=== PATIENT | male | born 1945 | race Caucasian/White ===

== ENCOUNTER 2020-10-29 22:09 | Observation (INO) | payer MEDICARE, SELFPAY ==
[2020-10-29] VITALS (10 sets, daily range): BP systolic 157–176; BP diastolic 71–91; PULSE 84; RESP 18; TEMP 36.6; O2SAT 92–97
--- NOTE | ~2020-10-29 | XR_ITS ---
EXAMINATION: XR lumbar spine 2-3V DATE: 10/29/2020 23:10 INDICATION: Low back pain TECHNIQUE: Anteroposterior and lateral views of the lumbar spine, and cone-down lateral view of the l umbosacral junction were obtained. COMPARISON: None. FINDINGS: There is mild levocurvature of the lumbar spine. No fracture is identified. There is modera te loss of intervertebral disc space height from L2-3 through L4-5. The vertebral body heights and al ignment are maintained. Degenerative osteophytes project from the anterior endplates of multiple vert ebral bodies. There is moderate facet osteoarthritis of the lower lumbar spine. Phleboliths are noted in the pelvis. IMPRESSION: 1. Moderate lumbar spondylosis without acute findings. Reviewed, dictated and finalized at location A.
--- NOTE | ~2020-10-29 | XR_ITS ---
EXAMINATION: XR hip RT 2V w AP pelvis INDICATION: Right hip pain TECHNIQUE: AP view of the pelvis and two views of the right hip are obtained. COMPARISON: None available FINDINGS: Bone alignment is normal. There is no fracture. Phleboliths are noted in the pelvis. There is mild osteoarthritis of the hips. IMPRESSION: 1. Osteoarthritis. Reviewed, dictated and finalized at location A. IMPRESSION: 1. Osteoarthritis.
--- NOTE | 2020-10-29 23:21 | PC.NURSE ---
Report to IZABELLA Hanley, to continue care.
--- NOTE | 2020-10-29 23:32 | ED.BACK ---
HPI - Back Pain/Injury General Chief Complaint: Back Pain/Injury Stated Complaint: BACK PAIN Time Seen by Provider: 10/29/20 22:19 Source: patient Mode of arrival: ambulatory Limitations: no limitations History of Present Illness HPI Narrative: Patient is a 75-year-old male who presents complaining of lower back pain that radiates into the right buttocks and hip. He reports pain x2 months, increasing over the past week. Patient is mostly nonambulatory and in wheelchair. Patient does walk a few steps and transfer from wheelchair to bed. He denies known injury. He denies numbness and tingling in extremity or other complaints. Patient lives in half-way/rehab currently. MD elicited complaint: back pain Related Data Allergies Allergy/AdvReac Type Severity Reaction Status Date / Time No Known Allergies Allergy Verified 10/30/20 00:22 Review of Systems Review of Systems: Narrative: CONSTITUTIONAL: Denies fever, chills, or sweats. EYES: Denies visual changes, redness, or discharge. ENT: Denies rhinorrhea, congestion, sore throat, or otalgia. CARDIOVASCULAR: Denies chest pain, palpitations, or edema. RESPIRATORY: Denies cough or dyspnea. GASTROINTESTINAL: Denies abdominal pain, nausea, vomiting, or diarrhea. GENITOURINARY: Denies dysuria or hematuria. SKIN: Denies rash or itching. MUSCULOSKELETAL: Reports lower back pain that radiates to buttocks and right hip NEUROLOGIC: Denies headache, numbness, dizziness, or weakness. PSYCHIATRIC: Denies anxiety or depression. [facility] Past Medical History Medical History Cellulitis of lower extremity Chronic ulcer of right foot CKD (chronic kidney disease) Constipation COVID-19 Diabetes Generalized anxiety disorder HTN (hypertension) Idiopathic peripheral autonomic neuropathy assisted (current) use of anticoagulants Lymphedema Morbid obesity Osteomyelitis Paroxysmal A-fib Peripheral vascular disease Rhabdomyolysis UTI (urinary tract infection) Surgical History Surgical History Surgical history unknown Family History Family History (Updated 10/30/20 @ 00:06 by GRECIA Courtney) Other Heart disease Social History Social History Smoking status: Never smoker Alcohol intake: never Substance use: never Living arrangements: half-way Gender identity (if verbalized by the patient): Male Comments At the time of signature, I have reviewed and agree with nursing past medical, surgical, social, and family history unless otherwise noted. Please see nursing chart for further information. There is no relevant family history pertinent to the presenting complaint. Exam Narrative: Exam Narrative: GENERAL: Well-appearing, well-nourished, and in no acute distress. HEAD: Normocephalic, atraumatic. EYES: EOMI. No redness or drainage. Conjunctiva are normal. ENT: Mucous membranes pink and moist. CHEST: No respiratory distress. Clear to auscultation. HEART: Regular rate and rhythm. No murmur appreciated. GI: Soft, nontender without rebound, or guarding. No distention. Bowel sounds normal in all quadrants. MUSCULOSKELETAL: Tenderness with patient to the lumbar spine EXTREMITIES: Limited range of motion, moderate edema. SKIN: Dressed wounds to bilateral lower extremities (wound care involved at [facility]) NEURO: No focal deficits. Alert and oriented x3. PSYCH: Normal affect. No signs of depression or anxiety. Course Vital Signs Vital signs: Vital Signs Temperature 36.6 C 10/29/20 22:11 Pulse Rate 84 10/29/20 22:11 Respiratory Rate 18 10/29/20 22:11 Blood Pressure 176/91 H 10/29/20 22:11 Pulse Oximetry 97 10/29/20 22:11 Temperature 36.6 C 10/29/20 22:11 Pulse Rate 84 10/29/20 22:11 Respiratory Rate 18 10/29/20 22:11 Blood Pressure 176/91 H 10/29/20 22:11 Pulse Oxime
[2020-10-30] VITALS (20 sets, daily range): BP systolic 136–158; BP diastolic 65–92; PULSE 66–100; RESP 16–22; TEMP 36.2–37; O2SAT 88–100; BMI 49.3
--- NOTE | 2020-10-30 00:01 | PC.NURSE ---
assumed care for pt. report from Nigel PAREKH
--- NOTE | 2020-10-30 00:28 | PC.NURSE ---
Provided pt. with urinal.
[2020-10-30 03:00] LABS: Basophils Percent Auto 0.5 % (0.2-1.2); Eosinophils Absolute Auto 0.4 K/mm3 (0-0.3); Eosinophils Percent Auto 4.3 % (0-4.4); Hematocrit 34.7 % (42.0-52.0); Hemoglobin 10.6 g/dL (14.0-18.0); Immature Granulocyte Absolute 0.04 K/mm3 (0.00-0.031); Immature Granulocyte Percent A 0.5 % (0-0.5); Lymphocytes Absolute Auto 1.48 K/mm3 (0.9-3.2); Lymphocytes Percent Auto 17.8 % (18.3-44.2); Mean Corpuscular HGB Conc 30.5 g/dl (32-36); Mean Corpuscular Volume 94.8 fl (80-100); Mean Platelet Volume 10.7 fl (7.4-10.4); Monocytes Percent Auto 11.4 % (2.6-8.5); Neutrophils Absolute Auto 5.4 K/mm3 (1.3-6.7); Neutrophils Percent Auto 65.5 % (45.5-73.1); Platelet Count Result 197 k/mm3 (150-375); Red Blood Count 3.66 M/mm3 (4.6-6.20); Red Cell Distribution Width 14.6 % (11.5-14.5); White Blood Count 8.3 K/mm3 (4.5-10.0)
[2020-10-30 03:20] LABS: Alanine Aminotransferase 8 U/L (4-50); Albumin Level 3.3 g/dL (3.5-5.1); Alkaline Phosphatase 70 U/L (38-126); Anion Gap 5 mmol/L (8-16); Aspartate Amino Transferase 17 U/L (17-59); Bilirubin,Total 0.6 mg/dL (0.2-1.3); Blood Urea Nitrogen 30 mg/dL (9-20); Calcium 8.3 mg/dL (8.4-10.2); Carbon Dioxide 25 mmol/L (22-30); Chloride 113 mmol/L (98-107); Estimated Glomerular Filt Rate 33; Glucose 158 mg/dL (75-110); Potassium 4.3 mmol/L (3.4-5.0); Sodium 143 mmol/L (137-145)
--- NOTE | 2020-10-30 03:32 | ADMGEN ---
This patient, Carlos Mustafa, was admitted to Medical Room 252-01. Patient/family oriented to hospital policies and general routines including ID bracelet, bed and alarms, visiting hours, pain management, procedures, bathroom and other care routines, personal items, smoking policy, room service/diet, and visiting hours. Information on how to activate the Rapid Response Team has been discussed. Patient/Family are encouraged to report perceived risks to care and to ask questions if they do not understand what they are told or what they should do.
[2020-10-30 09:55] LABS: Glucose Point of Care 97 (65-105)
[2020-10-30] MEDS: HYDROcodone/acetaminophen (*CRX) 5-325 MG TABLET 1 TAB PO ×2 (10:15→17:41)
[2020-10-30] MEDS: BETAMETHASONE/CLOTRIMAZOLE CR 15 GM TUBE 1 APPLIC TOPICAL (10:19)
[2020-10-30] MEDS: LACTIC ACID 12% LOTION 225 BTL 1 APPLIC TOPICAL (10:19)
[2020-10-30] MEDS: SILVERGEL (ELTA) 45 ML 1 APPLIC TOPICAL (10:19)
[2020-10-30 12:59] LABS: Glucose Point of Care 140 (65-105)
--- NOTE | 2020-10-30 14:50 | PM.IMHP ---
H&P: HPI History of Present Illness Date/Time: 10/30/20 14:50 Patient is a 75-year-old male who presents complaining of lower back pain that radiates into the right buttocks and hip. He reports pain x2 months, increasing over the past week. Patient is mostly nonambulatory and in wheelchair. Patient does walk a few steps and transfer from wheelchair to bed. He denies known injury. He denies numbness and tingling in extremity or other complaints. Patient lives in assisted/rehab currently. Chief Complaint: back pain Review of Systems Constitutional: Constitutional: Denies fatigue and Denies weakness Eyes: Eyes: Denies blurry vision and Denies photophobia ENT: Denies nasal congestion and Denies nasal discharge Cardiovascular: Cardiovascular: Denies diaphoresis and Denies lightheadedness Respiratory: Respiratory: Denies cough, Denies hemoptysis, Denies dyspnea and Denies dyspnea on exertion Gastrointestinal: Gastrointestinal: Denies abdominal pain, Denies constipation, Denies nausea and Denies vomiting Genitourinary: Genitourinary: Denies hematuria, Denies dysuria, Denies flank pain and Denies urinary frequency Musculoskeletal: Musculoskeletal: Reports back pain, Denies myalgias, Denies joint swelling and Denies neck pain Integumentary/Breasts: Skin/Breast: Denies pruritus and Denies rash Neurologic: Denies Abnormal speech present and Denies confusion Psychiatric: Psychiatric: Denies anxiety and Denies confusion [facility] Past Medical History Medical History (Updated 10/30/20 @ 15:01 by Oziel Levine MD) Cellulitis of lower extremity Chronic ulcer of right foot CKD (chronic kidney disease) Constipation COVID-19 Diabetes Generalized anxiety disorder HTN (hypertension) 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 Lymphedema Morbid obesity Osteomyelitis Paroxysmal A-fib Peripheral vascular disease Rhabdomyolysis UTI (urinary tract infection) Surgical History Surgical History Surgical history unknown Family History Family History Other Heart disease Social History Social History Smoking status: Never smoker Alcohol intake: never Substance use: never Living arrangements: assisted Gender identity (if verbalized by the patient): Male Spiritual care concerns: No Meds Home Medications and Allergies Home Medications Medication Instructions Recorded Confirmed Type Adult Aspirin EC Low Strength 81 mg PO DAILY 10/30/20 10/30/20 History alprazolam 0.25 mg PO TID 10/30/20 10/30/20 History diltiazem HCl 90 mg PO TID 10/30/20 10/30/20 History docusate sodium [Colace] 100 mg PO DAILY 10/30/20 10/30/20 History gabapentin 300 mg PO TID 10/30/20 10/30/20 History guaifenesin 600 mg PO BID 10/30/20 10/30/20 History hydrocodone-acetaminophen 1 tablet PO BID 10/30/20 10/30/20 History hydrocodone-acetaminophen [[place]] 1 tablet PO Q6H PRN 10/30/20 10/30/20 History insulin glargine U-300 conc 43 unit SUBCUT HS 10/30/20 10/30/20 History [Toujessicao SoloStar U-300 Insulin] insulin lispro [Humalog KwikPen See Protocol SUBCUT TID 10/30/20 10/30/20 History Insulin] metoprolol succinate 50 mg PO HS 10/30/20 10/30/20 History polyethylene glycol 3350 [Miralax] 17 g PO DAILY PRN 10/30/20 10/30/20 History torsemide 10 mg PO DAILY 10/30/20 10/30/20 History warfarin 6 mg PO DAILY 10/30/20 10/30/20 History Allergies Allergy/AdvReac Type Severity Reaction Status Date / Time No Known Allergies Allergy Verified 10/30/20 00:22 Vital Signs Vital Signs - 24 hr 10/29/20 22:11 10/29/20 22:13 10/29/20 22:15 Temperature 97.9 F Pulse Rate 84 Respiratory Rate 18 Blood Pressure 176/91 H Pulse Oximetry 97 96 97 10/29/20 22:17 10/29/20 22:30 10/29/20 22:32 Temperature Pulse Rate
--- NOTE | 2020-10-30 15:40 | PC.NURSE ---
[employer] called Dr. Nash regarding pt report does not take novolog 13units TID, he only takes toujeo 43 units at bedtime. N.O received start low dose SSI protocol, D/C Novolog, toujeo and start 30units lantus subq every HS. Pt was made aware and agrees with regimen.
[2020-10-30] MEDS: GABAPENTIN 300 MG CAPSULE PO (17:41)
[2020-10-30 17:49] LABS: INR 1.7; Prothrombin Time 20.1 Seconds (11.1-14.7)
--- NOTE | 2020-10-30 18:15 | PC.NURSE ---
[employer] called Dr. Levine pt states only takes 60mg of diltazem TID MD reyes to decrease to 60mg po TID.
[2020-10-30] MEDS: ALPRAZolam (*CRX) 0.25 MG TABLET PO (18:30)
[2020-10-30] MEDS: WARFARIN (*PBKC) 3 MG TABLET 6 MG PO (18:57)
[2020-10-30 19:05] LABS: Glucose Point of Care 147 (65-105)
[2020-10-30] MEDS: guaiFENesin 12 HR 600 MG TABCR PO (21:08)
[2020-10-30] MEDS: METOPROLOL SUCCINATE EXT REL 50 MG TABCR PO (21:08)
[2020-10-30] MEDS: INSULIN GLARGINE (*BKC) 100 UNITS/ML 30 UNITS SUB-Q (21:13)
[2020-10-30] MEDS: CYCLOBENZAPRINE HCL 10 MG TABLET PO (21:30)
[2020-10-30 22:15] LABS: Glucose Point of Care 153 (65-105)
[2020-10-31 04:54] VITALS: BP 146/85; PULSE 81; RESP 18; TEMP 37.1; O2SAT 93
[2020-10-31 06:00] LABS: INR 1.9
[2020-10-31 06:03] LABS: Basophils Percent Auto 0.5 % (0.2-1.2); Eosinophils Absolute Auto 0.3 K/mm3 (0-0.3); Eosinophils Percent Auto 5.2 % (0-4.4); Hematocrit 35.4 % (42.0-52.0); Hemoglobin 10.9 g/dL (14.0-18.0); Immature Granulocyte Absolute 0.02 K/mm3 (0.00-0.031); Immature Granulocyte Percent A 0.3 % (0-0.5); Lymphocytes Percent Auto 18.3 % (18.3-44.2); Mean Corpuscular HGB Conc 30.8 g/dl (32-36); Mean Corpuscular Hemoglobin 29.4 pg (26-34); Mean Corpuscular Volume 95.4 fl (80-100); Mean Platelet Volume 10.9 fl (7.4-10.4); Monocytes Absolute Auto 0.7 K/mm3 (0.1-0.6); Monocytes Percent Auto 11.1 % (2.6-8.5); Neutrophils Absolute Auto 4.2 K/mm3 (1.3-6.7); Neutrophils Percent Auto 64.6 % (45.5-73.1); Platelet Count Result 192 k/mm3 (150-375); Red Blood Count 3.71 M/mm3 (4.6-6.20); Red Cell Distribution Width 14.5 % (11.5-14.5); White Blood Count 6.6 K/mm3 (4.5-10.0)
[2020-10-31] MEDS: dilTIAZem HCL 60 MG TABLET PO ×2 (06:03→14:18)
[2020-10-31 06:11] LABS: Anion Gap 2 mmol/L (8-16); Blood Urea Nitrogen 25 mg/dL (9-20); Calcium 8.3 mg/dL (8.4-10.2); Carbon Dioxide 30 mmol/L (22-30); Chloride 112 mmol/L (98-107); Estimated CRCL calculation 59 ml/min; Estimated Glomerular Filt Rate 46; Glucose 79 mg/dL (75-110); Potassium 4.3 mmol/L (3.4-5.0); Sodium 144 mmol/L (137-145)
[2020-10-31 08:17] LABS: Glucose Point of Care 73 (65-105)
[2020-10-31] MEDS: LIDOCAINE 5% PATCH 1 PATCH TRANSDERM (08:22)
[2020-10-31] MEDS: ASPIRIN 81 MG ENTERIC TABLET PO (08:22)
[2020-10-31] MEDS: guaiFENesin 12 HR 600 MG TABCR PO (08:22)
[2020-10-31] MEDS: ALPRAZolam (*CRX) 0.25 MG TABLET PO ×3 (08:22→16:25)
[2020-10-31] MEDS: DOCUSATE SODIUM 100 MG CAPSULE PO (08:22)
[2020-10-31] MEDS: CYCLOBENZAPRINE HCL 10 MG TABLET PO (08:22)
[2020-10-31] MEDS: TORSEMIDE 10 MG TABLET PO (08:22)
[2020-10-31] MEDS: GABAPENTIN 300 MG CAPSULE PO ×3 (08:22→16:25)
[2020-10-31] MEDS: SILVERGEL (ELTA) 45 ML 1 APPLIC TOPICAL (08:25)
[2020-10-31] MEDS: LACTIC ACID 12% LOTION 225 BTL 1 APPLIC TOPICAL (08:25)
[2020-10-31] MEDS: BETAMETHASONE/CLOTRIMAZOLE CR 15 GM TUBE 1 APPLIC TOPICAL (09:58)
[2020-10-31 12:07] LABS: Glucose Point of Care 110 (65-105)
--- NOTE | 2020-10-31 13:57 | PM.IMPN ---
Progress Note: A&P Assessment and Plan (1) Sciatica: Qualifiers: Laterality: right Qualified Code(s): M54.31 - Sciatica, right side Code(s): M54.30 - Sciatica, unspecified side Status: Acute (2) Lumbar radiculopathy: Code(s): M54.16 - Radiculopathy, lumbar region Status: Acute (3) Chronic ulcer of right foot: Code(s): L97.519 - Non-pressure chronic ulcer of other part of right foot with unspecified severity Status: Inactive (4) CKD (chronic kidney disease): Code(s): N18.9 - Chronic kidney disease, unspecified Status: Inactive (5) Diabetes: Code(s): E11.9 - Type 2 diabetes mellitus without complications Status: Inactive (6) Idiopathic peripheral autonomic neuropathy: Code(s): G90.09 - Other idiopathic peripheral autonomic neuropathy Status: Inactive (7) Generalized anxiety disorder: Code(s): F41.1 - Generalized anxiety disorder Status: Inactive (8) [facility]CI (current) use of anticoagulants: Code(s): Z79.01 - 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 xray negative. will get mri lumbosacral spine to further evaluate. not able to ambulate due to increased pain. add flexeril and lidocaine patch. on chronic norco at home will continue. MRI coulld not be done beacuse of his weight. # Chronic ulcer left foot: wound care # bialteral lower extremtiy stasis dermatitis: wound care. # CKD (chronic kidney disease): unknown baseline cr. currently 2. continue to monitor. # Diabetes type 2: home medications. continue # Generalized anxiety disorder # HTN (hypertension): stable home medications. # Idiopathic peripheral autonomic neuropathy # [facility]CI (current) use of anticoagulants # Lymphedema # Morbid obesity # Paroxysmal A-fib # Peripheral vascular disease # DVT proph: on warfarin. INR 1.9. contnue home warfarin. # Disposition: pain control. PT/OT, likely need placement Subjective Date/time seen: 10/31/20 13:57 no overnight events, he worked with the therapy yeserday. pain is better with flexeril. no nausea, vomiting. Review of Systems Constitutional: Constitutional: Denies fatigue and Denies weakness Eyes: Eyes: Denies blurry vision and Denies photophobia ENT: Denies nasal congestion, Denies nasal discharge and Denies neck pain Cardiovascular: Cardiovascular: Denies diaphoresis, Denies lightheadedness, Denies dyspnea and Denies dyspnea on exertion Respiratory: Respiratory: Denies cough, Denies hemoptysis, Denies dyspnea and Denies dyspnea on exertion Gastrointestinal: Gastrointestinal: Denies abdominal pain, Denies constipation, Denies nausea and Denies vomiting Genitourinary: Genitourinary: Denies hematuria, Denies dysuria, Denies flank pain and Denies urinary frequency Musculoskeletal: Musculoskeletal: Reports back pain, Denies myalgias, Denies joint swelling and Denies neck pain Integumentary/Breasts: Skin/Breast: Denies pruritus and Denies rash Neurologic: Denies Abnormal speech present, Denies confusion and Denies weakness Psychiatric: Psychiatric: Denies anxiety and Denies confusion Endocrine: Endocrine: Denies fatigue Exam Narrative: Exam Narrative: GENERAL: Well-appearing, well-nourished, and in no acute distress. laying in bed HEAD: Normocephalic
[2020-10-31 14:00] VITALS: BP 163/72; PULSE 84; RESP 16; TEMP 36.7; O2SAT 97
[2020-10-31] MEDS: TOLNAFTATE 1% POWDER 45 GM BTL 1 APPLIC TOPICAL (14:34)
--- NOTE | 2020-10-31 14:35 | PM.DS ---
DS: Admitting Diagnosis Admitting Diagnosis Admitting Diagnosis: back pain DS: Discharge Diagnosis Discharge Diagnosis (1) Sciatica: Qualifiers: Laterality: right Qualified Code(s): M54.31 - Sciatica, right side Code(s): M54.30 - Sciatica, unspecified side Status: Acute (2) Lumbar radiculopathy: Code(s): M54.16 - Radiculopathy, lumbar region Status: Acute DS: Summary Hospital Course Hospital Course: # acute on chronic back pain: likely related to lumbar radiculopathy, sciatica. xray negative. will get mri lumbosacral spine to further evaluate. not able to ambulate due to increased pain. add flexeril and lidocaine patch. on chronic norco at home will continue. MRI coulld not be done beacuse of his weight. he imrpoved with conservative treatment. pt/ot evaluated and suggested outpatient therapy. discussed option of home health with him but he refused, also dsicussed snf placement and he refuses. he wants to do outpatient therapy. I have suggested he see his pcp and work on mri if further needed. he might also benefit from pain medicine referral for epidural injectioin like one he had in the past. he is agreeable. # Chronic ulcer left foot: wound care # bialteral lower extremtiy stasis dermatitis: wound care. # CKD (chronic kidney disease): unknown baseline cr. currently 2. continue to monitor. imrpoved down to 1.5 at discahge. # Diabetes type 2: home medications. continue # Generalized anxiety disorder # HTN (hypertension): stable home medications. 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 INR 1.9. contnue home warfarin. # Disposition: pain control. PT/OT, likely need placement Time Spent with Patient Time attestation: Total time spent providing and/or coordinating discharge services:40 mins Exam Narrative: Exam Narrative: GENERAL: Well-appearing, well-nourished, and in no acute distress. laying in bed HEAD: Normocephalic, atraumatic. EYES: EOMI. No redness or drainage. Conjunctiva are normal. ENT: Mucous membranes pink and moist. CHEST: No respiratory distress. Clear to auscultation. HEART: Regular rate and rhythm. No murmur appreciated. GI: Soft, nontender without rebound, or guarding. No distention. Bowel sounds normal in all quadrants. MUSCULOSKELETAL: Tenderness at right lumbar area, striaght leg raise limited with pain EXTREMITIES: Limited range of motion, moderate edema. SKIN: bialtearl lower exterimity with scaling and chronic stasis dermatitis, small ulcer on left lateral heel area without any purulent drainage NEURO: No focal deficits. Alert and oriented x3. PSYCH: Normal affect. No signs of depression or anxiety. DS: Data Data Completed and Pending Labs on day of discharge: Labs from last 24 hours 10/31/20 10/31/20 10/31/20 11:58 08:14 05:14 WBC RBC Hgb Hct MCV MCH MCHC RDW Plt Count MPV Immature Gran % (Auto) Neut % (Auto) Lymph % (Auto) [place] % (Auto) Eos % (Auto) Baso % (Auto) Lymph # (Auto) [place] # (Auto) Eos # (Auto) Baso # (Auto) Abs Immat Gran (auto) Absolute Neuts (auto) Absolute Nucleated RBC Nucleated RBC % PT INR Sodium 144 Potassium 4.3 Chloride 112 H Carbon Dioxide 30 Anion Gap 2 L BUN 25 H Creatinine 1.50 H Estim Creat Clear Calc 59 Estimated GFR 46 L Glucose 79 POC Capillary Glucose 110 73 Calcium 8.3 L 10/31/20 10/31/20 10/30/20 05:14 05:14 21:03 WBC 6.6 RBC 3.71 L Hgb 10.9 L Hct 35.4 L MCV 95.4 MCH 29.4 MCHC 30.8 L RDW 14.5 Plt Count 192 MPV 10.9 H Immature Gran % (Auto) 0.3 Neut % (Auto) 64.6 Lymph % (Auto) 18.3 [place] % (Auto) 11.1 H Eos % (Auto) 5.2 H Baso % (Auto) 0.5 Lymph # (Auto) 1.20 [place] # (Auto)
[2020-10-31] MEDS: WARFARIN (*PBKC) 3 MG TABLET 6 MG PO (16:25)
[2020-10-31] MEDS: HYDROcodone/acetaminophen (*CRX) 5-325 MG TABLET 1 TAB PO (16:25)
[2020-10-31 17:07] LABS: SARS-CoV-2 RNA PCR Negative
[2020-10-31 17:38] LABS: Glucose Point of Care 125 (65-105)
== END 2020-10-31 18:52 ==
LOC: ANHED 10-30 00:54 → ANH2MED 10-30 01:35
PROVIDERS: Admitting Provider Family Medicine; Emergency Provider Nurse Practitioner; PCP Internal Medicine; Visit Provider Internal Medicine
DX: M54.30 Sciatica, unspecified side (principal); M54.16 Radiculopathy, lumbar region; I12.9 Hypertensive chronic kidney disease with stage 1 through stage 4 chronic kidney disease, or unspecified chronic kidney disease; E11.22 Type 2 diabetes mellitus with diabetic chronic kidney disease; N18.9 Chronic kidney disease, unspecified; F41.1 Generalized anxiety disorder; E11.42 Type 2 diabetes mellitus with diabetic polyneuropathy; I48.0 Paroxysmal atrial fibrillation; E11.51 Type 2 diabetes mellitus with diabetic peripheral angiopathy without gangrene; E11.621 Type 2 diabetes mellitus with foot ulcer; L97.519 Non-pressure chronic ulcer of other part of right foot with unspecified severity; I87.2 Venous insufficiency (chronic) (peripheral); I89.0 Lymphedema, not elsewhere classified; E66.01 Morbid (severe) obesity due to excess calories; Z68.42 Body mass index [BMI] 45.0-49.9, adult; Z86.16 Personal history of COVID-19; Z99.3 Dependence on wheelchair; Z79.82 Long term (current) use of aspirin; Z79.891 Long term (current) use of opiate analgesic; Z79.01 Long term (current) use of anticoagulants; Z79.4 Long term (current) use of insulin; Z20.822 Contact with and (suspected) exposure to COVID-19
CPT/HCPCS: 36415; 72100; 73502; 80048; 80053; 85025; 85610; 97110; 97116; 97161; 97165; 97530; 99285; A9270; C9803; G0378; J1815; U0003; U0005

== ENCOUNTER 2021-12-19 13:00 | Outpatient (CLI) | payer MEDICARE, SELFPAY ==
--- NOTE | ~2021-12-19 | XR_ITS ---
XR lumbar spine 2-3V DATE: 12/19/2021 13:32 INDICATION: Low back pain TECHNIQUE: AP, lateral, coned lateral lumbosacral views COMPARISON: lumbar spine FINDINGS: There is osteopenia. There is rotatory moderately levoscoliosis. There is severe degenerative disc disease at L3-4 and moderate degenerative disc disease and prominen t spurring at the remaining interspaces. No fracture or bone destruction or spondylolisthesis is evident. The lumbar pedicles appear intact. The sacroiliac joints appear intact. IMPRESSION: Moderate rotatory levoscoliosis Prominent multilevel degenerative disc disease, most severe at L3-4 Reviewed, dictated and finalized at location A.
== END 2021-12-19 13:01 | disposition home or self-care (01) ==
PROVIDERS: PCP Internal Medicine; Visit Provider Internal Medicine
DX: M53.3 Sacrococcygeal disorders, not elsewhere classified (principal); M41.9 Scoliosis, unspecified; M47.816 Spondylosis without myelopathy or radiculopathy, lumbar region
CPT/HCPCS: 72100

== ENCOUNTER 2021-12-24 11:22 | Outpatient (CLI) | payer MEDICARE, SELFPAY ==
--- NOTE | ~2021-12-24 | XR_ITS ---
EXAMINATION: XR sacrum coccyx min 2V DATE: 12/24/2021 12:18 INDICATION: Coccygeal pain. TECHNIQUE: 3 views of the sacrum and coccyx were obtained. COMPARISON: Lumbar spine radiographs 10/29/2020, 11/19/2021 FINDINGS: There is lumbar levocurvature and severe spondylosis. No fracture. There is mild osteoarthr itis of the sacroiliac joints. IMPRESSION: 1. No fracture. Reviewed, dictated and finalized at location A. IMPRESSION: 1. No fracture.
== END 2021-12-24 11:23 | disposition home or self-care (01) ==
PROVIDERS: PCP Internal Medicine; Visit Provider Internal Medicine
DX: M53.3 Sacrococcygeal disorders, not elsewhere classified (principal)
CPT/HCPCS: 72220

== ENCOUNTER 2022-01-31 13:11 | Emergency (ER) | payer MEDICARE, SELFPAY ==
--- NOTE | ~2022-01-31 | XR_ITS ---
XR foot LT min 3V DATE: 01/31/2022 13:59 INDICATION: Heel wound TECHNIQUE: 3 portable views COMPARISON: None FINDINGS: There is prominent soft tissue swelling, particularly at the dorsum of the foot. Osteopenia. Prominent plantar and posterior calcaneal enthesopathy. Hammertoe deformities of the second through fifth digits. Osteoarthritis at the first metatarsophalangeal joint. IMPRESSION: Soft tissue swelling Osteopenia Plantar and posterior calcaneal enthesopathy Reviewed, dictated and finalized at location A.
--- NOTE | ~2022-01-31 | XR_ITS ---
XR sacrum coccyx min 2V DATE: 01/31/2022 17:53 INDICATION: Sacral pain TECHNIQUE: AP, angled AP and lateral views COMPARISON: 12/24/2021 sacral and coccyx FINDINGS: Osteopenia. Mild osteophytic changes of the sacroiliac joints. No erosive change or ankylosis. No sacral or coccy geal fracture or bone destruction is evident. Degenerative spurring at L4-5 and L5-S1. IMPRESSION: Osteopenia Degenerative change at the lower lumbar spine and sacroiliac joints Reviewed, dictated and finalized at location A.
[2022-01-31 13:16] VITALS: BP 181/94; PULSE 98; RESP 16; TEMP 36.8; O2SAT 97; O2SAT 98
--- NOTE | 2022-01-31 13:50 | ED.WOUNDLAC ---
HPI - Wound/Laceration General Chief Complaint: Wound/Laceration Stated Complaint: open wound, ?infection Time Seen by Provider: 01/31/22 13:19 Source: patient Mode of arrival: EMS Limitations: no limitations History of Present Illness HPI narrative: This is a 76 year old male that presents to the ER for lower extremity wounds. Ongoing for some time now due to chronic venous stasis changes. Reports worsening of a wound on the left heel. He is currently following with wound care at [facility]. He was evaluated by them two days ago. Denies fevers. Related Data Home Medications Medication Instructions Recorded Confirmed Adult Aspirin EC Low Strength 81 mg PO DAILY 10/30/20 06/14/21 alprazolam 0.25 mg tablet 0.25 mg PO TID PRN Anxiety 10/30/20 06/15/21 docusate sodium 100 mg capsule 100 mg PO DAILY 10/30/20 06/15/21 (Colace) gabapentin 300 mg capsule 300 mg PO TID 10/30/20 06/15/21 guaifenesin 600 mg tablet, 600 mg PO BID PRN Cough 10/30/20 06/14/21 extended release 12 hr insulin glargine U-300 conc 300 43 unit subcut HS 10/30/20 06/14/21 unit/mL (1.5 mL) subcutaneous pen (Toujeo SoloStar U-300 Insulin) insulin lispro 100 unit/mL See Protocol subcut TID 10/30/20 06/14/21 subcutaneous pen (Humalog KwikPen (U-100) Insulin) torsemide 10 mg tablet 10 mg PO DAILY 10/30/20 06/14/21 lidocaine 5 % topical patch 1 patch transdermal DAILY PRN Pain 06/14/21 06/14/21 (Lidoderm) metoprolol succinate 25 mg PO DAILY 06/14/21 06/14/21 Allergies Allergy/AdvReac Type Severity Reaction Status Date / Time No Known Allergies Allergy Verified 01/31/22 13:25 Review of Systems Review of Systems: CONSTITUTIONAL: Denies fever SKIN: Reports chronic wounds All systems reviewed & are unremarkable except as noted in HPI and below PMFSH Past Medical History Medical History (Updated 01/31/22 @ 18:59 by Michelle Baltazar PA-C) Cellulitis of lower extremity Chronic ulcer of right foot CKD (chronic kidney disease) Constipation COVID-19 Diabetes Diabetic neuropathy Generalized anxiety disorder HTN (hypertension) Hypertension Idiopathic peripheral autonomic neuropathy 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 HEAD: Normocephalic, atraumatic. EYES: EOMI. CHEST: Clear to auscultation. No respiratory distress. No wheezes rales or rhonchi HEART: Irregularly irregular. No murmur heard. Normal peripheral pulses. EXTREMITIES: Normal range of motion. 1+ pitting edema to the bilateral lower extremities with chronic venous stasis changes. Normal DP pulses. Normal sensation. Superficial ulcerating wound noted to the left heel. There is some surrounding erythema. No abnormal drainage noted SKIN: Warm, dry, no rash. NEURO: No focal deficits. Alert and oriented x3. PSYCH: Normal mood and affect Course Consultations Consultation #1: Spoke with Dr. Cuevas about patient and workup who agrees with continued oral antibiotics and follow up outpatient. Will change to Doxycycline to cover for MRSA. Date: 01/31/22 Vital Signs Vital signs: Vital Signs Temperature 98.3 F 01/31/22 13:16 Pulse Rate 98 01/31/22 13:16 Respiratory Rate 16 01/31/22 13:16 Blood Press
[2022-01-31 13:55] LABS: Basophils Absolute Auto 0.1 K/mm3 (0.0-0.1); Basophils Percent Auto 0.5 % (0.2-1.2); Eosinophils Absolute Auto 0.4 K/mm3 (0-0.3); Eosinophils Percent Auto 3.3 % (0-4.4); Hematocrit 38.8 % (42.0-52.0); Hemoglobin 12.3 g/dL (14.0-18.0); Immature Granulocyte Absolute 0.09 K/mm3 (0.00-0.031); Immature Granulocyte Percent A 0.8 % (0-0.5); Lymphocytes Absolute Auto 1.12 K/mm3 (0.9-3.2); Lymphocytes Percent Auto 10.1 % (18.3-44.2); Mean Corpuscular HGB Conc 31.7 g/dl (32-36); Mean Corpuscular Hemoglobin 28.5 pg (26-34); Mean Platelet Volume 10.3 fl (7.4-10.4); Monocytes Percent Auto 8.9 % (2.6-8.5); Neutrophils Absolute Auto 8.5 K/mm3 (1.3-6.7); Neutrophils Percent Auto 76.4 % (45.5-73.1); Platelet Count Result 274 k/mm3 (150-375); Red Blood Count 4.31 M/mm3 (4.6-6.20); Red Cell Distribution Width 14.6 % (11.5-14.5); White Blood Count 11.1 K/mm3 (4.5-10.0)
[2022-01-31 14:06] LABS: Alanine Aminotransferase 12 U/L (6-50); Albumin Level 3.5 g/dL (3.5-5.1); Alkaline Phosphatase 91 U/L (38-126); Anion Gap 8 mmol/L (8-16); Aspartate Amino Transferase 17 U/L (17-59); Bilirubin,Total 0.6 mg/dL (0.2-1.3); Blood Urea Nitrogen 49 mg/dL (9-20); Calcium 8.4 mg/dL (8.4-10.2); Carbon Dioxide 24 mmol/L (22-30); Chloride 107 mmol/L (98-107); Estimated CRCL calculation 41 ml/min; Estimated Glomerular Filt Rate 29; Glucose 236 mg/dL (65-110); Potassium 4.3 mmol/L (3.4-5.0); Sodium 139 mmol/L (137-145)
[2022-01-31 14:16] VITALS: PULSE 93; RESP 14; O2SAT 99
[2022-01-31 14:30] VITALS: PULSE 93; RESP 17; O2SAT 97
[2022-01-31 14:45] VITALS: O2SAT 93
[2022-01-31 15:06] VITALS: RESP 15; O2SAT 98
[2022-01-31 16:37] LABS: CRP 7.8 mg/dL (<1.0)
[2022-01-31 17:08] VITALS: BP 146/74; PULSE 75; RESP 14; O2SAT 99
[2022-01-31 17:22] LABS: Lactic Acid Reflex 1.9 mmol/L (0.7-2.0)
[2022-01-31 17:25] LABS: Hemoglobin A1C 8.6 % (<5.7)
[2022-01-31 17:50] LABS: Erythrocyte Sedimentation Rate 1 mm/hr (0-20)
[2022-01-31] MEDS: HYDROcodone/acetaminophen (*CRX) 5-325 MG TABLET 1 TAB PO (19:59)
[2022-01-31] MEDS: GABAPENTIN 300 MG CAPSULE PO (19:59)
== END 2022-01-31 19:58 ==
PROVIDERS: Physician Assistant; Emergency Provider Emergency Medicine; PCP Internal Medicine
DX: L97.421 Non-pressure chronic ulcer of left heel and midfoot limited to breakdown of skin (principal); E11.22 Type 2 diabetes mellitus with diabetic chronic kidney disease; I12.9 Hypertensive chronic kidney disease with stage 1 through stage 4 chronic kidney disease, or unspecified chronic kidney disease; N18.9 Chronic kidney disease, unspecified; E11.43 Type 2 diabetes mellitus with diabetic autonomic (poly)neuropathy; E11.51 Type 2 diabetes mellitus with diabetic peripheral angiopathy without gangrene; I73.9 Peripheral vascular disease, unspecified; M86.9 Osteomyelitis, unspecified; I48.0 Paroxysmal atrial fibrillation; I89.0 Lymphedema, not elsewhere classified; E66.01 Morbid (severe) obesity due to excess calories; Z68.43 Body mass index [BMI] 50.0-59.9, adult; Z87.440 Personal history of urinary (tract) infections; Z79.82 Long term (current) use of aspirin; Z79.4 Long term (current) use of insulin; Z87.891 Personal history of nicotine dependence; M85.872 Other specified disorders of bone density and structure, left ankle and foot; M85.88 Other specified disorders of bone density and structure, other site; M77.8 Other enthesopathies, not elsewhere classified
CPT/HCPCS: 36415; 72220; 73630; 80053; 83036; 83605; 85025; 85652; 86140; 87040; 99284; A9270

== ENCOUNTER 2022-03-08 12:07 | Inpatient (IN) | payer MEDICARE, SELFPAY ==
[2022-03-08] VITALS (8 sets, daily range): BP systolic 129–176; BP diastolic 73–90; PULSE 87–130; RESP 18–20; TEMP 36.1–36.8; O2SAT 95–98; BMI 54.1; BMI 50.5
--- NOTE | ~2022-03-08 | BM_ITS ---
EXAMINATION: CCL bone marrow asp w bx diag ORDER COMPLETED DATE: 03/14/2022 10:53 INDICATION: Bone marrow biopsy TECHNIQUE: A time-out was performed to verify the patient's name, date of , and procedure to b e performed. The procedure including the risks and benefits was discussed with the patient. Risks dis cussed included bleeding, infection, nerve injury and allergic reaction. The patient understood the r isks and agreed to proceed. The skin overlying the left posterior iliac spine was prepped and draped in usual sterile fashion. Anesthetic was administered with 1% lidocaine subcutaneously. Moderate con scious sedation was achieved with 100 mcg fentanyl IV. An 11 gauge needle was inserted into the ilium with fluoroscopic guidance. Bone marrow was aspirated. An 8 gauge needle was then inserted into the ilium with fluoroscopic guidance. A core bone marrow biopsy was obtained. The needle was removed and the entry site was cleaned and dressed. There were no immediate complications. A total of 80 fluoros copic images were recorded. Fluoroscopy exposure time was 0.1 minutes. FINDINGS: Real-time fluoroscopy demonstrates the biopsy needle tip overlying the left posterior iliac spine. IMPRESSION: 1. Successful fluoroscopic guided bone marrow aspiration. 2. Successful fluoroscopic guided bone marrow biopsy. Reviewed, dictated and finalized at location A.
--- NOTE | ~2022-03-08 | US_ITS ---
EXAMINATION: US arterial ankle brachial ind DATE: 03/10/2022 12:52 INDICATION: Bilateral lower limb swelling and claudication. TECHNIQUE: Segmental pressures and plethysmographic and Doppler waveforms of the brachial and lower e xtremity arteries were obtained. COMPARISON: None. FINDINGS: Right and left brachial artery pressures of 153 mm Hg and 155 mm Hg, respectively, are concordant (no rmal difference <= 30 mmHg). The right ankle-brachial index (FERNANDO) is 1.10 (normal >= 0.9-1.0). Arterial Doppler waveforms are biph asic with brisk systolic upstrokes at both right posterior tibial and dorsalis pedis arteries. The left FERNANDO is 1.27. Arterial Doppler waveforms are biphasic with brisk systolic upstrokes at the le ft dorsalis pedis arteries. There is insufficient amplitude of the provided waveform at the left post erior tibial artery for assessment. IMPRESSION: 1. No significant arterial occlusive disease with normal bilateral ABIs. Reviewed, dictated and finalized at location A.
--- NOTE | ~2022-03-08 | CT_ITS ---
EXAMINATION: CT foot LT wo con DATE: 03/12/2022 13:15 INDICATION: Left heel pressure ulcer. Assess for osteomyelitis. TECHNIQUE: High resolution computed tomography (CT) of the left ankle was performed without intraveno us contrast. Additional sagittal and coronal reconstructions were performed. Automated exposure contr ol and iterative reconstruction technique were employed. The dose-length product was 637.72 mGy-cm. COMPARISON: Radiographs dated 01/31/22 FINDINGS: Bone alignment is normal. No fracture. Prominent diffuse spotty osteopenia throughout the left foot, ankle and visualized lower leg. No fracture. Polyarticular osteoarthritis, moderate severity at the f irst metacarpophalangeal, mild to moderate at the first-third tarsal metatarsal joints and mild at th e left ankle and remaining joints in the left foot. No ankle joint effusion. Prominent skin thickenin g and subcutaneous edema centered about the left ankle both medially and laterally and extending dist ally along dorsum of the foot. No soft tissue gas, discrete abscess or cortical erosions suspicious f or osteomyelitis. Severe fatty atrophy of the musculature in the left foot. Large Achilles calcaneal and plantar calcaneal spurs. There is partial thickness tear of the distal Achilles tendon with heter otopic ossification at the proximal tear margin is located approximately 7 cm proximal to the calcane al insertion which likely represents the distal margin of the tear. IMPRESSION: 1. No cortical erosions to suggest osteomyelitis. 2. Prominent diffuse spotty osteopenia, likely osteoporosis. 3. Mild to moderate polyarticular osteoarthritis throughout the left foot and ankle. 4. Chronic partial tear of the distal Achilles tendon. Reviewed, dictated and finalized at location A. IMPRESSION: 1. No cortical erosions to suggest osteomyelitis. 2. Prominent diffuse spotty osteopenia, likely osteoporosis. 3. Mild to moderate polyarticular osteoarthritis throughout the left foot and a nkle. 4. Chronic partial tear of the distal Achilles tendon.
--- NOTE | ~2022-03-08 | XR_ITS ---
EXAMINATION: XR femur RT min 2V DATE: 03/13/2022 15:04 INDICATION: Lytic lesions of the femur. TECHNIQUE: 2 views of right femur on 4 radiographs were obtained. COMPARISON: None. FINDINGS: Bone alignment is normal. No fracture. There is mild osteoarthritis of right hip and right knee. There is a small knee joint effusion. Masses overlying the soft tissues in the posterior knee m ay be on the skin or dystrophic soft tissue calcifications. IMPRESSION: 1. Polyarticular osteoarthritis. 2. Small right knee joint effusion. Reviewed, dictated and finalized at location A.
--- NOTE | ~2022-03-08 | XR_ITS ---
EXAMINATION: XR femur LT min 2V DATE: 03/13/2022 15:04 INDICATION: Lytic lesions of femur. TECHNIQUE: 2 views of left femur on 4 radiographs were obtained. COMPARISON: CT abdomen and pelvis 03/08/2022 FINDINGS: Bone alignment is normal. No fracture. There is diffuse osteopenia. There is mild left hip osteoarthritis and severe left knee osteoarthritis. IMPRESSION: 1. Osteopenia. 2. Particular osteoarthritis. Reviewed, dictated and finalized at location A.
--- NOTE | ~2022-03-08 | XR_ITS ---
EXAMINATION: XR chest 1V portable DATE: 03/10/2022 17:24 INDICATION: Congestive heart failure. TECHNIQUE: A single frontal view of the chest was obtained. COMPARISON: Chest single view 03/08/2022, CT abdomen and pelvis 01/06/2022 FINDINGS: The chest demonstrates clear lungs without pneumonia, pleural effusion, or pneumothorax. Th e heart size is normal. IMPRESSION: 1. No acute cardiopulmonary disease. Reviewed, dictated and finalized at location A.
--- NOTE | ~2022-03-08 | CT_ITS ---
EXAMINATION: CT abdomen pelvis wo con DATE: 03/08/2022 15:49 INDICATION: Burning with urination. TECHNIQUE: Computed tomography (CT) of the abdomen and pelvis was performed without intravenous contr ast. The dose-length product was 1682.17 mGy-cm. Automated exposure control and iterative reconstruct ion technique were employed. COMPARISON: No prior studies for comparison. FINDINGS: There is dependent atelectasis. Cardiomegaly. There is atherosclerosis of the aorta and cor onary arteries. No evidence for aneurysm. There are gallstones. The liver, spleen, pancreas, adrenal glands and right kidney are unremarkable. There is a punctate nonobstructing left renal stone. Bladder is unremarkable. No abnormal pelvic mass es or fluid collections. No evidence for ureteral stone or hydronephrosis. Severe lumbar spondylosis. There are lytic defects in the femurs proximally bilaterally with cortical destruction along the pos terior aspect of the femoral heads and femoral necks. Findings suspicious for metastatic disease or m yeloma. IMPRESSION: 1. Punctate nonobstructing left nephrolithiasis. 2: Lytic defects in the femurs proximally bilaterally with cortical destruction along the posterior a spect of the femoral heads and femoral necks. Findings suspicious for metastatic disease or myeloma. Correlate for history of malignancy. Reviewed, dictated and finalized at location A. IMPRESSION: 1. Punctate nonobstructing left nephrolithiasis. 2: Lytic defects in the femurs proximally bilaterally with cortical destruction along the posterior aspect of the femoral heads and femoral necks. Findings cortes spicious for metastatic disease or myeloma. Correlate for history of malignancy .
--- NOTE | ~2022-03-08 | XR_ITS ---
EXAMINATION: XR chest 1V portable INDICATION: Congestive heart failure TECHNIQUE: Portable AP chest at 1303 hours COMPARISON: None available FINDINGS: Cardiomegaly is noted. There is a mild diffuse interstitial pattern. Bilateral perihilar op acities are noted. A small left pleural effusion is suggested. There is no pneumothorax. IMPRESSION: 1. Cardiomegaly with mild pulmonary edema. 2. Possible small left pleural effusion. Reviewed, dictated and finalized at location A.
--- NOTE | ~2022-03-08 | NM_ITS ---
EXAMINATION: NM bone scan whole body DATE: 03/10/2022 15:11 INDICATION: Lytic lesions of bone involving the proximal femora. TECHNIQUE: 21.8 mCi Tc-99m HDP was administered intravenously. Delayed whole-body scintigrams were o btained. COMPARISON: CT abdomen and pelvis 03/08/2022 FINDINGS: There is joint-centered increased activity in the sternoclavicular joints, acromioclavicula r joints, knees, and feet without radiographic comparison, likely osteoarthritis. There is increased activity at the sacroiliac joints correlating with osteoarthritis by CT. IMPRESSION: 1. No specific evidence of malignancy. Note that bone scan has poor sensitivity for osseous malignanc y presenting as lytic lesions. Reviewed, dictated and finalized at location A. IMPRESSION: 1. No specific evidence of malignancy. Note that bone scan has poor sensitivity for osseous malignancy presenting as lytic lesions.
--- NOTE | ~2022-03-08 | XR_ITS ---
EXAMINATION: XR pelvis 1-2V DATE: 03/13/2022 15:04 INDICATION: Low back pain. Lytic lesions in the femur. TECHNIQUE: An anteroposterior view of the pelvis was obtained. COMPARISON: CT abdomen and pelvis 03/08/2022 FINDINGS: Sensitivity is decreased by obesity. There is lumbar levocurvature and moderate spondylosis . No fracture. There is moderate right hip osteoarthritis and mild left hip osteoarthritis. IMPRESSION: 1. Polyarticular osteoarthritis. Reviewed, dictated and finalized at location A.
--- NOTE | ~2022-03-08 | US_ITS ---
EXAMINATION:US venous doppler LE BI INDICATION:Leg edema TECHNIQUE: Multiple grayscale, color flow and Doppler images of the right and left lower extremity de ep venous systems were obtained and reviewed. COMPARISON:No prior studies for comparison. FINDINGS: The common femoral, superficial femoral and popliteal veins demonstrate normal respiratory variation, augmentation and compressibility. Color flow is also seen within the posterior tibial, pe roneal, greater saphenous and profunda veins. IMPRESSION: 1: No lower extremity deep venous thrombosis. Reviewed, dictated and finalized at location B.
--- NOTE | 2022-03-08 12:21 | ED.MALEGU ---
HPI - Male Genitourinary General Chief complaint: Urogenital-Male Stated complaint: genital pain and scrotal swelling Time Seen by Provider: 03/08/22 12:18 Source: patient, EMS and RN notes reviewed Mode of arrival: EMS History of Present Illness HPI Narrative: 76 years old white female came from assisted living by ambulance complaining of burning urination and the swollen testicles and lower extremities. This started few days ago. Patient denies any fever, chills, nausea, vomiting, abdominal pain, chest pain or shortness of breath. History of chronic venous insufficiency with lower extremity edema, lymphedema, coronary artery disease, atrial fibrillation, CKD, insulin-dependent diabetes and diabetic neuropathy. Currently patient on torsemide 20 mg once a day. Patient less showing 10 mg once daily. But patient is telling me that his dose increased 2 months ago to 20 mg once a day Related Data Home Medications Medication Instructions Recorded Confirmed Adult Aspirin EC Low Strength 81 mg PO DAILY 10/30/20 06/14/21 alprazolam 0.25 mg tablet 0.25 mg PO TID PRN Anxiety 10/30/20 06/15/21 docusate sodium 100 mg capsule 100 mg PO DAILY 10/30/20 06/15/21 (Colace) gabapentin 300 mg capsule 300 mg PO TID 10/30/20 06/15/21 guaifenesin 600 mg tablet, 600 mg PO BID PRN Cough 10/30/20 06/14/21 extended release 12 hr insulin glargine U-300 conc 300 43 unit subcut HS 10/30/20 06/14/21 unit/mL (1.5 mL) subcutaneous pen (Toujeo SoloStar U-300 Insulin) insulin lispro 100 unit/mL See Protocol subcut TID 10/30/20 06/14/21 subcutaneous pen (Humalog KwikPen (U-100) Insulin) torsemide 10 mg tablet 10 mg PO DAILY 10/30/20 06/14/21 lidocaine 5 % topical patch 1 patch transdermal DAILY PRN Pain 06/14/21 06/14/21 (Lidoderm) metoprolol succinate 25 mg PO DAILY 06/14/21 06/14/21 Allergies Allergy/AdvReac Type Severity Reaction Status Date / Time No Known Allergies Allergy Verified 03/08/22 13:09 Review of Systems Review of Systems: All systems reviewed & are unremarkable except as noted in HPI and below PMFSH Past Medical History Medical History Cellulitis of lower extremity Chronic ulcer of right foot CKD (chronic kidney disease) Constipation COVID-19 Diabetes Diabetic neuropathy Generalized anxiety disorder HTN (hypertension) Hypertension Idiopathic peripheral autonomic neuropathy 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 dependent 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 Patient have chronic lower extremity edema, wrapped with Alejandro wrap bilaterally. Head: Normocephalic, nontraumatic Eyes: Clear conjunctiva ENT: Oropharynx normal, ears normal, nose normal Neck: Supple, nontender Chest and respiratory: Airway patent, no respiratory distress, no accessory muscle use Heart: Irregular irregularity Abdomen: Soft, nontender, no organomegaly, quiet bowel sounds Vascular: Normal peripheral pulses, normal capillary refill. Musculoskeletal: Normal range of motion, nontender back Neurologic: Alert and oriented ?3, SOCIAL MEDIA EXECUTIVE is normal as tested, no gross motor deficit
--- NOTE | 2022-03-08 12:32 | ECG_ITS ---
Measurements Intervals [place] Rate: 78 P: CO: 0 QRS: -3 QRSD: 104 T: 5 QT: 364 QTc: 416 Interpretive Statements ATRIAL FIBRILLATION LOW QRS VOLTAGE IN PRECORDIAL LEADS ANTEROSEPTAL MYOCARDIAL INFARCTION, PROBABLY OLD ABNORMAL ECG NO PREVIOUS ECG AVAILABLE FOR COMPARISON Electronically Signed On 03-08-2022 13:34:47 CDT by Ronal Stephenson M.D.
[2022-03-08 12:46] LABS: Basophils Percent Auto 0.3 % (0.2-1.2); Eosinophils Absolute Auto 0.3 K/mm3 (0-0.3); Eosinophils Percent Auto 3.3 % (0-4.4); Hematocrit 39.7 % (42.0-52.0); Hemoglobin 11.9 g/dL (14.0-18.0); Immature Granulocyte Absolute 0.06 K/mm3 (0.00-0.031); Immature Granulocyte Percent A 0.6 % (0-0.5); Lymphocytes Absolute Auto 0.96 K/mm3 (0.9-3.2); Lymphocytes Percent Auto 9.3 % (18.3-44.2); Mean Corpuscular Hemoglobin 28.2 pg (26-34); Mean Corpuscular Volume 94.1 fl (80-100); Mean Platelet Volume 10.4 fl (7.4-10.4); Monocytes Absolute Auto 0.9 K/mm3 (0.1-0.6); Monocytes Percent Auto 9.1 % (2.6-8.5); Neutrophils Percent Auto 77.4 % (45.5-73.1); Platelet Count Result 212 k/mm3 (150-375); Red Blood Count 4.22 M/mm3 (4.6-6.20); Red Cell Distribution Width 15.8 % (11.5-14.5); White Blood Count 10.3 K/mm3 (4.5-10.0)
[2022-03-08 12:57] LABS: INR 1.6; Prothrombin Time 18.9 Seconds (11.1-14.7)
[2022-03-08 12:58] LABS: Alanine Aminotransferase 13 U/L (6-50); Albumin Level 3.3 g/dL (3.5-5.1); Alkaline Phosphatase 101 U/L (38-126); Anion Gap 8 mmol/L (8-16); Aspartate Amino Transferase 20 U/L (17-59); Bilirubin,Total 0.6 mg/dL (0.2-1.3); Blood Urea Nitrogen 31 mg/dL (9-20); Calcium 8.3 mg/dL (8.4-10.2); Carbon Dioxide 28 mmol/L (22-30); Chloride 105 mmol/L (98-107); Estimated CRCL calculation 52 ml/min; Estimated Glomerular Filt Rate 37; Glucose 217 mg/dL (65-110); Potassium 3.9 mmol/L (3.4-5.0); Sodium 141 mmol/L (137-145)
[2022-03-08 13:06] LABS: NT Pro B Type Natriuretic Pept 2880 pg/mL (5-100)
[2022-03-08 13:26] LABS: Appearance Urine Clear (Clear); Bilirubin Urine Negative (Negative); Color Urine Yellow (Yellow); Glucose Urine UA Negative (Negative); Ketones Urine Negative (Negative); Leukocyte Esterase Ur Trace LEU/UL (Negative); Nitrate Urine Negative (Negative); Protein Urine 2+ mg/dL (Negative); Urobilinogen Urine 0.2 mg/dL (<2.0); pH Urine 5.5 (5.0-9.0)
[2022-03-08 13:38] LABS: Add Urine Microscopic? YES; Blood Urine Trace-Intact (Negative)
[2022-03-08] MEDS: FUROSEMIDE INJ 100 MG/10 ML VIAL 60 MG IV PUSH (14:37)
--- NOTE | 2022-03-08 17:25 | PM.IMHP ---
H&P: HPI History of Present Illness Date/Time: 03/08/22 17:25 Chief Complaint: Increasing edema. Narrative: This is a pleasant 76-year-old male with insulin-dependent diabetes, chronic kidney disease, hypertension, lymphedema, paroxysmal atrial fibrillation on long-term anticoagulation, and other comorbidities who presented to the emergency department via EMS from [facility] for evaluation of increasing edema. He has lymphedema and is followed by a special is affiliated with [facility]. Over the last several days he has noticed that the swelling has gotten worse and is now into his scrotum and causes him quite a bit of discomfort. His urine output has been normal but he does have some mild burning with urination. He is on torsemide and had his dose increased within the last month or so however it has not been helpful. He also complains of ongoing lower back pain that has been present for several months. It seems to be worse when in a seated position and he reports occasional sharp shooting pain into the hips, mainly on the right side. He has had radiographs showing degenerative changes of the lower lumbar spine and sacroiliac joints. He is now to the point where he is not really able to even get up out of bed due to pain and swelling. A CT of the abdomen and pelvis today showed lytic defects in the femurs proximally bilaterally with cortical destruction along the posterior aspect of the femoral heads and femoral necks suspicious for metastatic disease or myeloma. He has no known history of malignancy and states that he has never had an abnormal PSA. His brother at age 70 with colon cancer though the patient has refused colonoscopies in the past. At this time he has no complaints aside from those listed above. He denies headache, confusion, weight loss, abdominal pain, nausea, vomiting, constipation, chest pain, pleuritic pain, palpitations, and hematuria. Review of Systems Review of Systems: Twelve systems were reviewed. No sinus congestion or sore throat. No sick contacts. No fever, chills, or sweats. He follows at the wound clinic affiliated with [facility] for lymphedema and chronic left heel wound. Except as documented, all other systems were reviewed and are negative. 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 Code status: Full code. Smoking status: Former smoker Tobacco type: cigarettes Alcohol intake: never Substance use: never Substance use type: does not use Additional living arrangements comments: Assisted living at [facility]. 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 Spiritual care concerns: No Meds Home Medications and Allergies Home Medications Medication Instructions Recorded Confirmed Type alprazolam 0.25 mg tablet 0.25 mg PO TID PRN Anxiety 10/30/20 03/08/22 History docusate sodium 100 mg capsule 100 mg PO DAILY 10/30/20 03/08/22 History (Colace) gabapentin 300 mg capsule 300 mg PO TID 10/30/20 03/08/22 History guaifenesin 600 mg tablet, 600 mg PO BID PRN Cough 10/30/20 03/08/22 History extended release 12 hr insulin glargine U-30
--- NOTE | 2022-03-08 18:05 | PC.NURSE ---
This patient, Carlos Mustafa, was admitted to Medical Room 348-01. Patient/family oriented to hospital policies and general routines including ID bracelet, bed and alarms, visiting hours, pain management, procedures, bathroom and other care routines, personal items, smoking policy, room service/diet, and visiting hours. Information on how to activate the Rapid Response Team has been discussed. Patient/Family are encouraged to report perceived risks to care and to ask questions if they do not understand what they are told or what they should do.
--- NOTE | 2022-03-08 18:44 | PC.NURSE ---
Patient states home health changes bilateral leg dressings Thursday, Thursday, and Thursday. Patient states his dressings were just changed on Thursday so they are good until Thursday. Patient does not want expert medical writer to remove the dressings at this time. Images will be taken on Thursday when wound care can see him and put in orders for dressings changes.
--- NOTE | 2022-03-08 19:34 | PC.NURSE ---
Upon assessment bleeding noted and open area to L posterior upper calf. Pressure and ABD pad applied. Bleeding controlled.
[2022-03-08] MEDS: FAMOTIDINE 20 MG/2 ML VIAL IV PUSH (20:15)
[2022-03-08] MEDS: MORPHINE SULFATE (*CRX) 2 MG/ML INJ IV PUSH (20:59)
[2022-03-08 23:28] LABS: Glucose Point of Care 217 mg/dl (65-105)
[2022-03-08] MEDS: HYDROcodone/acetaminophen (*CRX) 5-325 MG TABLET 1 TAB PO (23:32)
[2022-03-08] MEDS: dilTIAZem HCL 60 MG TABLET PO (23:33)
[2022-03-08] MEDS: GABAPENTIN 300 MG CAPSULE PO (23:33)
[2022-03-08] MEDS: FUROSEMIDE INJ 40 MG/4 ML VIAL IV PUSH (23:34)
[2022-03-08] MEDS: WARFARIN (*PBKC) 5 MG TABLET PO (23:34)
[2022-03-08] MEDS: INSULIN GLARGINE (*BKC) 100 UNITS/ML 43 UNITS SUB-Q (23:34)
[2022-03-09] VITALS (11 sets, daily range): BP systolic 129–139; BP diastolic 53–63; PULSE 84–118; RESP 18; TEMP 36.1–36.9; O2SAT 90–95
[2022-03-09 06:30] LABS: Basophils Percent Auto 0.3 % (0.2-1.2); Eosinophils Absolute Auto 0.1 K/mm3 (0-0.3); Eosinophils Percent Auto 0.4 % (0-4.4); Hematocrit 34.8 % (42.0-52.0); Hemoglobin 10.4 g/dL (14.0-18.0); Immature Granulocyte Absolute 0.07 K/mm3 (0.00-0.031); Immature Granulocyte Percent A 0.6 % (0-0.5); Lymphocytes Absolute Auto 1.17 K/mm3 (0.9-3.2); Lymphocytes Percent Auto 10.5 % (18.3-44.2); Mean Corpuscular HGB Conc 29.9 g/dl (32-36); Mean Corpuscular Hemoglobin 28.3 pg (26-34); Mean Corpuscular Volume 94.6 fl (80-100); Mean Platelet Volume 10.8 fl (7.4-10.4); Monocytes Percent Auto 9.1 % (2.6-8.5); Neutrophils Absolute Auto 8.8 K/mm3 (1.3-6.7); Neutrophils Percent Auto 79.1 % (45.5-73.1); Platelet Count Result 214 k/mm3 (150-375); Red Blood Count 3.68 M/mm3 (4.6-6.20); Red Cell Distribution Width 15.6 % (11.5-14.5); White Blood Count 11.2 K/mm3 (4.5-10.0)
[2022-03-09 06:31] LABS: Anion Gap 5 mmol/L (8-16); Blood Urea Nitrogen 27 mg/dL (9-20); Calcium 7.8 mg/dL (8.4-10.2); Carbon Dioxide 30 mmol/L (22-30); Chloride 107 mmol/L (98-107); Estimated CRCL calculation 50 ml/min; Estimated Glomerular Filt Rate 37; Glucose 148 mg/dL (65-110); Potassium 3.8 mmol/L (3.4-5.0); Sodium 142 mmol/L (137-145)
[2022-03-09 06:36] LABS: Hemoglobin A1C 8.8 % (<5.7); INR 1.7
[2022-03-09] MEDS: dilTIAZem HCL 60 MG TABLET PO ×3 (06:39→21:06)
[2022-03-09 06:40] LABS: Magnesium 1.9 mg/dL (1.6-2.3)
[2022-03-09 07:03] LABS: Prostate Specific Antigen 0.3 ng/mL (< OR = 4.0)
[2022-03-09 07:40] LABS: Glucose Point of Care 113 mg/dl (65-105)
--- NOTE | 2022-03-09 08:25 | PM.IMPN ---
Progress Note: A&P Assessment and Plan (1) Lymphedema: Code(s): I89.0 - Lymphedema, not elsewhere classified Status: Acute Assessment and Plan: continue compression wraps and stockings Obtain venous Doppler and FERNANDO - patient has a chronic wound to lower extremity (2) Scrotal edema: Code(s): N50.89 - Other specified disorders of the male genital organs Status: Acute Assessment and Plan: obtain a scrotal ultrasound (3) Back pain: Code(s): M54.9 - Dorsalgia, unspecified Status: Acute Assessment and Plan: chronic back pain, patient was referred to a apprentice painter hand although he never went to the appointment. Patient mentions he likes coming to the hospital for morphine injections as he gets this here and not at the assisted living facility. Will decrease dosage and wean patient from morphine injections. He does not appear to be in acute pain (4) Paroxysmal atrial fibrillation: Code(s): I48.0 - Paroxysmal atrial fibrillation Status: Acute Assessment and Plan: continue home medications, rate controlled Asymptomatic (5) Insulin dependent type 2 diabetes mellitus: Code(s): E11.9 - Type 2 diabetes mellitus without complications; Z79.4 - senior living (current) use of insulin Status: Acute Assessment and Plan: Insulin Lispro sliding scale, Accu-checks qAc and HS and Hold oral hypoglycemics HgbA1c 8.8 % (6) Hypertension: Code(s): I10 - Essential (primary) hypertension Status: Acute Assessment and Plan: resume home medications (7) Chronic kidney disease: Code(s): N18.9 - Chronic kidney disease, unspecified Status: Acute Assessment and Plan: stable (8) Chronic anemia: Code(s): D64.9 - Anemia, unspecified Status: Acute Assessment and Plan: stable (9) Generalized weakness: Code(s): R53.1 - Weakness Status: Acute Assessment and Plan: PT/OT eval and treat patient would benefit for rehab placement before for returning to assisted living facility. However, patient is unable to perform simple tasks and ADLs independently at this point. Patient was unwilling to use the bedside urinal or attempt to get up to the bedside commode to have a bowel movement. Patient refused to nursing staff to use a bedpan and would rather have a bowel movement in the bed and wait to be cleaned up. Subjective Date/time seen: 03/09/22 08:25 patient is alert and oriented x4. He lacks motivation for his care. Patient reportedly was able to walk 200 ft [facility] approximately 1 year ago and when he returned to the assisted living facility he reports sitting in the chair and not ambulating most days and only able to ambulate 30 ft at that time. Patient is significantly enlarged scrotum, will obtain a scrotal ultrasound. Patient was unable to have a venous Doppler and FERNANDO I performed due to lower extremity wounds. Wound care will be by on 03/10/2022 and at that time a venous Doppler and arterial will be performed. Patient has a new med bone scan to be performed on 03/10/2022 due to lytic lesions found on the CT. no previous history of cancer. Patient has not had a colonoscopy, PSA WNL. He does have a family history of colon cancer. Pending results patient may need further specialty services. Patient remains on furosemide 40 mg b.i.d. with fair output. Review of Systems Review of Systems: All systems reviewed & are unremarkable except as noted in HPI and below Exam Narrative: General: Chronically ill-appearing gentleman sitting up in bed. Morbidly obese Weight: 159.9 kg. BMI: 50.6. HEENT: Wearing glasses. PERRL, EOMI. Conjunctivae anicteric. Tacky mucous membranes. Oropharynx is crowded. Neck: Exam is limited due to neck circumference. Respiratory: Respirations are nonlabored. Lung sounds are diminished, likely due to body habitus. Cardiovascular: Irregularly irr
[2022-03-09] MEDS: ASPIRIN 81 MG ENTERIC TABLET PO (08:52)
[2022-03-09] MEDS: DOCUSATE SODIUM 100 MG CAPSULE PO (08:53)
[2022-03-09] MEDS: FUROSEMIDE INJ 40 MG/4 ML VIAL IV PUSH ×2 (08:53→16:45)
[2022-03-09] MEDS: FAMOTIDINE 20 MG/2 ML VIAL IV PUSH ×2 (08:53→21:07)
[2022-03-09] MEDS: METOPROLOL SUCCINATE EXT REL 25 MG TABCR PO (08:53)
[2022-03-09] MEDS: GABAPENTIN 300 MG CAPSULE PO ×3 (08:54→16:45)
[2022-03-09] MEDS: HYDROcodone/acetaminophen (*CRX) 5-325 MG TABLET 1 TAB PO ×3 (09:05→23:55)
[2022-03-09 13:10] LABS: Glucose Point of Care 104 mg/dl (65-105)
--- NOTE | 2022-03-09 14:25 | PC.NURSE ---
Supply Chain Tech and patient pulmonary care nurse helped physical therapist and occupational therapist get patient onto munir steady plus. Patient not compliant. Patient unmotivated. Patient refusing to get up. Patient refused bed macario. Patient then corrected himself and said he would attempt to use a bed macario. Patient did not want to roll onto bed macario. Patient then states I will roll on my side and go and then you guys can clean me up and change my sheets.
[2022-03-09 16:44] LABS: Glucose Point of Care 137 mg/dl (65-105)
[2022-03-09 20:38] LABS: Glucose Point of Care 160 mg/dl (65-105)
[2022-03-09] MEDS: MORPHINE SULFATE (*CRX) 2 MG/ML INJ IV PUSH (21:07)
[2022-03-09] MEDS: INSULIN GLARGINE (*BKC) 100 UNITS/ML 43 UNITS SUB-Q (21:07)
[2022-03-10] VITALS (10 sets, daily range): BP systolic 135–158; BP diastolic 60–89; PULSE 90–102; RESP 16–20; TEMP 36.7–36.9; O2SAT 92–97
[2022-03-10] MEDS: dilTIAZem HCL 60 MG TABLET PO ×3 (05:08→21:29)
[2022-03-10 05:18] LABS: Glucose Point of Care 75 mg/dl (65-105)
[2022-03-10 05:49] LABS: INR 1.6; Prothrombin Time 18.2 Seconds (11.1-14.7)
[2022-03-10] MEDS: HYDROcodone/acetaminophen (*CRX) 5-325 MG TABLET 1 TAB PO ×3 (05:55→22:28)
[2022-03-10 07:52] LABS: Glucose Point of Care 88 mg/dl (65-105)
[2022-03-10] MEDS: FAMOTIDINE 20 MG/2 ML VIAL IV PUSH ×2 (09:24→21:29)
[2022-03-10] MEDS: ASPIRIN 81 MG ENTERIC TABLET PO (09:24)
[2022-03-10] MEDS: DOCUSATE SODIUM 100 MG CAPSULE PO (09:24)
[2022-03-10] MEDS: METOPROLOL SUCCINATE EXT REL 25 MG TABCR PO (09:25)
[2022-03-10] MEDS: FUROSEMIDE INJ 40 MG/4 ML VIAL IV PUSH ×2 (09:25→16:37)
[2022-03-10] MEDS: GABAPENTIN 300 MG CAPSULE PO ×3 (09:25→16:37)
[2022-03-10] MEDS: PERFLUTREN LIPID MICROSPHERES 1.5 ML VIAL DILUTED TO 10 ML TOTAL VOLUME IV PUSH (10:39)
--- NOTE | 2022-03-10 10:39 | IVDEFINITY ---
Prior to administration of IV Definity the patient was educated on the risks and benefits of the imaging enhancing agent including potential adverse side effects. The patient verbalized understanding. Allergies were verified. No exclusion criteria were identified and at least one of the following inclusion criteria were met: 1) physician request, 2) patient technically difficult to image (per the [place] [employer] guidelines of two or more segments not discernable within the apical view), or 3) questionable left ventricular function. ?
--- NOTE | 2022-03-10 12:22 | P.PNIM_ITS ---
Progress Note: A&P Assessment and Plan (1) Lymphedema: Code(s): I89.0 - Lymphedema, not elsewhere classified Status: Acute Assessment and Plan: * Continue compression wraps and stockings * Elevate BLE and scrotum * Continue diuretics IV BID * venous Doppler and FERNANDO - negative * Consult Wound Care. (2) Scrotal edema: Code(s): N50.89 - Other specified disorders of the male genital organs Status: Acute Assessment and Plan: Presumed secondary to worsening LE edema. * Continue diuretics. (3) Back pain: Code(s): M54.9 - Dorsalgia, unspecified Status: Acute Assessment and Plan: H/O chronic back pain, patient was referred to a paint mixer machine but never went to the appointment. Patient reportedly mentions he likes coming to the hospital for morphine injections, as he gets this here and not at the assisted living facility. * Decrease dosage and wean patient from morphine injections. * Continue gabapending 300 mg TID * PRN [place] Q6 hours. * CT abd/pelvis - concerning lytic lesions b/l femurs. Bone scan inconclusive. Check MRI pelvis and b/l hips. (4) Paroxysmal atrial fibrillation: Code(s): I48.0 - Paroxysmal atrial fibrillation Status: Acute Assessment and Plan: Continue diltiazem 60 mg Q8 hours and metoprolol XL 25 mg PO daily, rate controlled Subtherapeutic INR 1.6. Increase warfarin 3 mg daily and monitor PT/INR. (5) Insulin dependent type 2 diabetes mellitus: Code(s): E11.9 - Type 2 diabetes mellitus without complications; Z79.4 - [facility] (current) use of insulin Status: Acute Assessment and Plan: H/O insulin dependent diabetes. HgbA1c 8.8 % * Continue glargine 43 units at HS, Insulin Lispro sliding scale moderate dose, Accu-checks qAc and HS * Hold oral hypoglycemics (6) Hypertension: Code(s): I10 - Essential (primary) hypertension Status: Acute Assessment and Plan: Stable. Continue home medications (7) Chronic kidney disease: Code(s): N18.9 - Chronic kidney disease, unspecified Status: Acute Assessment and Plan: stable. Monitor renal function on diuresis. (8) Chronic anemia: Code(s): D64.9 - Anemia, unspecified Status: Acute Assessment and Plan: Stable. Baseline Hgb 10.5-12 mg/dL. * Monitor for bleeding. * CBC in am. (9) Generalized weakness: Code(s): R53.1 - Weakness Status: Acute Assessment and Plan: * PT/OT eval and treat. * Patient would benefit for rehab placement before for returning to assisted living facility. However, patient is unable to perform simple tasks and ADLs independently at this point. Patient was unwilling to use the bedside urinal or attempt to get up to the bedside commode to have a bowel movement. Patient refused to nursing staff to use a bedpan and would rather have a bowel movement in the bed and wait to be cleaned up. * Care coordination following and appreciate assistance. (10) Leg wound, right: Code(s): S81.801A - Unspecified open wound, right lower leg, initial encounter Status: Acute Assessment and Plan: right heel skin tear. * Wound Care consulted. * Off loading b/l heels. (11) Leg wound, left: Code(s): S81.802A - Unspecified open wound, left lower leg, initial encounter Status: Acute Assessment and Plan: Chronic left heel ulcer, noted to have necr
--- NOTE | 2022-03-10 12:22 | PM.IMPN ---
Progress Note: A&P Assessment and Plan (1) Lymphedema: Code(s): I89.0 - Lymphedema, not elsewhere classified Status: Acute Assessment and Plan: Continue compression wraps and stockings Elevate BLE and scrotum Continue diuretics IV BID venous Doppler and FERNANDO - negative Consult Wound Care. (2) Scrotal edema: Code(s): N50.89 - Other specified disorders of the male genital organs Status: Acute Assessment and Plan: Presumed secondary to worsening LE edema. Continue diuretics. 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 Patient reportedly mentions he likes coming to the hospital for morphine injections, as he gets this here and not at the assisted living facility. Decrease dosage and wean patient from morphine injections. Continue gabapending 300 mg TID PRN [place] Q6 hours. CT abd/pelvis - concerning lytic lesions b/l femurs. Bone scan inconclusive. Check MRI pelvis and b/l hips. (4) Paroxysmal atrial fibrillation: Code(s): I48.0 - Paroxysmal atrial fibrillation Status: Acute Assessment and Plan: Continue diltiazem 60 mg Q8 hours and metoprolol XL 25 mg PO daily, rate controlled Subtherapeutic INR 1.6. Increase warfarin 3 mg daily and monitor PT/INR. 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 HgbA1c 8.8 % Continue glargine 43 units at HS, Insulin Lispro sliding scale moderate dose, Accu-checks qAc and HS Hold oral hypoglycemics (6) Hypertension: Code(s): I10 - Essential (primary) hypertension Status: Acute Assessment and Plan: Stable. Continue home medications (7) Chronic kidney disease: Code(s): N18.9 - Chronic kidney disease, unspecified Status: Acute Assessment and Plan: stable. Monitor renal function on diuresis. (8) Chronic anemia: Code(s): D64.9 - Anemia, unspecified Status: Acute Assessment and Plan: Stable. Baseline Hgb 10.5-12 mg/dL. Monitor for bleeding. CBC in am. (9) Generalized weakness: Code(s): R53.1 - Weakness Status: Acute Assessment and Plan: PT/OT eval and treat. Patient would benefit for rehab placement before for returning to assisted living facility. However, patient is unable to perform simple tasks and ADLs independently at this point. Patient was unwilling to use the bedside urinal or attempt to get up to the bedside commode to have a bowel movement. Patient refused to nursing staff to use a bedpan and would rather have a bowel movement in the bed and wait to be cleaned up. Care coordination following and appreciate assistance. (10) Leg wound, right: Code(s): S81.801A - Unspecified open wound, right lower leg, initial encounter Status: Acute Assessment and Plan: right heel skin tear. Wound Care consulted. Off loading b/l heels. (11) Leg wound, left: Code(s): S81.802A - Unspecified open wound, left lower leg, initial encounter Status: Acute Assessment and Plan: Chronic left heel ulcer, noted to have necrotic/black eschar and odor. Wound care consulted (see documentation). Check MRI heel r/o osteomyelitis. Plan CODE STATUS: Disposition: possible SNF Time Spent With Patient Time with patient: 25 - 35 minutes Subjective Date/time seen: 03/10/22 12:22 Interval history: Patient is a 76 yo male with medical history of insulin dependent diabetes, CKD, hypertension, lymphedema, and paroxysmal atrial fibrillation on warfarin therapy. The patient prestented to the
[2022-03-10] MEDS: COLLAGENASE OINT 30 GM TUBE 1 APPLIC TOPICAL (13:14)
[2022-03-10] MEDS: EUCERIN CREAM 120 GM JAR 1 APPLIC TOPICAL (13:14)
[2022-03-10 15:36] LABS: Glucose Point of Care 130 mg/dl (65-105)
[2022-03-10] MEDS: CELLULOSE OXIDIZED 4 x 8 INCH 1 PKT XX (16:38)
[2022-03-10 17:01] LABS: Glucose Point of Care 152 mg/dl (65-105)
[2022-03-10 20:21] LABS: Glucose Point of Care 204 mg/dl (65-105)
[2022-03-10] MEDS: INSULIN GLARGINE (*BKC) 100 UNITS/ML 43 UNITS SUB-Q (21:29)
--- NOTE | 2022-03-10 22:56 | ECHO_ITS ---
Patient Info Name: Carlos Mustafa Age: 76 years : 1945 Gender: Male Ht: 70 in Wt: 352 lbs BSA: 2.90 m2 HR: 102 bpm BP: 158 / 74 mmHg Heart Rhythm: Atrial Fibrillation Technical Quality: Fair Exam Date: 03/10/2022 10:11 AM Exam Location: [facility] Patient Status: Inpatient Admit Date: 03/08/2022 Staff Ordering Physician: Daniela Denise PA-C Business Development Recruiter: Abby Sinclair RDCS Attending Provider: Stephane Montesinos MD Referring Physician: Howie ALVAREZ; Exam Type: CA echo dop color flow w con Study Info Indications - edema, afib, htn Complete two-dimensional, color flow and Doppler transthoracic echocardiogram is performed with contrast to opacify the left ventricle and to improve the deliniation of the left ventricle endocardial borders. Contrast/Agitated Saline Contrast/Ag. Saline: Definity Amount: 3.00 ml Administered By: Abby Sinclair RDCS Existing IV Access: Yes IV Access Condition: patent with no signs of infiltration Summary 1. Technically difficult exam because of obesity. 2. Definity contrast injected to improve visualization. 3. Left ventricular hypertrophy with hyperdynamic appearing systolic function noted following contrast injection. 4. Left atrial enlargement. 5. Aortic valve sclerosis with no stenosis. Left Ventricle Left ventricular chamber dimension is normal. Left ventricular systolic function is hyperdynamic, estimated at Empty. There is moderate concentric increased left ventricular wall thickness. The left ventricular diastolic function is indeterminate. Right Ventricle Right ventricular chamber dimension is normal. Left Atria Left atrial chamber dimension is moderately enlarged. Right Atria Right atrial chamber dimension is normal. Aortic Valve The aortic valve is trileaflet. There is mild aortic valve sclerosis. There is no aortic valve stenosis. Pulmonic Valve The pulmonic valve is not well visualized. Mitral Valve The mitral valve has normal leaflets. The mitral valve annulus is mildly calcified. Tricuspid Valve The tricuspid valve leaflets are not well visualized. Pericardium/Pleural The pericardium appears normal. Aorta The aortic root size at the sinus of Valsalva is normal. Left Ventricular Outflow Tract Name Value Normal LVOT 2D LVOT Diameter 2.00 cm LVOT Doppler LVOT Peak Gradient 4 mmHg LVOT Mean Gradient 2 mmHg LVOT VTI 19.08 cm LVOT VTI/AV VTI Ratio 0.78 LVOT Stroke Volume 59.64 ml LVOT CO 4.78 l/min LVOT CI 1.65 L/min/m2 Pulmonic Valve Name Value Normal RVOT Doppler RVOT Peak Gradient
[2022-03-11] VITALS (9 sets, daily range): BP systolic 119–150; BP diastolic 62–83; PULSE 81–96; RESP 16–20; TEMP 36.6–37.1; O2SAT 96–98; BMI 50.5
[2022-03-11] MEDS: dilTIAZem HCL 60 MG TABLET PO ×3 (05:09→21:57)
[2022-03-11 05:54] LABS: Hematocrit 35.6 % (42.0-52.0); Hemoglobin 10.5 g/dL (14.0-18.0); Mean Corpuscular HGB Conc 29.5 g/dl (32-36); Mean Corpuscular Hemoglobin 27.9 pg (26-34); Mean Corpuscular Volume 94.4 fl (80-100); Mean Platelet Volume 9.9 fl (7.4-10.4); Platelet Count Result 229 k/mm3 (150-375); Red Blood Count 3.77 M/mm3 (4.6-6.20); Red Cell Distribution Width 15.6 % (11.5-14.5); White Blood Count 11.5 K/mm3 (4.5-10.0)
[2022-03-11 06:08] LABS: Anion Gap 4 mmol/L (8-16); Blood Urea Nitrogen 26 mg/dL (9-20); Calcium 7.9 mg/dL (8.4-10.2); Carbon Dioxide 34 mmol/L (22-30); Chloride 101 mmol/L (98-107); Estimated CRCL calculation 53 ml/min; Estimated Glomerular Filt Rate 40; Glucose 89 mg/dL (65-110); Magnesium 1.8 mg/dL (1.6-2.3); Potassium 3.2 mmol/L (3.4-5.0); Sodium 139 mmol/L (137-145)
[2022-03-11 06:14] LABS: INR 1.5; Prothrombin Time 17.2 Seconds (11.1-14.7)
[2022-03-11] MEDS: ASPIRIN 81 MG ENTERIC TABLET PO (09:49)
[2022-03-11] MEDS: METOPROLOL SUCCINATE EXT REL 25 MG TABCR PO (09:49)
[2022-03-11] MEDS: DOCUSATE SODIUM 100 MG CAPSULE PO (09:49)
[2022-03-11] MEDS: GABAPENTIN 300 MG CAPSULE PO ×3 (09:49→17:39)
[2022-03-11] MEDS: COLLAGENASE OINT 30 GM TUBE 1 APPLIC TOPICAL (09:50)
[2022-03-11] MEDS: polyethylene glycoL 3350 17 GM POWD.PACK PO (09:50)
[2022-03-11] MEDS: FAMOTIDINE 20 MG/2 ML VIAL IV PUSH ×2 (09:50→20:11)
[2022-03-11] MEDS: EUCERIN CREAM 120 GM JAR 1 APPLIC TOPICAL (09:51)
[2022-03-11 10:46] LABS: Glucose Point of Care 86 mg/dl (65-105)
[2022-03-11] MEDS: HYDROcodone/acetaminophen (*CRX) 5-325 MG TABLET 1 TAB PO (11:44)
--- NOTE | 2022-03-11 11:55 | PC.NURSE ---
To Radiology per stretcher for MRI
[2022-03-11 12:20] LABS: Vitamin D 25 Hydroxy < 12.8 ng/mL
[2022-03-11 12:32] LABS: Glucose Point of Care 131 mg/dl (65-105)
--- NOTE | 2022-03-11 12:48 | P.PNIM_ITS ---
Progress Note: A&P Assessment and Plan (1) Lymphedema: Code(s): I89.0 - Lymphedema, not elsewhere classified Status: Acute Assessment and Plan: * Continue kelley wraps for edema control. * Elevate BLE and scrotum * -2.9 liters since admission. TCO2 increased today. Stop furosemide. Resume PO tomorrow. * venous Doppler and FERNANDO - negative * Consult Wound Care. (2) Scrotal edema: Code(s): N50.89 - Other specified disorders of the male genital organs Status: Acute Assessment and Plan: Presumed secondary to worsening LE edema. * Stable. Diuretics as above. (3) Lytic bone lesion of femur: Code(s): M89.9 - Disorder of bone, unspecified Status: Acute Assessment and Plan: CT abd/pelvis on admission concerning for lytic defects in the femurs proximally bilaterally with cortical destruction along the posterior aspect of the femoral heads and femoral necks. Findings suspicious for metastatic disease or myeloma. Correlate for history of malignancy. * Attempted to obtain MRI but patient is too wide. * Consult Ortho for recommendations. * Multiple melanoma work up started - UPEP and SPEP sent. Calcium and total protein not elevated. Patient does have renal impairment, anemia and concerning bone lytic lesions. Consult Oncology pending results. Discussed case with Orthopedic provider on-call. CT scan results reviewed. It is recommended patient transfer to tertiary center for Orthopedic Oncology evaluation and malignancy evaluation. [facility] transfer center called and patient was placed on wait list for available bed. (4) Back pain: Code(s): M54.9 - Dorsalgia, unspecified Status: Acute Assessment and Plan: H/O chronic back pain, patient was referred to a supervisor paint but never went to the appointment. Patient reportedly mentions he likes coming to the hospital for morphine injections, as he gets this here and not at the assisted living facility. * Wean patient from morphine injections. * Continue gabapending 300 mg TID * PRN [place] Q6 hours. * CT abd/pelvis - concerning lytic lesions b/l femurs. Bone scan inconclusive. * Patient unable to fit in MRI machine due to abdominal/pelvic girth. * Lidoderm 5% patch daily added. (5) Paroxysmal atrial fibrillation: Code(s): I48.0 - Paroxysmal atrial fibrillation Status: Acute Assessment and Plan: Continue diltiazem 60 mg Q8 hours and metoprolol XL 25 mg PO daily, rate controlled Subtherapeutic INR 1.5. Increased to warfarin 3 mg daily and monitor PT/INR daily. (6) Leg wound, left: Code(s): S81.802A - Unspecified open wound, left lower leg, initial encounter Status: Acute Assessment and Plan: Chronic left heel ulcer, noted to have necrotic/black eschar and odor. * Wound care consulted (see documentation). * Patient unable to tolerate lying flat for MRI heel to r/o osteomyelitis. Repeat MRI with IV morphine and IV valium prior to procedure. * Wound culture sent * Check CRP and ESR. * mild leukocytosis 11.5 (7) Leg wound, right: Code(s): S81.801A - Unspecified open wound, right lower leg, initial encounter Status: Acute Assessment and Plan: right heel skin tear. * Wound Care consulted. * Off loading b/l heels. (8) Generalized weakness: Code(s): R53.1 - Weakness Status: Acute Assessment and Plan: * PT/OT eval and treat. * Patient would benefit for rehab placement before for returning to [facility]
--- NOTE | 2022-03-11 12:48 | PM.IMPN ---
Progress Note: A&P Assessment and Plan (1) Lymphedema: Code(s): I89.0 - Lymphedema, not elsewhere classified Status: Acute Assessment and Plan: Continue kelley wraps for edema control. Elevate BLE and scrotum -2.9 liters since admission. TCO2 increased today. Stop furosemide. Resume PO tomorrow. venous Doppler and FERNANDO - negative Consult Wound Care. (2) Scrotal edema: Code(s): N50.89 - Other specified disorders of the male genital organs Status: Acute Assessment and Plan: Presumed secondary to worsening LE edema. Stable. Diuretics as above. (3) Lytic bone lesion of femur: Code(s): M89.9 - Disorder of bone, unspecified Status: Acute Assessment and Plan: CT abd/pelvis on admission concerning for lytic defects in the femurs proximally bilaterally with cortical destruction along the posterior aspect of the femoral heads and femoral necks. Findings suspicious for metastatic disease or myeloma. Correlate for history of malignancy. Attempted to obtain MRI but patient is too wide. Consult Ortho for recommendations. Multiple melanoma work up started - UPEP and SPEP sent. Calcium and total protein not elevated. Patient does have renal impairment, anemia and concerning bone lytic lesions. Consult Oncology pending results. Discussed case with Orthopedic provider on-call. CT scan results reviewed. It is recommended patient transfer to tertiary center for Orthopedic Oncology evaluation and malignancy evaluation. [facility] transfer center called and patient was placed on wait list for available bed. (4) Back pain: Code(s): M54.9 - Dorsalgia, unspecified Status: Acute Assessment and Plan: H/O chronic back pain, patient was referred to a paint formulator but never went to the appointment. Patient reportedly mentions he likes coming to the hospital for morphine injections, as he gets this here and not at the assisted living facility. Wean patient from morphine injections. Continue gabapending 300 mg TID PRN [place] Q6 hours. CT abd/pelvis - concerning lytic lesions b/l femurs. Bone scan inconclusive. Patient unable to fit in MRI machine due to abdominal/pelvic girth. Lidoderm 5% patch daily added. (5) Paroxysmal atrial fibrillation: Code(s): I48.0 - Paroxysmal atrial fibrillation Status: Acute Assessment and Plan: Continue diltiazem 60 mg Q8 hours and metoprolol XL 25 mg PO daily, rate controlled Subtherapeutic INR 1.5. Increased to warfarin 3 mg daily and monitor PT/INR daily. (6) Leg wound, left: Code(s): S81.802A - Unspecified open wound, left lower leg, initial encounter Status: Acute Assessment and Plan: Chronic left heel ulcer, noted to have necrotic/black eschar and odor. Wound care consulted (see documentation). Patient unable to tolerate lying flat for MRI heel to r/o osteomyelitis. Repeat MRI with IV morphine and IV valium prior to procedure. Wound culture sent Check CRP and ESR. mild leukocytosis 11.5 (7) Leg wound, right: Code(s): S81.801A - Unspecified open wound, right lower leg, initial encounter Status: Acute Assessment and Plan: right heel skin tear. Wound Care consulted. Off loading b/l heels. (8) Generalized weakness: Code(s): R53.1 - Weakness Status: Acute Assessment and Plan: PT/OT eval and treat. Patient would benefit for rehab placement before for returning to assisted living facility. However, patient is unable to perform simple tasks and ADLs independently at this point. Patient was unwilling to use the bedside urinal or attempt to get up to the bedside commode to have a bowel movement. Patient refused to nursing staff to use a bedpan and would rather have a bowel movement in the bed and wait to be cleaned up. Care coordination following and appreciate assistance. (9) Insulin dependent type
--- NOTE | 2022-03-11 13:01 | PC.NURSE ---
Return from Radiology per stretcher
[2022-03-11] MEDS: LIDOCAINE 5% PATCH 1 PATCH TRANSDERM (17:37)
[2022-03-11 17:46] LABS: Glucose Point of Care 147 mg/dl (65-105)
[2022-03-11] MEDS: WARFARIN (*PBKC) 3 MG TABLET PO (18:15)
[2022-03-11] MEDS: INSULIN GLARGINE (*BKC) 100 UNITS/ML 43 UNITS SUB-Q (20:11)
[2022-03-11 20:15] LABS: Glucose Point of Care 196 mg/dl (65-105)
[2022-03-12] VITALS (10 sets, daily range): BP systolic 140–155; BP diastolic 67–81; PULSE 75–102; RESP 20; TEMP 36.6–37.1; O2SAT 96–97
[2022-03-12] MEDS: HYDROcodone/acetaminophen (*CRX) 5-325 MG TABLET 1 TAB PO ×3 (01:08→15:33)
[2022-03-12] MEDS: dilTIAZem HCL 60 MG TABLET PO ×3 (05:23→20:27)
[2022-03-12 06:52] LABS: Basophils Absolute Auto 0.1 K/mm3 (0.0-0.1); Basophils Percent Auto 0.4 % (0.2-1.2); Eosinophils Absolute Auto 0.4 K/mm3 (0-0.3); Eosinophils Percent Auto 3.8 % (0-4.4); Hematocrit 35.2 % (42.0-52.0); Hemoglobin 10.5 g/dL (14.0-18.0); Immature Granulocyte Absolute 0.15 K/mm3 (0.00-0.031); Immature Granulocyte Percent A 1.3 % (0-0.5); Lymphocytes Absolute Auto 1.25 K/mm3 (0.9-3.2); Lymphocytes Percent Auto 10.8 % (18.3-44.2); Mean Corpuscular HGB Conc 29.8 g/dl (32-36); Mean Corpuscular Hemoglobin 28.5 pg (26-34); Mean Corpuscular Volume 95.4 fl (80-100); Mean Platelet Volume 10.4 fl (7.4-10.4); Monocytes Absolute Auto 1.5 K/mm3 (0.1-0.6); Neutrophils Absolute Auto 8.2 K/mm3 (1.3-6.7); Neutrophils Percent Auto 70.7 % (45.5-73.1); Nucleated Red Blood Cells Perc 0.3 % (0.0-0.2); Platelet Count Result 244 k/mm3 (150-375); Red Blood Count 3.69 M/mm3 (4.6-6.20); Red Cell Distribution Width 15.5 % (11.5-14.5); White Blood Count 11.6 K/mm3 (4.5-10.0)
[2022-03-12 07:04] LABS: INR 1.4; Prothrombin Time 16.3 Seconds (11.1-14.7)
[2022-03-12 07:10] LABS: Alanine Aminotransferase 12 U/L (6-50); Albumin Level 2.7 g/dL (3.5-5.1); Alkaline Phosphatase 77 U/L (38-126); Anion Gap 6 mmol/L (8-16); Aspartate Amino Transferase 24 U/L (17-59); Bilirubin,Total 0.6 mg/dL (0.2-1.3); Blood Urea Nitrogen 30 mg/dL (9-20); Calcium 7.9 mg/dL (8.4-10.2); Carbon Dioxide 34 mmol/L (22-30); Chloride 98 mmol/L (98-107); Estimated CRCL calculation 56 ml/min; Estimated Glomerular Filt Rate 42; Glucose 149 mg/dL (65-110); Magnesium 1.8 mg/dL (1.6-2.3); Potassium 3.6 mmol/L (3.4-5.0); Sodium 138 mmol/L (137-145)
--- NOTE | 2022-03-12 08:09 | P.PNIM_ITS ---
Progress Note: A&P Assessment and Plan (1) Lymphedema: Code(s): I89.0 - Lymphedema, not elsewhere classified Status: Acute Assessment and Plan: * Continue kelley wraps for edema control. * Elevate BLE and scrotum * -6 liters since admission. TCO2 34 and unchanged from 03/11/22. Stopped furosemide 03/11 and will continue to hold for now. Scrotal edema and lymphedema improving. * venous Doppler and FERNANDO - negative * Wound Care.following (2) Scrotal edema: Code(s): N50.89 - Other specified disorders of the male genital organs Status: Acute Assessment and Plan: Presumed secondary to worsening LE edema. * Stable.as above. (3) Lytic bone lesion of femur: Code(s): M89.9 - Disorder of bone, unspecified Status: Acute Assessment and Plan: CT abd/pelvis on admission concerning for lytic defects in the femurs proximally bilaterally with cortical destruction along the posterior aspect of the femoral heads and femoral necks. Findings suspicious for metastatic disease or myeloma. Correlate for history of malignancy. * Attempted to obtain MRI but patient is too wide. * Consult Ortho for recommendations, who recommend transfer to tertiary center for ORthopedic Oncology evaluation. No beds available at [facility] at this time. Patient is on the wait list. * Multiple melanoma work up started - UPEP and SPEP sent. Calcium and total protein not elevated. Patient does have renal impairment, anemia and concerning bone lytic lesions. * Oncology consulted. * Plan for bone marrow biopsy. NPO after midnight. additional labs ordered per Oncology. 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 Patient reportedly mentions he likes coming to the hospital for morphine injections, as he gets this here and not at the assisted living facility. * Wean patient from morphine injections. * Continue gabapending 300 mg TID * PRN [place] Q6 hours. * CT abd/pelvis - concerning lytic lesions b/l femurs. Bone scan inconclusive. * Patient unable to fit in MRI machine due to abdominal/pelvic girth. * Lidoderm 5% patch daily added. (5) Paroxysmal atrial fibrillation: Code(s): I48.0 - Paroxysmal atrial fibrillation Status: Acute Assessment and Plan: Continue diltiazem 60 mg Q8 hours and metoprolol XL 25 mg PO daily, rate controlled Subtherapeutic INR 1.4. Hold warfarin for bone marrow biopsy. (6) Leg wound, left: Code(s): S81.802A - Unspecified open wound, left lower leg, initial encounter Status: Acute Assessment and Plan: Chronic left heel ulcer, noted to have necrotic/black eschar and odor. * Wound care consulted (see documentation). * Patient unable to tolerate lying flat for MRI heel to r/o osteomyelitis. Repeat MRI with IV morphine and IV valium prior to procedure. * Wound culture gram negative bacilli. sensitivity pending. * CRP 8.9 * mild leukocytosis 11.5 * CT foot no osteomyelitis. Patient could not tolerate MRI. (7) Leg wound, right: Code(s): S81.801A - Unspecified open wound, right lower leg, initial encounter Status: Acute Assessment and Plan: right heel skin tear. * Wound Care consulted. * Off loading b/l heels. (8) Generalized weakness: Code(s): R53.1 - Weakness Status: Acute Assessment and Plan: * PT/OT eval and t
--- NOTE | 2022-03-12 08:09 | PM.IMPN ---
Progress Note: A&P Assessment and Plan (1) Lymphedema: Code(s): I89.0 - Lymphedema, not elsewhere classified Status: Acute Assessment and Plan: Continue kelley wraps for edema control. Elevate BLE and scrotum -6 liters since admission. TCO2 34 and unchanged from 03/11/22. Stopped furosemide 03/11 and will continue to hold for now. Scrotal edema and lymphedema improving. venous Doppler and FERNANDO - negative Wound Care.following (2) Scrotal edema: Code(s): N50.89 - Other specified disorders of the male genital organs Status: Acute Assessment and Plan: Presumed secondary to worsening LE edema. Stable.as above. (3) Lytic bone lesion of femur: Code(s): M89.9 - Disorder of bone, unspecified Status: Acute Assessment and Plan: CT abd/pelvis on admission concerning for lytic defects in the femurs proximally bilaterally with cortical destruction along the posterior aspect of the femoral heads and femoral necks. Findings suspicious for metastatic disease or myeloma. Correlate for history of malignancy. Attempted to obtain MRI but patient is too wide. Consult Ortho for recommendations, who recommend transfer to tertiary center for ORthopedic Oncology evaluation. No beds available at [facility] at this time. Patient is on the wait list. Multiple melanoma work up started - UPEP and SPEP sent. Calcium and total protein not elevated. Patient does have renal impairment, anemia and concerning bone lytic lesions. Oncology consulted. Plan for bone marrow biopsy. NPO after midnight. additional labs ordered per Oncology. (4) Back pain: Code(s): M54.9 - Dorsalgia, unspecified Status: Acute Assessment and Plan: H/O chronic back pain, patient was referred to a friction paint machine tender but never went to the appointment. Patient reportedly mentions he likes coming to the hospital for morphine injections, as he gets this here and not at the assisted living facility. Wean patient from morphine injections. Continue gabapending 300 mg TID PRN [place] Q6 hours. CT abd/pelvis - concerning lytic lesions b/l femurs. Bone scan inconclusive. Patient unable to fit in MRI machine due to abdominal/pelvic girth. Lidoderm 5% patch daily added. (5) Paroxysmal atrial fibrillation: Code(s): I48.0 - Paroxysmal atrial fibrillation Status: Acute Assessment and Plan: Continue diltiazem 60 mg Q8 hours and metoprolol XL 25 mg PO daily, rate controlled Subtherapeutic INR 1.4. Hold warfarin for bone marrow biopsy. (6) Leg wound, left: Code(s): S81.802A - Unspecified open wound, left lower leg, initial encounter Status: Acute Assessment and Plan: Chronic left heel ulcer, noted to have necrotic/black eschar and odor. Wound care consulted (see documentation). Patient unable to tolerate lying flat for MRI heel to r/o osteomyelitis. Repeat MRI with IV morphine and IV valium prior to procedure. Wound culture gram negative bacilli. sensitivity pending. CRP 8.[address] foot no osteomyelitis. Patient could not tolerate MRI. (7) Leg wound, right: Code(s): S81.801A - Unspecified open wound, right lower leg, initial encounter Status: Acute Assessment and Plan: right heel skin tear. Wound Care consulted. Off loading b/l heels. (8) Generalized weakness: Code(s): R53.1 - Weakness Status: Acute Assessment and Plan: PT/OT eval and treat. Patient would benefit for rehab placement before for returning to assisted living facility. However, patient is unable to perform simple tasks and ADLs independently at this point. Patient was unwilling to use the bedside urinal or attempt to get up to the bedside commode to have a bowel movement. Patient refused to nursing staff to use a bedpan and would rather have a bowel movement in the bed and wait to be cleaned up. Care co
[2022-03-12 08:13] LABS: Glucose Point of Care 146 mg/dl (65-105)
[2022-03-12] MEDS: ASPIRIN 81 MG ENTERIC TABLET PO (08:31)
[2022-03-12] MEDS: FAMOTIDINE 20 MG/2 ML VIAL IV PUSH ×2 (08:31→20:28)
[2022-03-12] MEDS: METOPROLOL SUCCINATE EXT REL 25 MG TABCR PO (08:32)
[2022-03-12] MEDS: GABAPENTIN 300 MG CAPSULE PO ×3 (08:32→17:22)
[2022-03-12] MEDS: COLLAGENASE OINT 30 GM TUBE 1 APPLIC TOPICAL (08:33)
[2022-03-12] MEDS: EUCERIN CREAM 120 GM JAR 1 APPLIC TOPICAL (08:33)
[2022-03-12 11:25] LABS: Appearance Urine Clear (Clear); Bilirubin Urine 1+ (Negative); Blood Urine 2+ (Negative); Color Urine Yellow (Yellow); Glucose Urine UA Negative (Negative); Ketones Urine Trace mg/dL (Negative); Leukocyte Esterase Ur Trace LEU/UL (Negative); Nitrate Urine Negative (Negative); Protein Urine 3+ mg/dL (Negative); Specific Grav Ur 1.025 (1.001-1.035)
[2022-03-12 11:29] LABS: CRP 8.2 mg/dL (<1.0)
[2022-03-12 11:39] LABS: Bacteria Urine Trace /hpf; Squamous Epithelial Cell Urine Rare /hpf (Few)
[2022-03-12 11:41] LABS: Add Urine Microscopic? YES
[2022-03-12 12:39] LABS: Glucose Point of Care 227 mg/dl (65-105)
[2022-03-12] MEDS: INSULIN ASPART (*BKC) 100 UNITS/ML SUB-Q (13:34)
--- NOTE | 2022-03-12 16:42 | PDONCCONNOTE ---
Impression newly diagnosis lytic lesion femoral bone on the CT scan suspicious for plasma cell neoplasam. patient is found to have anemic and renal insufficiency. he is also found to have reversed ratio of albumin and globulin. he has end organ damage with renal failure. recommend to have bone marrow biopsy . pls send the FISH study on the bone marrow biopsy for plasma cell neoplasm. SPEP UPEP immunofixation serum light chain and light chain ratio. beta 2 microglobulin uric acid LDH for his back pain : reccommend for the MRI of the Spine screening . however patient is obese and can't fit to the MRI and severe back pain and can't lie for half an hour for the procedure. once diagnosis is achieved, can consider the CT skeletal survey or PET scan as outpatient. will follow with patient at outpatient with the above work up and bone marrow biopsy result is out [facility] - Date/Time Seen 03/12/22 16:42 - History of Present Illness This is a pleasant 76-year-old male presented to the emergency department via EMS from [facility] for evaluation of increasing edema.He also complains of ongoing lower back pain that has been present for several months. A CT of the abdomen and pelvis today showed lytic defects in the femurs proximally bilaterally with cortical destruction along the posterior aspect of the femoral heads and femoral necks suspicious for metastatic disease or myeloma. oncology consult is for the work up for myeloma vs metastatic disease. PMH : with insulin-dependent diabetes, chronic kidney disease, hypertension, lymphedema, paroxysmal atrial fibrillation on long-term anticoagulation. family history : His brother at age 70 with colon cancer though the patient has refused colonoscopies in the past. - Medical History Medical History (Last Updated 03/11/22 @ 14:04 by Chantal Sinclair APRN) Chronic kidney disease COVID-19 Diabetic neuropathy Femoral artery pseudo-aneurysm, left Generalized anxiety disorder Hypertension Insulin dependent type 2 diabetes mellitus alf (current) use of anticoagulants Lymphedema Morbid obesity Osteomyelitis Paroxysmal atrial fibrillation Peripheral vascular disease - Surgical History Surgical History (Last Reviewed 03/08/22 @ 22:42 by Daniela Denise PA-C) Surgical history unknown - Family History Family History (Last Updated 03/08/22 @ 22:42 by Daniela Denise PA-C) Mother Diabetes mellitus Mother Kidney failure Sibling Carcinoma of colon - Social History Social History (Last Updated 03/08/22 @ 22:43 by Daniela Denise PA-C) Alcohol Use: Alcohol intake: never Substance Use: Substance use: never Substance use type: does not use Others: Spiritual care concerns: No Smoking Status: Smoking status: Former smoker Tobacco type: cigarettes - Medications Active Medications Generic Name Dose Route Start Last Admin Trade Name Freq PRN Reason Stop Dose Admin Acetaminophen 650 mg 03/08/22 22:55 Acetaminophen 325 Mg Tablet PO Q6H PRN Mild Pain (1-3) or Fever Hydrocodone Bitart/Acetaminophen 1 tab 03/08/22 22:55 03/12/22 15:33 Hydrocodone/Acetaminophen (*Crx) 5-325 Mg Tablet PO 1 tab Q6H PRN Administration Pain Rated 4-6 Alprazolam 0.25 mg 03/08/22 22:59 Alprazolam (*Crx) 0.25 Mg Tablet PO TID PRN Anxiety Aspirin 81 mg 03/09/22 09:00 03/12/22 08:31 Aspirin 81 Mg Enteric Tablet PO 81 mg DAILY OTTO Administration Bisacodyl 5 mg 03/10/22 16:18 Bisacodyl 5 Mg Tablet Ec PO QAM PRN Constipation Bisacodyl 10 mg 03/10/22 16:18 Bisacodyl 10 Mg Suppository RECTAL QAM PRN Constipation Collagenase 1 applic 03/10/22 09:00 03/12/22 08:33 Collagenase Oint 30 Gm Tube TOPICAL 1 applic QAM OTTO Administration Cyclobenzaprine HCl 10 mg 03/08/22 22:59 Cyclobenzapr
[2022-03-12 17:10] LABS: Glucose Point of Care 176 mg/dl (65-105)
[2022-03-12 19:14] LABS: Lactate Dehydrogenase 233 U/L (120-246); Uric Acid 12.3 mg/dL (3.5-8.5)
[2022-03-12 20:27] LABS: Glucose Point of Care 200 mg/dl (65-105)
[2022-03-12] MEDS: INSULIN GLARGINE (*BKC) 100 UNITS/ML 43 UNITS SUB-Q (20:30)
[2022-03-13] VITALS (10 sets, daily range): BP systolic 133–165; BP diastolic 64–84; PULSE 78–102; RESP 18–20; TEMP 36.9–37; O2SAT 95–98
[2022-03-13] MEDS: dilTIAZem HCL 60 MG TABLET PO ×3 (05:40→21:39)
[2022-03-13 06:01] LABS: Hematocrit 31.9 % (42.0-52.0); Hemoglobin 9.8 g/dL (14.0-18.0); Mean Corpuscular HGB Conc 30.7 g/dl (32-36); Mean Corpuscular Volume 94.4 fl (80-100); Mean Platelet Volume 10.3 fl (7.4-10.4); Platelet Count Result 264 k/mm3 (150-375); Red Blood Count 3.38 M/mm3 (4.6-6.20); White Blood Count 11.3 K/mm3 (4.5-10.0)
[2022-03-13 06:13] LABS: INR 1.3; Prothrombin Time 15.6 Seconds (11.1-14.7)
[2022-03-13 06:21] LABS: Alanine Aminotransferase 11 U/L (6-50); Albumin Level 2.7 g/dL (3.5-5.1); Alkaline Phosphatase 57 U/L (38-126); Anion Gap 6 mmol/L (8-16); Aspartate Amino Transferase 28 U/L (17-59); Bilirubin,Total 0.8 mg/dL (0.2-1.3); Blood Urea Nitrogen 28 mg/dL (9-20); Calcium 7.6 mg/dL (8.4-10.2); Carbon Dioxide 33 mmol/L (22-30); Chloride 99 mmol/L (98-107); Estimated CRCL calculation 56 ml/min; Estimated Glomerular Filt Rate 42; Glucose 108 mg/dL (65-110); Potassium 3.7 mmol/L (3.4-5.0); Sodium 138 mmol/L (137-145)
[2022-03-13 08:06] LABS: Glucose Point of Care 114 mg/dl (65-105)
[2022-03-13] MEDS: METOPROLOL SUCCINATE EXT REL 25 MG TABCR PO (09:10)
[2022-03-13] MEDS: FAMOTIDINE 20 MG/2 ML VIAL IV PUSH (09:10)
[2022-03-13] MEDS: GABAPENTIN 300 MG CAPSULE PO ×3 (09:10→16:13)
[2022-03-13] MEDS: COLLAGENASE OINT 30 GM TUBE 1 APPLIC TOPICAL (09:11)
[2022-03-13] MEDS: EUCERIN CREAM 120 GM JAR 1 APPLIC TOPICAL (09:11)
[2022-03-13] MEDS: DOCUSATE SODIUM 100 MG CAPSULE PO (09:13)
--- NOTE | 2022-03-13 11:41 | PCPTNOTE ---
Attempted PT evaluation, patient refusing at this time due to not eating anything due to having testing done. Therapist spent 30+mins speaking/encouraging patient to participate, but continue to decline therapy services. Therapist answered patient's questions to best of ability then referred to patient to speaking to his doctor/RN on topics therapist could not answer to. RN aware. Will follow.
[2022-03-13 12:45] LABS: Glucose Point of Care 107 mg/dl (65-105)
--- NOTE | 2022-03-13 14:46 | P.PNIM_ITS ---
Progress Note: A&P Assessment and Plan (1) Lymphedema: Code(s): I89.0 - Lymphedema, not elsewhere classified Status: Acute Assessment and Plan: * Continue kelley wraps for edema control. * Elevate BLE and scrotum * -5.5 liters since admission. TCO2 34 and unchanged from 03/11/22. Stopped furosemide 03/11. Resume torsemide at lower dose 03/14/22. Scrotal edema and lymphedema improved. * venous Doppler and FERNANDO - negative * Wound Care following (2) Scrotal edema: Code(s): N50.89 - Other specified disorders of the male genital organs Status: Acute Assessment and Plan: Presumed secondary to worsening LE edema. * Stable. (3) Lytic bone lesion of femur: Code(s): M89.9 - Disorder of bone, unspecified Status: Acute Assessment and Plan: CT abd/pelvis on admission concerning for lytic defects in the femurs proximally bilaterally with cortical destruction along the posterior aspect of the femoral heads and femoral necks. Findings suspicious for metastatic disease or myeloma. Correlate for history of malignancy. * Attempted to obtain MRI but patient is too wide. * Consult Ortho for recommendations, who recommend transfer to tertiary center for Orthopedic Oncology evaluation. No beds available at [facility] at this time. Patient is on the wait list. * Dr. Tremaine Penaloza, [facility] Orthopedic Oncology, office ([phone]) was consulted regarding evaluation and recommendations. Office requesting plain x- rays and other imaging reports to be faxed to the office for further evaluation. . He could be seen in the office next Thursday. Further recommendations regarding need for femur stabilization will be given after image reports evaluated. * Multiple melanoma work up started - UPEP and SPEP sent. Calcium and total protein not elevated. Patient does have renal impairment, anemia and concerning bone lytic lesions. * Oncology consulted. additional labs ordered per Oncology: serum free light chains, serum/urine immunofixation, LDH, uric acid and beta-2 microglobulin. * 03/13/22 Bone marrow biopsy was deferred today until patient could be off warfarin x2 days and arrangements can be made for pain management. Patient to undergo bone marrow biopsy tomorrow 03/14. NPO after midnight. additional labs ordered per Oncology. Hold warfarin and aspirin. (4) Back pain: Code(s): M54.9 - Dorsalgia, unspecified Status: Acute Assessment and Plan: H/O chronic back pain, patient was referred to a paperhanger and painter but never went to the appointment. Patient reportedly mentions he likes coming to the hospital for morphine injections, as he gets this here and not at the assisted living facility. * Wean patient from morphine injections. * Continue gabapending 300 mg TID * PRN [place] Q6 hours. * CT abd/pelvis - concerning lytic lesions b/l femurs. Bone scan inconclusive. * Patient unable to fit in MRI machine due to abdominal/pelvic girth. * Lidoderm 5% patch daily added. (5) Paroxysmal atrial fibrillation: Code(s): I48.0 - Paroxysmal atrial fibrillation Status: Acute Assessment and Plan: * Continue diltiazem 60 mg Q8 hours and metoprolol XL 25 mg PO daily, rate controlled * Subtherapeutic INR 1.4. Holding warfarin for bone marrow biopsy 04/14/22. * Daily PT/INR (6) Leg wound, left: Code(s): S81.802A - Unspecified open wound, left lower leg, initial encounter Status: Acute Assessment and Plan: Chronic left heel ulcer, noted to have necrotic/black eschar and odor. * W
--- NOTE | 2022-03-13 14:46 | PM.IMPN ---
Progress Note: A&P Assessment and Plan (1) Lymphedema: Code(s): I89.0 - Lymphedema, not elsewhere classified Status: Acute Assessment and Plan: Continue kelley wraps for edema control. Elevate BLE and scrotum -5.5 liters since admission. TCO2 34 and unchanged from 03/11/22. Stopped furosemide 03/11. Resume torsemide at lower dose 03/14/22. Scrotal edema and lymphedema improved. venous Doppler and FERNANDO - negative Wound Care following (2) Scrotal edema: Code(s): N50.89 - Other specified disorders of the male genital organs Status: Acute Assessment and Plan: Presumed secondary to worsening LE edema. Stable. (3) Lytic bone lesion of femur: Code(s): M89.9 - Disorder of bone, unspecified Status: Acute Assessment and Plan: CT abd/pelvis on admission concerning for lytic defects in the femurs proximally bilaterally with cortical destruction along the posterior aspect of the femoral heads and femoral necks. Findings suspicious for metastatic disease or myeloma. Correlate for history of malignancy. Attempted to obtain MRI but patient is too wide. Consult Ortho for recommendations, who recommend transfer to tertiary center for Orthopedic Oncology evaluation. No beds available at [facility] at this time. Patient is on the wait list. Dr. Tremaine Penaloza, [facility] Orthopedic Oncology, office ([phone]) was consulted regarding evaluation and recommendations. Office requesting plain x-rays and other imaging reports to be faxed to the office for further evaluation. . He could be seen in the office next Thursday. Further recommendations regarding need for femur stabilization will be given after image reports evaluated. Multiple melanoma work up started - UPEP and SPEP sent. Calcium and total protein not elevated. Patient does have renal impairment, anemia and concerning bone lytic lesions. Oncology consulted. additional labs ordered per Oncology: serum free light chains, serum/urine immunofixation, LDH, uric acid and beta-2 microglobulin. 03/13/22 Bone marrow biopsy was deferred today until patient could be off warfarin x2 days and arrangements can be made for pain management. Patient to undergo bone marrow biopsy tomorrow 03/14. NPO after midnight. additional labs ordered per Oncology. Hold warfarin and aspirin. (4) Back pain: Code(s): M54.9 - Dorsalgia, unspecified Status: Acute Assessment and Plan: H/O chronic back pain, patient was referred to a apprentice painter brush but never went to the appointment. Patient reportedly mentions he likes coming to the hospital for morphine injections, as he gets this here and not at the assisted living facility. Wean patient from morphine injections. Continue gabapending 300 mg TID PRN [place] Q6 hours. CT abd/pelvis - concerning lytic lesions b/l femurs. Bone scan inconclusive. Patient unable to fit in MRI machine due to abdominal/pelvic girth. Lidoderm 5% patch daily added. (5) Paroxysmal atrial fibrillation: Code(s): I48.0 - Paroxysmal atrial fibrillation Status: Acute Assessment and Plan: Continue diltiazem 60 mg Q8 hours and metoprolol XL 25 mg PO daily, rate controlled Subtherapeutic INR 1.4. Holding warfarin for bone marrow biopsy 04/14/22. Daily PT/INR (6) Leg wound, left: Code(s): S81.802A - Unspecified open wound, left lower leg, initial encounter Status: Acute Assessment and Plan: Chronic left heel ulcer, noted to have necrotic/black eschar and odor. Wound care consulted (see documentation). Patient unable to tolerate lying flat for MRI heel to r/o osteomyelitis. Repeat MRI with IV morphine and IV valium prior to procedure. Wound culture gram negative bacilli. sensitivity pending. Will add empiric Levaquin 750 mg PO Q24 hours x7-10 days. CRP 8.[address] foot no osteomyelitis. Patient could not tolerate MRI.
[2022-03-13] MEDS: HYDROcodone/acetaminophen (*CRX) 5-325 MG TABLET 1 TAB PO (16:12)
[2022-03-13 16:51] LABS: Glucose Point of Care 175 mg/dl (65-105)
[2022-03-13] MEDS: INSULIN GLARGINE (*BKC) 100 UNITS/ML 43 UNITS SUB-Q (21:11)
[2022-03-13] MEDS: FAMOTIDINE 10 MG TABLET PO (21:12)
[2022-03-13 21:15] LABS: Glucose Point of Care 192 mg/dl (65-105)
[2022-03-14] VITALS (9 sets, daily range): BP systolic 126–156; BP diastolic 61–72; PULSE 81–132; RESP 18–20; TEMP 36.1–37.1; O2SAT 93–97; BMI 10.0
[2022-03-14] MEDS: HYDROcodone/acetaminophen (*CRX) 5-325 MG TABLET 1 TAB PO ×2 (00:13→17:33)
[2022-03-14 06:10] LABS: Basophils Absolute Auto 0.1 K/mm3 (0.0-0.1); Basophils Percent Auto 0.6 % (0.2-1.2); Eosinophils Absolute Auto 0.6 K/mm3 (0-0.3); Eosinophils Percent Auto 5.3 % (0-4.4); Hematocrit 34.9 % (42.0-52.0); Hemoglobin 10.3 g/dL (14.0-18.0); Immature Granulocyte Absolute 0.15 K/mm3 (0.00-0.031); Immature Granulocyte Percent A 1.4 % (0-0.5); Lymphocytes Absolute Auto 1.38 K/mm3 (0.9-3.2); Lymphocytes Percent Auto 12.4 % (18.3-44.2); Mean Corpuscular HGB Conc 29.5 g/dl (32-36); Mean Corpuscular Hemoglobin 28.5 pg (26-34); Mean Corpuscular Volume 96.4 fl (80-100); Monocytes Absolute Auto 1.3 K/mm3 (0.1-0.6); Monocytes Percent Auto 11.3 % (2.6-8.5); Neutrophils Absolute Auto 7.7 K/mm3 (1.3-6.7); Platelet Count Result 287 k/mm3 (150-375); Red Blood Count 3.62 M/mm3 (4.6-6.20); Red Cell Distribution Width 15.7 % (11.5-14.5); White Blood Count 11.1 K/mm3 (4.5-10.0)
[2022-03-14 06:25] LABS: Alanine Aminotransferase 12 U/L (6-50); Albumin Level 2.7 g/dL (3.5-5.1); Alkaline Phosphatase 78 U/L (38-126); Anion Gap 4 mmol/L (8-16); Aspartate Amino Transferase 21 U/L (17-59); Bilirubin,Total 0.5 mg/dL (0.2-1.3); Blood Urea Nitrogen 23 mg/dL (9-20); Calcium 7.9 mg/dL (8.4-10.2); Carbon Dioxide 34 mmol/L (22-30); Chloride 103 mmol/L (98-107); Estimated CRCL calculation 53 ml/min; Estimated Glomerular Filt Rate 40; Glucose 100 mg/dL (65-110); Magnesium 2.1 mg/dL (1.6-2.3); Potassium 3.5 mmol/L (3.4-5.0); Sodium 141 mmol/L (137-145)
[2022-03-14 06:44] LABS: INR 1.3; Prothrombin Time 15.8 Seconds (11.1-14.7)
--- NOTE | 2022-03-14 08:00 | WPDMODSED ---
Moderate Sedation Note-Pt Data Patient Data Diagnosis: lytic lesions at the bilateral femurs Present Complaint: edema and sacrococcygeal pain Procedure to be performed/Plan: bone marrow biopsy Allergies Allergy/AdvReac Type Severity Reaction Status Date / Time No Known Allergies Allergy Verified 03/08/22 13:09 Home Medications Medication Instructions Recorded Confirmed Type alprazolam 0.25 mg tablet 0.25 mg PO TID PRN Anxiety 10/30/20 03/08/22 History docusate sodium 100 mg capsule 100 mg PO DAILY 10/30/20 03/08/22 History (Colace) gabapentin 300 mg capsule 300 mg PO TID 10/30/20 03/08/22 History guaifenesin 600 mg tablet, 600 mg PO BID PRN Cough 10/30/20 03/08/22 History extended release 12 hr insulin glargine U-300 conc 300 43 unit subcut HS 10/30/20 03/08/22 History unit/mL (1.5 mL) subcutaneous pen (Toujeo SoloStar U-300 Insulin) insulin lispro 100 unit/mL See Protocol subcut TID 10/30/20 03/08/22 History subcutaneous pen (Humalog KwikPen (U-100) Insulin) torsemide 10 mg tablet 40 mg PO DAILY 10/30/20 03/08/22 History cyclobenzaprine 10 mg tablet 10 mg PO Q8H PRN Muscle Spasm #60 10/31/20 03/08/22 Rx tabs lidocaine 5 % topical patch 1 patch transdermal PRN PRN Pain 06/14/21 03/08/22 History (Lidoderm) metoprolol succinate 25 mg 25 mg PO DAILY #30 tabs 06/25/21 03/08/22 Rx tablet,extended release 24 hr (Toprol XL) aspirin 81 mg tablet,delayed 81 mg PO DAILY 03/08/22 03/08/22 History release diltiazem HCl 60 mg tablet 60 mg PO Q8-10H 03/08/22 03/08/22 History warfarin 2 mg tablet 2 mg PO DAILY 03/08/22 03/08/22 History Current Medications: Active Medications Acetaminophen (Acetaminophen 325 Mg Tablet) 650 mg PO Q6H PRN PRN Reason: Mild Pain (1-3) or Fever Hydrocodone Bitart/Acetaminophen (Hydrocodone/Acetaminophen (*Crx) 5-325 Mg Tablet) 1 tab PO Q6H PRN PRN Reason: Pain Rated 4-6 Last Admin: 03/14/22 00:13 Dose: 1 tab Alprazolam (Alprazolam (*Crx) 0.25 Mg Tablet) 0.25 mg PO TID PRN PRN Reason: Anxiety Aspirin (Aspirin 81 Mg Enteric Tablet) 81 mg PO DAILY [facility] Last Admin: 03/13/22 09:02 Dose: Not Given Bisacodyl (Bisacodyl 5 Mg Tablet Ec) 5 mg PO QAM PRN PRN Reason: Constipation Bisacodyl (Bisacodyl 10 Mg Suppository) 10 mg RECTAL QAM PRN PRN Reason: Constipation Collagenase (Collagenase Oint 30 Gm Tube) 1 applic TOPICAL QAM [facility] Last Admin: 03/13/22 09:11 Dose: 1 applic Cyclobenzaprine HCl (Cyclobenzaprine Hcl 10 Mg Tablet) 10 mg PO Q8H PRN PRN Reason: Muscle Spasm Dextrose (Dextrose 50% 25 Gm/50 Ml Syringe) 12.5 gm IV PUSH PRN PRN; Protocol PRN Reason: Hypoglycemia Diltiazem HCl (Diltiazem Hcl 60 Mg Tablet) 60 mg PO Q8HR [facility] Last Admin: 03/14/22 07:01 Dose: Not Given Docusate Sodium (Docusate Sodium 100 Mg Capsule) 100 mg PO DAILY [facility] Last Admin: 03/13/22 09:13 Dose: 100 mg Famotidine (Famotidine 10 Mg Tablet) 10 mg PO Q12HR [facility] Last Admin: 03/13/22 21:12 Dose: 10 mg Gabapentin (Gabapentin 300 Mg Capsule) 300 mg PO TID [facility] Last Admin: 03/13/22 16:13 Dose: 300 mg Glucagon (Glucagon For Inj 1 Mg Vial) 1 mg IM PRN PRN; Protocol PRN Reason: Hypoglycemia Glucose (Glucose Oral Gel 15 Gm Of Glucse In 37.5 Gm Tube) 15 gm PO PRN PRN; Protocol PRN Reason: Hypoglycemia Dextrose (Dextrose 5% 1,000 Ml) 1,000 mls @ 100 mls/hr IVPB PRN PRN; Protocol PRN Reason: Hypoglycemia Insulin Aspart (Insulin Aspart (*Bkc) 100 Units/Ml) 3 - 6 units SUB-Q TIDWM [facility]; Protocol Last Admin: 03/14/22 07:57 Dose: Not Given Insulin Glargine (Insulin Glargine (*Bkc) 100 Units/Ml) 43 units SUB-Q HS [facility] Last Admin: 03/13/22 21:11 Dose: 43 units Levofloxacin (Levofloxacin 750 Mg Tablet) 750 mg PO Q24H OTTO Last Admin: 03/13/22 17:18 Dose: Not Given Lidocaine (Lidocaine 5% Patch) 1 patch TRANSDERM DAILY [facility] Last Admin: 03/13/22 09:11 Dose: Not Given Metoprolol Succinate (Metoprolol Succinate Ext Rel 25 Mg Tabcr) 25 mg PO DAILY OTTO
--- NOTE | 2022-03-14 09:54 | PC.NURSE ---
Called Hospitalist Sharon regarding NPO diet. No answer. Will call again.
[2022-03-14] MEDS: COLLAGENASE OINT 30 GM TUBE 1 APPLIC TOPICAL (10:50)
[2022-03-14] MEDS: DOCUSATE SODIUM 100 MG CAPSULE PO (10:51)
[2022-03-14] MEDS: FAMOTIDINE 10 MG TABLET PO ×2 (10:51→21:04)
[2022-03-14] MEDS: GABAPENTIN 300 MG CAPSULE PO ×3 (10:51→17:30)
[2022-03-14] MEDS: METOPROLOL SUCCINATE EXT REL 25 MG TABCR PO (10:52)
[2022-03-14] MEDS: EUCERIN CREAM 120 GM JAR 1 APPLIC TOPICAL (10:53)
[2022-03-14] MEDS: TORSEMIDE 20 MG TABLET PO (10:53)
[2022-03-14 12:29] LABS: Glucose Point of Care 154 mg/dl (65-105)
--- NOTE | 2022-03-14 13:39 | P.PNIM_ITS ---
Progress Note: A&P Assessment and Plan (1) Lymphedema: Code(s): I89.0 - Lymphedema, not elsewhere classified Status: Acute Assessment and Plan: * Continue kelley wraps for edema control. * Elevate BLE and scrotum * -6.2 liters since admission. Resume torsemide at lower dose 03/14/22. * Scrotal edema and lymphedema improved. * venous Doppler and FERNANDO - negative * Wound Care following (2) Scrotal edema: Code(s): N50.89 - Other specified disorders of the male genital organs Status: Acute Assessment and Plan: Resolved. (3) Lytic bone lesion of femur: Code(s): M89.9 - Disorder of bone, unspecified Status: Acute Assessment and Plan: CT abd/pelvis on admission concerning for lytic defects in the femurs proximally bilaterally with cortical destruction along the posterior aspect of the femoral heads and femoral necks. Findings suspicious for metastatic disease or myeloma. Correlate for history of malignancy. * Attempted to obtain MRI but patient is too wide to fit in the machine. * Consulted Ortho for recommendations, who recommend transfer to tertiary center for Orthopedic Oncology evaluation. No beds available at [facility] at this time. * Dr. Tremaine Penaloza, [facility] Orthopedic Oncology, office ([phone]) was consulted regarding evaluation and recommendations. Office requesting plain x- rays and other imaging reports to be faxed which was done 03/13/22. Awaiting recommendations. No pathologic fractures noted. He could be seen in the office next Thursday outpatient. Further recommendations regarding need for femur stabilization will be given after image reports evaluated. Will hold transfer for now. * Multiple melanoma work up started and Oncology consulted. additional labs ordered per Oncology: serum free light chains, serum/urine immunofixation, LDH, uric acid and beta-2 microglobulin. * 03/13/22 Bone marrow biopsy was deferred today until patient could be off warfarin x2 days and arrangements can be made for pain management. Patient to undergo bone marrow biopsy tomorrow 03/14. NPO after midnight. additional labs ordered per Oncology. Hold warfarin and aspirin. * 03/14/22 Bone marrow biopsy done today and results pending. (4) Back pain: Qualifiers: Back pain laterality: midline Back pain location: low back pain Chronicity: chronic Sciatica presence: without sciatica Qualified Code(s): M54.50 - Low back pain, unspecified; G89.29 - Other chronic pain Code(s): M54.9 - Dorsalgia, unspecified Status: Chronic Assessment and Plan: H/O chronic back pain, patient was referred to a bait painter but never went to the appointment. Patient reportedly mentions he likes coming to the hospital for morphine injections, as he gets this here and not at the assisted living facility. * Continue gabapentin 300 mg TID * PRN [place] Q6 hours. * Lidoderm 5% patch daily added. * CT abd/pelvis - concerning lytic lesions b/l femurs. * Bone scan inconclusive. * Patient unable to fit in MRI machine due to abdominal/pelvic girth. * Patient refusing PT/OT. Transfers to chair only. (5) Paroxysmal atrial fibrillation: Code(s): I48.0 - Paroxysmal atrial fibrillation Status: Acute Assessment and Plan: * Continue diltiazem 60 mg Q8 hours and metoprolol XL 25 mg PO daily, rate controlled * Subtherapeutic INR 1.4. Holding warfarin for bone marrow biopsy 04/14/22. Resume warfarin in 2-3 days. * Daily PT/INR (6) Leg wound, left: Code(s): S81.802A - Unspecified open wound, left l
--- NOTE | 2022-03-14 13:39 | PM.IMPN ---
Progress Note: A&P Assessment and Plan (1) Lymphedema: Code(s): I89.0 - Lymphedema, not elsewhere classified Status: Acute Assessment and Plan: Continue kelley wraps for edema control. Elevate BLE and scrotum -6.2 liters since admission. Resume torsemide at lower dose 03/14/22. Scrotal edema and lymphedema improved. venous Doppler and FERNANDO - negative Wound Care following (2) Scrotal edema: Code(s): N50.89 - Other specified disorders of the male genital organs Status: Acute Assessment and Plan: Resolved. (3) Lytic bone lesion of femur: Code(s): M89.9 - Disorder of bone, unspecified Status: Acute Assessment and Plan: CT abd/pelvis on admission concerning for lytic defects in the femurs proximally bilaterally with cortical destruction along the posterior aspect of the femoral heads and femoral necks. Findings suspicious for metastatic disease or myeloma. Correlate for history of malignancy. Attempted to obtain MRI but patient is too wide to fit in the machine. Consulted Ortho for recommendations, who recommend transfer to tertiary center for Orthopedic Oncology evaluation. No beds available at [facility] at this time. Dr. Tremaine Penaloza, [facility] Orthopedic Oncology, office ([phone]) was consulted regarding evaluation and recommendations. Office requesting plain x-rays and other imaging reports to be faxed which was done 03/13/22. Awaiting recommendations. No pathologic fractures noted. He could be seen in the office next Thursday outpatient. Further recommendations regarding need for femur stabilization will be given after image reports evaluated. Will hold transfer for now. Multiple melanoma work up started and Oncology consulted. additional labs ordered per Oncology: serum free light chains, serum/urine immunofixation, LDH, uric acid and beta-2 microglobulin. 03/13/22 Bone marrow biopsy was deferred today until patient could be off warfarin x2 days and arrangements can be made for pain management. Patient to undergo bone marrow biopsy tomorrow 03/14. NPO after midnight. additional labs ordered per Oncology. Hold warfarin and aspirin. 03/14/22 Bone marrow biopsy done today and results pending. (4) Back pain: Qualifiers: Back pain laterality: midline Back pain location: low back pain Chronicity: chronic Sciatica presence: without sciatica Qualified Code(s): M54.50 - Low back pain, unspecified; G89.29 - Other chronic pain Code(s): M54.9 - Dorsalgia, unspecified Status: Chronic Assessment and Plan: H/O chronic back pain, patient was referred to a paint laboratory technician but never went to the appointment. Patient reportedly mentions he likes coming to the hospital for morphine injections, as he gets this here and not at the assisted living facility. Continue gabapentin 300 mg TID PRN [place] Q6 hours. Lidoderm 5% patch daily added. CT abd/pelvis - concerning lytic lesions b/l femurs. Bone scan inconclusive. Patient unable to fit in MRI machine due to abdominal/pelvic girth. Patient refusing PT/OT. Transfers to chair only. (5) Paroxysmal atrial fibrillation: Code(s): I48.0 - Paroxysmal atrial fibrillation Status: Acute Assessment and Plan: Continue diltiazem 60 mg Q8 hours and metoprolol XL 25 mg PO daily, rate controlled Subtherapeutic INR 1.4. Holding warfarin for bone marrow biopsy 04/14/22. Resume warfarin in 2-3 days. Daily PT/INR (6) Leg wound, left: Code(s): S81.802A - Unspecified open wound, left lower leg, initial encounter Status: Acute Assessment and Plan: Chronic left heel ulcer, noted to have necrotic/black eschar and odor. Wound care consulted (see documentation). Patient unable to tolerate lying flat for MRI heel to r/o osteomyelitis. Repeat MRI with IV morphine and IV valium prior to procedure. Wound culture gram negative bacilli with various organisms.
[2022-03-14] MEDS: dilTIAZem HCL 60 MG TABLET PO ×2 (14:49→21:44)
[2022-03-14 17:25] LABS: Glucose Point of Care 171 mg/dl (65-105)
[2022-03-14] MEDS: levoFLOXacin 750 MG TABLET PO (17:30)
[2022-03-14 20:00] LABS: Albumin 2.1 g/dL (3.8-4.8); Alpha 1 Globulin 0.4 g/dL (0.2-0.3); Alpha 2 Globulin 0.9 g/dL (0.5-0.9); Beta 1 Globulin 0.5 g/dL (0.4-0.6); Gamma Globulin 1.4 g/dL (0.8-1.7); Protein, Total 5.9 g/dL (6.1-8.1)
[2022-03-14] MEDS: allopurinoL 100 MG TABLET PO (21:04)
[2022-03-14] MEDS: INSULIN GLARGINE (*BKC) 100 UNITS/ML 43 UNITS SUB-Q (21:05)
[2022-03-14 21:29] LABS: Glucose Point of Care 183 mg/dl (65-105)
[2022-03-15] VITALS (10 sets, daily range): BP systolic 149–153; BP diastolic 59–76; PULSE 70–111; RESP 16–18; TEMP 36.1–36.3; O2SAT 95–98
[2022-03-15 06:04] LABS: Basophils Absolute Auto 0.1 K/mm3 (0.0-0.1); Basophils Percent Auto 0.5 % (0.2-1.2); Eosinophils Absolute Auto 0.3 K/mm3 (0-0.3); Eosinophils Percent Auto 2.3 % (0-4.4); Hematocrit 32.3 % (42.0-52.0); Hemoglobin 9.6 g/dL (14.0-18.0); Immature Granulocyte Absolute 0.15 K/mm3 (0.00-0.031); Immature Granulocyte Percent A 1.3 % (0-0.5); Lymphocytes Absolute Auto 1.47 K/mm3 (0.9-3.2); Lymphocytes Percent Auto 12.7 % (18.3-44.2); Mean Corpuscular HGB Conc 29.7 g/dl (32-36); Mean Corpuscular Hemoglobin 28.7 pg (26-34); Mean Corpuscular Volume 96.4 fl (80-100); Mean Platelet Volume 9.8 fl (7.4-10.4); Monocytes Absolute Auto 1.3 K/mm3 (0.1-0.6); Monocytes Percent Auto 11.3 % (2.6-8.5); Neutrophils Absolute Auto 8.3 K/mm3 (1.3-6.7); Neutrophils Percent Auto 71.9 % (45.5-73.1); Nucleated Red Blood Cells Perc 0.2 % (0.0-0.2); Platelet Count Result 275 k/mm3 (150-375); Red Blood Count 3.35 M/mm3 (4.6-6.20); Red Cell Distribution Width 15.9 % (11.5-14.5); White Blood Count 11.6 K/mm3 (4.5-10.0)
[2022-03-15 06:11] LABS: INR 1.4; Prothrombin Time 16.5 Seconds (11.1-14.7)
[2022-03-15 06:15] LABS: Alanine Aminotransferase 13 U/L (6-50); Albumin Level 2.6 g/dL (3.5-5.1); Alkaline Phosphatase 75 U/L (38-126); Anion Gap 4 mmol/L (8-16); Aspartate Amino Transferase 22 U/L (17-59); Bilirubin,Total 0.5 mg/dL (0.2-1.3); Blood Urea Nitrogen 25 mg/dL (9-20); Calcium 7.7 mg/dL (8.4-10.2); Carbon Dioxide 35 mmol/L (22-30); Chloride 103 mmol/L (98-107); Estimated CRCL calculation 50 ml/min; Estimated Glomerular Filt Rate 37; Glucose 96 mg/dL (65-110); Magnesium 2.1 mg/dL (1.6-2.3); Potassium 3.5 mmol/L (3.4-5.0); Sodium 142 mmol/L (137-145)
[2022-03-15] MEDS: dilTIAZem HCL 60 MG TABLET PO ×3 (06:37→21:25)
[2022-03-15 08:14] LABS: Glucose Point of Care 92 mg/dl (65-105)
[2022-03-15] MEDS: allopurinoL 100 MG TABLET PO ×2 (08:16→20:25)
[2022-03-15] MEDS: DOCUSATE SODIUM 100 MG CAPSULE PO (08:17)
[2022-03-15] MEDS: FAMOTIDINE 10 MG TABLET PO ×2 (08:17→20:25)
[2022-03-15] MEDS: GABAPENTIN 300 MG CAPSULE PO ×3 (08:17→17:24)
[2022-03-15] MEDS: METOPROLOL SUCCINATE EXT REL 25 MG TABCR PO (08:18)
[2022-03-15] MEDS: COLLAGENASE OINT 30 GM TUBE 1 APPLIC TOPICAL (08:26)
[2022-03-15] MEDS: EUCERIN CREAM 120 GM JAR 1 APPLIC TOPICAL (08:26)
--- NOTE | 2022-03-15 11:45 | PM.IMPN ---
Progress Note: A&P Assessment and Plan (1) Lymphedema: Code(s): I89.0 - Lymphedema, not elsewhere classified Status: Acute Assessment and Plan: Continue kelley wraps for edema control. Elevate BLE and scrotum -6.2 liters since admission. Resume torsemide at lower dose 03/14/22. Scrotal edema and lymphedema improved. venous Doppler and FERNANDO - negative Wound Care following (2) Scrotal edema: Code(s): N50.89 - Other specified disorders of the male genital organs Status: Acute Assessment and Plan: Resolved. (3) Lytic bone lesion of femur: Code(s): M89.9 - Disorder of bone, unspecified Status: Acute Assessment and Plan: CT abd/pelvis on admission concerning for lytic defects in the femurs proximally bilaterally with cortical destruction along the posterior aspect of the femoral heads and femoral necks. Findings suspicious for metastatic disease or myeloma. Correlate for history of malignancy. Attempted to obtain MRI but patient is too wide to fit in the machine. Consulted Ortho for recommendations, who recommend transfer to tertiary center for Orthopedic Oncology evaluation. No beds available at [facility] at this time. Dr. Tremaine Penaloza, [facility] Orthopedic Oncology, office ([phone]) was consulted regarding evaluation and recommendations. Office requesting plain x-rays and other imaging reports to be faxed which was done 03/13/22. Awaiting recommendations. No pathologic fractures noted. He could be seen in the office next Thursday outpatient. Further recommendations regarding need for femur stabilization will be given after image reports evaluated. Will hold transfer for now. Multiple melanoma work up started and Oncology consulted. additional labs ordered per Oncology: serum free light chains, serum/urine immunofixation, LDH, uric acid and beta-2 microglobulin. 03/13/22 Bone marrow biopsy was deferred today until patient could be off warfarin x2 days and arrangements can be made for pain management. Patient to undergo bone marrow biopsy tomorrow 03/14. NPO after midnight. additional labs ordered per Oncology. Hold warfarin and aspirin. 03/14/22 Bone marrow biopsy done today and results pending. 03/15/22 no significant change today. He appears stable (4) Back pain: Qualifiers: Back pain location: low back pain Chronicity: chronic Back pain laterality: midline Sciatica presence: without sciatica Qualified Code(s): M54.50 - Low back pain, unspecified; G89.29 - Other chronic pain Code(s): M54.9 - Dorsalgia, unspecified Status: Chronic Assessment and Plan: H/O chronic back pain, patient was referred to a bridge painter helper but never went to the appointment. Patient reportedly mentions he likes coming to the hospital for morphine injections, as he gets this here and not at the assisted living facility. Continue gabapentin 300 mg TID PRN [place] Q6 hours. Lidoderm 5% patch daily added. CT abd/pelvis - concerning lytic lesions b/l femurs. Bone scan inconclusive. Patient unable to fit in MRI machine due to abdominal/pelvic girth. PT/OT was performed yesterday patient would like to go to rehab for a bit (5) Paroxysmal atrial fibrillation: Code(s): I48.0 - Paroxysmal atrial fibrillation Status: Acute Assessment and Plan: Continue diltiazem 60 mg Q8 hours and metoprolol XL 25 mg PO daily, rate controlled Subtherapeutic INR 1.4. Holding warfarin for bone marrow biopsy 04/14/22. Daily PT/INR Restart warfarin at 5mg recheck coags in the am (6) Leg wound, left: Code(s): S81.802A - Unspecified open wound, left lower leg, initial encounter Status: Acute Assessment and Plan: Chronic left heel ulcer, noted to have necrotic/black eschar and odor. Wound care consulted (see documentation). Patient unable to tolerate lying flat for MRI heel to r/o osteomyelitis. Repeat MRI with I
--- NOTE | 2022-03-15 11:45 | P.PNIM_ITS ---
Progress Note: A&P Assessment and Plan (1) Lymphedema: Code(s): I89.0 - Lymphedema, not elsewhere classified Status: Acute Assessment and Plan: * Continue kelley wraps for edema control. * Elevate BLE and scrotum * -6.2 liters since admission. Resume torsemide at lower dose 03/14/22. * Scrotal edema and lymphedema improved. * venous Doppler and FERNANDO - negative * Wound Care following (2) Scrotal edema: Code(s): N50.89 - Other specified disorders of the male genital organs Status: Acute Assessment and Plan: Resolved. (3) Lytic bone lesion of femur: Code(s): M89.9 - Disorder of bone, unspecified Status: Acute Assessment and Plan: CT abd/pelvis on admission concerning for lytic defects in the femurs proximally bilaterally with cortical destruction along the posterior aspect of the femoral heads and femoral necks. Findings suspicious for metastatic disease or myeloma. Correlate for history of malignancy. * Attempted to obtain MRI but patient is too wide to fit in the machine. * Consulted Ortho for recommendations, who recommend transfer to tertiary center for Orthopedic Oncology evaluation. No beds available at [facility] at this time. * Dr. Tremaine Penaloza, [facility] Orthopedic Oncology, office ([phone]) was consulted regarding evaluation and recommendations. Office requesting plain x- rays and other imaging reports to be faxed which was done 03/13/22. Awaiting recommendations. No pathologic fractures noted. He could be seen in the office next Thursday outpatient. Further recommendations regarding need for femur stabilization will be given after image reports evaluated. Will hold transfer for now. * Multiple melanoma work up started and Oncology consulted. additional labs ordered per Oncology: serum free light chains, serum/urine immunofixation, LDH, uric acid and beta-2 microglobulin. * 03/13/22 Bone marrow biopsy was deferred today until patient could be off warfarin x2 days and arrangements can be made for pain management. Patient to undergo bone marrow biopsy tomorrow 03/14. NPO after midnight. additional labs ordered per Oncology. Hold warfarin and aspirin. * 03/14/22 Bone marrow biopsy done today and results pending. * 03/15/22 no significant change today. He appears stable (4) Back pain: Qualifiers: Back pain location: low back pain Chronicity: chronic Back pain laterality: midline Sciatica presence: without sciatica Qualified Code(s): M54.50 - Low back pain, unspecified; G89.29 - Other chronic pain Code(s): M54.9 - Dorsalgia, unspecified Status: Chronic Assessment and Plan: H/O chronic back pain, patient was referred to a paint and table edger but never went to the appointment. Patient reportedly mentions he likes coming to the hospital for morphine injections, as he gets this here and not at the assisted living facility. * Continue gabapentin 300 mg TID * PRN [place] Q6 hours. * Lidoderm 5% patch daily added. * CT abd/pelvis - concerning lytic lesions b/l femurs. * Bone scan inconclusive. * Patient unable to fit in MRI machine due to abdominal/pelvic girth. * PT/OT was performed yesterday * patient would like to go to rehab for a bit (5) Paroxysmal atrial fibrillation: Code(s): I48.0 - Paroxysmal atrial fibrillation Status: Acute Assessment and Plan: * Continue diltiazem 60 mg Q8 hours and metoprolol XL 25 mg PO daily, rate controlled * Subtherapeutic INR 1.4. Holding warfarin for bone marrow biopsy 04/14/22. * Daily PT/INR * Restart warfarin at 5mg recheck coag
[2022-03-15 12:00] LABS: Glucose Point of Care 133 mg/dl (65-105)
[2022-03-15] MEDS: HYDROcodone/acetaminophen (*CRX) 5-325 MG TABLET 1 TAB PO (13:50)
[2022-03-15 17:08] LABS: Glucose Point of Care 114 mg/dl (65-105)
[2022-03-15] MEDS: predniSONE 20 MG TABLET PO (17:24)
[2022-03-15] MEDS: WARFARIN (*PBKC) 5 MG TABLET PO (17:25)
[2022-03-15] MEDS: levoFLOXacin 750 MG TABLET PO (17:25)
[2022-03-15] MEDS: INSULIN GLARGINE (*BKC) 100 UNITS/ML 43 UNITS SUB-Q (20:25)
[2022-03-15 20:31] LABS: Glucose Point of Care 164 mg/dl (65-105)
[2022-03-16] VITALS (10 sets, daily range): BP systolic 141–148; BP diastolic 59–77; PULSE 80–93; RESP 16–18; TEMP 35.8–36.6; O2SAT 96–98
[2022-03-16] MEDS: dilTIAZem HCL 60 MG TABLET PO ×3 (05:35→21:00)
[2022-03-16 06:24] LABS: Basophils Percent Auto 0.3 % (0.2-1.2); Hematocrit 34.9 % (42.0-52.0); Hemoglobin 10.5 g/dL (14.0-18.0); Immature Granulocyte Percent A 0.9 % (0-0.5); Lymphocytes Absolute Auto 0.72 K/mm3 (0.9-3.2); Lymphocytes Percent Auto 6.4 % (18.3-44.2); Mean Corpuscular HGB Conc 30.1 g/dl (32-36); Mean Corpuscular Hemoglobin 28.5 pg (26-34); Mean Corpuscular Volume 94.8 fl (80-100); Mean Platelet Volume 9.9 fl (7.4-10.4); Monocytes Absolute Auto 0.6 K/mm3 (0.1-0.6); Neutrophils Absolute Auto 9.9 K/mm3 (1.3-6.7); Neutrophils Percent Auto 87.4 % (45.5-73.1); Platelet Count Result 289 k/mm3 (150-375); Red Blood Count 3.68 M/mm3 (4.6-6.20); Red Cell Distribution Width 15.6 % (11.5-14.5); White Blood Count 11.3 K/mm3 (4.5-10.0)
[2022-03-16 06:37] LABS: INR 1.3; Partial Thromboplastin Time 28.7 SECONDS (22.3-36.8); Prothrombin Time 15.9 Seconds (11.1-14.7)
[2022-03-16 06:38] LABS: Alanine Aminotransferase 15 U/L (6-50); Albumin Level 2.8 g/dL (3.5-5.1); Alkaline Phosphatase 80 U/L (38-126); Anion Gap 7 mmol/L (8-16); Aspartate Amino Transferase 24 U/L (17-59); Bilirubin,Total 0.5 mg/dL (0.2-1.3); Blood Urea Nitrogen 23 mg/dL (9-20); Calcium 8.1 mg/dL (8.4-10.2); Carbon Dioxide 32 mmol/L (22-30); Chloride 100 mmol/L (98-107); Estimated CRCL calculation 53 ml/min; Estimated Glomerular Filt Rate 40; Glucose 171 mg/dL (65-110); Potassium 3.9 mmol/L (3.4-5.0); Sodium 139 mmol/L (137-145)
[2022-03-16] MEDS: allopurinoL 100 MG TABLET PO ×2 (10:00→21:00)
[2022-03-16] MEDS: predniSONE 20 MG TABLET PO (10:00)
[2022-03-16] MEDS: FAMOTIDINE 10 MG TABLET PO ×2 (10:00→21:00)
[2022-03-16] MEDS: DOCUSATE SODIUM 100 MG CAPSULE PO (10:00)
[2022-03-16] MEDS: LIDOCAINE 5% PATCH 1 PATCH TRANSDERM (10:00)
[2022-03-16] MEDS: EUCERIN CREAM 120 GM JAR 1 APPLIC TOPICAL (10:00)
[2022-03-16] MEDS: GABAPENTIN 300 MG CAPSULE PO ×3 (10:00→17:47)
[2022-03-16] MEDS: COLLAGENASE OINT 30 GM TUBE 1 APPLIC TOPICAL (10:00)
[2022-03-16] MEDS: METOPROLOL SUCCINATE EXT REL 25 MG TABCR PO (10:00)
[2022-03-16 11:41] LABS: Glucose Point of Care 206 mg/dl (65-105)
--- NOTE | 2022-03-16 11:51 | PC.NURSE ---
RN scanned all morning medication, but [facility] did not save. RN then manually entered medications when they were given at 1000.
[2022-03-16] MEDS: INSULIN ASPART (*BKC) 100 UNITS/ML SUB-Q ×2 (13:42→17:46)
--- NOTE | 2022-03-16 16:42 | P.PNIM_ITS ---
Progress Note: A&P Assessment and Plan (1) Lymphedema: Code(s): I89.0 - Lymphedema, not elsewhere classified Status: Acute Assessment and Plan: Improving. * Continue kelley wraps for edema control. * Elevate BLE and scrotum * -6 liters since admission. Hold torsemide for now. Repeat renal function tomorrow. * Scrotal edema and lymphedema improved. * venous Doppler and FERNANDO - negative * Wound Care following (2) Scrotal edema: Code(s): N50.89 - Other specified disorders of the male genital organs Status: Acute Assessment and Plan: Resolved. (3) Lytic bone lesion of femur: Code(s): M89.9 - Disorder of bone, unspecified Status: Acute Assessment and Plan: CT abd/pelvis on admission concerning for lytic defects in the femurs proximally bilaterally with cortical destruction along the posterior aspect of the femoral heads and femoral necks. Findings suspicious for metastatic disease or myeloma. Correlate for history of malignancy. * Attempted to obtain MRI but patient is too wide to fit in the machine. * Consulted Ortho for recommendations, who recommend transfer to tertiary center for Orthopedic Oncology evaluation. No beds available at [facility] at this time. * Dr. Tremaine Penaloza, [facility] Orthopedic Oncology, office ([phone]) was consulted regarding evaluation and recommendations. Office requesting plain x- rays and other imaging reports to be faxed which was done 03/13/22. Awaiting recommendations. No pathologic fractures noted. He could be seen in the office next Thursday outpatient. Discussed with Dr. Kessler's office and review of imaging reports, does not think femur stabilization warranted. Cancel transfer. * Multiple melanoma work up started and Oncology consulted. additional labs ordered per Oncology: serum free light chains, serum/urine immunofixation, LDH, uric acid and beta-2 microglobulin. * 03/13/22 Bone marrow biopsy was deferred today until patient could be off warfarin x2 days and arrangements can be made for pain management. Patient to undergo bone marrow biopsy tomorrow 03/14. NPO after midnight. additional labs ordered per Oncology. Hold warfarin and aspirin. * 03/14/22 Bone marrow biopsy done today and results pending. * 03/15/22 no significant change today. He appears stable * 03/16/22 Bone marrow biopsy results pending. Uric acid 12 and started on allopurinol 8/19. Spep, Upep, free light chains, immunofixation and beta-2 microglobulin pending. LDH within normal limits. Patient to follow Oncology outpatient. If work up is positive for multiple myeloma- he will need outpatient PET scan. (4) Back pain: Qualifiers: Back pain location: low back pain Chronicity: chronic Back pain laterality: midline Sciatica presence: without sciatica Qualified Code(s): M54.50 - Low back pain, unspecified; G89.29 - Other chronic pain Code(s): M54.9 - Dorsalgia, unspecified Status: Chronic Assessment and Plan: H/O chronic back pain, patient was referred to a paint factory worker but never went to the appointment. Patient reportedly mentions he likes coming to the hospital for morphine injections, as he gets this here and not at the assisted living facility. * Continue gabapentin 300 mg TID * PRN [place] Q6 hours. * Lidoderm 5% patch daily added. * CT abd/pelvis - concerning lytic lesions b/l femurs. * Bone scan inconclusive. * Patient unable to fit in MRI machine due to abdominal/pelvic girth. * PT/OT was performed yesterday * patient would like to go to rehab. Care coordination assisting. * Improving
--- NOTE | 2022-03-16 16:42 | PM.IMPN ---
Progress Note: A&P Assessment and Plan (1) Lymphedema: Code(s): I89.0 - Lymphedema, not elsewhere classified Status: Acute Assessment and Plan: Improving. Continue kelley wraps for edema control. Elevate BLE and scrotum -6 liters since admission. Hold torsemide for now. Repeat renal function tomorrow. Scrotal edema and lymphedema improved. venous Doppler and FERNANDO - negative Wound Care following (2) Scrotal edema: Code(s): N50.89 - Other specified disorders of the male genital organs Status: Acute Assessment and Plan: Resolved. (3) Lytic bone lesion of femur: Code(s): M89.9 - Disorder of bone, unspecified Status: Acute Assessment and Plan: CT abd/pelvis on admission concerning for lytic defects in the femurs proximally bilaterally with cortical destruction along the posterior aspect of the femoral heads and femoral necks. Findings suspicious for metastatic disease or myeloma. Correlate for history of malignancy. Attempted to obtain MRI but patient is too wide to fit in the machine. Consulted Ortho for recommendations, who recommend transfer to tertiary center for Orthopedic Oncology evaluation. No beds available at [facility] at this time. Dr. Tremaine Penaloza, [facility] Orthopedic Oncology, office ([phone]) was consulted regarding evaluation and recommendations. Office requesting plain x-rays and other imaging reports to be faxed which was done 03/13/22. Awaiting recommendations. No pathologic fractures noted. He could be seen in the office next Thursday outpatient. Discussed with Dr. Kessler's office and review of imaging reports, does not think femur stabilization warranted. Cancel transfer. Multiple melanoma work up started and Oncology consulted. additional labs ordered per Oncology: serum free light chains, serum/urine immunofixation, LDH, uric acid and beta-2 microglobulin. 03/13/22 Bone marrow biopsy was deferred today until patient could be off warfarin x2 days and arrangements can be made for pain management. Patient to undergo bone marrow biopsy tomorrow 03/14. NPO after midnight. additional labs ordered per Oncology. Hold warfarin and aspirin. 03/14/22 Bone marrow biopsy done today and results pending. 03/15/22 no significant change today. He appears stable 03/16/22 Bone marrow biopsy results pending. Uric acid 12 and started on allopurinol 03/14. Spep, Upep, free light chains, immunofixation and beta-2 microglobulin pending. LDH within normal limits. Patient to follow Oncology outpatient. If work up is positive for multiple myeloma- he will need outpatient PET scan. (4) Back pain: Qualifiers: Back pain location: low back pain Chronicity: chronic Back pain laterality: midline Sciatica presence: without sciatica Qualified Code(s): M54.50 - Low back pain, unspecified; G89.29 - Other chronic pain Code(s): M54.9 - Dorsalgia, unspecified Status: Chronic Assessment and Plan: H/O chronic back pain, patient was referred to a size painter but never went to the appointment. Patient reportedly mentions he likes coming to the hospital for morphine injections, as he gets this here and not at the assisted living facility. Continue gabapentin 300 mg TID PRN [place] Q6 hours. Lidoderm 5% patch daily added. CT abd/pelvis - concerning lytic lesions b/l femurs. Bone scan inconclusive. Patient unable to fit in MRI machine due to abdominal/pelvic girth. PT/OT was performed yesterday patient would like to go to rehab. Care coordination assisting. Improving (5) Paroxysmal atrial fibrillation: Code(s): I48.0 - Paroxysmal atrial fibrillation Status: Acute Assessment and Plan: Continue diltiazem 60 mg Q8 hours and metoprolol XL 25 mg PO daily, rate controlled Subtherapeutic INR 1.4. Holding warfarin for bone marrow biopsy 04/14/22. Daily PT/INR Restarted warfarin at 5mg on 03/15. INR 1.3.
[2022-03-16 16:49] LABS: Glucose Point of Care 222 mg/dl (65-105)
[2022-03-16 17:14] LABS: Kappa\\Lambda Light Chains 1.14 (0.26-1.65); Lambda Light Chain 86.3 mg/L (5.7-26.3)
[2022-03-16] MEDS: HYDROcodone/acetaminophen (*CRX) 5-325 MG TABLET 1 TAB PO (17:46)
[2022-03-16] MEDS: levoFLOXacin 750 MG TABLET PO (17:47)
[2022-03-16] MEDS: WARFARIN (*PBKC) 5 MG TABLET PO (17:47)
[2022-03-16] MEDS: INSULIN GLARGINE (*BKC) 100 UNITS/ML 43 UNITS SUB-Q (21:00)
[2022-03-16 21:08] LABS: Glucose Point of Care 254 mg/dl (65-105)
[2022-03-17] VITALS (9 sets, daily range): BP systolic 136–162; BP diastolic 67–76; PULSE 70–85; RESP 16–18; TEMP 35.6–37.2; O2SAT 97–98
[2022-03-17] MEDS: dilTIAZem HCL 60 MG TABLET PO ×3 (05:22→21:01)
[2022-03-17 06:02] LABS: Beta-2-Microglobulin 5.72 mg/L (<=2.51)
[2022-03-17 07:19] LABS: INR 1.4; Prothrombin Time 16.5 Seconds (11.1-14.7)
[2022-03-17 07:29] LABS: Anion Gap 6 mmol/L (8-16); Blood Urea Nitrogen 28 mg/dL (9-20); Calcium 7.9 mg/dL (8.4-10.2); Carbon Dioxide 32 mmol/L (22-30); Chloride 102 mmol/L (98-107); Estimated CRCL calculation 50 ml/min; Estimated Glomerular Filt Rate 37; Glucose 122 mg/dL (65-110); Magnesium 2.3 mg/dL (1.6-2.3); Potassium 3.7 mmol/L (3.4-5.0); Sodium 140 mmol/L (137-145)
[2022-03-17] MEDS: METOPROLOL SUCCINATE EXT REL 25 MG TABCR PO (08:21)
[2022-03-17] MEDS: predniSONE 20 MG TABLET PO (08:21)
[2022-03-17] MEDS: GABAPENTIN 300 MG CAPSULE PO ×3 (08:21→17:39)
[2022-03-17] MEDS: FAMOTIDINE 10 MG TABLET PO ×2 (08:21→20:27)
[2022-03-17] MEDS: allopurinoL 100 MG TABLET PO ×2 (08:22→20:27)
[2022-03-17] MEDS: TORSEMIDE 20 MG TABLET PO (08:22)
[2022-03-17] MEDS: DOCUSATE SODIUM 100 MG CAPSULE PO (08:22)
[2022-03-17] MEDS: COLLAGENASE OINT 30 GM TUBE 1 APPLIC TOPICAL (08:23)
[2022-03-17] MEDS: EUCERIN CREAM 120 GM JAR 1 APPLIC TOPICAL (08:23)
[2022-03-17 08:50] LABS: Glucose Point of Care 102 mg/dl (65-105)
[2022-03-17 11:22] LABS: Total Protein/Creatinine Ratio 1508 mg/g creat (22-128)
[2022-03-17 12:14] LABS: Glucose Point of Care 221 mg/dl (65-105)
[2022-03-17] MEDS: INSULIN ASPART (*BKC) 100 UNITS/ML SUB-Q ×2 (12:16→17:40)
--- NOTE | 2022-03-17 14:03 | PCPTNOTE ---
The patient treatment was not able to be completed due to nursing with patient and performing LE dressing change. Will plan to continue treatment per plan of care.
--- NOTE | 2022-03-17 15:01 | PM.IMPN ---
Progress Note: A&P Assessment and Plan (1) Lymphedema: Code(s): I89.0 - Lymphedema, not elsewhere classified Status: Acute Assessment and Plan: Improving. Continue kelley wraps for edema control. Elevate BLE. Torsemide stopped. Consider resuming PRN for worsening edema. venous Doppler and FERNANDO - negative Wound Care consulted. (2) Scrotal edema: Code(s): N50.89 - Other specified disorders of the male genital organs Status: Acute Assessment and Plan: Resolved. (3) Lytic bone lesion of femur: Code(s): M89.9 - Disorder of bone, unspecified Status: Acute Assessment and Plan: CT abd/pelvis on admission concerning for lytic defects in the femurs proximally bilaterally with cortical destruction along the posterior aspect of the femoral heads and femoral necks. Findings suspicious for metastatic disease or myeloma. Correlate for history of malignancy. Attempted to obtain MRI but patient is too wide to fit in the machine. Consulted Ortho for recommendations, who recommend transfer to tertiary center for Orthopedic Oncology evaluation. No beds available at [facility] at this time. Dr. Tremaine Penaloza, [facility] Orthopedic Oncology, office ([phone]) was consulted regarding evaluation and recommendations. Office requesting plain x-rays and other imaging reports to be faxed, which was done 03/13/22. No pathologic fractures noted on imaging. Discussed with Dr. Kessler's office after review of imaging reports, does not think femur stabilization needed. Cancel transfer. Continue Med Onc workup with outpatient referral as needed. Outpatient CT skeletal survey versus PET scan likely, but pending Oncology. Multiple melanoma work up started and Oncology consulted. additional labs ordered per Oncology: serum free light chains, serum/urine immunofixation, LDH, uric acid and beta-2 microglobulin. 03/13/22 Bone marrow biopsy was deferred today until patient could be off warfarin x2 days and arrangements can be made for pain management. Patient to undergo bone marrow biopsy tomorrow 03/14. NPO after midnight. additional labs ordered per Oncology. Hold warfarin and aspirin. 03/14/22 Bone marrow biopsy done today and results pending. 03/15/22 no significant change today. He appears stable 03/16/22 Bone marrow biopsy results pending. Uric acid 12 and started on allopurinol 03/14. Spep, Upep, free light chains, immunofixation and beta-2 microglobulin pending. LDH within normal limits. Patient to follow Oncology outpatient. 03/17/22 Unchanged. Working with PT (4) Back pain: Qualifiers: Back pain location: low back pain Chronicity: chronic Back pain laterality: midline Sciatica presence: without sciatica Qualified Code(s): M54.50 - Low back pain, unspecified; G89.29 - Other chronic pain Code(s): M54.9 - Dorsalgia, unspecified Status: Chronic Assessment and Plan: H/O chronic back pain, patient was referred to a car painter but never went to the appointment. Patient reportedly mentions he likes coming to the hospital for morphine injections, as he gets this here and not at the assisted living facility. Continue gabapentin 300 mg TID and PRN [place] Q6 hours. Lidoderm 5% patch daily. CT abd/pelvis - concerning lytic lesions b/l femurs. Bone scan inconclusive. Patient unable to fit in MRI machine due to abdominal/pelvic girth. Continue PT/OT. Low dose prednisone 20 mg daily started 03/15 that may be helping with arthritis pain (patient has had several sacral x-rays suggesting OA). patient would like to go to rehab. Care coordination assisting. Stable (5) Paroxysmal atrial fibrillation: Code(s): I48.0 - Paroxysmal atrial fibrillation Status: Acute Assessment and Plan: Continue diltiazem 60 mg Q8 hours and metoprolol XL 25 mg PO daily, rate controlled Daily PT/INR Restarted warfarin at 5mg on 03/15. INR 1.3. 03/16 Con
[2022-03-17] MEDS: WARFARIN (*PBKC) 5 MG TABLET PO (17:39)
[2022-03-17] MEDS: levoFLOXacin 750 MG TABLET PO (17:39)
[2022-03-17 17:44] LABS: Glucose Point of Care 213 mg/dl (65-105)
[2022-03-17] MEDS: INSULIN GLARGINE (*BKC) 100 UNITS/ML 46 UNITS SUB-Q (20:23)
[2022-03-17 20:32] LABS: Glucose Point of Care 240 mg/dl (65-105)
[2022-03-18] VITALS (10 sets, daily range): BP systolic 135–144; BP diastolic 64–72; PULSE 68–101; RESP 12–20; TEMP 37–37.1; O2SAT 96–99
[2022-03-18] MEDS: dilTIAZem HCL 60 MG TABLET PO ×3 (05:05→21:26)
[2022-03-18 06:04] LABS: Uric Acid 10.7 mg/dL (3.5-8.5)
[2022-03-18 06:11] LABS: INR 1.4; Prothrombin Time 16.2 Seconds (11.1-14.7)
[2022-03-18 08:19] LABS: Glucose Point of Care 117 mg/dl (65-105)
[2022-03-18] MEDS: GABAPENTIN 300 MG CAPSULE PO ×3 (08:55→16:02)
[2022-03-18] MEDS: DOCUSATE SODIUM 100 MG CAPSULE PO (08:55)
[2022-03-18] MEDS: ASPIRIN 81 MG ENTERIC TABLET PO (08:55)
[2022-03-18] MEDS: predniSONE 20 MG TABLET PO (08:55)
[2022-03-18] MEDS: allopurinoL 100 MG TABLET PO ×3 (08:55→16:02)
[2022-03-18] MEDS: METOPROLOL SUCCINATE EXT REL 25 MG TABCR PO (08:56)
[2022-03-18] MEDS: FAMOTIDINE 10 MG TABLET PO ×2 (08:56→20:44)
[2022-03-18] MEDS: polyethylene glycoL 3350 17 GM POWD.PACK PO (09:00)
[2022-03-18] MEDS: EUCERIN CREAM 120 GM JAR 1 APPLIC TOPICAL (09:02)
[2022-03-18] MEDS: COLLAGENASE OINT 30 GM TUBE 1 APPLIC TOPICAL (09:02)
--- NOTE | 2022-03-18 10:16 | PC.NURSE ---
Per hospitalist request, dopplers done to bilateral feet. Positive pulses found. Hospitalist made aware.
[2022-03-18 12:21] LABS: Glucose Point of Care 173 mg/dl (65-105)
[2022-03-18] MEDS: ALPRAZolam (*CRX) 0.25 MG TABLET PO ×2 (12:40→16:04)
--- NOTE | 2022-03-18 12:43 | PCNFU ---
Nutrition Follow-Up Complete: Increased nutrient needs related to wound healing as evidenced by a deep tissue pressure injury to heel. Goal: Wound healing PO intake 75% of meals. Pt is progressing towards goals. Continue with same goals. Pt current nutrition is heart healthy. Nutrition recommendation: Continue with current plan of care. Last recorded weight is 159.9 kg - stable Bowel Motility: +BM 03/16 Labs Reviewed: hgb:10.5, HCT:34.9, glu:117 Meds Noted: lantus, coumadin, colace Skin: Venous stasis ulcers, DM ulcer to heel, DTPI to heel Additional Notes: Pt continues on a heart healthy diet, intake charted at 50-100% most meals. [place] BID was ordered, has been d/c'd due to pt refusal. Pt does not wish to have any further supplementation. Explained the benefits for wound healing but pt continues to decline all supplements. Monitor intake, wt, skin, labs. Follow up in 7 days.
--- NOTE | 2022-03-18 13:27 | PM.IMPN ---
Progress Note: A&P Assessment and Plan (1) Lymphedema: Code(s): I89.0 - Lymphedema, not elsewhere classified Status: Acute Assessment and Plan: Improving. Continue kelley wraps for edema control. Elevate BLE. Torsemide on hold for now given improved edema. Consider resuming PRN for worsening edema. venous Doppler and FERNANDO - negative Wound Care consulted. (2) Scrotal edema: Code(s): N50.89 - Other specified disorders of the male genital organs Status: Acute Assessment and Plan: Resolved. (3) Lytic bone lesion of femur: Code(s): M89.9 - Disorder of bone, unspecified Status: Acute Assessment and Plan: CT abd/pelvis on admission concerning for lytic defects in the femurs proximally bilaterally with cortical destruction along the posterior aspect of the femoral heads and femoral necks. Findings suspicious for metastatic disease or myeloma. Correlate for history of malignancy. Attempted to obtain MRI but patient is too wide to fit in the machine. Consulted Ortho for recommendations, who recommend transfer to tertiary center for Orthopedic Oncology evaluation. No beds available at [facility] at this time. Dr. Tremaine Penaloza, [facility] Orthopedic Oncology, office ([phone]) was consulted regarding evaluation and recommendations. Office requesting plain x-rays and other imaging reports to be faxed, which was done 03/13/22. No pathologic fractures noted on imaging. Discussed with Dr. Kessler's office after review of imaging reports, does not think femur stabilization needed. Cancel transfer. Continue Med Onc workup with outpatient referral as needed. Outpatient CT skeletal survey versus PET scan likely, but pending Oncology. Multiple melanoma work up started and Oncology consulted. additional labs ordered per Oncology: serum free light chains, serum/urine immunofixation, LDH, uric acid and beta-2 microglobulin. 03/13/22 Bone marrow biopsy was deferred today until patient could be off warfarin x2 days and arrangements can be made for pain management. Patient to undergo bone marrow biopsy tomorrow 03/14. NPO after midnight. additional labs ordered per Oncology. Hold warfarin and aspirin. 03/14/22 Bone marrow biopsy done today and results pending. 03/15/22 no significant change today. He appears stable 03/16/22 Bone marrow biopsy results pending. Uric acid 12 and started on allopurinol 03/14. Spep, Upep, free light chains, immunofixation and beta-2 microglobulin pending. LDH within normal limits. Patient to follow Oncology outpatient. 03/17/22 Unchanged. Working with PT 03/18/22 unchanged. (4) Back pain: Qualifiers: Back pain laterality: midline Back pain location: low back pain Chronicity: chronic Sciatica presence: without sciatica Qualified Code(s): M54.50 - Low back pain, unspecified; G89.29 - Other chronic pain Code(s): M54.9 - Dorsalgia, unspecified Status: Chronic Assessment and Plan: H/O chronic back pain, patient was referred to a banner painter but never went to the appointment. Patient reportedly mentions he likes coming to the hospital for morphine injections, as he gets this here and not at the assisted living facility. Continue gabapentin 300 mg TID and PRN [place] Q6 hours. Lidoderm 5% patch daily. CT abd/pelvis - concerning lytic lesions b/l femurs. Bone scan inconclusive. Patient unable to fit in MRI machine due to abdominal/pelvic girth. Continue PT/OT. Low dose prednisone 20 mg daily started 03/15 that may be helping with arthritis pain (patient has had several sacral x-rays suggesting OA). patient would like to go to rehab. Care coordination assisting. 03/18/22 improved with prednisone. Continue short-course; day 3 (5) Paroxysmal atrial fibrillation: Code(s): I48.0 - Paroxysmal atrial fibrillation Status: Acute Assessment and Plan: Continue diltiazem 60 mg Q8 hours and metoprolol X
[2022-03-18] MEDS: WARFARIN (*PBKC) 3 MG TABLET 6 MG PO (16:02)
[2022-03-18] MEDS: levoFLOXacin 750 MG TABLET PO (16:31)
[2022-03-18 16:42] LABS: Glucose Point of Care 260 mg/dl (65-105)
[2022-03-18] MEDS: INSULIN ASPART (*BKC) 100 UNITS/ML SUB-Q (16:58)
[2022-03-18] MEDS: HYDROcodone/acetaminophen (*CRX) 5-325 MG TABLET 1 TAB PO (20:42)
[2022-03-18] MEDS: INSULIN GLARGINE (*BKC) 100 UNITS/ML 46 UNITS SUB-Q (20:44)
[2022-03-18 20:45] LABS: Glucose Point of Care 240 mg/dl (65-105)
[2022-03-19] VITALS (7 sets, daily range): BP systolic 137–140; BP diastolic 76–83; PULSE 67–87; RESP 16–20; TEMP 37–37.1; O2SAT 96–99
[2022-03-19] MEDS: dilTIAZem HCL 60 MG TABLET PO ×2 (05:17→13:08)
[2022-03-19 05:51] LABS: Hematocrit 36.3 % (42.0-52.0); Hemoglobin 10.8 g/dL (14.0-18.0); Mean Corpuscular HGB Conc 29.8 g/dl (32-36); Mean Corpuscular Hemoglobin 28.3 pg (26-34); Mean Corpuscular Volume 95.3 fl (80-100); Platelet Count Result 321 k/mm3 (150-375); Red Blood Count 3.81 M/mm3 (4.6-6.20); Red Cell Distribution Width 15.5 % (11.5-14.5)
[2022-03-19 06:03] LABS: Alanine Aminotransferase 20 U/L (6-50); Albumin Level 2.7 g/dL (3.5-5.1); Alkaline Phosphatase 68 U/L (38-126); Anion Gap 8 mmol/L (8-16); Aspartate Amino Transferase 32 U/L (17-59); Bilirubin,Total 0.4 mg/dL (0.2-1.3); Blood Urea Nitrogen 35 mg/dL (9-20); Calcium 8.1 mg/dL (8.4-10.2); Carbon Dioxide 30 mmol/L (22-30); Chloride 100 mmol/L (98-107); Estimated CRCL calculation 50 ml/min; Estimated Glomerular Filt Rate 37; Glucose 123 mg/dL (65-110); Potassium 3.8 mmol/L (3.4-5.0); Sodium 138 mmol/L (137-145)
[2022-03-19 06:06] LABS: INR 1.4; Prothrombin Time 16.6 Seconds (11.1-14.7)
[2022-03-19 07:58] LABS: Glucose Point of Care 106 mg/dl (65-105)
[2022-03-19] MEDS: predniSONE 20 MG TABLET PO (08:57)
[2022-03-19] MEDS: ALPRAZolam (*CRX) 0.25 MG TABLET PO (08:57)
[2022-03-19] MEDS: allopurinoL 100 MG TABLET PO ×2 (08:57→13:07)
[2022-03-19] MEDS: ASPIRIN 81 MG ENTERIC TABLET PO (08:57)
[2022-03-19] MEDS: METOPROLOL SUCCINATE EXT REL 25 MG TABCR PO (08:58)
[2022-03-19] MEDS: FAMOTIDINE 10 MG TABLET PO (08:58)
[2022-03-19] MEDS: DOCUSATE SODIUM 100 MG CAPSULE PO (08:58)
[2022-03-19] MEDS: GABAPENTIN 300 MG CAPSULE PO ×2 (08:58→13:07)
[2022-03-19] MEDS: COLLAGENASE OINT 30 GM TUBE 1 APPLIC TOPICAL (09:01)
[2022-03-19] MEDS: EUCERIN CREAM 120 GM JAR 1 APPLIC TOPICAL (09:01)
--- NOTE | 2022-03-19 11:28 | PM.IMPN ---
Progress Note: A&P Assessment and Plan (1) Lymphedema: Code(s): I89.0 - Lymphedema, not elsewhere classified Status: Acute Assessment and Plan: Improving. Continue kelley wraps for edema control. Elevate BLE. Torsemide on hold for now given improved edema. Consider resuming PRN for worsening edema. venous Doppler and FERNANDO - negative Wound Care consulted. (2) Scrotal edema: Code(s): N50.89 - Other specified disorders of the male genital organs Status: Acute Assessment and Plan: Resolved. (3) Lytic bone lesion of femur: Code(s): M89.9 - Disorder of bone, unspecified Status: Acute Assessment and Plan: CT abd/pelvis on admission concerning for lytic defects in the femurs proximally bilaterally with cortical destruction along the posterior aspect of the femoral heads and femoral necks. Findings suspicious for metastatic disease or myeloma. Correlate for history of malignancy. Attempted to obtain MRI but patient is too wide to fit in the machine. Consulted Ortho for recommendations, who recommend transfer to tertiary center for Orthopedic Oncology evaluation. No beds available at [facility] at this time. Dr. Tremaine Penaloza, [facility] Orthopedic Oncology, office ([phone]) was consulted regarding evaluation and recommendations. Office requesting plain x-rays and other imaging reports to be faxed, which was done 03/13/22. No pathologic fractures noted on imaging. Discussed with Dr. Kessler's office after review of imaging reports, does not think femur stabilization needed. Cancel transfer. Continue Med Onc workup with outpatient referral as needed. Outpatient CT skeletal survey versus PET scan likely, but pending Oncology. Multiple melanoma work up started and Oncology consulted. additional labs ordered per Oncology: serum free light chains, serum/urine immunofixation, LDH, uric acid and beta-2 microglobulin. 03/13/22 Bone marrow biopsy was deferred today until patient could be off warfarin x2 days and arrangements can be made for pain management. Patient to undergo bone marrow biopsy tomorrow 03/14. NPO after midnight. additional labs ordered per Oncology. Hold warfarin and aspirin. 03/14/22 Bone marrow biopsy done today and results pending. 03/15/22 no significant change today. He appears stable 03/16/22 Bone marrow biopsy results pending. Uric acid 12 and started on allopurinol 03/14. Spep, Upep, free light chains, immunofixation and beta-2 microglobulin pending. LDH within normal limits. Patient to follow Oncology outpatient. 03/17/22 Unchanged. Working with PT 03/18/22 unchanged. unchanged, working on placement (4) Back pain: Qualifiers: Back pain location: low back pain Chronicity: chronic Back pain laterality: midline Sciatica presence: without sciatica Qualified Code(s): M54.50 - Low back pain, unspecified; G89.29 - Other chronic pain Code(s): M54.9 - Dorsalgia, unspecified Status: Chronic Assessment and Plan: H/O chronic back pain, patient was referred to a car painter but never went to the appointment. Patient reportedly mentions he likes coming to the hospital for morphine injections, as he gets this here and not at the assisted living facility. Continue gabapentin 300 mg TID and PRN [place] Q6 hours. Lidoderm 5% patch daily. CT abd/pelvis - concerning lytic lesions b/l femurs. Bone scan inconclusive. Patient unable to fit in MRI machine due to abdominal/pelvic girth. Continue PT/OT. Low dose prednisone 20 mg daily started 03/15 that may be helping with arthritis pain (patient has had several sacral x-rays suggesting OA). patient would like to go to rehab. Care coordination assisting. 03/18/22 improved with prednisone. Continue short-course; day 3 (5) Paroxysmal atrial fibrillation: Code(s): I48.0 - Paroxysmal atrial fibrillation Status: Acute Assessment and Plan: Continue diltia
[2022-03-19 11:57] LABS: Glucose Point of Care 189 mg/dl (65-105)
[2022-03-19] MEDS: HYDROcodone/acetaminophen (*CRX) 5-325 MG TABLET 1 TAB PO (12:35)
--- NOTE | 2022-03-19 13:50 | PM.DS ---
DS: Admitting Diagnosis Discharge Date 03/19/2022 Admitting Diagnosis physical debility Lymphedema scrotal edema Lytic bone lesion DS: Discharge Diagnosis Discharge Diagnosis (1) Lymphedema: Code(s): I89.0 - Lymphedema, not elsewhere classified Status: Acute Assessment and Plan: Improving. Continue kelley wraps for edema control. Elevate BLE. Torsemide on hold for now given improved edema. Consider resuming PRN for worsening edema. venous Doppler and FERNANDO - negative Wound Care consulted. (2) Scrotal edema: Code(s): N50.89 - Other specified disorders of the male genital organs Status: Acute Assessment and Plan: Resolved. (3) Lytic bone lesion of femur: Code(s): M89.9 - Disorder of bone, unspecified Status: Acute Assessment and Plan: CT abd/pelvis on admission concerning for lytic defects in the femurs proximally bilaterally with cortical destruction along the posterior aspect of the femoral heads and femoral necks. Findings suspicious for metastatic disease or myeloma. Correlate for history of malignancy. Attempted to obtain MRI but patient is too wide to fit in the machine. Consulted Ortho for recommendations, who recommend transfer to tertiary center for Orthopedic Oncology evaluation. No beds available at [facility] at this time. Dr. Tremaine Penaloza, [facility] Orthopedic Oncology, office ([phone]) was consulted regarding evaluation and recommendations. Office requesting plain x-rays and other imaging reports to be faxed, which was done 03/13/22. No pathologic fractures noted on imaging. Discussed with Dr. Kessler's office after review of imaging reports, does not think femur stabilization needed. Cancel transfer. Continue Med Onc workup with outpatient referral as needed. Outpatient CT skeletal survey versus PET scan likely, but pending Oncology. Multiple melanoma work up started and Oncology consulted. additional labs ordered per Oncology: serum free light chains, serum/urine immunofixation, LDH, uric acid and beta-2 microglobulin. 03/13/22 Bone marrow biopsy was deferred today until patient could be off warfarin x2 days and arrangements can be made for pain management. Patient to undergo bone marrow biopsy tomorrow 03/14. NPO after midnight. additional labs ordered per Oncology. Hold warfarin and aspirin. 03/14/22 Bone marrow biopsy done today and results pending. 03/15/22 no significant change today. He appears stable 03/16/22 Bone marrow biopsy results pending. Uric acid 12 and started on allopurinol 03/14. Spep, Upep, free light chains, immunofixation and beta-2 microglobulin pending. LDH within normal limits. Patient to follow Oncology outpatient. 03/17/22 Unchanged. Working with PT 03/18/22 unchanged. unchanged, working on placement (4) Back pain: Qualifiers: Back pain location: low back pain Chronicity: chronic Back pain laterality: midline Sciatica presence: without sciatica Qualified Code(s): M54.50 - Low back pain, unspecified; G89.29 - Other chronic pain Code(s): M54.9 - Dorsalgia, unspecified Status: Chronic Assessment and Plan: H/O chronic back pain, patient was referred to a commercial painter but never went to the appointment. Patient reportedly mentions he likes coming to the hospital for morphine injections, as he gets this here and not at the assisted living facility. Continue gabapentin 300 mg TID and PRN [place] Q6 hours. Lidoderm 5% patch daily. CT abd/pelvis - concerning lytic lesions b/l femurs. Bone scan inconclusive. Patient unable to fit in MRI machine due to abdominal/pelvic girth. Continue PT/OT. Low dose prednisone 20 mg daily started 03/15 that may be helping with arthritis pain (patient has had several sacral x-rays suggesting OA). patient would like to go to rehab. Care coordination assisting. 03/18/22 improved with prednisone. Continue short-course; day 3 (5) Par
[2022-03-19 14:48] LABS: EDCOVIDSCREEN Negative (Negative)
--- NOTE | 2022-03-19 15:11 | PC.NURSE ---
Report given to Philip at [facility].
--- NOTE | 2022-03-19 20:10 | PCCCNOTE ---
Blind Transfer call received from sister yunier Jin. She verbalizes extreme upset about discharge and demands to speak with someone tonight. States that patient is at [facility] and does not have a proper bed as he needs a bariatric bed. Provided her with the phone number for [facility]. Listened to concern and will forward to management and patient advocate. Sister yunier lu wants to speak with nursing nurses supervisor which is who she wanted to speak when she called. Called to Kwan Hui for [facility], he is working on a getting/ordering a bariatric bed tonight. Rn Document Improvement notified and provided phone # to call sister yunier Jin back as requested.
== END 2022-03-19 16:00 | DRG 565 ==
LOC: ANHED 16:28 → ANH3MED 19:46
PROVIDERS: Nurse Practitioner; Physician Assistant; Radiology Diagnostic Radiology; Admitting Provider Chiropractor; Emergency Provider Emergency Medicine; PCP Internal Medicine; Referring Provider Nurse Practitioner Family; Visit Provider Nurse Practitioner Family
PROC: 07DR3ZX Extraction of Iliac Bone Marrow, Percutaneous Approach, Diagnostic (ICD-10-PCS; principal; 2022-03-14 08:00)
DX: M89.9 Disorder of bone, unspecified (principal); Z68.43 Body mass index [BMI] 50.0-59.9, adult; E46 Unspecified protein-calorie malnutrition; I89.0 Lymphedema, not elsewhere classified; N50.89 Other specified disorders of the male genital organs; I12.9 Hypertensive chronic kidney disease with stage 1 through stage 4 chronic kidney disease, or unspecified chronic kidney disease; E11.22 Type 2 diabetes mellitus with diabetic chronic kidney disease; E11.43 Type 2 diabetes mellitus with diabetic autonomic (poly)neuropathy; N18.9 Chronic kidney disease, unspecified; Z20.822 Contact with and (suspected) exposure to COVID-19; M54.50 Low back pain, unspecified; G89.29 Other chronic pain; D63.1 Anemia in chronic kidney disease; I48.0 Paroxysmal atrial fibrillation; L89.616 Pressure-induced deep tissue damage of right heel; L89.629 Pressure ulcer of left heel, unspecified stage; M10.9 Gout, unspecified; I25.10 Atherosclerotic heart disease of native coronary artery without angina pectoris; D72.829 Elevated white blood cell count, unspecified; F41.1 Generalized anxiety disorder; M47.898 Other spondylosis, sacral and sacrococcygeal region; E66.01 Morbid (severe) obesity due to excess calories; I73.9 Peripheral vascular disease, unspecified; Z79.4 Long term (current) use of insulin; Z79.01 Long term (current) use of anticoagulants; Z87.891 Personal history of nicotine dependence; Z86.16 Personal history of COVID-19
CPT/HCPCS: 36415; 38222; 71045; 72170; 73552; 73700; 74176; 78306; 80048; 80053; 81001; 82232; 82306; 82570; 82948; 83036; 83615; 83735; 83880; 83883; 84153; 84155; 84156; 84165; 84166; 84443; 84550; 85025; 85027; 85610; 85730; 86140; 86334; 86335; 87040; 87070; 87086; 87205; 87426; 88184; 88185; 88305; 88311; 88313; 88360; 88364; 88365; 93005; 93922; 93970; 96374; 97110; 97161; 97165; 97166; 97530; 97535; 99285; A9270; A9561; C8929; C9803; J0131; J1642; J1815; J1940; J2270; J3010; J7512; Q9957

== ENCOUNTER 2022-10-02 11:17 | Inpatient (IN) | payer MEDICARE, SELFPAY ==
--- NOTE | ~2022-10-02 | XR_ITS ---
XR chest 1V portable DATE: 10/02/2022 12:46 INDICATION: Shortness of breath TECHNIQUE: Portable AP chest on 10/02/2022 at 1239 hours COMPARISON: 03/10/2022 portable AP chest FINDINGS: Cardiomegaly. There is pulmonary vascular redistribution suggesting pulmonary venous hypert ension. Mild prominence of the minor fissure may indicate mild subpleural edema. Slight right pleural effusion is suggested. Minimal infiltrate or atelectasis at the lung bases. Aortic arch calcification. Osteopenia. Degenerative spurring of the thoracic spine. Degenerative changes of the acromioclavicula r and glenohumeral joints. IMPRESSION: Cardiomegaly and suggestion of mild congestive heart failure, small right pleural effusio n Reviewed, dictated and finalized at location L. HT COMMUNICATIONS OPERATOR IMPRESSION: Cardiomegaly and suggestion of mild congestive heart failure, small right pleural effusion
--- NOTE | ~2022-10-02 | CT_ITS ---
EXAMINATION: CT abdomen pelvis wo con DATE: 10/04/2022 10:41 INDICATION: Diffuse edema. TECHNIQUE: Computed tomography (CT) of the abdomen and pelvis was performed without intravenous contr ast. Automated exposure control and iterative reconstruction technique were employed. The dose-length product was 1675.08 mGy-cm. COMPARISON: 03/08/2022 FINDINGS: Small bilateral pleural effusions. Mild groundglass opacities and smooth septal line thickening at th e bilateral lung bases consistent with mild pulmonary edema. Cardiomegaly. Atherosclerotic coronary a rtery calcific location. No pericardial effusion. Liver, spleen, pancreas and bilateral adrenal gland s are normal. Sludge and gallstones in the normal partially decompressed gallbladder with no perichol ecystic inflammatory stranding to suggest acute cholecystitis. 2.3 cm left renal cyst. Horizontally o riented right kidney is otherwise normal. Barajas catheter within the decompressed bladder. Bowels incl uding the appendix are normal. No free intraperitoneal gas or fluid. No pathologically enlarged abdom inal or pelvic lymphadenopathy. Mild lumbar levoscoliosis with moderate spondylosis. There is also mo derate thoracic spondylosis with bridging osteophytes at multiple levels consistent with diffuse idio pathic skeletal hyperostosis (DISH). Moderate osteoarthritis at the bilateral hip and sacroiliac join ts. IMPRESSION: 1. Likely congestive heart failure with cardiomegaly, mild bibasilar pulmonary edema and small bilate ral pleural effusions. 2. Cholelithiasis. Reviewed, dictated and finalized at location A. RANCE BILLER IMPRESSION: 1. Likely congestive heart failure with cardiomegaly, mild bibasilar pulmonary edema and small bilateral pleural effusions. 2. Cholelithiasis.
--- NOTE | ~2022-10-02 | US_ITS ---
Renal-Bladder ultrasound Clinical History: Elevated creatinine Technique: Real-time sonographic imaging of the kidneys and urinary bladder was performed. Findings: The right kidney measures 9.4 cm in length and the left kidney measures 11.0 cm. There is n o hydronephrosis. Possible 8 mm nonobstructing right renal stone. Renal cortical echogenicity is with in normal limits. No renal mass lesion is identified. The urinary bladder is collapsed around a Barajas catheter. Impression: No hydronephrosis. Possibly 8 mm nonobstructing right renal stone. Collapsed urinary bladder limits evaluation. Reviewed, dictated and finalized at location . MANAGEMENT TEACHER Impression: No hydronephrosis. Possibly 8 mm nonobstructing right renal stone. Collapsed urinary bladder limits evaluation.
[2022-10-02 11:27] VITALS: BP 161/92; PULSE 120; RESP 18; TEMP 37; O2SAT 100
--- NOTE | 2022-10-02 12:14 | ECG_ITS ---
Measurements Intervals [place] Rate: 96 P: OK: 0 QRS: 29 QRSD: 82 T: 47 QT: 342 QTc: 432 Interpretive Statements ATRIAL FIBRILLATION LOW QRS VOLTAGE IN PRECORDIAL LEADS CANNOT RULE OUT SEPTAL INFARCT, AGE INDETERMINATE BASELINE ARTIFACT- I, III, AVR, AVL, AVF ABNORMAL ECG COMPARED TO ECG 03/08/2022 12:59:11 NO SIGNIFICANT CHANGES Electronically Signed On 10-02-2022 13:00:14 SCALLOPER by Sourav Schroeder D.O.
--- NOTE | 2022-10-02 12:14 | ED.MALEGU ---
HPI - Male Genitourinary General Chief complaint: Urogenital-Male Stated complaint: swollen and painful testicles Time Seen by Provider: 10/02/22 12:02 History of Present Illness HPI Narrative: Patient is a 77-year-old male with a history of CKD, CHF, diabetes, hypertension, hyperlipidemia, A-fib on warfarin presenting with swelling. Patient states that he has been having worsening swelling of his lower extremities as well as his scrotum over the last week. He went to another hospital a couple of days ago and was given a dose of IV Lasix. He was advised to increase his daily torsemide to 20 mg daily which he has been doing. Unfortunately, the swelling has continued to worsen. He states that he has also been feeling dyspneic with exertion. Denies chest pain, lightheadedness, palpitations, abdominal pain, nausea or vomiting, diarrhea. Denies dysuria, hematuria, increased urinary frequency. Denies fevers or chills, cough. Related Data Home Medications Medication Instructions Recorded Confirmed alprazolam 0.25 mg tablet 0.25 mg PO TID PRN Anxiety 10/30/20 10/02/22 docusate sodium 100 mg capsule 100 mg PO DAILY 10/30/20 10/02/22 (Colace) gabapentin 300 mg capsule 300 mg PO TID 10/30/20 10/02/22 guaifenesin 600 mg tablet, 600 mg PO BID PRN Cough 10/30/20 10/02/22 extended release 12 hr insulin glargine U-300 conc 300 46 unit subcut HS 10/30/20 10/02/22 unit/mL (1.5 mL) subcutaneous pen (Hari SoloStar U-300 Insulin) torsemide 10 mg tablet 10 mg PO DAILY 10/30/20 10/02/22 diltiazem HCl 60 mg tablet 60 mg PO Q8-10H 03/08/22 10/02/22 Augmentin 500 mg PO BID 10/02/22 10/02/22 Bactrim DS 1 tablet PO DAILY 10/02/22 10/02/22 Hair, Skin and Nails (biotin) 5,000 units PO DAILY 10/02/22 10/02/22 hydrocodone 5 mg-acetaminophen 325 1 tablet PO Q8H PRN Pain 10/02/22 10/02/22 mg tablet tamsulosin 0.4 mg capsule (Flomax) 0.4 mg PO DAILY 10/02/22 10/02/22 warfarin 2 mg tablet 5 mg PO DAILY 10/02/22 10/02/22 Allergies Allergy/AdvReac Type Severity Reaction Status Date / Time No Known Allergies Allergy Verified 03/08/22 13:09 Review of Systems Review of Systems: All systems reviewed & are unremarkable except as noted in HPI and below PMFSH Past Medical History Medical History Chronic kidney disease COVID-19 Diabetic neuropathy Diastolic congestive heart failure Femoral artery pseudo-aneurysm, left Generalized anxiety disorder Gout Hypertension Insulin dependent type 2 diabetes 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 Code status: Full code. Smoking status: Former smoker Tobacco type: cigarettes Alcohol intake: never Substance use: current Substance use type: painkillers Lack of Transportation: No Lack of Food: Never True Current Housing: I Have Housing Concerned About Future Housing: Decline to Answer Difficulty Paying Gas/Electric Bills: Decline to Answer Difficulty Paying for Meds: Decline to Answer Currently Unemployed: Decline to Answer Education: Don't Know Difficulty w/ Childcare or Family Care: Decline to Answer Living arrangements: [facility] Additional living arrangements comments: Assisted living at [facility]. 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 Spiritual care concerns: No Exam Narrative: GENERAL: Appears chronically ill, in no acute
[2022-10-02 12:43] LABS: Basophils Percent Auto 0.2 % (0.2-1.2); Eosinophils Absolute Auto 0.1 K/mm3 (0-0.3); Eosinophils Percent Auto 1.1 % (0-4.4); Hematocrit 30.6 % (42.0-52.0); Hemoglobin 8.9 g/dL (14.0-18.0); Immature Granulocyte Absolute 0.04 K/mm3 (0.00-0.031); Immature Granulocyte Percent A 0.5 % (0-0.5); Lymphocytes Absolute Auto 0.98 K/mm3 (0.9-3.2); Lymphocytes Percent Auto 11.1 % (18.3-44.2); Mean Corpuscular HGB Conc 29.1 g/dl (32-36); Mean Corpuscular Hemoglobin 26.3 pg (26-34); Mean Corpuscular Volume 90.5 fl (80-100); Mean Platelet Volume 9.9 fl (7.4-10.4); Monocytes Absolute Auto 0.9 K/mm3 (0.1-0.6); Monocytes Percent Auto 9.8 % (2.6-8.5); Neutrophils Absolute Auto 6.8 K/mm3 (1.3-6.7); Neutrophils Percent Auto 77.3 % (45.5-73.1); Platelet Count Result 224 k/mm3 (150-375); Red Blood Count 3.38 M/mm3 (4.6-6.20); Red Cell Distribution Width 17.5 % (11.5-14.5); White Blood Count 8.8 K/mm3 (4.5-10.0)
[2022-10-02 12:45] LABS: Appearance Urine Clear (Clear); Bacteria Urine None Seen /hpf; Bilirubin Urine Negative (Negative); Blood Urine Negative (Negative); Color Urine Yellow (Yellow); Glucose Urine UA Negative (Negative); Ketones Urine Negative (Negative); Leukocyte Esterase Ur Trace LEU/UL (Negative); Nitrate Urine Negative (Negative); Non Pathogenic Casts 0-2; Protein Urine 2+ mg/dL (Negative); RBC Urine 0-2 /hpf (0-2); Specific Grav Ur 1.011 (1.001-1.035); Squamous Epithelial Cell Urine None seen /hpf (Few); Urobilinogen Urine 0.2 mg/dL (<2.0); WBC Urine 0-5 /hpf
[2022-10-02 12:53] LABS: INR 3.3; Prothrombin Time 32.5 Seconds (11.1-14.7)
[2022-10-02 12:55] LABS: Add Urine Microscopic? YES
[2022-10-02 13:03] LABS: Lactic Acid Reflex 1.4 mmol/L (0.7-2.0)
[2022-10-02 13:04] LABS: Alanine Aminotransferase 14 U/L (6-50); Albumin Level 3.7 g/dL (3.5-5.1); Alkaline Phosphatase 86 U/L (38-126); Anion Gap 6 mmol/L (8-16); Aspartate Amino Transferase 22 U/L (17-59); Bilirubin,Total 0.6 mg/dL (0.2-1.3); Blood Urea Nitrogen 50 mg/dL (9-20); Calcium 8.7 mg/dL (8.4-10.2); Carbon Dioxide 26 mmol/L (22-30); Chloride 108 mmol/L (98-107); Estimated CRCL calculation 31 ml/min; Estimated Glomerular Filt Rate 21; Glucose 227 mg/dL (65-110); Potassium 5.2 mmol/L (3.4-5.0); Sodium 140 mmol/L (137-145)
[2022-10-02 13:09] LABS: Anisocytosis 1+ (NORMAL); Hypochromasia 1+ (NORMAL); Platelet Estimate Adequate (Adequate); Schistocytes None Seen (NORMAL)
[2022-10-02 13:15] LABS: NT Pro B Type Natriuretic Pept 4230 pg/mL (19.9-100); Troponin I < 0.012 ng/mL (0.000-0.034)
[2022-10-02 13:17] LABS: Influenza A QL RT-PCR Negative (Negative); Influenza B QL RT-PCR Negative (Negative); SARS-CoV-2 RNA PCR Negative
--- NOTE | 2022-10-02 13:45 | PM.IMHP ---
H&P: HPI History of Present Illness Date/Time: 10/02/22 13:45 Chief Complaint: Increasing edema. Narrative: This is a pleasant 77-year-old male with insulin-dependent diabetes, chronic kidney disease, hypertension, lymphedema, paroxysmal atrial fibrillation on long-term anticoagulation, and other comorbidities who presented to the emergency department via EMS from [facility] for evaluation of increasing edema. He follows with the wound clinic at [facility] and was there on Thursday for a routine appointment. Wounds were attended to and he was referred to the ED thereafter given significant lower extremity edema into the scrotum. There he received a dose of IV Lasix with good urine output and he was told to double his torsemide dose for a week. Since that time he has noticed that his urine output has dropped off a bit and he has gotten increasingly short of breath and edematous to the point that he is having difficulties walking. Urology was consulted by the ED due to difficulties placing a urinary catheter and Dr. Whittaker did a flexible cystoscopy with catheter placement at bedside. 1200 mL of clear yellow urine have since drained. He denies fever, chills, sweats, chest pain, pleuritic pain, palpitations, nausea, vomiting, and diarrhea. Vital signs were stable on arrival to the ED. pertinent labs include a WBC count of 8.8, hemoglobin 8.9, INR 3.3, sodium 140, potassium 5.2, BUN 50, creatinine 3.00, normal troponin, proBNP 4230. Chest x-ray showed cardiomegaly and suggestion of mild congestive heart failure with small right pleural effusion. He is being admitted in this setting for further treatment and evaluation of increasing edema and worsening renal function. Of note, he is currently on Augmentin and Bactrim for infection in the lower legs. Review of Systems Review of Systems: Twelve systems were reviewed and are negative except for as per HPI. 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 Code status: Full code. Smoking status: Former smoker Tobacco type: cigarettes Alcohol intake: never Substance use: current Substance use type: painkillers Lack of Transportation: No Lack of Food: Never True Current Housing: I Have Housing Concerned About Future Housing: Decline to Answer Difficulty Paying Gas/Electric Bills: Decline to Answer Difficulty Paying for Meds: Decline to Answer Currently Unemployed: Decline to Answer Education: Don't Know Difficulty w/ Childcare or Family Care: Decline to Answer Living arrangements: snf Additional living arrangements comments: Assisted living at [facility]. 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 Spiritual care concerns: No Meds Home Medications and Allergies Home Medications Medication Instructions Recorded Confirmed Type alprazolam 0.25 mg tablet 0.25 mg PO TID PRN Anxiety 10/30/20 10/02/22 History docusate sodium 100 mg capsule 100 mg PO DAILY 10/30/20 10/02/22 History (Colace) gabapentin 300 mg capsule 300 mg PO TID 10/30/20 10/02/22 History
[2022-10-02 14:57] VITALS: BP 141/75; PULSE 75; RESP 18; O2SAT 95
--- NOTE | 2022-10-02 15:36 | PC.NURSE ---
urology at bedside attempting to place sanders catheter.
--- NOTE | 2022-10-02 15:41 | WPDURCON ---
Assessment and Plan Assessment and plan (1) Protein malnutrition: Code(s): E46 - Unspecified protein-calorie malnutrition Status: Acute (2) Scrotal edema: Code(s): N50.89 - Other specified disorders of the male genital organs Status: Acute (3) Lymphedema: Code(s): I89.0 - Lymphedema, not elsewhere classified Status: Acute Assessment and Plan: Flexible cystoscopy with complicated catheter placement at the bedside. 16F Barajas catheter was placed to drainage with return of clear your Urology Consult Note HPI Date Seen: 10/02/22 Primary Care Provider: Brice Reyes, Consult Narrative Narrative: Carlos Mustafa is a 77 year old male, previously unknown to our practice, who is in the ER with generalized edema, massive scrotal edema. This is felt to be due to underlying congestive heart failure. Your staff asked us to place a catheter in light of impending vigorous diuresis. Review of Systems Constitutional: Comments: Massive generalized edema including scrotal edema Cardiovascular: Cardiovascular: Denies chest pain, Denies lightheadedness, Denies palpitations and Denies dyspnea Respiratory: Respiratory: Denies dyspnea Gastrointestinal: Gastrointestinal: Denies diarrhea, Denies nausea and Denies vomiting Genitourinary: Genitourinary: Denies hematuria, Reports oliguria and Denies dysuria Endocrine: Endocrine: Denies palpitations PMFSH Past Medical History Medical History Chronic kidney disease COVID-19 Diabetic neuropathy Femoral artery pseudo-aneurysm, left Generalized anxiety disorder Hypertension 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 Code status: Full code. Smoking status: Former smoker Tobacco type: cigarettes Alcohol intake: never Substance use: never Substance use type: does not use Living arrangements: group home Additional living arrangements comments: Assisted living at [facility]. 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 Spiritual care concerns: No Meds Home Medications and Allergies Home Medications Medication Instructions Recorded Confirmed Type alprazolam 0.25 mg tablet 0.25 mg PO TID PRN Anxiety 10/30/20 03/08/22 History docusate sodium 100 mg capsule 100 mg PO DAILY 10/30/20 03/08/22 History (Colace) gabapentin 300 mg capsule 300 mg PO TID 10/30/20 03/08/22 History guaifenesin 600 mg tablet, 600 mg PO BID PRN Cough 10/30/20 03/08/22 History extended release 12 hr insulin glargine U-300 conc 300 43 unit subcut HS 10/30/20 03/08/22 History unit/mL (1.5 mL) subcutaneous pen (Toujeo SoloStar U-300 Insulin) insulin lispro 100 unit/mL See Protocol subcut TID 10/30/20 03/08/22 History subcutaneous pen (Humalog KwikPen (U-100) Insulin) torsemide 10 mg tablet 40 mg PO DAILY 10/30/20 03/08/22 History cyclobenzaprine 10 mg tablet 10 mg PO Q8H PRN Muscle Spasm #60 10/31/20 03/08/22 Rx tabs lidocaine 5 % topical patch 1 patch transdermal PRN PRN Pain 06/14/21 03/08/22 History (Lidoderm) metoprolol succinate 25 mg 25 mg PO DAILY #30 tabs 06/25/21 03/08/22 Rx tablet,extended release 24 hr (Toprol XL) aspirin 81 mg tablet,delayed 81 mg PO DAILY 03/08/22 03/08/22 History release diltiazem HCl 60 mg tablet 60 mg PO Q8-
[2022-10-02] MEDS: FUROSEMIDE INJ 40 MG/4 ML VIAL IV PUSH ×2 (15:42→21:30)
--- NOTE | 2022-10-02 15:44 | W.PM.PROC2 ---
Procedure Note - Detailed Date of Procedure 10/02/22 Pre-op Diagnosis Swollen and painful testicles Post-op Diagnosis Same Procedure Performed Flexible cystoscopy with catheter placement Surgeon Ricki Whittaker MD Anesthesia None Findings has generalized edema involving scrotum Description of Procedure Patient is seen in the emergency department. He has massive edema which precludes visualization of his penis or external urethral meatus on normal examination. I therefore did flexible cystoscopy to identify his external urethral meatus. A 0.035 in glidewire was advanced to his bladder and a 16 F [place] tip catheter was placed. Urinary return was clear.
[2022-10-02 16:20] LABS: Troponin I < 0.012 ng/mL (0.000-0.034)
[2022-10-02 17:34] LABS: Troponin I < 0.012 ng/mL (0.000-0.034)
--- NOTE | 2022-10-02 17:38 | PC.NURSE ---
low sodium heart healthy dinner tray ordered
--- NOTE | 2022-10-02 17:56 | PC.NURSE ---
1 liter or normal saline used for irrigation while inserting sanders catheter by urology, verbal order from Dr. Whittaker.
[2022-10-02 18:13] VITALS: BP 123/80; PULSE 87; RESP 18; O2SAT 98
[2022-10-02 18:45] VITALS: BMI 44.6
--- NOTE | 2022-10-02 18:47 | ADMGEN ---
This patient, Carlos Mustafa, was admitted to Medical Room 347-. Patient/family oriented to hospital policies and general routines including ID bracelet, bed and alarms, visiting hours, pain management, procedures, bathroom and other care routines, personal items, smoking policy, room service/diet, and visiting hours. Information on how to activate the Rapid Response Team has been discussed. Patient/Family are encouraged to report perceived risks to care and to ask questions if they do not understand what they are told or what they should do.
[2022-10-02 19:00] VITALS: BP 149/64; PULSE 86; RESP 18; TEMP 36.8; O2SAT 96
[2022-10-02 20:24] LABS: Glucose Point of Care 160 mg/dl (65-105)
[2022-10-02 20:28] LABS: Anion Gap 6 mmol/L (8-16); Blood Urea Nitrogen 51 mg/dL (9-20); Calcium 8.5 mg/dL (8.4-10.2); Carbon Dioxide 26 mmol/L (22-30); Chloride 108 mmol/L (98-107); Estimated CRCL calculation 33 ml/min; Estimated Glomerular Filt Rate 22; Glucose 164 mg/dL (65-110); Potassium 4.9 mmol/L (3.4-5.0); Sodium 140 mmol/L (137-145)
[2022-10-02 21:30] VITALS: PULSE 83
[2022-10-02] MEDS: HYDROcodone/acetaminophen (*CRX) 5-325 MG TABLET 1 TAB PO (21:30)
[2022-10-02] MEDS: AMOXICILLIN/CLAVULANATE K 500-125 MG TAB 1 TABLET PO (21:31)
[2022-10-02] MEDS: INSULIN GLARGINE (*BKC) 100 UNITS/ML 46 UNITS SUB-Q (21:31)
[2022-10-02] MEDS: SULFAMETHOXAZOLE/TRIMETHOPRIM 800/160 MG DS TABLET 1 TAB PO (21:31)
[2022-10-02] MEDS: dilTIAZem HCL 60 MG TABLET PO (21:31)
[2022-10-02] MEDS: GABAPENTIN 300 MG CAPSULE PO (21:31)
[2022-10-03] VITALS (10 sets, daily range): BP systolic 115–142; BP diastolic 57–65; PULSE 69–93; RESP 18–20; TEMP 35.9–36.5; O2SAT 66–94
--- NOTE | 2022-10-03 | ECHO_ITS ---
Patient Info Name: Carlos Mustafa Age: 77 years : 1945 Gender: Male Ht: 74 in Wt: 318 lbs BSA: 2.80 m2 HR: 86 bpm BP: 119 / 69 mmHg Heart Rhythm: Sinus Rhythm Exam Date: 10/03/2022 9:56 AM Exam Location: [facility] Patient Status: Inpatient Admit Date: 10/02/2022 Staff Ordering Physician: Rhona Vasquez Sat Math Tutor: Solis Aguirre RDCS, RT Attending Provider: Stephane Montesinos MD Referring Physician: Christina DE LEON; Exam Type: CA echo doppler color flow Study Info Indications I50.9 - Heart failure, unspecified Complete two-dimensional, color flow and Doppler transthoracic echocardiogram is performed. Summary 1. Complete two-dimensional, color flow and Doppler transthoracic echocardiogram is performed. 2. Left ventricular chamber dimension is mildly enlarged. 3. There is mildly increased left ventricular wall thickness. 4. Left ventricular ejection fraction appears normal, however, difficult to estimate LVEF due to very poor visualization of endocardial borders. Definity to improve visualization of LV not administered as patient refused. 5. Right ventricular chamber dimension is normal. 6. Left atrial chamber dimension is moderately enlarged. 7. Right atrial chamber dimension is moderately enlarged. Left Ventricle Left ventricular chamber dimension is mildly enlarged. There is mildly increased left ventricular wall thickness. Left ventricular ejection fraction appears normal, however, difficult to estimate LVEF due to very poor visualization of endocardial borders. Definity to improve visualization of LV not administered as patient refused. Right Ventricle Right ventricular chamber dimension is normal. Left Atria Left atrial chamber dimension is moderately enlarged. Right Atria Right atrial chamber dimension is moderately enlarged. Atrial Septum Intact interatrial septum visualized by color flow imaging. Aortic Valve The aortic valve is not well visualized. There is no aortic valve stenosis. There is no aortic valve regurgitation. There is mild aortic valve calcification. Pulmonic Valve The pulmonic valve is not well visualized. Mitral Valve There is trace mitral valve regurgitation. Tricuspid Valve There is trace tricuspid valve regurgitation. Pericardium/Pleural The pericardium appears epicardial fat pad. There is no pericardial effusion. Inferior Vena Cava Dilated inferior vena cava with >50% collapse upon inspiration consistent with elevated right atrial pressure. Aorta The aortic root size at the sinus of Valsalva is normal. Left Ventricular Outflow Tract Name Value Normal LVOT 2D LVOT Diameter 2.0 cm LVOT Doppler LVOT Peak Gradient 5 mmHg LVOT Mean Gradient 3 mmHg LVOT VTI 22 cm LVOT VTI/AV VTI Ratio 1.1 LVOT Stroke Volume 67 ml LVOT CO 5.2 l/min LVOT CI 1.9 l/min/m2 Mitral Valve
[2022-10-03 02:36] LABS: Glucose Point of Care 123 mg/dl (65-105)
[2022-10-03] MEDS: dilTIAZem HCL 60 MG TABLET PO ×3 (05:37→20:25)
[2022-10-03] MEDS: HYDROcodone/acetaminophen (*CRX) 5-325 MG TABLET 1 TAB PO ×2 (05:37→16:41)
[2022-10-03 05:56] LABS: Hematocrit 29.4 % (42.0-52.0); Hemoglobin 8.6 g/dL (14.0-18.0); Mean Corpuscular HGB Conc 29.3 g/dl (32-36); Mean Corpuscular Hemoglobin 25.6 pg (26-34); Mean Corpuscular Volume 87.5 fl (80-100); Mean Platelet Volume 9.3 fl (7.4-10.4); Platelet Count Result 226 k/mm3 (150-375); Red Blood Count 3.36 M/mm3 (4.6-6.20); Red Cell Distribution Width 17.5 % (11.5-14.5); White Blood Count 7.7 K/mm3 (4.5-10.0)
[2022-10-03 06:05] LABS: INR 3.3; Prothrombin Time 32.7 Seconds (11.1-14.7)
[2022-10-03 06:10] LABS: Anion Gap 7 mmol/L (8-16); Blood Urea Nitrogen 47 mg/dL (9-20); Calcium 8.7 mg/dL (8.4-10.2); Carbon Dioxide 26 mmol/L (22-30); Chloride 109 mmol/L (98-107); Estimated CRCL calculation 31 ml/min; Estimated Glomerular Filt Rate 21; Glucose 81 mg/dL (65-110); Magnesium 2.2 mg/dL (1.6-2.3); Potassium 4.7 mmol/L (3.4-5.0); Sodium 142 mmol/L (137-145)
--- NOTE | 2022-10-03 07:32 | WPDUROPN2 ---
Progress Note: A&P Assessment and Plan (1) Volume overload: Code(s): E87.70 - Fluid overload, unspecified Status: Acute (2) Scrotal edema: Code(s): N50.89 - Other specified disorders of the male genital organs Status: Acute Assessment and Plan: Moderate improvement with scrotal edema overnight Continue Barajas and scrotal elevation Voiding trial with [id number] better Subjective Subjective Date/Time Seen: 10/03/22 07:32 Tolerating catheter well / urine clear Review of Systems Cardiovascular: Cardiovascular: Denies chest pain, Denies lightheadedness, Denies palpitations and Denies dyspnea Respiratory: Respiratory: Denies dyspnea Gastrointestinal: Gastrointestinal: Denies diarrhea, Denies nausea and Denies vomiting Genitourinary: Genitourinary: Denies hematuria and Denies dysuria Endocrine: Endocrine: Denies palpitations Exam Const: General: no acute distress Other: Generalized edema Resp: Effort & Inspection: normal respiratory effort GI: Inspection: non-distended GI Palp: No abdominal tenderness and No Guarding due to palpation present (GI) Auscultation: normal bowel sounds : Other: Scrotal edema moderately improved overnight Urinary Catheter: Urinary Catheter: patent and draining and urine clear Objective Data Vital Signs Vital Signs: Vital Signs - 24 hr 10/02/22 11:27 10/02/22 14:57 10/02/22 18:13 Temperature 98.6 F Pulse Rate 120 H 75 87 Respiratory Rate 18 18 18 Blood Pressure 161/92 H 141/75 H 123/80 Pulse Oximetry 100 95 98 Oxygen Delivery 10/02/22 19:00 10/02/22 21:30 10/02/22 21:30 Temperature 98.3 F Pulse Rate 86 83 Respiratory Rate 18 Blood Pressure 149/64 H Pulse Oximetry 96 Oxygen Delivery Room Air 10/03/22 00:00 10/03/22 04:00 10/03/22 04:23 Temperature 97.7 F Pulse Rate 87 70 79 Respiratory Rate 18 Blood Pressure 134/57 L Pulse Oximetry 94 Oxygen Delivery Intake/Output Intake/Output: Intake & Output 09/30/22 10/01/22 10/02/22 10/03/22 23:59 23:59 23:59 23:59 Intake Total 250 Output Total 400 Balance -150 Meds/Results Medications: Active Medications Generic Name Dose Route Start Last Admin Trade Name Freq PRN Reason Stop Dose Admin Hydrocodone Bitart/Acetaminophen 1 tab 10/02/22 21:05 10/03/22 05:37 Hydrocodone/Acetaminophen (*Crx) 5-325 Mg Tablet PO 1 tab Q8H PRN Administration PAIN RATED 4-6 Alprazolam 0.25 mg 10/02/22 20:58 Alprazolam (*Crx) 0.25 Mg Tablet PO TID PRN Anxiety Amoxicillin/Clavulanate Potassium 1 tablet 10/02/22 21:10 10/02/22 21:31 Amoxicillin/Clavulanate K 500-125 Mg Tab PO 10/03/22 17:01 1 tablet BID OTTO Administration Dextrose 12.5 gm 10/02/22 21:00 Dextrose 50% 25 Gm/50 Ml Syringe IV PUSH PRN PRN Hypoglycemia Protocol Diltiazem HCl 60 mg 10/02/22 22:00 10/03/22 05:37 Diltiazem Hcl 60 Mg Tablet PO 60 mg Q8H OTTO Administration Docusate Sodium 100 mg 10/03/22 09:00 Docusate Sodium 100 Mg Capsule PO DAILY OTTO Furosemide 40 mg 10/02/22 21:05 10/02/22 21:30 Furosemide Inj 40 Mg/4 Ml Vial IV PUSH 40 mg BID OTTO Administration Gabapentin 300 mg 10/02/22 21:05 10/02/22 21:31 Gabapentin 300 Mg Capsule PO 300 mg TID OTTO Administration Glucagon 1 mg 10/02/22 21:00 Glucagon For Inj 1 Mg Vial IM PRN PRN Hypoglycemia Protocol Glucose 15 gm 10/02/22 21:00 Glucose Oral Gel 15 Gm Of Glucse In 37.5 Gm Tube PO PRN PRN Hypoglycemia Protocol Guaifenesin 600 mg 10/02/22 20:58 Guaifenesin 12 Hr 600 Mg Tabcr PO BID PRN Cough Acetaminophen 1,000 mg in 100 mls @ 400 mls/hr 10/02/22 13:26 Ofirmev 1,000 Mg Ivpb IVPB 10/03/22 13:25 Q6H PRN Mild Pain (1-3) or Fever Dextrose 1,000 mls @ 100 mls/hr 10/02/22 21:00 Dextrose 5% 1,000 Ml IVPB PRN PRN Hypoglycemia Pr
[2022-10-03 08:30] LABS: Glucose Point of Care 70 mg/dl (65-105)
--- NOTE | 2022-10-03 08:52 | PM.CNCAR ---
Assessment and Plan Assessment and plan (1) Atrial fibrillation: Code(s): I48.91 - Unspecified atrial fibrillation Status: Acute Assessment and Plan: This is not new, he was diagnosed with atrial fibrillation about 6 years ago. Rate controlled and anticoagulated with Coumadin which is on hold for the time being because of a supratherapeutic INR. Continue current medical therapy with Toprol XL. (2) Congestive heart failure: Code(s): I50.9 - Heart failure, unspecified Status: Acute Assessment and Plan: He has lymphedema and venous insufficiency, chronic lower extremity swelling. Also has some dyspnea with exertion and orthopnea. His CXR does show mild congestive heart failure. He has been given IV furosemide and has had good urine output so far. Would continue IV furosemide for now. He has normal LVSF, this is probably mild diastolic heart failure but his swelling is likely mostly secondary to lymphedema. Cardiology will sign off please do not hesitate to contact us with any further questions. History of Present Illness History of Present Illness Consult date/time: 10/03/22 08:52 Requesting physician: Geno Hernandez MD Reason For Visit: CHF Exacerbation Narrative: Mr. Mustafa is a 77-year-old male with a medical history significant for chronic kidney disease, hypertension, atrial fibrillation on Coumadin, lymphedema, and venous insufficiency. This is the patient who presented to the emergency department for evaluation because of increasing edema. Patient states that he has severe chronic bilateral lower extremity edema that right now is not significantly worse than his baseline. However, he had developed significant scrotal edema and pain. He does endorse dyspnea with exertion and some orthopnea. He did have some pulmonary vascular congestion and a small right pleural effusion on chest x-ray, proBNP 4230. We are being asked to see him for congestive heart failure. At the time of my interview he is resting comfortably in bed with the head of the bed at a 30 degree angle breathing comfortably on room air. He does not have any specific complaints at this time. Review of Systems Constitutional: Constitutional: Denies chills, Denies fever(s), Denies headache(s) and Denies malaise Eyes: Eyes: Denies change in vision ENT: Reports Normal hearing present, Denies dizziness, Denies headache(s) and Denies hearing loss Cardiovascular: Cardiovascular: Denies chest pain, Denies chest pain at rest, Denies chest pain with activity, Denies syncope, Reports pedal edema, Reports leg edema, Denies palpitations, Denies dyspnea and Reports dyspnea on exertion Respiratory: Respiratory: Denies cough, Denies dyspnea, Denies dyspnea on exertion and Denies wheezing Gastrointestinal: Gastrointestinal: Denies abdominal pain, Denies constipation and Denies diarrhea Genitourinary: Genitourinary: Denies hematuria and Denies dysuria Musculoskeletal: Musculoskeletal: Denies myalgias, Denies arthralgias and Denies muscle cramps Integumentary/Breasts: Skin/Breast: Reports wounds Neurologic: Reports Normal hearing present, Denies confusion, Denies dizziness, Denies syncope and Denies headache(s) Psychiatric: Psychiatric: Denies anxiety, Denies confusion and Denies depression Endocrine: Endocrine: Denies cold intolerance, Denies flushing, Denies heat intolerance and Denies palpitations Hematologic/Lymphatic: Hematologic/Lymphatic: Denies easy bleeding and Denies easy bruising Allergic/Immunologic: Allergic/Immunologic: Denies wheezing PMFSH Past Medical History Medical History Chronic kidney disease COVID-19 Diabetic neuropathy Diastolic congestive heart failure Femoral artery pseudo-aneurysm, left Generalized anxiety disorder Gout Hypertension Insulin dependent type 2 diabetes mellitus 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
[2022-10-03] MEDS: AMOXICILLIN/CLAVULANATE K 500-125 MG TAB 1 TABLET PO ×2 (09:42→16:41)
[2022-10-03] MEDS: METOPROLOL SUCCINATE EXT REL 25 MG TABCR PO (09:43)
[2022-10-03] MEDS: TAMSULOSIN HCL 0.4 MG CAPSULE PO (09:43)
[2022-10-03] MEDS: FUROSEMIDE INJ 40 MG/4 ML VIAL IV PUSH ×2 (09:43→16:41)
[2022-10-03] MEDS: SULFAMETHOXAZOLE/TRIMETHOPRIM 800/160 MG DS TABLET 1 TAB PO (09:43)
[2022-10-03] MEDS: DOCUSATE SODIUM 100 MG CAPSULE PO (09:43)
[2022-10-03] MEDS: GABAPENTIN 300 MG CAPSULE PO ×3 (09:43→16:41)
--- NOTE | 2022-10-03 11:37 | PM.CNNEP ---
Assessment and Plan Assessment and plan (1) Stage 3b chronic kidney disease (CKD): Code(s): N18.32 - Chronic kidney disease, stage 3b Status: Acute Assessment and Plan: the patient has chronic kidney disease stage IIIB. His GFR runs between 37 and 40. Most likely this is due to diabetes and hypertension. He follows with Dr. Valentine. his baseline creatinine is about 1.8 giving him a gfr around 40 (2) Acute kidney injury: Code(s): N17.9 - Acute kidney failure, unspecified Status: Acute Assessment and Plan: His creatinine is higher. This could be due to several things. He was on Bactrim. This inhibits tubular secretion of creatinine and so the creatinine could be higher even though the kidney function may not be worse. He has a possible infection in the legs. He has swelling. Possibly he has some sort of issue with pre renal azotemia. rhabdo is always a possibility there are other causes such as obstruction (sanders in), AIN, GN, vascular disorders but all are less likely. will check urine 'lytes, FeUrea, renal sono, ck, and repeat labs tomorrow. (3) Swelling of lower extremity: Code(s): M79.89 - Other specified soft tissue disorders Status: Acute Assessment and Plan: the patient has had a normal echocardiogram recently. Will check urine protein. (4) Atrial fibrillation: Code(s): I48.91 - Unspecified atrial fibrillation Status: Acute Assessment and Plan: Patient has paroxysmal atrial fibrillation. He is on Coumadin for this. (5) Insulin dependent diabetes mellitus: Status: Acute Assessment and Plan: on accuchecks and SSI per hospitalist. (6) Hypertension: Qualifiers: Hypertension type: primary hypertension Qualified Code(s): I10 - Essential (primary) hypertension Code(s): I10 - Essential (primary) hypertension Status: Chronic Assessment and Plan: systolic ranging from 120 to 160. mostly pretty well controlled. (7) Chronic anemia: Code(s): D64.9 - Anemia, unspecified Status: Chronic Assessment and Plan: hb in the 8s. possibly due to ckd. bleeding a possibility as well. will check stool guaiac. epo if hb drops much more. History of Present Illness Reason for Consult Consult date: 10/03/22 Chief Complaint Chief complaint: CHF Exacerbation History of Present Illness Narrative: Carlos is a very pleasant 77-year-old gentleman has multiple medical problems including hypertension, diabetes, paroxysmal atrial fibrillation on Coumadin, chronic swelling going on for at least a couple of years, chronic heel ulcers, chronic kidney disease and he sees Dr. Kenney Valentine at [facility]. The patient has been dealing with these heel ulcers for about a year or year and a half. He was seeing Podiatry. They would not heal so he was sent to a vascular surgeon. Arterial supply apparently was good and it was suspected the had venous insufficiency. In the meantime he has been getting diuretics to help his swelling. In the last week or 2 he has noted that his swelling is worse and in the last 5 or 6 days his scrotum has become very large. In the meantime he was seeing a vascular doctor who felt there might be some infection in the wound so gave him Augmentin plus Bactrim. More recently he went to the wound clinic and they noted all the swelling so he was sent to the ER. He was evaluated in the emergency room. Chest x-ray did show volume overload and a small right pleural effusion. His creatinine was higher than he usually is. in the past he has had an echocardiogram which showed good LV function. Review of Systems Constitutional: Constitutional: Reports no additional constitutional complaints Eyes: Eyes: Reports no additional eye complaints ENT: Reports system reviewed and no additional complaints, except as documented Cardiovascular: Cardiovascular: Re
--- NOTE | 2022-10-03 11:45 | PM.IMPN ---
Progress Note: A&P Assessment and Plan (1) Volume overload: Code(s): E87.70 - Fluid overload, unspecified Status: Acute (2) Diastolic congestive heart failure: Code(s): I50.30 - Unspecified diastolic (congestive) heart failure Status: Acute (3) Acute on chronic renal failure: Code(s): N17.9 - Acute kidney failure, unspecified; N18.9 - Chronic kidney disease, unspecified Status: Acute (4) Lymphedema: Code(s): I89.0 - Lymphedema, not elsewhere classified Status: Acute (5) Scrotal edema: Code(s): N50.89 - Other specified disorders of the male genital organs Status: Acute (6) Chronic anemia: Code(s): D64.9 - Anemia, unspecified Status: Chronic (7) 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: Code(s): Z79.01 - 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 Status: Acute (8) Insulin dependent type 2 diabetes mellitus: Code(s): E11.9 - Type 2 diabetes mellitus without complications; Z79.4 - equipment operator intermodal yard (current) use of insulin Status: Chronic (9) Hypertension: Qualifiers: Hypertension type: primary hypertension Qualified Code(s): I10 - Essential (primary) hypertension Code(s): I10 - Essential (primary) hypertension Status: Chronic (10) Wound of lower extremity: Code(s): S81.809A - Unspecified open wound, unspecified lower leg, initial encounter Status: Acute Plan The patient presented to the emergency department for evaluation of increasing swelling, weakness, and shortness of breath as per HPI. Labs, imaging, EKG, and all reports were personally reviewed. He is volume overloaded, likely due to a combination of acute on chronic diastolic congestive heart failure and worsening renal function. He has doubled his torsemide dose the last several days without much benefit unfortunately. He seems to have had good urine output with 40 mg furosemide IV given in the ED however I am wondering if perhaps he was also retaining some urine as he has put out 1200 mL following insertion of Barajas catheter per Urology. For now will continue with IV furosemide to encourage diuresis with close monitoring of volume status and renal function. Electrolytes have been stable and will be monitored. He has marked edema and lymphedema of the lower legs in wound nurse has been consulted for recommendations. Continue Augmentin and Bactrim for infection in the lower legs prescribed last week. Vital signs have been stable. Blood pressures are reasonable. He is in chronic AFib and is rate controlled. INR is a bit high and warfarin has been placed on hold for now. Repeat INR in a.m. Chronic anemia stable on review of previous labs. Initiate sliding scale insulin, Accu-Cheks, and hypoglycemic protocol. His home medications will be reviewed and resumed as appropriate. Subjective Date/time seen: 10/03/22 11:45 Shortness of breath has improved Exam Narrative: General:?Chronically ill-appearing gentleman in the semi-Boswell position in bed. Weight: 157.7 kg. BMI: 44.6. HEENT:?Wearing glasses.?PERRL, EOMI. Conjunctivae anicteric. Moist mucous membranes. Oropharynx is crowded. Neck:?Exam is limited due to neck circumference. Respiratory:?Respirations are nonlabored.? Lung sounds are diminished due to body habitus. Cardiovascular:?Irregularly irregular rate and rhythm. Gastrointestinal:??Abdomen is morbidly obese and nontender with positive bowel sounds. Genitourinary:?Scrotum is markedly edematous. Skin:??Warm and dry. 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 Extremities:??No cyanosis or clubbing. Bilateral lower extremity lymphedema with pitting edema to the scrotum and flanks. Radial pulses palpable. Unable to palpate pedal or dorsalis pedis pulses as his legs are wrapped and marked edema. Toes are perfused and sensation is intact. Neurological:
[2022-10-03 12:51] LABS: Glucose Point of Care 93 mg/dl (65-105)
[2022-10-03] MEDS: SALINE 0.65% NAS SOLN 44 ML BTL 1 SPRAY NASAL (13:08)
[2022-10-03 13:36] LABS: Creatine Kinase 39 U/L (55-170)
[2022-10-03 14:04] LABS: Creatinine Urine 23.1 mg/dL; Total Protein Urine Random 30 mg/dL; Urea Random Urine 184 MG/DL
[2022-10-03 14:07] LABS: Sodium Urine Random 124 meq/L
[2022-10-03 17:28] LABS: Glucose Point of Care 122 mg/dl (65-105)
[2022-10-03] MEDS: SILVERGEL (ELTA) 45 ML 1 APPLIC TOPICAL (18:14)
[2022-10-03] MEDS: TOLNAFTATE 1% POWDER 45 GM BTL 1 APPLIC TOPICAL (20:26)
[2022-10-03] MEDS: INSULIN GLARGINE (*BKC) 100 UNITS/ML 20 UNITS SUB-Q (21:02)
[2022-10-03 21:09] LABS: Glucose Point of Care 125 mg/dl (65-105)
[2022-10-04] VITALS (8 sets, daily range): BP systolic 142–153; BP diastolic 50–75; PULSE 61–94; RESP 20–22; TEMP 36.6–36.7; O2SAT 90–94
[2022-10-04 00:27] LABS: Glucose Point of Care 73 mg/dl (65-105)
[2022-10-04 01:20] LABS: Glucose Point of Care 108 mg/dl (65-105)
[2022-10-04 05:52] LABS: Albumin Level 3.3 g/dL (3.5-5.1); Anion Gap 4 mmol/L (8-16); Blood Urea Nitrogen 46 mg/dL (9-20); Calcium 8.4 mg/dL (8.4-10.2); Carbon Dioxide 27 mmol/L (22-30); Chloride 106 mmol/L (98-107); Estimated CRCL calculation 31 ml/min; Estimated Glomerular Filt Rate 22; Glucose 126 mg/dL (65-110); Phosphorus 4.9 mg/dL (2.5-4.5); Potassium 4.6 mmol/L (3.4-5.0); Sodium 137 mmol/L (137-145)
[2022-10-04] MEDS: dilTIAZem HCL 60 MG TABLET PO ×3 (05:56→21:09)
[2022-10-04] MEDS: GABAPENTIN 300 MG CAPSULE PO ×3 (08:28→16:41)
[2022-10-04] MEDS: TAMSULOSIN HCL 0.4 MG CAPSULE PO (08:28)
[2022-10-04] MEDS: DOCUSATE SODIUM 100 MG CAPSULE PO (08:28)
[2022-10-04] MEDS: METOPROLOL SUCCINATE EXT REL 25 MG TABCR PO (08:29)
[2022-10-04] MEDS: FUROSEMIDE INJ 40 MG/4 ML VIAL IV PUSH ×2 (08:29→16:41)
[2022-10-04 08:34] LABS: Glucose Point of Care 117 mg/dl (65-105)
--- NOTE | 2022-10-04 08:54 | PM.PNNEP ---
Progress Note: A&P Assessment and Plan (1) Stage 3b chronic kidney disease (CKD): Code(s): N18.32 - Chronic kidney disease, stage 3b Status: Acute Assessment and Plan: the patient has chronic kidney disease stage IIIB. His GFR runs between 37 and 40. Most likely this is due to diabetes and hypertension. He follows with Dr. Valentine. his baseline creatinine is about 1.8 giving him a gfr around 40 (2) Acute kidney injury: Code(s): N17.9 - Acute kidney failure, unspecified Status: Acute Assessment and Plan: His creatinine is higher. Renal ultrasound is unremarkable. Urine electrolytes/fractional excretion of urea show pre renal azotemia UA is bland CK is normal this could be due to several things. Bactrim can cause a higher creatinine. This effect should have worn off by now so this is less likely. Bactrim can cause allergic interstitial nephritis. He does not have peripheral eosinophilia and no rash so I doubt this. Infection can do this, he does not have a fever or a white count. Progression of kidney disease could do this as well, or possibly the fact that he is on diuretics. He does have severe edema which needs to be treated. I agree with continue diuretics for now. He is on furosemide 40 b.i.d. and he made [id number] of urine yesterday. (3) Swelling of lower extremity: Code(s): M79.89 - Other specified soft tissue disorders Status: Acute Assessment and Plan: The patient has edema. He has had swelling for a long time but suddenly got worse in the last few weeks. He is on Coumadin so I doubt if he has a DVT. the patient has had a normal echocardiogram recently. Urine protein is 1.3grams/gram of creatinine which is not high enough to cause this much swelling. Will check a CT the abdomen in case there is some process there causing venous obstruction. (4) Atrial fibrillation: Code(s): I48.91 - Unspecified atrial fibrillation Status: Acute Assessment and Plan: Patient has paroxysmal atrial fibrillation. He is on Coumadin for this. (5) Insulin dependent diabetes mellitus: Status: Acute Assessment and Plan: on accuchecks and SSI per hospitalist. (6) Hypertension: Qualifiers: Hypertension type: primary hypertension Qualified Code(s): I10 - Essential (primary) hypertension Code(s): I10 - Essential (primary) hypertension Status: Chronic Assessment and Plan: systolic ranging from 110-150. This is in the same range as it was back in February when he was here and his creatinine was stable. Ultimately he needs better control but will leave it the way it is for now because of the acute kidney injury. (7) Chronic anemia: Code(s): D64.9 - Anemia, unspecified Status: Chronic Assessment and Plan: hb in the 8s. possibly due to ckd. bleeding a possibility as well. will check stool guaiac. epo if hb drops much more. Check a CBC tomorrow Subjective Date/time seen: 10/04/22 08:54 Interval history: Carlos is feeling a little better today. He is still swollen. He has no shortness of breath. Review of Systems Cardiovascular: Cardiovascular: Reports no additional cardiovascular complaints Respiratory: Respiratory: Reports no additional respiratory complaints Gastrointestinal: Gastrointestinal: Reports no additional gastrointestinal complaints Genitourinary: Genitourinary: Reports no additional male genitourinary complaints Exam Narrative: WDWN in NAD skin no acute rash head ncat lungs clear cor reg no rub abd BS+ nontender and soft ext 2+ bilateral edema. Objective Data Vital Signs Vital Signs: Vital Signs - 24 hr 10/03/22 09:43 10/03/22 09:45 10/03/22 09:45 Temperature Pulse Rate 79 83 Respiratory Rate Blood Pressure Pulse Oximetry Oxygen Delivery Room Air 10/03/22 12:00 10/03/22 16:00 10/03/22 14:00 Temperat
--- NOTE | 2022-10-04 10:49 | PM.IMPN ---
Progress Note: A&P Assessment and Plan (1) Volume overload: Code(s): E87.70 - Fluid overload, unspecified Status: Acute Assessment and Plan: Continue diuresis. (2) Diastolic congestive heart failure: Code(s): I50.30 - Unspecified diastolic (congestive) heart failure Status: Acute Assessment and Plan: Continue cardiac regimen, continue diuresis. Appreciate Cardiology input. (3) Acute on chronic renal failure: Code(s): N17.9 - Acute kidney failure, unspecified; N18.9 - Chronic kidney disease, unspecified Status: Acute Assessment and Plan: Kidney function slightly worse than baseline. Stable and slightly improved since admission. (4) Lymphedema: Code(s): I89.0 - Lymphedema, not elsewhere classified Status: Acute (5) Scrotal edema: Code(s): N50.89 - Other specified disorders of the male genital organs Status: Acute Assessment and Plan: With urinary retention. Barajas in place. 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 Weight: 157.7 kg. BMI: 44.6. HEENT:?Wearing glasses.?PERRL, EOMI. Conjunctivae anicteric. Moist mucous membranes. Oropharynx is crowded. Neck:?Exam is limited due to neck circumference. Respiratory:?Respirations are nonlabored.? Lung sounds are diminished due to body habitus. Cardiovascular:?Irregularly irregular rate and rhythm. Gastrointestinal:??Abdomen is morbidly obese and nontender with positive bowel sounds. Genitourinary:?Scrotum is markedly edematous. Skin:??Warm and dry. 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 Extremities:??No cyanosis or clubbing. Bilateral lower extremity lymphedema with pitting edema to the scrotum and flanks. Radial pulses palpable. Unable to palpate pedal or dorsalis pedis pulses as his legs are wrapped and marked edema. Toes are perfused and sensation is intact. Neurological:??Alert.?Cranial nerves 2-12 are grossly intact. Generally weak without focal findings. Psychiatric:??Pleasant and cooperative with normal mood and affect.? Judgment and insight intact. Objective Data Vital Signs Vital Signs: Vital Signs - 24 hr 10/03/22 12:00 10/03/22 16:00 10/03/22 14:00 Temperature 96.7 F L Pulse Rate 89 93 89 Respiratory Rate 20 Blood Pressure 142/65 H Pulse Oximetry 94 Oxygen Delivery 10/03/22 20:00 10/03/22 21:30 10/03/22 20:00 Temperature 97.7 F Pulse Rate 69 73 73 Respiratory Rate 20 20 Blood Pressure 115/58 L Pulse Oximetry 66 L 66 L Oxygen Delivery Room Air 10/04/22 00:00 10/04/22 04:00 10/04/22 04:51 Temperature 97.8 F Pulse Rate 64 73 94 Respiratory Rate 22 H Blood Pressure 146/75 H Pulse Oximetry 94 Oxygen Delivery 10/04/22 08:29 Temperature Pulse Rate 67 Respiratory Rate Blood Pressure Pulse Oximetry Oxygen Delivery Intake/Output Intake/Output: Intake & Output 10/01/22 10/02/22 10/03/22 10/04/22 23:59 23:59 23:
[2022-10-04 12:39] LABS: Glucose Point of Care 182 mg/dl (65-105)
[2022-10-04] MEDS: TOLNAFTATE 1% POWDER 45 GM BTL 1 APPLIC TOPICAL ×2 (14:11→21:09)
[2022-10-04] MEDS: SILVERGEL (ELTA) 45 ML 1 APPLIC TOPICAL (14:11)
[2022-10-04] MEDS: HYDROcodone/acetaminophen (*CRX) 5-325 MG TABLET 1 TAB PO (16:37)
[2022-10-04] MEDS: SALINE 0.65% NAS SOLN 44 ML BTL 1 SPRAY NASAL (16:38)
[2022-10-04 16:48] LABS: Glucose Point of Care 177 mg/dl (65-105)
[2022-10-04 20:08] LABS: Glucose Point of Care 233 mg/dl (65-105)
[2022-10-04] MEDS: INSULIN GLARGINE (*BKC) 100 UNITS/ML 20 UNITS SUB-Q (22:03)
[2022-10-05] VITALS (11 sets, daily range): BP systolic 137–140; BP diastolic 59–76; PULSE 62–85; RESP 18–22; TEMP 36.6–36.7; O2SAT 90–99
[2022-10-05] MEDS: HYDROcodone/acetaminophen (*CRX) 5-325 MG TABLET 1 TAB PO ×2 (01:34→22:30)
[2022-10-05 05:56] LABS: Hematocrit 29.7 % (42.0-52.0); Hemoglobin 8.6 g/dL (14.0-18.0); Mean Corpuscular Hemoglobin 26.1 pg (26-34); Mean Corpuscular Volume 90.3 fl (80-100); Mean Platelet Volume 9.6 fl (7.4-10.4); Platelet Count Result 212 k/mm3 (150-375); Red Blood Count 3.29 M/mm3 (4.6-6.20); Red Cell Distribution Width 17.2 % (11.5-14.5); White Blood Count 7.3 K/mm3 (4.5-10.0)
[2022-10-05 06:04] LABS: Albumin Level 3.2 g/dL (3.5-5.1); Anion Gap 4 mmol/L (8-16); Blood Urea Nitrogen 44 mg/dL (9-20); Calcium 8.3 mg/dL (8.4-10.2); Carbon Dioxide 29 mmol/L (22-30); Chloride 103 mmol/L (98-107); Estimated CRCL calculation 31 ml/min; Estimated Glomerular Filt Rate 22; Glucose 154 mg/dL (65-110); Potassium 4.3 mmol/L (3.4-5.0); Sodium 136 mmol/L (137-145)
--- NOTE | 2022-10-05 06:24 | PC.NURSE ---
Daylight Savings Time For Daylight Savings Time Ending in the Fall - Clocks are moved back. For Daylight Savings Time Beginning in the Spring - Clocks are moved ahead. For [facility], the time of change occurs at 0200 hrs. Time is taken from the field observer. This entry on the patient's chart recognizes the change in time reflected during documentation. Example: 2 entries for vital signs may be charted for 0200 hrs.
[2022-10-05] MEDS: dilTIAZem HCL 60 MG TABLET PO ×3 (06:50→21:00)
[2022-10-05] MEDS: DOCUSATE SODIUM 100 MG CAPSULE PO (08:50)
[2022-10-05] MEDS: METOPROLOL SUCCINATE EXT REL 25 MG TABCR PO (08:50)
[2022-10-05] MEDS: GABAPENTIN 300 MG CAPSULE PO ×3 (08:50→17:06)
[2022-10-05] MEDS: FUROSEMIDE INJ 40 MG/4 ML VIAL IV PUSH ×2 (08:52→17:06)
[2022-10-05 08:56] LABS: Glucose Point of Care 137 mg/dl (65-105)
[2022-10-05] MEDS: TAMSULOSIN HCL 0.4 MG CAPSULE PO (09:04)
--- NOTE | 2022-10-05 10:38 | PM.PNNEP ---
Progress Note: A&P Assessment and Plan (1) Stage 3b chronic kidney disease (CKD): Code(s): N18.32 - Chronic kidney disease, stage 3b Status: Acute Assessment and Plan: the patient has chronic kidney disease stage IIIB. His GFR runs between 37 and 40. Most likely this is due to diabetes and hypertension. Sleep apnea could be playing a role as well. He follows with Dr. Valentine. his baseline creatinine is about 1.8 giving him a gfr around 40 (2) Acute kidney injury: Code(s): N17.9 - Acute kidney failure, unspecified Status: Acute Assessment and Plan: His creatinine is higher. Renal ultrasound is unremarkable. Urine electrolytes/fractional excretion of urea show pre renal azotemia UA is bland CK is normal He had an echo in the past but refused definity contrast and so the quality of the echo was not very good. I discussed this with the patient and he will allow the contrast so I will reorder this. This may all be due to heart failure or at least pulmonary hypertension. I suspect that his sleep apnea is worse than he thinks. He has not been able to get this evaluated to establish the diagnosis in order to get on a CPAP machine. Long discussion with the patient. Sleep apnea could be doing significant harm to him including kidney disease, heart disease, and lung disease, and leading to all the swelling. The swelling leads to the need for diuretics and that makes the pre renal azotemia even worse. Treating the underlying disorder is always the best approach. Will order an apnea link. He said this was ordered in the past but somehow was not done. Continue diuretics. Repeat echo (3) Swelling of lower extremity: Code(s): M79.89 - Other specified soft tissue disorders Status: Acute Assessment and Plan: The patient has edema. He has had swelling for a long time but suddenly got worse in the last few weeks. He is on Coumadin so I doubt if he has a DVT. the patient has had a normal echocardiogram recently. see note above. I suspect that this was a false negative. Urine protein is 1.3grams/gram of creatinine which is not high enough to cause this much swelling. CT abdomen does not show any abdominal process causing edema. It does show cardiomegaly which point back to the heart. (4) Atrial fibrillation: Code(s): I48.91 - Unspecified atrial fibrillation Status: Acute Assessment and Plan: Patient has paroxysmal atrial fibrillation. He is on Coumadin for this. (5) Insulin dependent diabetes mellitus: Status: Acute Assessment and Plan: on accuchecks and SSI per hospitalist. (6) Hypertension: Qualifiers: Hypertension type: primary hypertension Qualified Code(s): I10 - Essential (primary) hypertension Code(s): I10 - Essential (primary) hypertension Status: Chronic Assessment and Plan: systolic ranging from 110-150. This is in the same range as it was back in February when he was here and his creatinine was stable. Ultimately he needs better control but will leave it the way it is for now because of the acute kidney injury. (7) Chronic anemia: Code(s): D64.9 - Anemia, unspecified Status: Chronic Assessment and Plan: hb is stable in the 8s. possibly due to ckd. bleeding a possibility as well. pending stool guaiac. Check a CBC tomorrow Subjective Date/time seen: 10/05/22 10:38 Interval history: Carlos is feeling a little better today. sugars are better overnight. He is still swollen. 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 Exam Narrative: WDWN in NAD skin no acute rash head ncat lungs clear cor reg no rub abd BS+ nontender and soft ext 2+ bilateral edema. Objective Data Vital Signs Vital Signs: Vital Si
[2022-10-05] MEDS: TOLNAFTATE 1% POWDER 45 GM BTL 1 APPLIC TOPICAL ×2 (10:56→21:02)
[2022-10-05] MEDS: SILVERGEL (ELTA) 45 ML 1 APPLIC TOPICAL (10:56)
--- NOTE | 2022-10-05 12:02 | PM.IMPN ---
Progress Note: A&P Assessment and Plan (1) Volume overload: Code(s): E87.70 - Fluid overload, unspecified Status: Acute Assessment and Plan: Continue diuresis. (2) Diastolic congestive heart failure: Code(s): I50.30 - Unspecified diastolic (congestive) heart failure Status: Acute Assessment and Plan: Continue cardiac regimen, continue diuresis. Appreciate Cardiology input. (3) Acute on chronic renal failure: Code(s): N17.9 - Acute kidney failure, unspecified; N18.9 - Chronic kidney disease, unspecified Status: Acute Assessment and Plan: Kidney function slightly worse than baseline. Stable and slightly improved since admission. (4) Lymphedema: Code(s): I89.0 - Lymphedema, not elsewhere classified Status: Acute (5) Scrotal edema: Code(s): N50.89 - Other specified disorders of the male genital organs Status: Acute Assessment and Plan: With urinary retention. Barajas in place. 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 Weight: 157.7 kg. BMI: 44.6. HEENT:?Wearing glasses.?PERRL, EOMI. Conjunctivae anicteric. Moist mucous membranes. Oropharynx is crowded. Neck:?Exam is limited due to neck circumference. Respiratory:?Respirations are nonlabored.? Lung sounds are diminished due to body habitus. Cardiovascular:?Irregularly irregular rate and rhythm. Gastrointestinal:??Abdomen is morbidly obese and nontender with positive bowel sounds. Genitourinary:?Scrotum is markedly edematous. Skin:??Warm and dry. 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 Extremities:??No cyanosis or clubbing. Bilateral lower extremity lymphedema with pitting edema to the scrotum and flanks. Radial pulses palpable. Unable to palpate pedal or dorsalis pedis pulses as his legs are wrapped and marked edema. Toes are perfused and sensation is intact. Neurological:??Alert.?Cranial nerves 2-12 are grossly intact. Generally weak without focal findings. Psychiatric:??Pleasant and cooperative with normal mood and affect.? Judgment and insight intact. Objective Data Vital Signs Vital Signs: Vital Signs - 24 hr 10/04/22 14:00 10/04/22 16:00 10/04/22 19:51 Temperature 98.0 F 97.9 F Pulse Rate 61 77 69 Respiratory Rate 20 20 Blood Pressure 153/59 H 142/50 H Pulse Oximetry 90 91 10/04/22 20:00 10/05/22 00:00 10/05/22 04:00 Temperature Pulse Rate 77 66 70 Respiratory Rate Blood Pressure Pulse Oximetry 10/05/22 05:16 10/05/22 08:50 10/05/22 08:00 Temperature 97.9 F Pulse Rate 73 80 76 Respiratory Rate 20 Blood Pressure 137/73 Pulse Oximetry 92 Intake/Output Intake/Output: Intake & Output 10/02/22 10/03/22 10/04/22 10/06/22 23:59 23:59 23:59 00:59 Intake Total 970 940 590 Output Total 0110 2600 850 Balance -4895 -1660 -782 Meds/Results Medications: Active Medications Generic Name Dose Route Start Last Admin Trade Name
[2022-10-05 12:14] LABS: Glucose Point of Care 225 mg/dl (65-105)
[2022-10-05] MEDS: INSULIN ASPART (*BKC) 100 UNITS/ML SUB-Q (12:45)
[2022-10-05] MEDS: SALINE 0.65% NAS SOLN 44 ML BTL 1 SPRAY NASAL (17:07)
[2022-10-05 17:30] LABS: Glucose Point of Care 208 mg/dl (65-105)
[2022-10-05 20:25] LABS: Glucose Point of Care 270 mg/dl (65-105)
[2022-10-05] MEDS: INSULIN GLARGINE (*BKC) 100 UNITS/ML 20 UNITS SUB-Q (21:00)
[2022-10-06] VITALS (10 sets, daily range): BP systolic 134–140; BP diastolic 71–77; PULSE 62–86; RESP 18–20; TEMP 36.6–36.7; O2SAT 92–99
--- NOTE | 2022-10-06 | ECHO_ITS ---
Patient Info Name: Carlos Mustafa Age: 77 years : 1945 Gender: Male Ht: 74 in Wt: 305 lbs BSA: 2.74 m2 HR: 75 bpm BP: 138 / 71 mmHg Heart Rhythm: Sinus Rhythm Technical Quality: Fair Exam Date: 10/06/2022 8:54 AM Exam Location: [facility] Pulmonary Patient Status: Inpatient Admit Date: 10/02/2022 Staff Ordering Physician: Og Pugh MD Site Administrator: Abby Sinclair RDCS Attending Provider: Stephane Montesinos MD Referring Physician: Lexy LONG; Exam Type: CA echo limited w contrast Study Info Indications - The patient will allow definity this time Limited two-dimensional transthoracic echocardiogram is performed with contrast. Contrast/Agitated Saline Contrast/Ag. Saline: Definity Amount: 3.00 ml Administered By: Abby Sinclair RDCS Existing IV Access: Yes IV Access Condition: patent with no signs of infiltration Summary 1. Limited study for the evaluation of left ventricular ejection fraction. 2. Left ventricular chamber dimension is normal. 3. Left ventricular systolic function is normal, estimated at >70%. 4. There is mildly increased left ventricular wall thickness. Left Ventricle Left ventricular chamber dimension is normal. Left ventricular systolic function is normal, estimated at >70%. There is mildly increased left ventricular wall thickness. Ventricles Name Value Normal LV Fractional Shortening/Ejection Fraction 2D/MM LV Diastolic Volume (4C MOD) 44 ml LV EF (4C MOD) 64 % LV Diastolic Volume (2C MOD) 51 ml LV EF (2C MOD) 74 % LV Diastolic Volume (BP MOD) 48 ml 62-150 LV Diastolic Volume Index (BP MOD) 17 ml/m2 34-74 LV Systolic Volume (BP MOD) 14 ml 21-61 LV Systolic Volume Index (BP MOD) 5 ml/m2 11-31 LV EF (BP MOD) 70 % 52-72 LV Diastolic Length (4C) 7.6 cm LV Systolic Length (4C) 6.1 cm LV Stroke Volume (4C MOD) 28 ml Report Signatures
[2022-10-06] MEDS: dilTIAZem HCL 60 MG TABLET PO ×3 (06:00→21:19)
[2022-10-06 06:16] LABS: Hematocrit 32.2 % (42.0-52.0); Hemoglobin 9.5 g/dL (14.0-18.0); Mean Corpuscular HGB Conc 29.5 g/dl (32-36); Mean Corpuscular Hemoglobin 26.4 pg (26-34); Mean Corpuscular Volume 89.4 fl (80-100); Mean Platelet Volume 9.5 fl (7.4-10.4); Platelet Count Result 242 k/mm3 (150-375); Red Cell Distribution Width 17.2 % (11.5-14.5); White Blood Count 7.4 K/mm3 (4.5-10.0)
[2022-10-06 06:51] LABS: Albumin Level 3.2 g/dL (3.5-5.1); Anion Gap 4 mmol/L (8-16); Blood Urea Nitrogen 44 mg/dL (9-20); Calcium 8.2 mg/dL (8.4-10.2); Carbon Dioxide 31 mmol/L (22-30); Chloride 105 mmol/L (98-107); Estimated CRCL calculation 32 ml/min; Estimated Glomerular Filt Rate 23; Glucose 157 mg/dL (65-110); Phosphorus 3.8 mg/dL (2.5-4.5); Potassium 4.3 mmol/L (3.4-5.0); Sodium 140 mmol/L (137-145)
[2022-10-06 08:21] LABS: Glucose Point of Care 148 mg/dl (65-105)
[2022-10-06] MEDS: METOPROLOL SUCCINATE EXT REL 25 MG TABCR PO (08:59)
[2022-10-06] MEDS: DOCUSATE SODIUM 100 MG CAPSULE PO (09:00)
[2022-10-06] MEDS: GABAPENTIN 300 MG CAPSULE PO ×3 (09:00→16:40)
[2022-10-06] MEDS: FUROSEMIDE INJ 40 MG/4 ML VIAL IV PUSH ×2 (09:00→16:40)
[2022-10-06] MEDS: HYDROcodone/acetaminophen (*CRX) 5-325 MG TABLET 1 TAB PO (09:08)
[2022-10-06] MEDS: TAMSULOSIN HCL 0.4 MG CAPSULE PO (09:10)
[2022-10-06] MEDS: PERFLUTREN LIPID MICROSPHERES 1.5 ML VIAL DILUTED TO 10 ML TOTAL VOLUME IV PUSH (10:00)
--- NOTE | 2022-10-06 10:04 | IVDEFINITY ---
Prior to administration of IV Definity the patient was educated on the risks and benefits of the imaging enhancing agent including potential adverse side effects. The patient verbalized understanding. Allergies were verified. No exclusion criteria were identified and at least one of the following inclusion criteria were met: 1) physician request, 2) patient technically difficult to image (per the [place] [employer] guidelines of two or more segments not discernable within the apical view), or 3) questionable left ventricular function. ?
--- NOTE | 2022-10-06 12:03 | PM.IMPN ---
Progress Note: A&P Assessment and Plan (1) Volume overload: Code(s): E87.70 - Fluid overload, unspecified Status: Acute Assessment and Plan: Continue diuresis. (2) Diastolic congestive heart failure: Code(s): I50.30 - Unspecified diastolic (congestive) heart failure Status: Acute Assessment and Plan: Continue cardiac regimen, continue diuresis. Appreciate Cardiology input. (3) Acute on chronic renal failure: Code(s): N17.9 - Acute kidney failure, unspecified; N18.9 - Chronic kidney disease, unspecified Status: Acute Assessment and Plan: Kidney function slightly worse than baseline. Stable and slightly improved since admission. (4) Lymphedema: Code(s): I89.0 - Lymphedema, not elsewhere classified Status: Acute (5) Scrotal edema: Code(s): N50.89 - Other specified disorders of the male genital organs Status: Acute Assessment and Plan: With urinary retention. Barajas in place. 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 Weight: 157.7 kg. BMI: 44.6. HEENT:?Wearing glasses.?PERRL, EOMI. Conjunctivae anicteric. Moist mucous membranes. Oropharynx is crowded. Neck:?Exam is limited due to neck circumference. Respiratory:?Respirations are nonlabored.? Lung sounds are diminished due to body habitus. Cardiovascular:?Irregularly irregular rate and rhythm. Gastrointestinal:??Abdomen is morbidly obese and nontender with positive bowel sounds. Genitourinary:?Scrotum is markedly edematous. Skin:??Warm and dry. 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 Extremities:??No cyanosis or clubbing. Bilateral lower extremity lymphedema with pitting edema to the scrotum and flanks. Radial pulses palpable. Unable to palpate pedal or dorsalis pedis pulses as his legs are wrapped and marked edema. Toes are perfused and sensation is intact. Neurological:??Alert.?Cranial nerves 2-12 are grossly intact. Generally weak without focal findings. Psychiatric:??Pleasant and cooperative with normal mood and affect.? Judgment and insight intact. Objective Data Vital Signs Vital Signs: Vital Signs - 24 hr 10/05/22 14:00 10/05/22 16:00 10/05/22 20:00 Temperature 98.1 F Pulse Rate 85 72 80 Respiratory Rate 18 Blood Pressure 140/59 L Pulse Oximetry 94 Oxygen Delivery 10/05/22 22:00 10/05/22 23:02 10/06/22 00:00 Temperature 98.0 F Pulse Rate 62 77 71 Respiratory Rate 22 H Blood Pressure 140/76 Pulse Oximetry 99 90 Oxygen Delivery Room Air 10/06/22 04:00 10/06/22 06:00 10/06/22 08:59 Temperature 98.0 F Pulse Rate 86 66 75 Respiratory Rate 20 Blood Pressure 138/71 Pulse Oximetry 99 Oxygen Delivery 10/06/22 08:00 Temperature Pulse Rate 62 Respiratory Rate Blood Pressure Pulse Oximetry Oxygen Delivery Intake/Output Intake/Output: Intake & Output 10/03/22 10/04/22 10/05/22 10/06/22 22:59 22:59 23:59 23:59
[2022-10-06] MEDS: INSULIN ASPART (*BKC) 100 UNITS/ML SUB-Q (12:34)
--- NOTE | 2022-10-06 12:35 | PM.PNNEP ---
Progress Note: A&P Assessment and Plan (1) Stage 3b chronic kidney disease (CKD): Code(s): N18.32 - Chronic kidney disease, stage 3b Status: Acute Assessment and Plan: the patient has chronic kidney disease stage IIIB. His GFR runs between 37 and 40. Most likely this is due to diabetes and hypertension. Sleep apnea could be playing a role as well. He follows with Dr. Valentine. his baseline creatinine is about 1.8 giving him a gfr around 40 (2) Acute kidney injury: Code(s): N17.9 - Acute kidney failure, unspecified Status: Acute Assessment and Plan: His creatinine is higher. Renal ultrasound is unremarkable. Urine electrolytes/fractional excretion of urea show pre renal azotemia UA is bland CK is normal I ordered a repeat echo with contrast. it is yet to be done. This may all be due to heart failure or at least pulmonary hypertension. I suspect that his sleep apnea is worse than he thinks. He has not been able to get this evaluated to establish the diagnosis in order to get on a CPAP machine. Apnea link ordered and pending Continue diuretics. Repeat echo ordered (3) Swelling of lower extremity: Code(s): M79.89 - Other specified soft tissue disorders Status: Acute Assessment and Plan: The patient has edema. He has had swelling for a long time but suddenly got worse in the last few weeks. He is on Coumadin so I doubt if he has a DVT. the patient has had a normal echocardiogram recently. see note above. I suspect that this was a false negative. Urine protein is 1.3grams/gram of creatinine which is not high enough to cause this much swelling. CT abdomen does not show any abdominal process causing edema. It does show cardiomegaly which point back to the heart. Continue diuretics as tolerated by his creatinine. His creatinine is actually better with the diuresis. Perhaps renal venous hypertension may have been playing a role. (4) Atrial fibrillation: Code(s): I48.91 - Unspecified atrial fibrillation Status: Acute Assessment and Plan: Patient has paroxysmal atrial fibrillation. He is on Coumadin for this. (5) Insulin dependent diabetes mellitus: Status: Acute Assessment and Plan: on accuchecks and SSI per hospitalist. (6) Hypertension: Qualifiers: Hypertension type: primary hypertension Qualified Code(s): I10 - Essential (primary) hypertension Code(s): I10 - Essential (primary) hypertension Status: Chronic Assessment and Plan: systolic ranging in the 130s and 140s. This is in the same range as it was back in February when he was here and his creatinine was stable. Ultimately he needs better control but will leave it the way it is for now because of the acute kidney injury. (7) Chronic anemia: Code(s): D64.9 - Anemia, unspecified Status: Chronic Assessment and Plan: hb is stable in the 8s. possibly due to ckd. bleeding a possibility as well. pending stool guaiac. Check a CBC tomorrow Subjective Date/time seen: 10/06/22 12:35 Interval history: Carlos is feeling a little better today. Getting some therapy. Still making lots of urine Review of Systems Cardiovascular: Cardiovascular: Reports no additional cardiovascular complaints Respiratory: Respiratory: Reports no additional respiratory complaints Gastrointestinal: Gastrointestinal: Reports no additional gastrointestinal complaints Genitourinary: Genitourinary: Reports no additional male genitourinary complaints Exam Narrative: WDWN in NAD skin no acute rash head ncat lungs clear cor reg no rub abd BS+ nontender and soft ext 2+ bilateral edema. Chronic venous stasis changes Objective Data Vital Signs Vital Signs: Vital Signs - 24 hr 10/05/22 14:00 10/05/22 16:00 10/05/22 20:00 Temperature 98.1 F Pulse Rate 85 72 80 Respiratory Rate 18 Blood Pre
[2022-10-06 12:37] LABS: Glucose Point of Care 224 mg/dl (65-105)
[2022-10-06] MEDS: metOLazone 5 MG TABLET PO (13:29)
[2022-10-06] MEDS: TOLNAFTATE 1% POWDER 45 GM BTL 1 APPLIC TOPICAL ×2 (16:39→21:20)
[2022-10-06] MEDS: SILVERGEL (ELTA) 45 ML 1 APPLIC TOPICAL (16:40)
[2022-10-06 18:12] LABS: Glucose Point of Care 198 mg/dl (65-105)
[2022-10-06 21:05] LABS: Glucose Point of Care 227 mg/dl (65-105)
[2022-10-06] MEDS: INSULIN GLARGINE (*BKC) 100 UNITS/ML 20 UNITS SUB-Q (21:19)
[2022-10-07] VITALS (9 sets, daily range): BP systolic 125–141; BP diastolic 60–70; PULSE 65–80; RESP 18–20; TEMP 36.7–37; O2SAT 96–99
[2022-10-07] MEDS: dilTIAZem HCL 60 MG TABLET PO ×3 (05:34→20:31)
[2022-10-07 08:42] LABS: Glucose Point of Care 162 mg/dl (65-105)
[2022-10-07 08:45] LABS: Anion Gap 5 mmol/L (8-16); Blood Urea Nitrogen 43 mg/dL (9-20); Calcium 8.2 mg/dL (8.4-10.2); Carbon Dioxide 31 mmol/L (22-30); Chloride 104 mmol/L (98-107); Estimated CRCL calculation 35 ml/min; Estimated Glomerular Filt Rate 25; Glucose 169 mg/dL (65-110); Potassium 4.2 mmol/L (3.4-5.0); Sodium 140 mmol/L (137-145)
[2022-10-07 08:47] LABS: INR 1.4; Prothrombin Time 16.6 Seconds (11.1-14.7)
[2022-10-07] MEDS: DOCUSATE SODIUM 100 MG CAPSULE PO (09:09)
[2022-10-07] MEDS: METOPROLOL SUCCINATE EXT REL 25 MG TABCR PO (09:09)
[2022-10-07] MEDS: metOLazone 5 MG TABLET PO (09:09)
[2022-10-07] MEDS: GABAPENTIN 300 MG CAPSULE PO ×3 (09:09→17:44)
[2022-10-07] MEDS: TAMSULOSIN HCL 0.4 MG CAPSULE PO (09:09)
[2022-10-07] MEDS: TOLNAFTATE 1% POWDER 45 GM BTL 1 APPLIC TOPICAL ×2 (09:10→20:31)
[2022-10-07] MEDS: SILVERGEL (ELTA) 45 ML 1 APPLIC TOPICAL (09:10)
[2022-10-07] MEDS: FUROSEMIDE INJ 40 MG/4 ML VIAL IV PUSH ×2 (09:16→17:44)
--- NOTE | 2022-10-07 11:08 | PM.IMPN ---
Progress Note: A&P Assessment and Plan (1) Volume overload: Code(s): E87.70 - Fluid overload, unspecified Status: Acute Assessment and Plan: Continue diuresis. (2) Diastolic congestive heart failure: Code(s): I50.30 - Unspecified diastolic (congestive) heart failure Status: Acute Assessment and Plan: Continue cardiac regimen, continue diuresis. Appreciate Cardiology input. (3) Acute on chronic renal failure: Code(s): N17.9 - Acute kidney failure, unspecified; N18.9 - Chronic kidney disease, unspecified Status: Acute Assessment and Plan: Kidney function slightly worse than baseline. Stable and slightly improved since admission. (4) Lymphedema: Code(s): I89.0 - Lymphedema, not elsewhere classified Status: Acute (5) Scrotal edema: Code(s): N50.89 - Other specified disorders of the male genital organs Status: Acute Assessment and Plan: With urinary retention. Barajas in place. Appreciate Urology input Will likely need to be discharged with a Barajas in follow-up with Urology. (6) Chronic anemia: Code(s): D64.9 - Anemia, unspecified Status: Chronic Assessment and Plan: Monitor hemoglobin. 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 (9) Hypertension: Qualifiers: Hypertension type: primary hypertension Qualified Code(s): I10 - Essential (primary) hypertension Code(s): I10 - Essential (primary) hypertension Status: Chronic Assessment and Plan: Monitor blood pressure (10) Wound of lower extremity: Code(s): S81.809A - Unspecified open wound, unspecified lower leg, initial encounter Status: Acute Assessment and Plan: Continue wound care (11) Atrial fibrillation: Code(s): I48.91 - Unspecified atrial fibrillation Status: Acute Assessment and Plan: On anticoagulation. INR 2.1. Monitor Subjective Date/time seen: 10/07/22 11:08 Tolerating diuretic therapy. Vital signs are stable. Barajas still in place Exam Narrative: General:?Chronically ill-appearing gentleman in the semi-Boswell position in bed. Weight: 157.7 kg. BMI: 44.6. HEENT:?Wearing glasses.?PERRL, EOMI. Conjunctivae anicteric. Moist mucous membranes. Oropharynx is crowded. Neck:?Exam is limited due to neck circumference. Respiratory:?Respirations are nonlabored.? Lung sounds are diminished due to body habitus. Cardiovascular:?Irregularly irregular rate and rhythm. Gastrointestinal:??Abdomen is morbidly obese and nontender with positive bowel sounds. Genitourinary:?Scrotum is markedly edematous. Skin:??Warm and dry. 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 Extremities:??No cyanosis or clubbing. Bilateral lower extremity lymphedema with pitting edema to the scrotum and flanks. Radial pulses palpable. Unable to palpate pedal or dorsalis pedis pulses as his legs are wrapped and marked edema. Toes are perfused and sensation is intact. Neurological:??Alert.?Cranial nerves 2-12 are grossly intact. Generally weak without focal findings. Psychiatric:??Pleasant and cooperative with normal mood and affect.? Judgment and insight intact. Objective Data Vital Signs Vital Signs: Vital Signs - 24 hr 10/06/22 12:00 10/06/22 13:56 10/06/22 16:00 Temperature 97.9 F Pulse Rate 71 65 73 Respiratory Rate 18 Blood Pressure 134/71 Pulse Oximetry 92 Oxygen Delivery 10/06/22 21:58 10/06/22 20:00 10/07/22 00:00
[2022-10-07 12:15] LABS: Glucose Point of Care 310 mg/dl (65-105)
[2022-10-07] MEDS: INSULIN ASPART (*BKC) 100 UNITS/ML SUB-Q ×2 (12:40→18:05)
--- NOTE | 2022-10-07 14:49 | PM.PNNEP ---
Progress Note: A&P Assessment and Plan (1) Stage 3b chronic kidney disease (CKD): Code(s): N18.32 - Chronic kidney disease, stage 3b Status: Acute Assessment and Plan: the patient has chronic kidney disease stage IIIB. His GFR runs between 37 and 40. Most likely this is due to diabetes and hypertension. Sleep apnea could be playing a role as well. He follows with Dr. Valentine. his baseline creatinine is about 1.8 giving him a gfr around 40 (2) Acute kidney injury: Code(s): N17.9 - Acute kidney failure, unspecified Status: Acute Assessment and Plan: His creatinine is lower. Renal ultrasound is unremarkable. Urine electrolytes/fractional excretion of urea show pre renal azotemia UA is bland CK is normal I ordered a repeat echo with contrast. it is yet to be done. This may all be due to heart failure or at least pulmonary hypertension. I suspect that his sleep apnea is worse than he thinks. He has not been able to get this evaluated to establish the diagnosis in order to get on a CPAP machine. Apnea link ordered and pending Continue diuretics. Repeat echo ordered His creatinine is improving with diuresis. (3) Swelling of lower extremity: Code(s): M79.89 - Other specified soft tissue disorders Status: Acute Assessment and Plan: The patient has edema. He has had swelling for a long time but suddenly got worse in the last few weeks. He is on Coumadin so I doubt if he has a DVT. the patient has had a normal echocardiogram recently. see note above. I suspect that this was a false negative. Urine protein is 1.3grams/gram of creatinine which is not high enough to cause this much swelling. CT abdomen does not show any abdominal process causing edema. It does show cardiomegaly which point back to the heart. (4) Atrial fibrillation: Code(s): I48.91 - Unspecified atrial fibrillation Status: Acute Assessment and Plan: Patient has paroxysmal atrial fibrillation. He is on Coumadin for this. (5) Insulin dependent diabetes mellitus: Status: Acute Assessment and Plan: on accuchecks and SSI per hospitalist. (6) Hypertension: Qualifiers: Hypertension type: primary hypertension Qualified Code(s): I10 - Essential (primary) hypertension Code(s): I10 - Essential (primary) hypertension Status: Chronic Assessment and Plan: systolic ranging in the 130s and 140s. This is in the same range as it was back in February when he was here and his creatinine was stable. Ultimately he needs better control but will leave it the way it is for now because of the acute kidney injury. (7) Chronic anemia: Code(s): D64.9 - Anemia, unspecified Status: Chronic Assessment and Plan: hb is stable in the 8s. possibly due to ckd. bleeding a possibility as well. pending stool guaiac. Check a CBC tomorrow Subjective Date/time seen: 10/07/22 14:49 Interval history: Carlos is feeling a little better today. Getting some therapy. Unfortunately there out of bariatric chairs and walkers but physical and occupational therapy are working with him to get him stronger. Exam Narrative: WDWN in NAD skin no acute rash head ncat lungs clear bilaterally cor reg no rub abd BS+ nontender and soft ext 2+ bilateral edema. Chronic venous stasis changes Objective Data Vital Signs Vital Signs: Vital Signs - 24 hr 10/06/22 16:00 10/06/22 21:58 10/06/22 20:00 Temperature 98.1 F Pulse Rate 73 68 81 Respiratory Rate 18 Blood Pressure 140/77 Pulse Oximetry 98 Oxygen Delivery 10/07/22 00:00 10/07/22 04:00 10/07/22 06:00 Temperature 98.1 F Pulse Rate 72 74 69 Respiratory Rate 18 Blood Pressure 141/70 H Pulse Oximetry 98 Oxygen Delivery 10/07/22 09:15 10/07/22 09:53 10/07/22 08:00 Temperature Pulse Rate 65 Respiratory Rate Blood Pressure
[2022-10-07 16:29] LABS: Glucose Point of Care 281 mg/dl (65-105)
[2022-10-07] MEDS: WARFARIN (*PBKC) 5 MG TABLET PO (17:44)
[2022-10-07] MEDS: INSULIN GLARGINE (*BKC) 100 UNITS/ML 20 UNITS SUB-Q (20:32)
[2022-10-07 21:00] LABS: Glucose Point of Care 219 mg/dl (65-105)
[2022-10-07 22:26] LABS: Glucose Point of Care 189 mg/dl (65-105)
[2022-10-08] VITALS (10 sets, daily range): BP systolic 98–136; BP diastolic 51–70; PULSE 65–86; RESP 16–18; TEMP 36.3–37.1; O2SAT 95–99
[2022-10-08 05:50] LABS: Anion Gap 5 mmol/L (8-16); Blood Urea Nitrogen 42 mg/dL (9-20); Calcium 8.3 mg/dL (8.4-10.2); Carbon Dioxide 33 mmol/L (22-30); Chloride 102 mmol/L (98-107); Estimated CRCL calculation 36 ml/min; Estimated Glomerular Filt Rate 27; Glucose 162 mg/dL (65-110); INR 1.4; Potassium 3.7 mmol/L (3.4-5.0); Prothrombin Time 16.5 Seconds (11.1-14.7); Sodium 140 mmol/L (137-145)
[2022-10-08] MEDS: dilTIAZem HCL 60 MG TABLET PO ×3 (06:19→21:08)
[2022-10-08 08:27] LABS: Glucose Point of Care 141 mg/dl (65-105)
[2022-10-08] MEDS: GABAPENTIN 300 MG CAPSULE PO ×3 (08:29→17:51)
[2022-10-08] MEDS: DOCUSATE SODIUM 100 MG CAPSULE PO (08:29)
[2022-10-08] MEDS: TAMSULOSIN HCL 0.4 MG CAPSULE PO (08:29)
[2022-10-08] MEDS: FUROSEMIDE INJ 40 MG/4 ML VIAL IV PUSH ×2 (08:29→17:51)
[2022-10-08] MEDS: metOLazone 5 MG TABLET PO (08:29)
[2022-10-08] MEDS: METOPROLOL SUCCINATE EXT REL 25 MG TABCR PO (08:36)
[2022-10-08] MEDS: TOLNAFTATE 1% POWDER 45 GM BTL 1 APPLIC TOPICAL ×2 (08:38→21:08)
[2022-10-08 12:53] LABS: Glucose Point of Care 198 mg/dl (65-105)
[2022-10-08] MEDS: acetaZOLAMIDE TAB 250 MG TABLET 500 MG PO (13:21)
--- NOTE | 2022-10-08 14:29 | PM.IMPN ---
Progress Note: A&P Assessment and Plan (1) Volume overload: Code(s): E87.70 - Fluid overload, unspecified Status: Acute Assessment and Plan: Continue diuresis. (2) Diastolic congestive heart failure: Code(s): I50.30 - Unspecified diastolic (congestive) heart failure Status: Acute Assessment and Plan: Continue cardiac regimen, continue diuresis. Appreciate Cardiology input. (3) Acute on chronic renal failure: Code(s): N17.9 - Acute kidney failure, unspecified; N18.9 - Chronic kidney disease, unspecified Status: Acute Assessment and Plan: Kidney function slightly worse than baseline. Stable and slightly improved since admission. (4) Lymphedema: Code(s): I89.0 - Lymphedema, not elsewhere classified Status: Acute (5) Scrotal edema: Code(s): N50.89 - Other specified disorders of the male genital organs Status: Acute Assessment and Plan: With urinary retention. Barajas in place. Appreciate Urology input Will likely need to be discharged with a Barajas in follow-up with Urology. (6) Chronic anemia: Code(s): D64.9 - Anemia, unspecified Status: Chronic Assessment and Plan: Monitor hemoglobin. 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 (9) Hypertension: Qualifiers: Hypertension type: primary hypertension Qualified Code(s): I10 - Essential (primary) hypertension Code(s): I10 - Essential (primary) hypertension Status: Chronic Assessment and Plan: Monitor blood pressure (10) Wound of lower extremity: Code(s): S81.809A - Unspecified open wound, unspecified lower leg, initial encounter Status: Acute Assessment and Plan: Continue wound care (11) Atrial fibrillation: Code(s): I48.91 - Unspecified atrial fibrillation Status: Acute Assessment and Plan: On anticoagulation. INR 2.1. Monitor Plan (1) Volume overload: Continue diuresis per nephrology (2) Diastolic congestive heart failure: Continue cardiac regimen, continue diuresis. ECHO showed Ef >70% nephrology following (3) Acute on chronic renal failure: Kidney function slightly worse than baseline.? Stable and slightly improved since admission. nephrology following (4) Lymphedema: improving (5) Scrotal edema, improving With urinary retention.? Barajas in place.? Appreciate Urology input Will likely need to be discharged with a Barajas in follow-up with Urology. (6) Chronic anemia: Monitor hemoglobin. 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 (9) Hypertension: Monitor blood pressure (10) Wound of lower extremity: Continue wound care (11) Atrial fibrillation: On anticoagulation.? INR 2.1. Monitor DVT prophylaxis on Warfarin Subjective Date/time seen: 10/08/22 14:29 Interval history: Patient laying comfortably in bed and worked is now starting to move with PT yesterdat Review of Systems Review of Systems: All systems reviewed & are unremarkable except as noted in HPI and below Exam Narrative: General:?Chronically ill-appearing gentleman in the semi-Boswell position in bed. Weight: 157.7 kg. BMI: 44.6. HEENT:?Wearing glasses.?PERRL, EOMI. Conjunctivae anicteric. Moist mucous membranes. Oropharynx is crowded. Neck:?Exam is limited due to neck circumference. Respiratory:?Respirations are nonlabored.? Lung sounds are diminished due to body habitus. Cardiovascular:?Irregularly irregular rat
[2022-10-08 17:33] LABS: Glucose Point of Care 198 mg/dl (65-105)
[2022-10-08] MEDS: WARFARIN (*PBKC) 5 MG TABLET PO (17:51)
[2022-10-08] MEDS: SILVERGEL (ELTA) 45 ML 1 APPLIC TOPICAL (17:54)
--- NOTE | 2022-10-08 18:40 | PC.NURSE ---
Pt refused diamox this evening. States that he would like to talk to Dr. Pugh about it in the morning.
[2022-10-08] MEDS: INSULIN GLARGINE (*BKC) 100 UNITS/ML 20 UNITS SUB-Q (21:08)
[2022-10-08 21:24] LABS: Glucose Point of Care 218 mg/dl (65-105)
[2022-10-09] VITALS (10 sets, daily range): BP systolic 117–131; BP diastolic 56–66; PULSE 64–87; RESP 16–18; TEMP 36.4–37.1; O2SAT 95–97
[2022-10-09] MEDS: dilTIAZem HCL 60 MG TABLET PO ×3 (05:25→20:30)
[2022-10-09 06:12] LABS: Basophils Absolute Auto 0.1 K/mm3 (0.0-0.1); Basophils Percent Auto 0.6 % (0.2-1.2); Eosinophils Absolute Auto 0.5 K/mm3 (0-0.3); Eosinophils Percent Auto 5.4 % (0-4.4); Hematocrit 32.7 % (42.0-52.0); Hemoglobin 9.7 g/dL (14.0-18.0); Immature Granulocyte Absolute 0.07 K/mm3 (0.00-0.031); Immature Granulocyte Percent A 0.8 % (0-0.5); Lymphocytes Absolute Auto 1.48 K/mm3 (0.9-3.2); Lymphocytes Percent Auto 17.6 % (18.3-44.2); Mean Corpuscular HGB Conc 29.7 g/dl (32-36); Mean Corpuscular Hemoglobin 25.6 pg (26-34); Mean Corpuscular Volume 86.3 fl (80-100); Mean Platelet Volume 9.6 fl (7.4-10.4); Monocytes Absolute Auto 1.1 K/mm3 (0.1-0.6); Monocytes Percent Auto 12.6 % (2.6-8.5); Neutrophils Absolute Auto 5.3 K/mm3 (1.3-6.7); Platelet Count Result 245 k/mm3 (150-375); Red Blood Count 3.79 M/mm3 (4.6-6.20); Red Cell Distribution Width 16.8 % (11.5-14.5); White Blood Count 8.4 K/mm3 (4.5-10.0)
[2022-10-09 06:34] LABS: Alanine Aminotransferase 13 U/L (6-50); Albumin Level 3.2 g/dL (3.5-5.1); Alkaline Phosphatase 71 U/L (38-126); Anion Gap 5 mmol/L (8-16); Aspartate Amino Transferase 22 U/L (17-59); Bilirubin,Total 0.7 mg/dL (0.2-1.3); Blood Urea Nitrogen 40 mg/dL (9-20); Calcium 8.3 mg/dL (8.4-10.2); Carbon Dioxide 34 mmol/L (22-30); Chloride 99 mmol/L (98-107); Estimated CRCL calculation 31 ml/min; Estimated Glomerular Filt Rate 22; Glucose 198 mg/dL (65-110); Potassium 3.6 mmol/L (3.4-5.0); Sodium 138 mmol/L (137-145)
[2022-10-09 06:36] LABS: INR 1.3
[2022-10-09 07:14] LABS: Anisocytosis 1+ (NORMAL); Hypochromasia 1+ (NORMAL); Platelet Estimate Adequate (Adequate); Schistocytes None Seen (NORMAL)
[2022-10-09 08:50] LABS: Glucose Point of Care 175 mg/dl (65-105)
[2022-10-09] MEDS: FUROSEMIDE INJ 40 MG/4 ML VIAL IV PUSH ×2 (09:27→17:40)
[2022-10-09] MEDS: METOPROLOL SUCCINATE EXT REL 25 MG TABCR PO (09:28)
[2022-10-09] MEDS: TAMSULOSIN HCL 0.4 MG CAPSULE PO (09:28)
[2022-10-09] MEDS: GABAPENTIN 300 MG CAPSULE PO ×3 (09:28→17:40)
[2022-10-09] MEDS: metOLazone 5 MG TABLET PO (09:29)
[2022-10-09] MEDS: TOLNAFTATE 1% POWDER 45 GM BTL 1 APPLIC TOPICAL ×2 (09:30→20:29)
[2022-10-09] MEDS: SILVERGEL (ELTA) 45 ML 1 APPLIC TOPICAL (09:30)
[2022-10-09] MEDS: SALINE 0.65% NAS SOLN 44 ML BTL 1 SPRAY NASAL (09:30)
--- NOTE | 2022-10-09 09:30 | PC.NURSE ---
pt wants to wait to take the diamox until he speaks to Dr Pugh
[2022-10-09] MEDS: HYDROcodone/acetaminophen (*CRX) 5-325 MG TABLET 1 TAB PO (09:34)
--- NOTE | 2022-10-09 10:38 | PCNWS ---
Weekly nutritional screen. Patient is tolerating current diet with adequate intake. No weight loss reported. No nutritional needs at this time.
[2022-10-09 12:10] LABS: Glucose Point of Care 243 mg/dl (65-105)
[2022-10-09] MEDS: INSULIN ASPART (*BKC) 100 UNITS/ML SUB-Q ×2 (12:26→17:38)
--- NOTE | 2022-10-09 14:23 | PM.IMPN ---
Progress Note: A&P Assessment and Plan (1) Volume overload: Code(s): E87.70 - Fluid overload, unspecified Status: Acute Assessment and Plan: Continue diuresis. (2) Diastolic congestive heart failure: Code(s): I50.30 - Unspecified diastolic (congestive) heart failure Status: Acute Assessment and Plan: Continue cardiac regimen, continue diuresis. Appreciate Cardiology input. (3) Acute on chronic renal failure: Code(s): N17.9 - Acute kidney failure, unspecified; N18.9 - Chronic kidney disease, unspecified Status: Acute Assessment and Plan: Kidney function slightly worse than baseline. Stable and slightly improved since admission. (4) Lymphedema: Code(s): I89.0 - Lymphedema, not elsewhere classified Status: Acute (5) Scrotal edema: Code(s): N50.89 - Other specified disorders of the male genital organs Status: Acute Assessment and Plan: With urinary retention. Barajas in place. Appreciate Urology input Will likely need to be discharged with a Barajas in follow-up with Urology. (6) Chronic anemia: Code(s): D64.9 - Anemia, unspecified Status: Chronic Assessment and Plan: Monitor hemoglobin. 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 (9) Hypertension: Qualifiers: Hypertension type: primary hypertension Qualified Code(s): I10 - Essential (primary) hypertension Code(s): I10 - Essential (primary) hypertension Status: Chronic Assessment and Plan: Monitor blood pressure (10) Wound of lower extremity: Code(s): S81.809A - Unspecified open wound, unspecified lower leg, initial encounter Status: Acute Assessment and Plan: Continue wound care (11) Atrial fibrillation: Code(s): I48.91 - Unspecified atrial fibrillation Status: Acute Assessment and Plan: On anticoagulation. INR 2.1. Monitor Plan (1) Volume overload: Continue diuresis per nephrology (2) Diastolic congestive heart failure: Continue cardiac regimen, continue diuresis per nephrology ECHO showed Ef >70% nephrology following (3) Acute on chronic renal failure: Kidney function slightly worse than baseline.? nephrology following, care per nephrology (4) Lymphedema: improving (5) Scrotal edema, improving With urinary retention.? Barajas in place.? Appreciate Urology input Will likely need to be discharged with a Barajas in follow-up with Urology. (6) Chronic anemia: Monitor hemoglobin. (7) half-way (current) use of anticoagulants: Monitor INR daily (8) Insulin dependent type 2 diabetes mellitus: Blood sugars under control. (9) Hypertension: Monitor blood pressure (10) Wound of lower extremity: Continue wound care (11) Atrial fibrillation: On anticoagulation.? INR 2.1. Monitor DVT prophylaxis on Warfarin Disposition, still awaiting optimization of volume status prior to discharge Subjective Date/time seen: 10/09/22 14:23 Patient laying in bed, reported headache which he stated started after he started on Diamox. Now refusing diamox until he discusses with nephrology Interval history: Patient laying comfortably in bed and worked is now starting to move with PT yesterdat Review of Systems Review of Systems: All systems reviewed & are unremarkable except as noted in HPI and below Exam Narrative: General:?Chronically ill-appearing gentleman in the semi-Boswell position in bed. Weight: 157.7 kg. BMI: 44.6. HEENT:?Wearing glasses.?PERRL, EOMI. Conjunctivae anicteric. Moist mucou
--- NOTE | 2022-10-09 15:45 | PM.PNNEP ---
Progress Note: A&P Assessment and Plan (1) Stage 3b chronic kidney disease (CKD): Code(s): N18.32 - Chronic kidney disease, stage 3b Status: Acute Assessment and Plan: the patient has chronic kidney disease stage IIIB. His GFR runs between 37 and 40. Most likely this is due to diabetes and hypertension. Sleep apnea could be playing a role as well. He follows with Dr. Valentine. his baseline creatinine is about 1.8 giving him a gfr around 40 (2) Acute kidney injury: Code(s): N17.9 - Acute kidney failure, unspecified Status: Acute Assessment and Plan: His creatinine is lower. Renal ultrasound is unremarkable. Urine electrolytes/fractional excretion of urea show pre renal azotemia UA is bland CK is normal Repeat echo was a partial study. I talked with Dr. Antony and she said the looking over the 2 echo it looks like there was not significant right-sided failure; they showed minimal tricuspid regurgitation. possibly all the edema is from cardiomegaly, and probably diastolic dysfunction As well as sleep apnea.. Apnea link Done the 80 HI was 33.7, normal being less than 5. His creatinine is up. Bicarbonate level is very high. I gave him Diamox yesterday. He got a headache so he refused the 2nd dose of Diamox. I do not think this is a common side effect of Diamox. I encouraged him to continue it because his bicarbonate level is very high. High CO2 can cause pCO2 retention and cause pulmonary issues with CO2 narcosis so it would be important to treat the high CO2. Because his creatinine is up a little bit I will reduce the diuretics and this might help the CO2 as well. His edema looks improved to me. (3) Swelling of lower extremity: Code(s): M79.89 - Other specified soft tissue disorders Status: Acute Assessment and Plan: The patient has edema. Probably due to diastolic dysfunction and cardiac issues getting diuresis. It is a little bit better (4) Atrial fibrillation: Code(s): I48.91 - Unspecified atrial fibrillation Status: Acute Assessment and Plan: Patient has paroxysmal atrial fibrillation. He is on Coumadin for this. (5) Insulin dependent diabetes mellitus: Status: Acute Assessment and Plan: on accuchecks and SSI per hospitalist. (6) Hypertension: Qualifiers: Hypertension type: primary hypertension Qualified Code(s): I10 - Essential (primary) hypertension Code(s): I10 - Essential (primary) hypertension Status: Chronic Assessment and Plan: systolic ranging in the 130s and 140s. This is in the same range as it was back in February when he was here and his creatinine was stable. Ultimately he needs better control but will leave it the way it is for now because of the acute kidney injury. (7) Chronic anemia: Code(s): D64.9 - Anemia, unspecified Status: Chronic Assessment and Plan: hb is stable in the 8s. possibly due to ckd. bleeding a possibility as well. pending stool guaiac. Check a CBC tomorrow Subjective Date/time seen: 10/09/22 15:45 Interval history: Carlos is feeling a little better today. He is up in a chair today. He really likes that. Said he received sugary foods the other day but now is on a diabetic low-sodium diet. Swelling is a little bit better. There is some more swelling in the left than on the right which is chronic from his venogram Which went bad in the past. Exam Narrative: WDWN in NAD skin no acute rash head ncat lungs clear bilaterally cor reg no rub abd BS+ nontender and soft ext 2+ bilateral edema. the look fairly similar to me. May be a little worse on the left. Chronic venous stasis changes Objective Data Vital Signs Vital Signs: Vital Signs - 24 hr 10/08/22 16:00 10/08/22 20:00 10/08/22 20:00 Temperature Pulse Rate 75 82 75 Respiratory Rate 16 Blood Pressure
[2022-10-09 17:28] LABS: Glucose Point of Care 266 mg/dl (65-105)
[2022-10-09] MEDS: WARFARIN (*PBKC) 5 MG TABLET PO (17:40)
[2022-10-09] MEDS: acetaZOLAMIDE TAB 250 MG TABLET 500 MG PO (17:41)
[2022-10-09] MEDS: INSULIN GLARGINE (*BKC) 100 UNITS/ML 20 UNITS SUB-Q (20:28)
[2022-10-09 20:43] LABS: Glucose Point of Care 265 mg/dl (65-105)
[2022-10-10] VITALS (10 sets, daily range): BP systolic 121–127; BP diastolic 60–67; PULSE 69–80; RESP 18–20; TEMP 36.4–36.8; O2SAT 95–98
[2022-10-10] MEDS: dilTIAZem HCL 60 MG TABLET PO ×3 (05:25→21:16)
[2022-10-10 05:48] LABS: Basophils Percent Auto 0.4 % (0.2-1.2); Eosinophils Absolute Auto 0.4 K/mm3 (0-0.3); Eosinophils Percent Auto 4.8 % (0-4.4); Hematocrit 34.4 % (42.0-52.0); Hemoglobin 10.1 g/dL (14.0-18.0); Immature Granulocyte Absolute 0.03 K/mm3 (0.00-0.031); Immature Granulocyte Percent A 0.4 % (0-0.5); Lymphocytes Absolute Auto 1.49 K/mm3 (0.9-3.2); Mean Corpuscular HGB Conc 29.4 g/dl (32-36); Mean Corpuscular Volume 88.7 fl (80-100); Mean Platelet Volume 9.6 fl (7.4-10.4); Monocytes Absolute Auto 1.1 K/mm3 (0.1-0.6); Monocytes Percent Auto 12.8 % (2.6-8.5); Neutrophils Absolute Auto 5.3 K/mm3 (1.3-6.7); Neutrophils Percent Auto 63.6 % (45.5-73.1); Platelet Count Result 239 k/mm3 (150-375); Red Blood Count 3.88 M/mm3 (4.6-6.20); Red Cell Distribution Width 16.5 % (11.5-14.5); White Blood Count 8.3 K/mm3 (4.5-10.0)
[2022-10-10 05:59] LABS: INR 1.4; Prothrombin Time 16.3 Seconds (11.1-14.7)
[2022-10-10 06:07] LABS: Alanine Aminotransferase 13 U/L (6-50); Albumin Level 3.4 g/dL (3.5-5.1); Alkaline Phosphatase 71 U/L (38-126); Anion Gap 6 mmol/L (8-16); Aspartate Amino Transferase 22 U/L (17-59); Bilirubin,Total 0.7 mg/dL (0.2-1.3); Blood Urea Nitrogen 48 mg/dL (9-20); Calcium 8.5 mg/dL (8.4-10.2); Carbon Dioxide 32 mmol/L (22-30); Chloride 97 mmol/L (98-107); Estimated CRCL calculation 28 ml/min; Estimated Glomerular Filt Rate 21; Glucose 229 mg/dL (65-110); Potassium 3.6 mmol/L (3.4-5.0); Sodium 135 mmol/L (137-145)
[2022-10-10 08:16] LABS: Glucose Point of Care 222 mg/dl (65-105)
[2022-10-10] MEDS: INSULIN ASPART (*BKC) 100 UNITS/ML SUB-Q ×3 (08:51→17:44)
[2022-10-10] MEDS: GABAPENTIN 300 MG CAPSULE PO ×3 (08:51→17:45)
[2022-10-10] MEDS: METOPROLOL SUCCINATE EXT REL 25 MG TABCR PO (08:51)
[2022-10-10] MEDS: acetaZOLAMIDE TAB 250 MG TABLET 500 MG PO ×2 (08:51→17:45)
[2022-10-10] MEDS: DOCUSATE SODIUM 100 MG CAPSULE PO (08:51)
[2022-10-10] MEDS: TAMSULOSIN HCL 0.4 MG CAPSULE PO (08:52)
[2022-10-10] MEDS: SILVERGEL (ELTA) 45 ML 1 APPLIC TOPICAL (08:52)
[2022-10-10] MEDS: TOLNAFTATE 1% POWDER 45 GM BTL 1 APPLIC TOPICAL ×2 (08:52→21:17)
--- NOTE | 2022-10-10 08:55 | PM.PNNEP ---
Progress Note: A&P Assessment and Plan (1) Stage 3b chronic kidney disease (CKD): Code(s): N18.32 - Chronic kidney disease, stage 3b Status: Acute Assessment and Plan: the patient has chronic kidney disease stage IIIB. His GFR runs between 37 and 40. Most likely this is due to diabetes and hypertension. Sleep apnea could be playing a role as well. He follows with Dr. Valentine. his baseline creatinine is about 1.8 giving him a gfr around 40 His creatinine is up to 3.0 now. Will hold diuretics. I talked with the nurse on the floor before she gave morning meds. We have been giving him intense diuresis so it is not surprising that the creatinine went up. I told him that hisl sleep apnea is to be treated. All these other efforts are just treating the symptoms and he needs the disease treated. Will hold diuretics. Repeat creatinine tomorrow. If numbers are improving he could try be discharged. He can restart diuretics as an outpatient on Thursday and follow up with labs. He should continue to see Dr. Valentine. (2) Acute kidney injury: Code(s): N17.9 - Acute kidney failure, unspecified Status: Acute Assessment and Plan: His creatinine is lower. Renal ultrasound is unremarkable. Urine electrolytes/fractional excretion of urea show pre renal azotemia UA is bland CK is normal Most likely due to prerenal azotemia from the sleep apnea. He needs to see the sleep doctor said get a sleep test done. (3) Swelling of lower extremity: Code(s): M79.89 - Other specified soft tissue disorders Status: Acute Assessment and Plan: The patient has edema. Probably due to diastolic dysfunction and cardiac issues This is back to the baseline. Hold diuretics for couple of days and then restarted a lower dose. If he goes home, then he should stay off diuretics until Thursday and then restart his torsemide at 10 mg a day and get a BMP mid week (4) Atrial fibrillation: Code(s): I48.91 - Unspecified atrial fibrillation Status: Acute Assessment and Plan: Patient has paroxysmal atrial fibrillation. He is on Coumadin for this. (5) Insulin dependent diabetes mellitus: Status: Acute Assessment and Plan: on accuchecks and SSI per hospitalist. (6) Hypertension: Qualifiers: Hypertension type: primary hypertension Qualified Code(s): I10 - Essential (primary) hypertension Code(s): I10 - Essential (primary) hypertension Status: Chronic Assessment and Plan: systolic ranging in the 130s and 140s. This is in the same range as it was back in February when he was here and his creatinine was stable. Ultimately he needs better control but will leave it the way it is for now because of the acute kidney injury. (7) Chronic anemia: Code(s): D64.9 - Anemia, unspecified Status: Chronic Assessment and Plan: hb is stable in the 8s. possibly due to ckd. bleeding a possibility as well. pending stool guaiac. Check a CBC tomorrow Subjective Date/time seen: 10/10/22 08:55 Interval history: Carlos is feeling a little better today. Swelling is back to its baseline. ?am I going home today ?? Apparently a nurse from his facility came by asking if he wanted rehab. Exam Narrative: WDWN in NAD skin no acute rash head ncat lungs clear bilaterally cor reg no rub abd BS+ nontender and soft ext 2+ bilateral edema. It looks a little better than on admission Objective Data Vital Signs Vital Signs: Vital Signs - 24 hr 10/09/22 09:28 10/09/22 13:43 10/09/22 12:00 Temperature Pulse Rate 74 80 75 Respiratory Rate 16 Blood Pressure 117/63 Pulse Oximetry 96 Oxygen Delivery 10/09/22 16:00 10/09/22 20:00 10/09/22 22:38 Temperature 98.8 F Pulse Rate 87 87 70 Respiratory Rate 16 18 Blood Pressure 118/56 L Pulse Oximetry 96 97 Oxygen Delivery Room Air 10/09/22
--- NOTE | 2022-10-10 12:35 | PM.IMPN ---
Progress Note: A&P Assessment and Plan (1) Volume overload: Code(s): E87.70 - Fluid overload, unspecified Status: Acute Assessment and Plan: Continue diuresis. (2) Diastolic congestive heart failure: Code(s): I50.30 - Unspecified diastolic (congestive) heart failure Status: Acute Assessment and Plan: Continue cardiac regimen, continue diuresis. Appreciate Cardiology input. (3) Acute on chronic renal failure: Code(s): N17.9 - Acute kidney failure, unspecified; N18.9 - Chronic kidney disease, unspecified Status: Acute Assessment and Plan: Kidney function slightly worse than baseline. Stable and slightly improved since admission. (4) Lymphedema: Code(s): I89.0 - Lymphedema, not elsewhere classified Status: Acute (5) Scrotal edema: Code(s): N50.89 - Other specified disorders of the male genital organs Status: Acute Assessment and Plan: With urinary retention. Sanders in place. Appreciate Urology input Will likely need to be discharged with a Sanders in follow-up with Urology. (6) Chronic anemia: Code(s): D64.9 - Anemia, unspecified Status: Chronic Assessment and Plan: Monitor hemoglobin. 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 (9) Hypertension: Qualifiers: Hypertension type: primary hypertension Qualified Code(s): I10 - Essential (primary) hypertension Code(s): I10 - Essential (primary) hypertension Status: Chronic Assessment and Plan: Monitor blood pressure (10) Wound of lower extremity: Code(s): S81.809A - Unspecified open wound, unspecified lower leg, initial encounter Status: Acute Assessment and Plan: Continue wound care (11) Atrial fibrillation: Code(s): I48.91 - Unspecified atrial fibrillation Status: Acute Assessment and Plan: On anticoagulation. INR 2.1. Monitor Plan (1) Volume overload: Continue diuresis per nephrology (2) Diastolic congestive heart failure: Continue cardiac regimen, continue diuresis per nephrology ECHO showed Ef >70% nephrology following (3) Acute on chronic renal failure: Kidney function slightly worse than baseline.? Creatinine 3 today nephrology following, care per nephrology (4) Lymphedema: improving (5) Scrotal edema, improving With urinary retention.? Sanders in place.? Appreciate Urology input Will likely need to be discharged with a Sanders in follow-up with Urology. (6) Chronic anemia: Monitor hemoglobin. (7) residential (current) use of anticoagulants: Monitor INR daily (8) Insulin dependent type 2 diabetes mellitus: Blood sugars under control. (9) Hypertension: Monitor blood pressure (10) Wound of lower extremity: Continue wound care (11) Atrial fibrillation: On anticoagulation.? INR 2.1. Monitor remove sanders catheter DVT prophylaxis on Warfarin Disposition, still awaiting optimization of volume status prior to discharge Subjective Date/time seen: 10/10/22 12:35 Interval history: stated he was told he was going back to facility today, reassured patient that nephrology is still titrating his diuretics, and discharge will be after nephrology has cleared which will not be today. No symptoms, encouraged to move more, remove catheter Review of Systems Review of Systems: All systems reviewed & are unremarkable except as noted in HPI and below Exam Narrative: General:?Chronically ill-appearing gentleman in the semi-Boswell position in bed. Weight: 157.7 kg. BMI: 44.6. HEENT:
[2022-10-10 12:39] LABS: Glucose Point of Care 227 mg/dl (65-105)
[2022-10-10 17:02] LABS: Glucose Point of Care 212 mg/dl (65-105)
[2022-10-10] MEDS: WARFARIN (*PBKC) 5 MG TABLET PO (17:45)
[2022-10-10 20:53] LABS: Glucose Point of Care 265 mg/dl (65-105)
[2022-10-10] MEDS: INSULIN GLARGINE (*BKC) 100 UNITS/ML 20 UNITS SUB-Q (21:20)
[2022-10-11] VITALS (7 sets, daily range): BP systolic 123–134; BP diastolic 53–56; PULSE 65–85; RESP 20–22; TEMP 35.7–36.6; O2SAT 98–100
[2022-10-11] MEDS: dilTIAZem HCL 60 MG TABLET PO ×2 (05:41→13:34)
[2022-10-11 06:07] LABS: Basophils Percent Auto 0.5 % (0.2-1.2); Eosinophils Absolute Auto 0.4 K/mm3 (0-0.3); Eosinophils Percent Auto 5.4 % (0-4.4); Hematocrit 35.8 % (42.0-52.0); Hemoglobin 10.3 g/dL (14.0-18.0); Immature Granulocyte Absolute 0.04 K/mm3 (0.00-0.031); Immature Granulocyte Percent A 0.5 % (0-0.5); Lymphocytes Absolute Auto 1.31 K/mm3 (0.9-3.2); Lymphocytes Percent Auto 16.9 % (18.3-44.2); Mean Corpuscular HGB Conc 28.8 g/dl (32-36); Mean Corpuscular Hemoglobin 25.4 pg (26-34); Mean Corpuscular Volume 88.4 fl (80-100); Monocytes Absolute Auto 0.9 K/mm3 (0.1-0.6); Neutrophils Percent Auto 64.7 % (45.5-73.1); Platelet Count Result 256 k/mm3 (150-375); Red Blood Count 4.05 M/mm3 (4.6-6.20); Red Cell Distribution Width 16.2 % (11.5-14.5); White Blood Count 7.8 K/mm3 (4.5-10.0)
[2022-10-11 06:17] LABS: Alanine Aminotransferase 13 U/L (6-50); Albumin Level 3.5 g/dL (3.5-5.1); Alkaline Phosphatase 76 U/L (38-126); Anion Gap 8 mmol/L (8-16); Aspartate Amino Transferase 21 U/L (17-59); Bilirubin,Total 0.6 mg/dL (0.2-1.3); Blood Urea Nitrogen 51 mg/dL (9-20); Calcium 8.3 mg/dL (8.4-10.2); Carbon Dioxide 29 mmol/L (22-30); Chloride 102 mmol/L (98-107); Estimated CRCL calculation 32 ml/min; Estimated Glomerular Filt Rate 23; Glucose 283 mg/dL (65-110); INR 1.4; Potassium 3.5 mmol/L (3.4-5.0); Prothrombin Time 16.9 Seconds (11.1-14.7); Sodium 139 mmol/L (137-145)
[2022-10-11 07:47] LABS: Anisocytosis 1+ (NORMAL); Hypochromasia 1+ (NORMAL); Platelet Estimate Adequate (Adequate); Schistocytes None Seen (NORMAL)
[2022-10-11] MEDS: DOCUSATE SODIUM 100 MG CAPSULE PO (08:45)
[2022-10-11] MEDS: METOPROLOL SUCCINATE EXT REL 25 MG TABCR PO (08:45)
[2022-10-11] MEDS: GABAPENTIN 300 MG CAPSULE PO ×2 (08:45→12:30)
[2022-10-11] MEDS: SILVERGEL (ELTA) 45 ML 1 APPLIC TOPICAL (08:45)
[2022-10-11] MEDS: TAMSULOSIN HCL 0.4 MG CAPSULE PO (08:45)
[2022-10-11] MEDS: INSULIN ASPART (*BKC) 100 UNITS/ML SUB-Q ×3 (08:45→17:17)
[2022-10-11] MEDS: acetaZOLAMIDE TAB 250 MG TABLET 500 MG PO (08:45)
[2022-10-11] MEDS: TOLNAFTATE 1% POWDER 45 GM BTL 1 APPLIC TOPICAL (08:46)
[2022-10-11 08:47] LABS: Glucose Point of Care 265 mg/dl (65-105)
--- NOTE | 2022-10-11 09:33 | PM.PNNEP ---
Progress Note: A&P Assessment and Plan (1) Stage 3b chronic kidney disease (CKD): Code(s): N18.32 - Chronic kidney disease, stage 3b Status: Acute Assessment and Plan: the patient has chronic kidney disease stage IIIB. His GFR runs between 37 and 40. Most likely this is due to diabetes and hypertension. Sleep apnea could be playing a role as well. He follows with Dr. Valentine. his baseline creatinine is about 1.8 giving him a gfr around 40 His creatinine dropped to 2.7 after holding the diuretics. CO2 down to 29. At this point will hold the diuretics for the weekend and restart torsemide 10mg a day on Thursday. If he goes home before that then this should be the instruction for the assisted living. Will hold off on Diamox because we are decreasing the intensity of the diuresis his bicarbonate level should come down some. He also had a very troublesome placement of the Barajas catheter. He needs to follow up with Urology about this. (2) Acute kidney injury: Code(s): N17.9 - Acute kidney failure, unspecified Status: Acute Assessment and Plan: His creatinine is lower. Renal ultrasound is unremarkable. Urine electrolytes/fractional excretion of urea show pre renal azotemia UA is bland CK is normal Most likely due to prerenal azotemia from the sleep apnea. He needs to see the sleep doctor said get a sleep test done. (3) Swelling of lower extremity: Code(s): M79.89 - Other specified soft tissue disorders Status: Acute Assessment and Plan: The patient has edema. Probably due to diastolic dysfunction and cardiac issues This is back to the baseline. Holding diuretics for now. Restart torsemide 10mg a day on Thursday. (4) Atrial fibrillation: Code(s): I48.91 - Unspecified atrial fibrillation Status: Acute Assessment and Plan: Patient has paroxysmal atrial fibrillation. He is on Coumadin for this. (5) Insulin dependent diabetes mellitus: Status: Acute Assessment and Plan: on accuchecks and SSI per hospitalist. (6) Hypertension: Qualifiers: Hypertension type: primary hypertension Qualified Code(s): I10 - Essential (primary) hypertension Code(s): I10 - Essential (primary) hypertension Status: Chronic Assessment and Plan: systolic ranging in the 130s and 140s. This is in the same range as it was back in February when he was here and his creatinine was stable. Ultimately he needs better control but will leave it the way it is for now because of the acute kidney injury. (7) Chronic anemia: Code(s): D64.9 - Anemia, unspecified Status: Chronic Assessment and Plan: hb is stable in the 8s. possibly due to ckd. bleeding a possibility as well. pending stool guaiac. Check a CBC tomorrow Subjective Date/time seen: 10/11/22 09:33 Interval history: Carlos is feeling about the same. He is going to get up in a chair. He voices concern about uncertainties about going home. He wants to go back to assisted living and have home health nurse and therapy help him. He does not want to go to the rehab section of his [place] [facility]. I asked him to discuss these issues with the case preparer and liner because she is the 1 who helps or constraint all of this. I did see the case preparer and liner after the visit and let her know about his concerns. Exam Narrative: WDWN in NAD skin no acute rash head ncat lungs clear bilaterally cor reg no rub or gallop abd BS+ nontender ext 1-2+ bilateral edema. Chronic venous stasis changes remain as expected Objective Data Vital Signs Vital Signs: Vital Signs - 24 hr 10/10/22 14:00 10/10/22 12:00 10/10/22 16:00 Temperature 97.6 F Pulse Rate 75 78 70 Respiratory Rate 20 Blood Pressure 122/66 Pulse Oximetry 98 10/10/22 20:26 10/10/22 20:00 10/11/22 00:00 Temperature 97.6 F Pulse Rate 72 80 75 Respiratory Rate 20 Bloo
[2022-10-11 12:22] LABS: Glucose Point of Care 282 mg/dl (65-105)
--- NOTE | 2022-10-11 14:00 | PM.DS ---
DS: Admitting Diagnosis Discharge Date 10/11/22 Admitting Diagnosis renal failure with volume overload DS: Discharge Diagnosis Discharge Diagnosis Plan 1) Volume overload: hold diuretics and continue Torsemide 10mg daily on thursday (2) Diastolic congestive heart failure: Continue cardiac regimen, continue diuresis per nephrology ECHO showed Ef >70% diuretics as above F/u with cardiology as instructed (3) Acute on chronic renal failure: Kidney function slightly worse than baseline.? Creatinine 2.7, baseline 1.8 f/u with Nephrology in 2 weeks F/u CMP in 4 days (4) Lymphedema: improving (5) Scrotal edema, improving With urinary retention.? Sanders in place.? Appreciate Urology input f/u with urology, please call office for appointment (6) Chronic anemia: Monitor hemoglobin. (7) [facility] (current) use of anticoagulants: Monitor INR daily (8) Insulin dependent type 2 diabetes mellitus: Blood sugars under control. (9) Hypertension: Monitor blood pressure (10) Wound of lower extremity: Continue wound care (11) Atrial fibrillation On anticoagulation.? INR 2.1. continue metoprolol F/u withi cardiology F/u with PCP in 3-5 days DS: Summary Hospital Course Hospital Course: Patient was managed for Acute on chronic renal failure with fluid overload, nephrology was consulted and managed diuresis. Edema improved, nephorlogy adjusted diuretics as noted above, and will f/u outpatient. F/u with cardiology and PCP. Also patient had sanders's catheter placement necessitating urology consult who placed the sanders please f/u with urology for removal. see detail plan abvoe. Time Spent with Patient Time attestation: Total time spent providing and/or coordinating discharge services: DS: Data Data Completed and Pending Labs on day of discharge: Labs from last 24 hours 10/11/22 10/11/22 10/11/22 12:02 08:06 05:41 WBC RBC Hgb Hct MCV MCH MCHC RDW Plt Count MPV Immature Gran % (Auto) Neut % (Auto) Lymph % (Auto) [place] % (Auto) Eos % (Auto) Baso % (Auto) Lymph # (Auto) [place] # (Auto) Eos # (Auto) Baso # (Auto) Abs Immat Gran (auto) Absolute Neuts (auto) Absolute Nucleated RBC Nucleated RBC % Platelet Estimate Hypochromasia Anisocytosis Schistocytes PT 16.9 H INR 1.4 Sodium Potassium Chloride Carbon Dioxide Anion Gap BUN Creatinine Estim Creat Clear Calc Estimated GFR Glucose POC Capillary Glucose 282 H 265 H Calcium Total Bilirubin AST ALT Alkaline Phosphatase Total Protein Albumin 10/11/22 10/11/22 10/10/22 05:41 05:41 20:42 WBC 7.8 RBC 4.05 L Hgb 10.3 L Hct 35.8 L MCV 88.4 MCH 25.4 L MCHC 28.8 L RDW 16.2 H Plt Count 256 MPV 10.0 Immature Gran % (Auto) 0.5 Neut % (Auto) 64.7 Lymph % (Auto) 16.9 L [place] % (Auto) 12.0 H Eos % (Auto) 5.4 H Baso % (Auto) 0.5 Lymph # (Auto) 1.31 [place] # (Auto) 0.9 H Eos # (Auto) 0.4 H Baso # (Auto) 0.0 Abs Immat Gran (auto) 0.04 H Absolute Neuts (auto) 5.0 Absolute Nucleated RBC 0.0 Nucleated RBC % 0.0 Platelet Estimate Adequate Hypochromasia 1+ Anisocytosis 1+ Schistocytes None seen PT INR Sodium 139 Potassium 3.5 Chloride 102 Carbon Dioxide 29 Anion Gap 8 BUN 51 H Creatinine 2.70 H Estim Creat Clear Calc 32 Estimated GFR 23 L Glucose 283 H POC Capillary Glucose 265 H Calcium 8.3 L Total Bilirubin 0.6 AST 21 ALT 13 Alkaline Phosphatase 76 Total Protein 8.0 Albumin 3.5 10/10/22 16:55 WBC RBC Hgb Hct MCV MCH MCHC RDW Plt Count MPV Immature Gran % (Auto) Neut % (Auto) Lymph % (Auto) [place] % (Auto) Eos % (Auto) Baso % (Auto) Lymph # (Auto) [place] # (Auto) Eos # (Auto) Baso # (Auto) Abs Immat
[2022-10-11] MEDS: WARFARIN (*PBKC) 5 MG TABLET PO (16:33)
[2022-10-11 16:52] LABS: EDCOVIDSCREEN Negative (Negative)
[2022-10-11 17:09] LABS: Glucose Point of Care 286 mg/dl (65-105)
[2022-10-11] MEDS: HYDROcodone/acetaminophen (*CRX) 5-325 MG TABLET 1 TAB PO (18:10)
== END 2022-10-11 19:05 | disposition home health service (06) | DRG 291 ==
LOC: ANHED 12:45 → ANH3MED 18:16 → ANH3MEDSUR 10-03 11:32
PROVIDERS: Internal Medicine Nephrology; Physician Assistant; Admitting Provider Chiropractor; Emergency Provider Emergency Medicine; PCP Internal Medicine; Visit Provider Internal Medicine
DX: I50.33 Acute on chronic diastolic (congestive) heart failure; I13.0 Hypertensive heart and chronic kidney disease with heart failure and stage 1 through stage 4 chronic kidney disease, or unspecified chronic kidney disease; M86.9 Osteomyelitis, unspecified; Z68.41 Body mass index [BMI] 40.0-44.9, adult; N17.9 Acute kidney failure, unspecified; E46 Unspecified protein-calorie malnutrition; L97.429 Non-pressure chronic ulcer of left heel and midfoot with unspecified severity; L97.419 Non-pressure chronic ulcer of right heel and midfoot with unspecified severity; N50.89 Other specified disorders of the male genital organs; D63.1 Anemia in chronic kidney disease; E78.5 Hyperlipidemia, unspecified; E11.42 Type 2 diabetes mellitus with diabetic polyneuropathy; E11.51 Type 2 diabetes mellitus with diabetic peripheral angiopathy without gangrene; E11.22 Type 2 diabetes mellitus with diabetic chronic kidney disease; E66.01 Morbid (severe) obesity due to excess calories; F41.1 Generalized anxiety disorder; I87.8 Other specified disorders of veins; I48.0 Paroxysmal atrial fibrillation; M10.9 Gout, unspecified; M79.89 Other specified soft tissue disorders; N18.32 Chronic kidney disease, stage 3b; Z20.822 Contact with and (suspected) exposure to COVID-19; Z87.891 Personal history of nicotine dependence; Z79.01 Long term (current) use of anticoagulants; Z79.4 Long term (current) use of insulin; Z86.16 Personal history of COVID-19
CPT/HCPCS: 36415; 71045; 74176; 76775; 80048; 80053; 80069; 81001; 82550; 82570; 82948; 83605; 83735; 83880; 84100; 84156; 84300; 84484; 84540; 85025; 85027; 85610; 85730; 87426; 87636; 93005; 93306; 93308; 94762; 97161; 97165; 99285; A9270; C1769; C8924; C9803; J1815; J1940; J7030; Q9957

== ENCOUNTER 2022-10-16 13:00 | Emergency (ER) | payer MEDICARE, SELFPAY ==
[2022-10-16 13:10] VITALS: BP 160/64; PULSE 96; RESP 20; TEMP 36.6; O2SAT 100
[2022-10-16 13:15] LABS: Glucose Point of Care 443 mg/dl (65-105)
--- NOTE | 2022-10-16 13:22 | ED.RECABL ---
HPI - Recheck/Abnormal Lab/Rx General Chief Complaint: Recheck/Abnormal Lab/Rx Stated Complaint: hyperglycemia Time Seen by Provider: 10/16/22 13:21 Source: patient and EMS Mode of arrival: EMS Limitations: no limitations History of Present Illness HPI narrative: Patient is a 77-year-old male with a history of type 2 diabetes, chronic kidney disease, chronic venous stasis, diabetic ulcer heel wounds, hypertension, chronic anticoagulation, presenting to the emergency department for evaluation of elevated blood glucose readings. Patient states that he has had elevated blood sugar readings at the facility and they did not have an order for insulin thus they had the patient transported here. Patient reports decreased oral intake secondary to food at the facility is starchy and not overtly appealing to him. He states that he has not done a good job at drinking water. He denies any other acute complaints of fever, chills, headache, chest pain, abdominal pain. No nausea or vomiting. Patient reports bilateral heel wounds for which she follows with wound care. Patient denies any worsening leg pain. Patient reports a chronic indwelling Barajas catheter that is supposed to be removed tomorrow with a voiding trial at his urology appointment. Related Data Home Medications Medication Instructions Recorded Confirmed alprazolam 0.25 mg tablet 0.25 mg PO TID PRN Anxiety 10/30/20 10/02/22 docusate sodium 100 mg capsule 100 mg PO DAILY 10/30/20 10/02/22 (Colace) gabapentin 300 mg capsule 300 mg PO TID 10/30/20 10/02/22 guaifenesin 600 mg tablet, 600 mg PO BID PRN Cough 10/30/20 10/02/22 extended release 12 hr insulin glargine U-300 conc 300 46 unit subcut HS 10/30/20 10/02/22 unit/mL (1.5 mL) subcutaneous pen (Touleslye SoloStar U-300 Insulin) torsemide 10 mg tablet 10 mg PO DAILY 10/30/20 10/02/22 diltiazem HCl 60 mg tablet 60 mg PO Q8-10H 03/08/22 10/02/22 Augmentin 500 mg PO BID 10/02/22 10/02/22 Bactrim DS 1 tablet PO DAILY 10/02/22 10/02/22 Hair, Skin and Nails (biotin) 5,000 units PO DAILY 10/02/22 10/02/22 hydrocodone 5 mg-acetaminophen 325 1 tablet PO Q8H PRN Pain 10/02/22 10/02/22 mg tablet tamsulosin 0.4 mg capsule (Flomax) 0.4 mg PO DAILY 10/02/22 10/02/22 warfarin 2 mg tablet 5 mg PO DAILY 10/02/22 10/02/22 Allergies Allergy/AdvReac Type Severity Reaction Status Date / Time No Known Allergies Allergy Verified 03/08/22 13:09 Review of Systems Review of Systems: CONSTITUTIONAL: Denies fever, chills, or sweats. EYES: Denies visual changes, redness, or discharge. ENT: Denies rhinorrhea, congestion, sore throat, or otalgia. CARDIOVASCULAR: Denies chest pain, palpitations, or edema. RESPIRATORY: Denies cough or dyspnea. GASTROINTESTINAL: Denies abdominal pain, nausea, vomiting, or diarrhea. GENITOURINARY: Denies dysuria or hematuria. SKIN: Denies rash or itching. MUSCULOSKELETAL: Denies back pain, joint pain, or myalgia. NEUROLOGIC: Denies headache, numbness, or weakness. 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 Code status: Full code. Smoking status: Former smoker Tobac
[2022-10-16 13:32] VITALS: BP 143/56; PULSE 100; RESP 19; O2SAT 100
[2022-10-16] MEDS: SODIUM CHLORIDE 0.9% IV 1,000 ML 999 ML IV CONT (13:33)
[2022-10-16 13:50] LABS: Basophils Percent Auto 0.3 % (0.2-1.2); Eosinophils Absolute Auto 0.1 K/mm3 (0-0.3); Eosinophils Percent Auto 0.9 % (0-4.4); Hematocrit 34.2 % (42.0-52.0); Hemoglobin 10.3 g/dL (14.0-18.0); Immature Granulocyte Absolute 0.05 K/mm3 (0.00-0.031); Immature Granulocyte Percent A 0.4 % (0-0.5); Lymphocytes Percent Auto 5.5 % (18.3-44.2); Mean Corpuscular HGB Conc 30.1 g/dl (32-36); Mean Corpuscular Hemoglobin 25.9 pg (26-34); Mean Corpuscular Volume 85.9 fl (80-100); Mean Platelet Volume 11.2 fl (7.4-10.4); Monocytes Absolute Auto 1.1 K/mm3 (0.1-0.6); Monocytes Percent Auto 8.5 % (2.6-8.5); Neutrophils Absolute Auto 10.8 K/mm3 (1.3-6.7); Neutrophils Percent Auto 84.4 % (45.5-73.1); Platelet Count Result 266 k/mm3 (150-375); Red Blood Count 3.98 M/mm3 (4.6-6.20); White Blood Count 12.8 K/mm3 (4.5-10.0)
[2022-10-16 13:58] LABS: Alanine Aminotransferase 16 U/L (6-50); Albumin Level 3.9 g/dL (3.5-5.1); Alkaline Phosphatase 104 U/L (38-126); Anion Gap 12 mmol/L (8-16); Aspartate Amino Transferase 17 U/L (17-59); Bilirubin,Total 0.8 mg/dL (0.2-1.3); Blood Urea Nitrogen 88 mg/dL (9-20); Calcium 8.6 mg/dL (8.4-10.2); Carbon Dioxide 23 mmol/L (22-30); Chloride 99 mmol/L (98-107); Estimated CRCL calculation 30 ml/min; Estimated Glomerular Filt Rate 21; Glucose 489 mg/dL (65-110); Magnesium 2.6 mg/dL (1.6-2.3); Phosphorus 4.2 mg/dL (2.5-4.5); Potassium 3.2 mmol/L (3.4-5.0); Sodium 134 mmol/L (137-145)
[2022-10-16 14:09] LABS: Beta-Hydroxybutyrate/Acetoacetate 0.28 mmol/L (0.02-0.27)
[2022-10-16] MEDS: INSULIN HUMAN REGULAR (*BKC) 100 UNITS/ML 7 UNITS SUB-Q (14:12)
[2022-10-16 14:13] VITALS: BP 138/70; PULSE 87; RESP 14; O2SAT 97
[2022-10-16] MEDS: POTASSIUM CHLORIDE 20 MEQ PACKET (FOR LIQUID) 40 MEQ PO (14:35)
[2022-10-16 15:27] LABS: Appearance Urine Cloudy (Clear); Bacteria Urine None Seen /hpf; Bilirubin Urine Negative (Negative); Blood Urine 2+ (Negative); Budding Yeast Urine Present /hpf; Color Urine Yellow (Yellow); Glucose Urine UA 1+ mg/dL (Negative); Ketones Urine Negative (Negative); Leukocyte Esterase Ur 3+ LEU/UL (Negative); Need Manual Microscopic Reviewed; Nitrate Urine Negative (Negative); Protein Urine 2+ mg/dL (Negative); RBC Urine 51-100 /hpf (0-2); Specific Grav Ur 1.013 (1.001-1.035); Squamous Epithelial Cell Urine None seen /hpf (Few); Urobilinogen Urine 0.2 mg/dL (<2.0); WBC Urine >100 /hpf; pH Urine 5.5 (5.0-9.0)
[2022-10-16 15:36] LABS: Add Urine Microscopic? YES
[2022-10-16 16:00] LABS: Glucose Point of Care 408 mg/dl (65-105)
[2022-10-16] MEDS: INSULIN HUMAN REGULAR (*BKC) 100 UNITS/ML IV PUSH (16:18)
[2022-10-16 16:21] VITALS: BP 171/77; PULSE 91; RESP 18; O2SAT 99
[2022-10-16 17:46] LABS: Glucose Point of Care 323 mg/dl (65-105)
[2022-10-16 17:53] VITALS: BP 186/92; PULSE 95; RESP 18; O2SAT 97
--- NOTE | 2022-10-16 18:25 | PC.NURSE ---
[facility] accepted return to breaks in [place] eta 45min to 1hr
[2022-10-16 19:34] LABS: Glucose 320 mg/dL (65-110)
[2022-10-16 20:05] VITALS: BP 138/56; PULSE 85; RESP 15; O2SAT 97
== END 2022-10-16 20:21 ==
PROVIDERS: Emergency Provider Emergency Medicine; PCP Internal Medicine
DX: E11.65 Type 2 diabetes mellitus with hyperglycemia (principal); Z79.4 Long term (current) use of insulin; E86.0 Dehydration; E87.6 Hypokalemia; S80.922A Unspecified superficial injury of left lower leg, initial encounter; S80.921A Unspecified superficial injury of right lower leg, initial encounter; I13.0 Hypertensive heart and chronic kidney disease with heart failure and stage 1 through stage 4 chronic kidney disease, or unspecified chronic kidney disease; N18.9 Chronic kidney disease, unspecified; I50.30 Unspecified diastolic (congestive) heart failure; Z79.01 Long term (current) use of anticoagulants; I48.91 Unspecified atrial fibrillation; Z86.16 Personal history of COVID-19; X58.XXXA Exposure to other specified factors, initial encounter; R82.998 Other abnormal findings in urine
CPT/HCPCS: 36415; 80053; 81001; 82010; 82947; 82948; 83735; 84100; 85025; 87086; 87088; 96360; 99283; A9270; J1815; J7030

== ENCOUNTER 2022-10-18 16:29 | Inpatient (IN) | payer MEDICARE, SELFPAY ==
[2022-10-18] VITALS (8 sets, daily range): BP systolic 130–162; BP diastolic 62–98; PULSE 87–117; RESP 15–18; TEMP 36.7–36.8; O2SAT 97–100; BMI 43.6
--- NOTE | ~2022-10-18 | XR_ITS ---
EXAMINATION: XR sacrum coccyx min 2V DATE: 10/26/2022 11:17 INDICATION: Sacral pain. TECHNIQUE: 3 views of the sacrum and coccyx were obtained. COMPARISON: CT abdomen and pelvis 10/04/2022 FINDINGS: There is lumbar levoscoliosis and moderate spondylosis. No fracture. There is mild osteoart hritis of the hips. There is mild osteoarthritis of the sacroiliac joints. IMPRESSION: 1. Mild osteoarthritis of the hips. 2. Moderate lumbar spondylosis. Reviewed, dictated and finalized at location A.
--- NOTE | ~2022-10-18 | XR_ITS ---
XR chest 1V portable DATE: 10/18/2022 17:56 INDICATION: Hyperglycemia TECHNIQUE: Portable supine AP chest on 10/18/2022 at 1749 hours COMPARISON: 10/12/2022 portable AP chest at 1239 hours FINDINGS: There is cardiomegaly. There is pulmonary vascular congestion and redistribution. There are mild perihilar and lower lung zone infiltrates may be due to pulmonary edema. Pneumonia is not exclu ded. Cannot exclude minimal pleural effusions. No pneumothorax. Aortic arch calcification. IMPRESSION: Cardiomegaly, pulmonary vascular congestion, bilateral perihilar and lower lung infiltrat es, suggesting congestive heart failure, pulmonary edema Reviewed, dictated and finalized at location A. IMPRESSION: Cardiomegaly, pulmonary vascular congestion, bilateral perihilar an d lower lung infiltrates, suggesting congestive heart failure, pulmonary edema
[2022-10-18 16:36] LABS: Glucose Point of Care 451 mg/dl (65-105)
[2022-10-18 16:58] LABS: Basophils Absolute Auto 0.1 K/mm3 (0.0-0.1); Basophils Percent Auto 0.4 % (0.2-1.2); Eosinophils Absolute Auto 0.1 K/mm3 (0-0.3); Eosinophils Percent Auto 0.8 % (0-4.4); Hematocrit 35.1 % (42.0-52.0); Hemoglobin 10.5 g/dL (14.0-18.0); Immature Granulocyte Absolute 0.08 K/mm3 (0.00-0.031); Immature Granulocyte Percent A 0.6 % (0-0.5); Lymphocytes Absolute Auto 0.56 K/mm3 (0.9-3.2); Lymphocytes Percent Auto 4.1 % (18.3-44.2); Mean Corpuscular HGB Conc 29.9 g/dl (32-36); Mean Corpuscular Hemoglobin 25.4 pg (26-34); Mean Corpuscular Volume 84.8 fl (80-100); Mean Platelet Volume 10.2 fl (7.4-10.4); Monocytes Absolute Auto 1.2 K/mm3 (0.1-0.6); Monocytes Percent Auto 9.1 % (2.6-8.5); Neutrophils Absolute Auto 11.6 K/mm3 (1.3-6.7); Platelet Count Result 274 k/mm3 (150-375); Red Blood Count 4.14 M/mm3 (4.6-6.20); White Blood Count 13.7 K/mm3 (4.5-10.0)
[2022-10-18 17:14] LABS: Alanine Aminotransferase 16 U/L (6-50); Albumin Level 3.7 g/dL (3.5-5.1); Alkaline Phosphatase 113 U/L (38-126); Anion Gap 7 mmol/L (8-16); Aspartate Amino Transferase 19 U/L (17-59); Beta-Hydroxybutyrate/Acetoacetate 0.49 mmol/L (0.02-0.27); Bilirubin,Total 0.8 mg/dL (0.2-1.3); Blood Urea Nitrogen 82 mg/dL (9-20); Calcium 8.7 mg/dL (8.4-10.2); Carbon Dioxide 26 mmol/L (22-30); Chloride 103 mmol/L (98-107); Estimated CRCL calculation 35 ml/min; Estimated Glomerular Filt Rate 27; Glucose 560 mg/dL (65-110); Magnesium 2.7 mg/dL (1.6-2.3); Potassium 3.6 mmol/L (3.4-5.0); Sodium 136 mmol/L (137-145)
--- NOTE | 2022-10-18 17:19 | ED.GENADULT ---
HPI - General Adult General Chief complaint: Recheck/Abnormal Lab/Rx Stated complaint: high blood sugar Time Seen by Provider: 10/18/22 17:14 Source: patient and EMS Mode of arrival: EMS Limitations: no limitations History of Present Illness HPI narrative: Patient came to the ED from [facility] complaining of high blood glucose. Patient is telling me that his blood glucose is high most of the time, does not know his medication, does not take it on time. Patient reported having Barajas catheter over 1 week and is scheduled to see his urologist tomorrow to be removed. He denies any respiratory symptoms, abdominal pain, chest pain. Related Data Home Medications Medication Instructions Recorded Confirmed alprazolam 0.25 mg tablet 0.25 mg PO TID PRN Anxiety 10/30/20 10/02/22 docusate sodium 100 mg capsule 100 mg PO DAILY 10/30/20 10/02/22 (Colace) gabapentin 300 mg capsule 300 mg PO TID 10/30/20 10/02/22 guaifenesin 600 mg tablet, 600 mg PO BID PRN Cough 10/30/20 10/02/22 extended release 12 hr insulin glargine U-300 conc 300 46 unit subcut HS 10/30/20 10/02/22 unit/mL (1.5 mL) subcutaneous pen ([employer] SoloStar U-300 Insulin) torsemide 10 mg tablet 10 mg PO DAILY 10/30/20 10/02/22 diltiazem HCl 60 mg tablet 60 mg PO Q8-10H 03/08/22 10/02/22 Augmentin 500 mg PO BID 10/02/22 10/02/22 Bactrim DS 1 tablet PO DAILY 10/02/22 10/02/22 Hair, Skin and Nails (biotin) 5,000 units PO DAILY 10/02/22 10/02/22 hydrocodone 5 mg-acetaminophen 325 1 tablet PO Q8H PRN Pain 10/02/22 10/02/22 mg tablet tamsulosin 0.4 mg capsule (Flomax) 0.4 mg PO DAILY 10/02/22 10/02/22 warfarin 2 mg tablet 5 mg PO DAILY 10/02/22 10/02/22 Allergies Allergy/AdvReac Type Severity Reaction Status Date / Time No Known Allergies Allergy Verified 03/08/22 13:09 Review of Systems Review of Systems: All systems reviewed & are unremarkable except as noted in HPI and below PMFSH Past Medical History Medical History Chronic kidney disease COVID-19 Diabetic neuropathy Diastolic congestive heart failure Femoral artery pseudo-aneurysm, left Generalized anxiety disorder Gout Hypertension Insulin dependent type 2 diabetes mellitus [facility] (current) use of anticoagulants Lymphedema Morbid obesity Osteomyelitis Paroxysmal atrial fibrillation Peripheral vascular disease Surgical History Surgical History History of knee surgery Family History Family History Mother Diabetes mellitus Mother Kidney failure Sibling Carcinoma of colon Social History Social History 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 Code status: Full code. Smoking status: Former smoker Tobacco type: cigarettes Alcohol intake: never Substance use: current Substance use type: painkillers Lack of Transportation: No Lack of Food: Never True Current Housing: I Have Housing Concerned About Future Housing: Decline to Answer Difficulty Paying Gas/Electric Bills: Decline to Answer Difficulty Paying for Meds: Decline to Answer Currently Unemployed: Decline to Answer Education: Don't Know Difficulty w/ Childcare or Family Care: Decline to Answer Living arrangements: [facility] Additional living arrangements comments: Assisted living at [facility]. 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 Spiritual care concerns: No Exam Narrative: General appearance: Well-developed, well-nourished Skin: Normal color, poor hygiene, genital and groin candidiasis, offensive odor Head: Normocephalic, nontraumatic Eyes: Clear conjunctiva ENT: Oropharynx normal, ears normal, nose normal Neck: Supple, nontender Chest and respiratory
[2022-10-18 17:28] LABS: Appearance Urine Turbid (Clear); Bacteria Urine 4+ /hpf; Bilirubin Urine Negative (Negative); Blood Urine 3+ (Negative); Budding Yeast Urine Present /hpf; Color Urine Yellow (Yellow); Glucose Urine UA 3+ mg/dL (Negative); Ketones Urine Negative (Negative); Leukocyte Esterase Ur 3+ LEU/UL (Negative); Nitrate Urine Negative (Negative); Protein Urine 2+ mg/dL (Negative); RBC Urine >100 /hpf (0-2); Specific Grav Ur 1.018 (1.001-1.035); Squamous Epithelial Cell Urine Few /hpf (Few); Urobilinogen Urine 0.2 mg/dL (<2.0); WBC Urine >100 /hpf; pH Urine 6.5 (5.0-9.0)
[2022-10-18 17:31] LABS: Add Urine Microscopic? YES
[2022-10-18] MEDS: INSULIN HUMAN REGULAR (*BKC) 100 UNITS/ML 15 UNITS IV PUSH (17:35)
[2022-10-18] MEDS: SODIUM CHLORIDE 0.9% IV 1,000 ML 999 ML IV CONT ×2 (17:35)
[2022-10-18] MEDS: INSULIN HUMAN REGULAR (*BKC) 100 UNITS in SODIUM CHLORIDE 0.9% IV 99 ML 10 UNITS IV CONT (17:39)
[2022-10-18 18:41] LABS: PCO2 VBG 41.7 mmHg (42.0-48.0); PO2 VBG 37.6 mmHg (35.0-45.0); pH VBG 7.341 (7.300-7.400)
[2022-10-18 18:43] LABS: Glucose Point of Care 327 mg/dl (65-105)
--- NOTE | 2022-10-18 19:20 | PM.IMHP ---
H&P: HPI History of Present Illness Date/Time: 10/18/22 19:20 Chief Complaint: High blood sugar Narrative: This is a 77-year-old male patient who comes from the shelter complaining of high blood sugar. The patient explained to the emergency room that his blood sugars usually high and she does not know his medications and that he does not take it on time. The patient does have a chronic Barajas catheter and was supposed to see urology Thursday to have his Barajas catheter removed. The patient stated that he had a Barajas catheter for the last week. Patient has chronic lymphedema and has dressing changes to his lower extremity. Patient also has a severe fungal rash to his [place] area. His white count is 13.7. H&H is 10.5 and 35.1 this is his baseline. The patient is not and diabetic ketosis. His creatinine is 2.4 with a baseline of 2.4-3.0. His blood sugar was noted to be 560 today. The patient was found have a UTI. His chest x-ray was read as cardiomegaly pulmonary vascular congestion bilateral perihilar and lower lung infiltrates suggesting congestive heart failure pulmonary edema. The patient was placed on an insulin drip per ED provider and admitted to inpatient ICU on the date of service of 10/18/2022 Review of Systems Review of Systems: All systems reviewed & are unremarkable except as noted in HPI and below Constitutional: Constitutional: Reports as per HPI and Reports no additional constitutional complaints Eyes: Eyes: Reports as per HPI and Reports no additional eye complaints ENT: Reports system reviewed and no additional complaints, except as documented and Reports Normal hearing present Cardiovascular: Cardiovascular: Reports no additional cardiovascular complaints Respiratory: Respiratory: Reports no additional respiratory complaints and Reports no additional respiratory complaints Gastrointestinal: Gastrointestinal: Reports as per HPI and Reports no additional gastrointestinal complaints Musculoskeletal: Musculoskeletal: Reports no additional musculoskeletal complaints Integumentary/Breasts: Skin/Breast: Reports system reviewed and no additional complaints, except as docu and Reports as per HPI Neurologic: Reports system reviewed and no additional complaints, except as documented, Reports as per HPI and Reports Normal hearing present Psychiatric: Psychiatric: Reports no additional psychiatric complaints and Reports as per HPI Endocrine: Endocrine: Reports no additional endocrine complaints Hematologic/Lymphatic: Hematologic/Lymphatic: Reports no additional hematologic/lymphatic complaints Allergic/Immunologic: Allergic/Immunologic: Reports no additional allergic/immunologic complaints PMFSH Past Medical History Medical History Chronic kidney disease COVID-19 Diabetic neuropathy Diastolic congestive heart failure Femoral artery pseudo-aneurysm, left Generalized anxiety disorder Gout Hypertension Insulin dependent type 2 diabetes mellitus 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 He is and has no children. 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 Code status: Full code. Smoking status: Former smoker Tobacco type: cigarettes Alcohol intake: never Substance use: current Substance use type: painkillers Lack of Transportation: No Lack of Food: Reg
[2022-10-18 19:52] LABS: Glucose Point of Care 195 mg/dl (65-105)
[2022-10-18 20:38] LABS: Glucose Point of Care 163 mg/dl (65-105)
--- NOTE | 2022-10-18 21:07 | ADMGEN ---
This patient, Carlos Mustafa, was admitted to Intensive Care Unit-5. Patient/family oriented to hospital policies and general routines including ID bracelet, bed and alarms, visiting hours, pain management, procedures, bathroom and other care routines, personal items, smoking policy, room service/diet, and visiting hours. Information on how to activate the Rapid Response Team has been discussed. Patient/Family are encouraged to report perceived risks to care and to ask questions if they do not understand what they are told or what they should do.
[2022-10-18 22:00] LABS: Glucose Point of Care 133 mg/dl (65-105)
[2022-10-18] MEDS: INSULIN GLARGINE (*BKC) 100 UNITS/ML 50 UNITS SUB-Q (22:49)
[2022-10-18] MEDS: GABAPENTIN 300 MG CAPSULE PO (23:11)
[2022-10-18 23:21] LABS: INR 1.7; Prothrombin Time 19.4 Seconds (11.1-14.7)
--- NOTE | 2022-10-18 23:42 | PC.NURSE ---
This patient, Carlos Mustafa, was transferred to [room 344 ] on 10/18/22 at 2342. Personal belongings sent with patient. Report given to [IZABELLA Silva]. Appropriate documentation sent with patient.
[2022-10-19] VITALS (12 sets, daily range): BP systolic 114–145; BP diastolic 52–76; PULSE 75–109; RESP 17–18; TEMP 36.1–37.2; O2SAT 95–99
[2022-10-19] MEDS: dilTIAZem HCL 60 MG TABLET PO ×5 (00:38→23:53)
[2022-10-19] MEDS: WARFARIN (*PBKC) 5 MG TABLET PO ×2 (00:38→17:48)
--- NOTE | 2022-10-19 00:44 | PC.NURSE ---
This patient, Carlos Mustafa, was received from ICU-5on 10/19/22 at 0000. Patient/family oriented to unit policies and routines
[2022-10-19 06:10] LABS: Lactic Acid Reflex 0.9 mmol/L (0.7-2.0)
[2022-10-19 06:12] LABS: INR 1.7; Prothrombin Time 19.4 Seconds (11.1-14.7)
[2022-10-19 06:18] LABS: Anion Gap 6 mmol/L (8-16); Blood Urea Nitrogen 77 mg/dL (9-20); Calcium 8.4 mg/dL (8.4-10.2); Carbon Dioxide 24 mmol/L (22-30); Chloride 111 mmol/L (98-107); Estimated CRCL calculation 43 ml/min; Estimated Glomerular Filt Rate 35; Glucose 201 mg/dL (65-110); Magnesium 2.5 mg/dL (1.6-2.3); Potassium 3.6 mmol/L (3.4-5.0); Sodium 141 mmol/L (137-145)
[2022-10-19 07:52] LABS: Thyroid Stimulating Hormone Reflex 0.788 uIU/mL (0.465-4.68)
--- NOTE | 2022-10-19 08:34 | PC.NURSE ---
Neuro surgery unable to contact. Dr Gonzalez has no number available in hospital directory. Office number, of course, provides no means of after hours contact. Physician requested that he be contacted if patient did not leave Thursday night.
[2022-10-19 08:47] LABS: Glucose Point of Care 189 mg/dl (65-105)
[2022-10-19] MEDS: GABAPENTIN 300 MG CAPSULE PO ×3 (09:37→17:47)
[2022-10-19] MEDS: METOPROLOL SUCCINATE EXT REL 25 MG TABCR PO (09:37)
[2022-10-19] MEDS: ASPIRIN 81 MG ENTERIC TABLET PO (09:38)
[2022-10-19] MEDS: TORSEMIDE 20 MG TABLET PO (09:38)
[2022-10-19] MEDS: DOCUSATE SODIUM 100 MG CAPSULE PO (09:39)
[2022-10-19] MEDS: LIDOCAINE 5% PATCH 1 PATCH TOPICAL (09:39)
[2022-10-19] MEDS: TOLNAFTATE 1% POWDER 45 GM BTL 1 APPLIC TOPICAL ×2 (09:39→17:46)
[2022-10-19] MEDS: COLLAGENASE OINT 30 GM TUBE 1 APPLIC TOPICAL (09:40)
--- NOTE | 2022-10-19 11:34 | WPDURCON ---
Assessment and Plan Assessment and plan (1) Urinary tract infection associated with catheterization of urinary tract: Code(s): T83.511A - Infection and inflammatory reaction due to indwelling urethral catheter, initial encounter; N39.0 - Urinary tract infection, site not specified Status: Acute Assessment and Plan: Catheter placed last week with scope due to edema, obesity an inability to visualize penis Plan Leave sanders until tomorrow. Voiding trial in am. If pt unable to void or with poor voiding efficiency, the replace sanders during the day. Can start Flomax to improve voiding Cont abx Urology Consult Note HPI Date Seen: 10/19/22 Requesting Physician: Oziel Levine MD Primary Care Provider: Brice Reyes, Consult Narrative Narrative: Carlos Mustafa is a 77 year old male, previously unknown to our practice, who is in the ER with generalized edema, massive scrotal edema.? This is felt to be due to underlying congestive heart failure.? He had sanders placed with cystoscopy by Dr. Whittaker 10/02/[address] to [address] by hosp staff. Cath has been in place to date and pt was suppose to have voiding trial tomorrow in our office. 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 He is and has no children. 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 Code status: Full code. Smoking status: Former smoker Tobacco type: cigarettes Alcohol intake: never Substance use: current Substance use type: painkillers Lack of Transportation: No Lack of Food: Never True Current Housing: I Have Housing Concerned About Future Housing: No Difficulty Paying Gas/Electric Bills: No Difficulty Paying for Meds: No Currently Unemployed: No Education: Bachelor's Degree Difficulty w/ Childcare or Family Care: No Living arrangements: skilled nursing Additional living arrangements comments: Assisted living at [facility]. 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 Spiritual care concerns: Yes (yazidism) Meds Home Medications and Allergies Home Medications Medication Instructions Recorded Confirmed Type alprazolam 0.25 mg tablet 0.25 mg PO TID PRN Anxiety 10/30/20 10/18/22 History docusate sodium 100 mg capsule 100 mg PO DAILY 10/30/20 10/18/22 History (Colace) gabapentin 300 mg capsule 300 mg PO TID 10/30/20 10/18/22 History insulin glargine U-300 conc 300 50 unit subcut HS 10/30/20 10/18/22 History unit/mL (1.5 mL) subcutaneous pen ([employer] SoloStar U-300 Insulin) torsemide 10 mg tablet 20 mg PO DAILY 10/30/20 10/18/22 History metoprolol succinate 25 mg 25 mg PO DAILY #30 tabs 06/25/21 10/18/22 Rx tablet,extended release 24 hr (Toprol XL) diltiazem HCl 60 mg tablet 60 mg PO Q6H 03/08/22 10/18/22 History hydrocodone 5 mg-acetaminophen 325 1 tablet PO Q8H PRN Pain 10/02/22 10/18/22 History mg tablet warfarin 2 mg tablet 4 mg PO DAILY 10/02/22 10/18/22 History ammonium lactate 12 % topical cream 1 applic topical DAILY PRN Dry Skin
[2022-10-19 11:44] LABS: Hemoglobin A1C 11.4 % (<5.7)
[2022-10-19 12:13] LABS: Glucose Point of Care 202 mg/dl (65-105)
--- NOTE | 2022-10-19 12:24 | PM.DS ---
DS: Admitting Diagnosis Discharge Date October 19, 2022 Admitting Diagnosis Elevated blood sugar DS: Discharge Diagnosis Discharge Diagnosis (1) Diabetes mellitus with hyperglycemia: Code(s): E11.65 - Type 2 diabetes mellitus with hyperglycemia Status: Acute (2) Urinary tract infection associated with catheterization of urinary tract: Code(s): T83.511A - Infection and inflammatory reaction due to indwelling urethral catheter, initial encounter; N39.0 - Urinary tract infection, site not specified Status: Acute Assessment and Plan: The patient was started on Rocephin. Blood and urine cultures are pending Tailor antibiotics according to cultures and sensitivities (3) alf (current) use of anticoagulants: Code(s): Z79.01 - alf (current) use of anticoagulants Status: Acute Assessment and Plan: Daily PT INR The patient is on Coumadin due to his AFib. (4) Leg wound, left: Qualifiers: Encounter type: subsequent encounter Qualified Code(s): S81.802D - Unspecified open wound, left lower leg, subsequent encounter Code(s): S81.802A - Unspecified open wound, left lower leg, initial encounter Status: Acute Assessment and Plan: Wound care consult has been placed. Continue with dressing changes. Patient was started on vancomycin empirically for possible infectious process Blood cultures are pending (5) Leg wound, right: Qualifiers: Encounter type: subsequent encounter Qualified Code(s): S81.801D - Unspecified open wound, right lower leg, subsequent encounter Code(s): S81.801A - Unspecified open wound, right lower leg, initial encounter Status: Acute Assessment and Plan: Wound care consult has been placed. Continue with dressing changes. Patient was started on vancomycin empirically for possible infectious process (6) CKD (chronic kidney disease): Code(s): N18.9 - Chronic kidney disease, unspecified Status: Acute Assessment and Plan: The patient is at his baseline please continue to monitor. (7) Hypertension: Qualifiers: Hypertension type: primary hypertension Qualified Code(s): I10 - Essential (primary) hypertension Code(s): I10 - Essential (primary) hypertension Status: Chronic Assessment and Plan: The patient is on diltiazem for AFib as well as metoprolol (8) Diabetic neuropathy: Code(s): E11.40 - Type 2 diabetes mellitus with diabetic neuropathy, unspecified Status: Acute Assessment and Plan: Continue with lidocaine patches (9) Congestive heart failure: Code(s): I50.9 - Heart failure, unspecified Status: Acute Assessment and Plan: Continue with metoprolol and Demadex Patient's last echo was on 10/03/2022 1. Complete two-dimensional, color flow and Doppler transthoracic echocardiogram is performed. ? 2. Left ventricular chamber dimension is mildly enlarged. ? 3. There is mildly increased left ventricular wall thickness. ? 4. Left ventricular ejection fraction appears normal, however, difficult to estimate LVEF due to very poor visualization of endocardial borders. Definity to improve visualization of LV not administered as patient refused. ? 5. Right ventricular chamber dimension is normal. ? 6. Left atrial chamber dimension is moderately enlarged. ? 7. Right atrial chamber dimension is moderately enlarged. (10) Paroxysmal atrial fibrillation: Code(s): I48.0 - Paroxysmal atrial fibrillation Status: Acute Assessment and Plan: Rate controlled Continue amiodarone and Coreg Continue warfarin PT INR daily (11) Gout: Code(s): M10.9 - Gout, unspecified Status: Acute Assessment and Plan: Continue with Vicodin Plan Plan to downgrade the patient to med [email or web address] tele DS: Summary Hospital Course Hospital Course: Patient was admitted for elevated blood sugar, insulin has been adju
[2022-10-19] MEDS: INSULIN ASPART (*BKC) 100 UNITS/ML SUB-Q ×2 (12:35→17:43)
[2022-10-19 17:33] LABS: Glucose Point of Care 201 mg/dl (65-105)
[2022-10-19] MEDS: INSULIN GLARGINE (*BKC) 100 UNITS/ML 50 UNITS SUB-Q (20:53)
[2022-10-19] MEDS: HYDROcodone/acetaminophen (*CRX) 5-325 MG TABLET 1 TAB PO (21:09)
[2022-10-19 21:21] LABS: Glucose Point of Care 204 mg/dl (65-105)
[2022-10-20] VITALS (9 sets, daily range): BP systolic 131–154; BP diastolic 59–74; PULSE 60–98; RESP 14–18; TEMP 36.8–37; O2SAT 96–100; BMI 43.2
[2022-10-20] MEDS: HYDROcodone/acetaminophen (*CRX) 5-325 MG TABLET 1 TAB PO ×2 (05:23→20:52)
[2022-10-20] MEDS: dilTIAZem HCL 60 MG TABLET PO ×4 (05:23→23:10)
[2022-10-20 06:15] LABS: INR 1.8
[2022-10-20 06:19] LABS: Estimated CRCL calculation 42 ml/min; Estimated Glomerular Filt Rate 35
[2022-10-20 08:08] LABS: Glucose Point of Care 139 mg/dl (65-105)
[2022-10-20] MEDS: TORSEMIDE 20 MG TABLET PO (10:04)
[2022-10-20] MEDS: METOPROLOL SUCCINATE EXT REL 25 MG TABCR PO (10:05)
[2022-10-20] MEDS: GABAPENTIN 300 MG CAPSULE PO ×3 (10:05→17:54)
[2022-10-20] MEDS: DOCUSATE SODIUM 100 MG CAPSULE PO (10:05)
[2022-10-20] MEDS: ASPIRIN 81 MG ENTERIC TABLET PO (10:06)
[2022-10-20] MEDS: TOLNAFTATE 1% POWDER 45 GM BTL 1 APPLIC TOPICAL ×2 (10:07→17:55)
[2022-10-20 11:50] LABS: Glucose Point of Care 178 mg/dl (65-105)
[2022-10-20] MEDS: SILVERGEL (ELTA) 45 ML 1 APPLIC TOPICAL (13:08)
--- NOTE | 2022-10-20 15:58 | PM.IMPN ---
Progress Note: A&P Assessment and Plan (1) Diabetes mellitus with hyperglycemia: Code(s): E11.65 - Type 2 diabetes mellitus with hyperglycemia Status: Acute (2) Urinary tract infection associated with catheterization of urinary tract: Code(s): T83.511A - Infection and inflammatory reaction due to indwelling urethral catheter, initial encounter; N39.0 - Urinary tract infection, site not specified Status: Acute Assessment and Plan: The patient was started on Rocephin and vanc cx only show mrsa in urine (blood cx neg) will repeat cx stop rocephin await sensitvities (3) FPC (current) use of anticoagulants: Code(s): Z79.01 - FPC (current) use of anticoagulants Status: Acute Assessment and Plan: Daily PT INR The patient is on Coumadin due to his AFib. (4) Leg wound, left: Qualifiers: Encounter type: subsequent encounter Qualified Code(s): S81.802D - Unspecified open wound, left lower leg, subsequent encounter Code(s): S81.802A - Unspecified open wound, left lower leg, initial encounter Status: Acute Assessment and Plan: Wound care consult has been placed. Continue with dressing changes. (5) Leg wound, right: Qualifiers: Encounter type: subsequent encounter Qualified Code(s): S81.801D - Unspecified open wound, right lower leg, subsequent encounter Code(s): S81.801A - Unspecified open wound, right lower leg, initial encounter Status: Acute Assessment and Plan: Wound care consult has been placed. Continue with dressing changes. no concern for infection (6) CKD (chronic kidney disease): Code(s): N18.9 - Chronic kidney disease, unspecified Status: Acute Assessment and Plan: The patient is at his baseline please continue to monitor. (7) Hypertension: Qualifiers: Hypertension type: primary hypertension Qualified Code(s): I10 - Essential (primary) hypertension Code(s): I10 - Essential (primary) hypertension Status: Chronic Assessment and Plan: The patient is on diltiazem for AFib as well as metoprolol (8) Diabetic neuropathy: Code(s): E11.40 - Type 2 diabetes mellitus with diabetic neuropathy, unspecified Status: Acute Assessment and Plan: Continue with lidocaine patches (9) Congestive heart failure: Code(s): I50.9 - Heart failure, unspecified Status: Acute Assessment and Plan: Continue with metoprolol and Demadex Patient's last echo was on 10/03/2022 1. Complete two-dimensional, color flow and Doppler transthoracic echocardiogram is performed. ? 2. Left ventricular chamber dimension is mildly enlarged. ? 3. There is mildly increased left ventricular wall thickness. ? 4. Left ventricular ejection fraction appears normal, however, difficult to estimate LVEF due to very poor visualization of endocardial borders. Definity to improve visualization of LV not administered as patient refused. ? 5. Right ventricular chamber dimension is normal. ? 6. Left atrial chamber dimension is moderately enlarged. ? 7. Right atrial chamber dimension is moderately enlarged. (10) Paroxysmal atrial fibrillation: Code(s): I48.0 - Paroxysmal atrial fibrillation Status: Acute Assessment and Plan: Rate controlled Continue amiodarone and Coreg Continue warfarin PT INR daily (11) Gout: Code(s): M10.9 - Gout, unspecified Status: Acute Assessment and Plan: Continue with Vicodin Plan Plan to downgrade the patient to [employer] tele Subjective Date/time seen: 10/20/22 15:58 no new complaints urine cx noted Exam Const: General: cooperative, comfortable, no acute distress, well developed, alert, awake, Physically active, ill appearing, average body habitus, well nourished and overweight Nutritional Appearance: average body habitus, well nourished and overweight Orientation/consciousness: o
[2022-10-20 17:02] LABS: Glucose Point of Care 274 mg/dl (65-105)
[2022-10-20] MEDS: INSULIN ASPART (*BKC) 100 UNITS/ML SUB-Q (17:51)
[2022-10-20] MEDS: WARFARIN (*PBKC) 5 MG TABLET PO (17:54)
[2022-10-20 20:39] LABS: Glucose Point of Care 260 mg/dl (65-105)
[2022-10-20] MEDS: INSULIN GLARGINE (*BKC) 100 UNITS/ML 50 UNITS SUB-Q (20:50)
[2022-10-21 03:41] VITALS: BP 129/57; PULSE 60; RESP 18; TEMP 36.8; O2SAT 99
[2022-10-21] MEDS: dilTIAZem HCL 60 MG TABLET PO ×4 (05:30→23:31)
[2022-10-21 06:15] LABS: INR 1.8; Prothrombin Time 20.5 Seconds (11.1-14.7)
[2022-10-21 06:20] LABS: Estimated CRCL calculation 42 ml/min; Estimated Glomerular Filt Rate 35
[2022-10-21 08:07] LABS: Glucose Point of Care 135 mg/dl (65-105)
[2022-10-21 08:50] LABS: Basophils Absolute Auto 0.1 K/mm3 (0.0-0.1); Basophils Percent Auto 0.6 % (0.2-1.2); Eosinophils Absolute Auto 0.6 K/mm3 (0-0.3); Eosinophils Percent Auto 5.2 % (0-4.4); Hematocrit 35.3 % (42.0-52.0); Hemoglobin 10.4 g/dL (14.0-18.0); Immature Granulocyte Absolute 0.09 K/mm3 (0.00-0.031); Immature Granulocyte Percent A 0.8 % (0-0.5); Lymphocytes Absolute Auto 1.65 K/mm3 (0.9-3.2); Lymphocytes Percent Auto 15.4 % (18.3-44.2); Mean Corpuscular HGB Conc 29.5 g/dl (32-36); Mean Corpuscular Hemoglobin 25.4 pg (26-34); Mean Corpuscular Volume 86.3 fl (80-100); Mean Platelet Volume 10.6 fl (7.4-10.4); Monocytes Absolute Auto 1.2 K/mm3 (0.1-0.6); Monocytes Percent Auto 11.2 % (2.6-8.5); Neutrophils Absolute Auto 7.2 K/mm3 (1.3-6.7); Neutrophils Percent Auto 66.8 % (45.5-73.1); Platelet Count Result 305 k/mm3 (150-375); Red Blood Count 4.09 M/mm3 (4.6-6.20); Red Cell Distribution Width 16.5 % (11.5-14.5); White Blood Count 10.7 K/mm3 (4.5-10.0)
[2022-10-21 08:55] LABS: Anion Gap 8 mmol/L (8-16); Blood Urea Nitrogen 58 mg/dL (9-20); Calcium 8.3 mg/dL (8.4-10.2); Carbon Dioxide 29 mmol/L (22-30); Chloride 104 mmol/L (98-107); Estimated CRCL calculation 42 ml/min; Estimated Glomerular Filt Rate 35; Glucose 146 mg/dL (65-110); Potassium 3.3 mmol/L (3.4-5.0); Sodium 141 mmol/L (137-145)
[2022-10-21] MEDS: ASPIRIN 81 MG ENTERIC TABLET PO (10:06)
[2022-10-21] MEDS: GABAPENTIN 300 MG CAPSULE PO ×3 (10:06→17:20)
[2022-10-21 10:07] VITALS: PULSE 60
[2022-10-21] MEDS: TORSEMIDE 20 MG TABLET PO (10:07)
[2022-10-21] MEDS: DOCUSATE SODIUM 100 MG CAPSULE PO (10:07)
[2022-10-21] MEDS: METOPROLOL SUCCINATE EXT REL 25 MG TABCR PO (10:07)
[2022-10-21] MEDS: TOLNAFTATE 1% POWDER 45 GM BTL 1 APPLIC TOPICAL ×2 (10:08→17:20)
[2022-10-21] MEDS: SILVERGEL (ELTA) 45 ML 1 APPLIC TOPICAL (10:08)
[2022-10-21] MEDS: HYDROcodone/acetaminophen (*CRX) 5-325 MG TABLET 1 TAB PO (10:11)
[2022-10-21] MEDS: polyethylene glycoL 3350 17 GM POWD.PACK PO (10:11)
[2022-10-21 11:26] VITALS: BP 116/97
[2022-10-21 11:27] LABS: Glucose Point of Care 219 mg/dl (65-105)
[2022-10-21 11:33] VITALS: BP 100/74; PULSE 73; RESP 16; O2SAT 100
[2022-10-21 12:00] VITALS: BP 127/55; PULSE 77; RESP 20; TEMP 36.3; O2SAT 99
--- NOTE | 2022-10-21 12:40 | PM.IMPN ---
Progress Note: A&P Assessment and Plan (1) Diabetes mellitus with hyperglycemia: Code(s): E11.65 - Type 2 diabetes mellitus with hyperglycemia Status: Acute (2) Urinary tract infection associated with catheterization of urinary tract: Code(s): T83.511A - Infection and inflammatory reaction due to indwelling urethral catheter, initial encounter; N39.0 - Urinary tract infection, site not specified Status: Acute Assessment and Plan: Patient remains on IV vanc cx only show mrsa in urine (blood cx neg) will repeat cx -pending, if cultures negative can switch to oral linezolid and patient can be discharged stop rocephin await sensitvities (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 (4) Leg wound, left: Qualifiers: Encounter type: subsequent encounter Qualified Code(s): S81.802D - Unspecified open wound, left lower leg, subsequent encounter Code(s): S81.802A - Unspecified open wound, left lower leg, initial encounter Status: Acute Assessment and Plan: Wound care consult has been placed. Continue with dressing changes. (5) Leg wound, right: Qualifiers: Encounter type: subsequent encounter Qualified Code(s): S81.801D - Unspecified open wound, right lower leg, subsequent encounter Code(s): S81.801A - Unspecified open wound, right lower leg, initial encounter Status: Acute Assessment and Plan: Wound care consult has been placed. Continue with dressing changes. no concern for infection (6) CKD (chronic kidney disease): Code(s): N18.9 - Chronic kidney disease, unspecified Status: Acute Assessment and Plan: The patient is at his baseline please continue to monitor. (7) Hypertension: Qualifiers: Hypertension type: primary hypertension Qualified Code(s): I10 - Essential (primary) hypertension Code(s): I10 - Essential (primary) hypertension Status: Chronic Assessment and Plan: The patient is on diltiazem for AFib as well as metoprolol (8) Diabetic neuropathy: Code(s): E11.40 - Type 2 diabetes mellitus with diabetic neuropathy, unspecified Status: Acute Assessment and Plan: Continue with lidocaine patches (9) Congestive heart failure: Code(s): I50.9 - Heart failure, unspecified Status: Acute Assessment and Plan: Continue with metoprolol and Demadex Patient's last echo was on 10/03/2022 1. Complete two-dimensional, color flow and Doppler transthoracic echocardiogram is performed. ? 2. Left ventricular chamber dimension is mildly enlarged. ? 3. There is mildly increased left ventricular wall thickness. ? 4. Left ventricular ejection fraction appears normal, however, difficult to estimate LVEF due to very poor visualization of endocardial borders. Definity to improve visualization of LV not administered as patient refused. ? 5. Right ventricular chamber dimension is normal. ? 6. Left atrial chamber dimension is moderately enlarged. ? 7. Right atrial chamber dimension is moderately enlarged. Continue to monitor volume status (10) Paroxysmal atrial fibrillation: Code(s): I48.0 - Paroxysmal atrial fibrillation Status: Acute Assessment and Plan: Rate controlled Continue amiodarone and Coreg Continue warfarin PT INR daily (11) Gout: Code(s): M10.9 - Gout, unspecified Status: Acute Assessment and Plan: Continue with Vicodin Plan Await assisted facility placement Subjective Date/time seen: 10/21/22 12:40 No new complaints today. Denies chest pain shortness of breath. Exam Const: General: cooperative, comfortable, no acute distress, well developed, alert, awake, Physically active, ill appearing, average body habitus, well n
[2022-10-21] MEDS: INSULIN ASPART (*BKC) 100 UNITS/ML SUB-Q (13:03)
--- NOTE | 2022-10-21 13:09 | WPDUROPN2 ---
Progress Note: A&P Assessment and Plan (1) Urinary tract infection associated with catheterization of urinary tract: Code(s): T83.511A - Infection and inflammatory reaction due to indwelling urethral catheter, initial encounter; N39.0 - Urinary tract infection, site not specified Status: Acute Assessment and Plan: Culture from 10/18/22 grew MRSA, he is on culture sensitive Vancomycin. (2) Retention of urine: Code(s): R33.9 - Retention of urine, unspecified Status: Acute Assessment and Plan: Resolved, catheter removed early this am, patient is voiding independently. No further evaluation, ok to discharge at anytime per urology. Subjective Subjective Date/Time Seen: 10/21/22 13:09 Catheter removed at 0100. Nurse reports patient has urinated several times. Exam Const: General: cooperative Resp: Effort & Inspection: normal respiratory effort Cardio: Rate: regular rate Extrem: Right lower extremity: edema Left lower extremity: edema Objective Data Vital Signs Vital Signs: Vital Signs - 24 hr 10/20/22 16:00 10/20/22 20:00 10/20/22 20:00 Temperature 98.6 F Pulse Rate 94 77 81 Respiratory Rate 18 Blood Pressure 146/74 H Pulse Oximetry 100 Oxygen Delivery 10/20/22 20:00 10/20/22 23:22 10/21/22 03:41 Temperature 98.4 F 98.2 F Pulse Rate 77 79 60 Respiratory Rate 18 18 18 Blood Pressure 137/62 129/57 L Pulse Oximetry 100 99 99 Oxygen Delivery Room Air 10/21/22 10:07 10/21/22 11:33 10/21/22 09:45 Temperature Pulse Rate 60 73 Respiratory Rate 16 Blood Pressure 100/74 Pulse Oximetry 100 Oxygen Delivery Room Air Intake/Output Intake/Output: Intake & Output 10/18/22 10/19/22 10/20/22 10/21/22 23:59 23:59 23:59 23:59 Intake Total 2049 1830 1100 870 Output Total 2400 2700 600 Balance 2049 - -1600 270 Meds/Results Medications: Active Medications Generic Name Dose Route Start Last Admin Trade Name Freq PRN Reason Stop Dose Admin Hydrocodone Bitart/Acetaminophen 1 tab 10/18/22 22:17 10/21/22 10:11 Hydrocodone/Acetaminophen (*Crx) 5-325 Mg Tablet PO 1 tab Q8H PRN Administration PAIN RATED 4-6 Alprazolam 0.25 mg 10/18/22 22:17 Alprazolam (*Crx) 0.25 Mg Tablet PO TID PRN Anxiety Aspirin 81 mg 10/19/22 09:00 10/21/22 10:06 Aspirin 81 Mg Enteric Tablet PO 81 mg DAILY OTTO Administration Cyclobenzaprine HCl 10 mg 10/18/22 22:17 Cyclobenzaprine Hcl 10 Mg Tablet PO TID PRN Muscle Spasm Dextrose 12.5 gm 10/18/22 22:15 Dextrose 50% 25 Gm/50 Ml Syringe IV PUSH PRN PRN Hypoglycemia Protocol Diltiazem HCl 60 mg 10/19/22 00:00 10/21/22 13:04 Diltiazem Hcl 60 Mg Tablet PO 60 mg Q6H OTTO Administration Docusate Sodium 100 mg 10/19/22 09:00 10/21/22 10:07 Docusate Sodium 100 Mg Capsule PO 100 mg DAILY OTTO Administration Gabapentin 300 mg 10/18/22 22:20 10/21/22 13:04 Gabapentin 300 Mg Capsule PO 300 mg TID OTTO Administration Glucagon 1 mg 10/18/22 22:15 Glucagon For Inj 1 Mg Vial IM PRN PRN Hypoglycemia Protocol Glucose 15 gm 10/18/22 22:15 Glucose Oral Gel 15 Gm Of Glucse In 37.5 Gm Tube PO PRN PRN Hypoglycemia Protocol Guaifenesin 600 mg 10/18/22 22:17 Guaifenesin 12 Hr 600 Mg Tabcr PO BID PRN Congestion Dextrose 1,000 mls @ 100 mls/hr 10/18/22 22:15 Dextrose 5% 1,000 Ml IVPB PRN PRN Hypoglycemia Protocol Vancomycin HCl 1,500 mg in 500 mls @ 250 mls/hr 10/19/22 23:00 10/21/22 01:30 Vancomycin 1,500 Mg/D5w 500 Ml IVPB Infused Q24H OTTO Infusion Insulin Aspart 4 - 8 units 10/19/22 08:00 10/21/22 13:03 Insulin Aspart (*Bkc) 100 Units/Ml SUB-Q 4 units TIDWM OTTO Administration Protocol Insulin Glargine 50 units 10/18/22 22:30 10/20/22 20:50 Insulin Glargine (*Bkc) 100 Units/Ml SUB-Q 50 units [facility]
[2022-10-21] MEDS: WARFARIN (*PBKC) 5 MG TABLET PO (17:20)
[2022-10-21 17:24] LABS: Glucose Point of Care 190 mg/dl (65-105)
[2022-10-21 19:53] LABS: Glucose Point of Care 248 mg/dl (65-105)
[2022-10-21 20:00] VITALS: BP 149/87; PULSE 76; RESP 18; TEMP 36.6; O2SAT 99
[2022-10-21] MEDS: INSULIN GLARGINE (*BKC) 100 UNITS/ML 50 UNITS SUB-Q (20:04)
[2022-10-21 22:05] LABS: Vancomycin Trough 24.8 ug/mL (10.0-20.0)
[2022-10-22] VITALS: BP 122/59; PULSE 76; RESP 16; TEMP 36.4; O2SAT 99
[2022-10-22 03:30] VITALS: BP 120/57; PULSE 74; RESP 16; TEMP 36.3; O2SAT 99
[2022-10-22] MEDS: dilTIAZem HCL 60 MG TABLET PO ×3 (05:07→17:38)
[2022-10-22 05:25] LABS: INR 2.1; Prothrombin Time 22.7 Seconds (11.1-14.7)
[2022-10-22 08:40] LABS: Glucose Point of Care 102 mg/dl (65-105)
[2022-10-22] MEDS: GABAPENTIN 300 MG CAPSULE PO ×3 (09:56→17:38)
[2022-10-22] MEDS: ASPIRIN 81 MG ENTERIC TABLET PO (09:56)
[2022-10-22 09:57] VITALS: PULSE 74
[2022-10-22] MEDS: TOLNAFTATE 1% POWDER 45 GM BTL 1 APPLIC TOPICAL ×2 (09:57→17:39)
[2022-10-22] MEDS: TORSEMIDE 20 MG TABLET PO (09:57)
[2022-10-22] MEDS: DOCUSATE SODIUM 100 MG CAPSULE PO (09:57)
[2022-10-22] MEDS: METOPROLOL SUCCINATE EXT REL 25 MG TABCR PO (09:57)
[2022-10-22] MEDS: SILVERGEL (ELTA) 45 ML 1 APPLIC TOPICAL (09:57)
[2022-10-22 10:57] VITALS: BP 144/68; PULSE 75; RESP 16; TEMP 37.1; O2SAT 100
[2022-10-22 12:20] LABS: Glucose Point of Care 158 mg/dl (65-105)
[2022-10-22 15:33] VITALS: BP 127/69; PULSE 79; RESP 18; TEMP 37.2; O2SAT 99
[2022-10-22 17:27] LABS: Glucose Point of Care 247 mg/dl (65-105)
[2022-10-22] MEDS: INSULIN ASPART (*BKC) 100 UNITS/ML SUB-Q (17:38)
[2022-10-22] MEDS: WARFARIN (*PBKC) 5 MG TABLET PO (17:38)
--- NOTE | 2022-10-22 18:09 | PM.IMPN ---
Progress Note: A&P Assessment and Plan (1) Diabetes mellitus with hyperglycemia: Code(s): E11.65 - Type 2 diabetes mellitus with hyperglycemia Status: Acute (2) Urinary tract infection associated with catheterization of urinary tract: Code(s): T83.511A - Infection and inflammatory reaction due to indwelling urethral catheter, initial encounter; N39.0 - Urinary tract infection, site not specified Status: Acute Assessment and Plan: Patient remains on IV vanc cx only show mrsa in urine (blood cx neg) will repeat cx -pending, if cultures negative can switch to oral linezolid and patient can be discharged stop rocephin await sensitvities 10/22/2022 inteval history: Patient presented with urinary retention is found to have UTI with MRSA being treated with vancomycin, seen by urologist today patient had a voiding trial and able to urinate independently, patient will require 7 dose of vancomycin which he will complete on October 25 and will discharge. 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 (4) Leg wound, left: Qualifiers: Encounter type: subsequent encounter Qualified Code(s): S81.802D - Unspecified open wound, left lower leg, subsequent encounter Code(s): S81.802A - Unspecified open wound, left lower leg, initial encounter Status: Acute Assessment and Plan: Wound care consult has been placed. Continue with dressing changes. (5) Leg wound, right: Qualifiers: Encounter type: subsequent encounter Qualified Code(s): S81.801D - Unspecified open wound, right lower leg, subsequent encounter Code(s): S81.801A - Unspecified open wound, right lower leg, initial encounter Status: Acute Assessment and Plan: Wound care consult has been placed. Continue with dressing changes. no concern for infection (6) CKD (chronic kidney disease): Code(s): N18.9 - Chronic kidney disease, unspecified Status: Acute Assessment and Plan: The patient is at his baseline please continue to monitor. (7) Hypertension: Qualifiers: Hypertension type: primary hypertension Qualified Code(s): I10 - Essential (primary) hypertension Code(s): I10 - Essential (primary) hypertension Status: Chronic Assessment and Plan: The patient is on diltiazem for AFib as well as metoprolol (8) Diabetic neuropathy: Code(s): E11.40 - Type 2 diabetes mellitus with diabetic neuropathy, unspecified Status: Acute Assessment and Plan: Continue with lidocaine patches (9) Congestive heart failure: Code(s): I50.9 - Heart failure, unspecified Status: Acute Assessment and Plan: Continue with metoprolol and Demadex Patient's last echo was on 10/03/2022 1. Complete two-dimensional, color flow and Doppler transthoracic echocardiogram is performed. ? 2. Left ventricular chamber dimension is mildly enlarged. ? 3. There is mildly increased left ventricular wall thickness. ? 4. Left ventricular ejection fraction appears normal, however, difficult to estimate LVEF due to very poor visualization of endocardial borders. Definity to improve visualization of LV not administered as patient refused. ? 5. Right ventricular chamber dimension is normal. ? 6. Left atrial chamber dimension is moderately enlarged. ? 7. Right atrial chamber dimension is moderately enlarged. Continue to monitor volume status (10) Paroxysmal atrial fibrillation: Code(s): I48.0 - Paroxysmal atrial fibrillation Status: Acute Assessment and Plan: Rate controlled Continue amiodarone and Coreg Continue warfarin PT INR daily (11) Gout: Code(s): M10.9 - Gout, unspecified Status: Acute Assessment and Plan: Continue with Vicodin Plan
[2022-10-22 20:00] VITALS: BP 130/67; PULSE 77; RESP 16; TEMP 36.7; O2SAT 97
[2022-10-22 21:10] LABS: Glucose Point of Care 250 mg/dl (65-105)
[2022-10-22] MEDS: INSULIN GLARGINE (*BKC) 100 UNITS/ML 50 UNITS SUB-Q (22:13)
[2022-10-23] VITALS: BP 133/70; PULSE 77; RESP 16; TEMP 36.7; O2SAT 97
[2022-10-23] MEDS: dilTIAZem HCL 60 MG TABLET PO ×4 (00:02→17:08)
[2022-10-23 04:00] VITALS: BP 134/71; PULSE 80; RESP 16; TEMP 36.7; O2SAT 99
[2022-10-23 05:43] LABS: Hematocrit 35.4 % (42.0-52.0); Hemoglobin 10.4 g/dL (14.0-18.0); Mean Corpuscular HGB Conc 29.4 g/dl (32-36); Mean Corpuscular Hemoglobin 25.2 pg (26-34); Mean Corpuscular Volume 85.9 fl (80-100); Mean Platelet Volume 9.8 fl (7.4-10.4); Platelet Count Result 282 k/mm3 (150-375); Red Blood Count 4.12 M/mm3 (4.6-6.20); Red Cell Distribution Width 16.1 % (11.5-14.5); White Blood Count 9.8 K/mm3 (4.5-10.0)
[2022-10-23 05:46] LABS: INR 2.2; Prothrombin Time 23.4 Seconds (11.1-14.7)
[2022-10-23 05:50] LABS: Anion Gap 8 mmol/L (8-16); Blood Urea Nitrogen 53 mg/dL (9-20); Calcium 8.2 mg/dL (8.4-10.2); Carbon Dioxide 30 mmol/L (22-30); Chloride 104 mmol/L (98-107); Estimated CRCL calculation 39 ml/min; Estimated Glomerular Filt Rate 31; Glucose 124 mg/dL (65-110); Potassium 3.1 mmol/L (3.4-5.0); Sodium 142 mmol/L (137-145)
[2022-10-23 08:40] LABS: Glucose Point of Care 107 mg/dl (65-105)
[2022-10-23] MEDS: GABAPENTIN 300 MG CAPSULE PO ×3 (09:54→17:08)
[2022-10-23] MEDS: ASPIRIN 81 MG ENTERIC TABLET PO (09:54)
[2022-10-23] MEDS: POTASSIUM CHLORIDE 20 MEQ TABLET 40 MEQ PO (09:54)
[2022-10-23] MEDS: DOCUSATE SODIUM 100 MG CAPSULE PO (09:54)
[2022-10-23 09:55] VITALS: PULSE 80
[2022-10-23] MEDS: SILVERGEL (ELTA) 45 ML 1 APPLIC TOPICAL (09:55)
[2022-10-23] MEDS: TORSEMIDE 10 MG TABLET PO (09:55)
[2022-10-23] MEDS: METOPROLOL SUCCINATE EXT REL 25 MG TABCR PO (09:55)
[2022-10-23] MEDS: TOLNAFTATE 1% POWDER 45 GM BTL 1 APPLIC TOPICAL ×2 (09:55→17:09)
[2022-10-23 12:00] VITALS: BP 148/76; PULSE 78; RESP 18; TEMP 37; O2SAT 100
[2022-10-23 12:45] LABS: Glucose Point of Care 231 mg/dl (65-105)
--- NOTE | 2022-10-23 12:45 | PCOTNOTE ---
The patient treatment was not able to be completed on 10/23/22 due to per RN, Patient's decline condition, not recommended this P.M . Will plan to continue treatment per plan of care when Patient able
[2022-10-23] MEDS: MIDODRINE HCL 2.5 MG TABLET PO ×2 (12:54→17:09)
[2022-10-23] MEDS: INSULIN ASPART (*BKC) 100 UNITS/ML SUB-Q ×2 (12:55→17:11)
--- NOTE | 2022-10-23 15:03 | PM.IMPN ---
Progress Note: A&P Assessment and Plan (1) Diabetes mellitus with hyperglycemia: Code(s): E11.65 - Type 2 diabetes mellitus with hyperglycemia Status: Acute (2) Urinary tract infection associated with catheterization of urinary tract: Code(s): T83.511A - Infection and inflammatory reaction due to indwelling urethral catheter, initial encounter; N39.0 - Urinary tract infection, site not specified Status: Acute Assessment and Plan: Patient remains on IV vanc cx only show mrsa in urine (blood cx neg) will repeat cx -pending, if cultures negative can switch to oral linezolid and patient can be discharged stop rocephin await sensitvities 10/23/2022 interval history: Patient presented with urinary retention is found to have UTI with MRSA being treated with vancomycin, seen by urologist on 10/21 patient had a voiding trial and was able to urinate independently, patient will require 7 dose of vancomycin which he will complete on October 25 and will discharge. however patient continue to have orthostatic hypotension when sitting, getting up and on toilet, will had low does midodrine 2.5mg q8, will monitor and further recommendation to follow. (3) [facility] (current) use of anticoagulants: Code(s): Z79.01 - [facility] (current) use of anticoagulants Status: Acute Assessment and Plan: Daily PT INR The patient is on Coumadin due to his AFib. (4) Leg wound, left: Qualifiers: Encounter type: subsequent encounter Qualified Code(s): S81.802D - Unspecified open wound, left lower leg, subsequent encounter Code(s): S81.802A - Unspecified open wound, left lower leg, initial encounter Status: Acute Assessment and Plan: Wound care consult has been placed. Continue with dressing changes. (5) Leg wound, right: Qualifiers: Encounter type: subsequent encounter Qualified Code(s): S81.801D - Unspecified open wound, right lower leg, subsequent encounter Code(s): S81.801A - Unspecified open wound, right lower leg, initial encounter Status: Acute Assessment and Plan: Wound care consult has been placed. Continue with dressing changes. no concern for infection (6) CKD (chronic kidney disease): Code(s): N18.9 - Chronic kidney disease, unspecified Status: Acute Assessment and Plan: The patient is at his baseline please continue to monitor. (7) Hypertension: Qualifiers: Hypertension type: primary hypertension Qualified Code(s): I10 - Essential (primary) hypertension Code(s): I10 - Essential (primary) hypertension Status: Chronic Assessment and Plan: The patient is on diltiazem for AFib as well as metoprolol (8) Diabetic neuropathy: Code(s): E11.40 - Type 2 diabetes mellitus with diabetic neuropathy, unspecified Status: Acute Assessment and Plan: Continue with lidocaine patches (9) Congestive heart failure: Code(s): I50.9 - Heart failure, unspecified Status: Acute Assessment and Plan: Continue with metoprolol and Demadex Patient's last echo was on 10/03/2022 1. Complete two-dimensional, color flow and Doppler transthoracic echocardiogram is performed. ? 2. Left ventricular chamber dimension is mildly enlarged. ? 3. There is mildly increased left ventricular wall thickness. ? 4. Left ventricular ejection fraction appears normal, however, difficult to estimate LVEF due to very poor visualization of endocardial borders. Definity to improve visualization of LV not administered as patient refused. ? 5. Right ventricular chamber dimension is normal. ? 6. Left atrial chamber dimension is moderately enlarged. ? 7. Right atrial chamber dimension is moderately enlarged. Continue to monitor volume status (10) Paroxysmal atrial fibrillation: Code(s): I48.0 - Paroxysmal atrial fibrillation Status: Acute Assessment and Plan: Rate controlled Romana
[2022-10-23] MEDS: WARFARIN (*PBKC) 5 MG TABLET PO (17:08)
[2022-10-23 17:22] LABS: Glucose Point of Care 246 mg/dl (65-105)
[2022-10-23 20:00] VITALS: BP 150/76; PULSE 81; RESP 200; TEMP 36.8; O2SAT 96
[2022-10-23 20:49] LABS: Glucose Point of Care 268 mg/dl (65-105)
[2022-10-23] MEDS: INSULIN GLARGINE (*BKC) 100 UNITS/ML 50 UNITS SUB-Q (21:01)
[2022-10-23 23:31] VITALS: BP 148/72; PULSE 81; RESP 22; O2SAT 96
[2022-10-24] MEDS: dilTIAZem HCL 60 MG TABLET PO ×4 (00:24→17:35)
[2022-10-24 06:09] LABS: Hematocrit 34.6 % (42.0-52.0); Hemoglobin 10.1 g/dL (14.0-18.0); Mean Corpuscular HGB Conc 29.2 g/dl (32-36); Mean Corpuscular Hemoglobin 25.3 pg (26-34); Mean Corpuscular Volume 86.5 fl (80-100); Mean Platelet Volume 9.7 fl (7.4-10.4); Platelet Count Result 279 k/mm3 (150-375); White Blood Count 10.5 K/mm3 (4.5-10.0)
[2022-10-24 06:18] LABS: INR 2.4; Prothrombin Time 25.1 Seconds (11.1-14.7)
[2022-10-24 06:30] LABS: Potassium 3.4 mmol/L (3.4-5.0)
[2022-10-24 06:31] LABS: Anion Gap 6 mmol/L (8-16); Blood Urea Nitrogen 50 mg/dL (9-20); Calcium 8.1 mg/dL (8.4-10.2); Carbon Dioxide 29 mmol/L (22-30); Chloride 107 mmol/L (98-107); Estimated CRCL calculation 42 ml/min; Estimated Glomerular Filt Rate 35; Glucose 197 mg/dL (65-110); Sodium 142 mmol/L (137-145)
[2022-10-24 08:00] VITALS: BP 119/65; PULSE 60; RESP 20; TEMP 36.9; O2SAT 97
[2022-10-24 08:33] LABS: Glucose Point of Care 180 mg/dl (65-105)
[2022-10-24 09:26] VITALS: PULSE 68
[2022-10-24] MEDS: METOPROLOL SUCCINATE EXT REL 25 MG TABCR PO (09:26)
[2022-10-24] MEDS: MIDODRINE HCL 2.5 MG TABLET PO ×3 (09:27→17:35)
[2022-10-24] MEDS: ASPIRIN 81 MG ENTERIC TABLET PO (09:27)
[2022-10-24] MEDS: GABAPENTIN 300 MG CAPSULE PO ×3 (09:27→17:35)
[2022-10-24] MEDS: TORSEMIDE 10 MG TABLET PO (09:27)
[2022-10-24] MEDS: POTASSIUM CHLORIDE 20 MEQ TABLET 40 MEQ PO (09:28)
[2022-10-24] MEDS: TOLNAFTATE 1% POWDER 45 GM BTL 1 APPLIC TOPICAL ×2 (09:29→17:36)
[2022-10-24] MEDS: SILVERGEL (ELTA) 45 ML 1 APPLIC TOPICAL (09:29)
[2022-10-24] MEDS: DOCUSATE SODIUM 100 MG CAPSULE PO (09:35)
[2022-10-24 12:00] VITALS: BP 141/58; PULSE 75; RESP 20; TEMP 36.5; O2SAT 100
[2022-10-24 12:29] LABS: Glucose Point of Care 272 mg/dl (65-105)
[2022-10-24] MEDS: INSULIN ASPART (*BKC) 100 UNITS/ML SUB-Q ×2 (12:48→17:29)
--- NOTE | 2022-10-24 14:01 | PM.IMPN ---
Progress Note: A&P Assessment and Plan (1) Diabetes mellitus with hyperglycemia: Code(s): E11.65 - Type 2 diabetes mellitus with hyperglycemia Status: Acute (2) Urinary tract infection associated with catheterization of urinary tract: Code(s): T83.511A - Infection and inflammatory reaction due to indwelling urethral catheter, initial encounter; N39.0 - Urinary tract infection, site not specified Status: Acute Assessment and Plan: Patient remains on IV vanc cx only show mrsa in urine (blood cx neg) will repeat cx -pending, if cultures negative can switch to oral linezolid and patient can be discharged stop rocephin await sensitvities 10/24/2022 interval history: Patient presented with urinary retention is found to have UTI with MRSA being treated with vancomycin, seen by urologist on 10/21 patient had a voiding trial and was able to urinate independently, patient will require 7 dose of vancomycin which he will complete on October 25 and will discharge. however patient continue to have orthostatic hypotension when sitting, getting up and on toilet, added low does midodrine 2.5mg q8, will monitor and further recommendation to follow. 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 (4) Leg wound, left: Qualifiers: Encounter type: subsequent encounter Qualified Code(s): S81.802D - Unspecified open wound, left lower leg, subsequent encounter Code(s): S81.802A - Unspecified open wound, left lower leg, initial encounter Status: Acute Assessment and Plan: Wound care consult has been placed. Continue with dressing changes. (5) Leg wound, right: Qualifiers: Encounter type: subsequent encounter Qualified Code(s): S81.801D - Unspecified open wound, right lower leg, subsequent encounter Code(s): S81.801A - Unspecified open wound, right lower leg, initial encounter Status: Acute Assessment and Plan: Wound care consult has been placed. Continue with dressing changes. no concern for infection (6) CKD (chronic kidney disease): Code(s): N18.9 - Chronic kidney disease, unspecified Status: Acute Assessment and Plan: The patient is at his baseline please continue to monitor. (7) Hypertension: Qualifiers: Hypertension type: primary hypertension Qualified Code(s): I10 - Essential (primary) hypertension Code(s): I10 - Essential (primary) hypertension Status: Chronic Assessment and Plan: The patient is on diltiazem for AFib as well as metoprolol (8) Diabetic neuropathy: Code(s): E11.40 - Type 2 diabetes mellitus with diabetic neuropathy, unspecified Status: Acute Assessment and Plan: Continue with lidocaine patches (9) Congestive heart failure: Code(s): I50.9 - Heart failure, unspecified Status: Acute Assessment and Plan: Continue with metoprolol and Demadex Patient's last echo was on 10/03/2022 1. Complete two-dimensional, color flow and Doppler transthoracic echocardiogram is performed. ? 2. Left ventricular chamber dimension is mildly enlarged. ? 3. There is mildly increased left ventricular wall thickness. ? 4. Left ventricular ejection fraction appears normal, however, difficult to estimate LVEF due to very poor visualization of endocardial borders. Definity to improve visualization of LV not administered as patient refused. ? 5. Right ventricular chamber dimension is normal. ? 6. Left atrial chamber dimension is moderately enlarged. ? 7. Right atrial chamber dimension is moderately enlarged. Continue to monitor volume status (10) Paroxysmal atrial fibrillation: Code(s): I48.0 - Paroxysmal atrial fibrillation Status: Acute Assessment and Plan: Rate controlled Continu
[2022-10-24 16:00] VITALS: BP 137/66; PULSE 63; RESP 20; TEMP 36.9; O2SAT 97
[2022-10-24 16:50] LABS: Glucose Point of Care 284 mg/dl (65-105)
[2022-10-24] MEDS: WARFARIN (*PBKC) 5 MG TABLET PO (17:35)
[2022-10-24 20:00] VITALS: PULSE 66; RESP 18; O2SAT 100
[2022-10-24 20:44] VITALS: BP 128/61; PULSE 66; RESP 18; TEMP 37.1; O2SAT 100
[2022-10-24] MEDS: INSULIN GLARGINE (*BKC) 100 UNITS/ML 50 UNITS SUB-Q (20:49)
[2022-10-24 21:27] LABS: Glucose Point of Care 243 mg/dl (65-105)
[2022-10-25] VITALS (8 sets, daily range): BP systolic 124–148; BP diastolic 55–79; PULSE 64–82; RESP 16–20; TEMP 36.2–37.1; O2SAT 96–100
[2022-10-25] MEDS: dilTIAZem HCL 60 MG TABLET PO ×4 (00:35→17:42)
[2022-10-25 06:30] LABS: Hematocrit 35.5 % (42.0-52.0); Hemoglobin 10.4 g/dL (14.0-18.0); Mean Corpuscular HGB Conc 29.3 g/dl (32-36); Mean Corpuscular Hemoglobin 25.1 pg (26-34); Mean Corpuscular Volume 85.5 fl (80-100); Platelet Count Result 283 k/mm3 (150-375); Red Blood Count 4.15 M/mm3 (4.6-6.20); Red Cell Distribution Width 16.1 % (11.5-14.5); White Blood Count 10.3 K/mm3 (4.5-10.0)
[2022-10-25 06:39] LABS: Anion Gap 6 mmol/L (8-16); Blood Urea Nitrogen 45 mg/dL (9-20); Calcium 8.3 mg/dL (8.4-10.2); Carbon Dioxide 28 mmol/L (22-30); Chloride 108 mmol/L (98-107); Estimated CRCL calculation 44 ml/min; Estimated Glomerular Filt Rate 37; Glucose 111 mg/dL (65-110); Potassium 3.9 mmol/L (3.4-5.0); Sodium 142 mmol/L (137-145)
[2022-10-25 07:42] LABS: INR 2.4; Prothrombin Time 25.7 Seconds (11.1-14.7)
[2022-10-25 08:24] LABS: Glucose Point of Care 107 mg/dl (65-105)
[2022-10-25] MEDS: DOCUSATE SODIUM 100 MG CAPSULE PO (08:39)
[2022-10-25] MEDS: METOPROLOL SUCCINATE EXT REL 25 MG TABCR PO (08:40)
[2022-10-25] MEDS: GABAPENTIN 300 MG CAPSULE PO ×3 (08:40→16:38)
[2022-10-25] MEDS: MIDODRINE HCL 2.5 MG TABLET PO ×3 (08:40→16:38)
[2022-10-25] MEDS: ASPIRIN 81 MG ENTERIC TABLET PO (08:40)
[2022-10-25] MEDS: TORSEMIDE 10 MG TABLET PO (08:40)
[2022-10-25] MEDS: TOLNAFTATE 1% POWDER 45 GM BTL 1 APPLIC TOPICAL ×2 (08:41→16:38)
[2022-10-25] MEDS: SILVERGEL (ELTA) 45 ML 1 APPLIC TOPICAL (08:41)
[2022-10-25 11:57] LABS: Glucose Point of Care 148 mg/dl (65-105)
--- NOTE | 2022-10-25 14:06 | PM.IMPN ---
Progress Note: A&P Assessment and Plan (1) Diabetes mellitus with hyperglycemia: Code(s): E11.65 - Type 2 diabetes mellitus with hyperglycemia Status: Acute (2) Urinary tract infection associated with catheterization of urinary tract: Code(s): T83.511A - Infection and inflammatory reaction due to indwelling urethral catheter, initial encounter; N39.0 - Urinary tract infection, site not specified Status: Acute Assessment and Plan: Patient remains on IV vanc cx only show mrsa in urine (blood cx neg) will repeat cx -pending, if cultures negative can switch to oral linezolid and patient can be discharged stop rocephin await sensitvities 10/25/2022 interval history: Patient presented with urinary retention is found to have UTI with MRSA being treated with vancomycin, seen by urologist on 10/21 patient had a voiding trial and was able to urinate independently, patient will require 7 dose of vancomycin which he will complete on October 26 and will discharge. however patient continue to have orthostatic hypotension when sitting, getting up and on toilet, added low does midodrine 2.5mg q8, patient is encouraged to ambulate, will monitor and further recommendation to follow. 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 (4) Leg wound, left: Qualifiers: Encounter type: subsequent encounter Qualified Code(s): S81.802D - Unspecified open wound, left lower leg, subsequent encounter Code(s): S81.802A - Unspecified open wound, left lower leg, initial encounter Status: Acute Assessment and Plan: Wound care consult has been placed. Continue with dressing changes. (5) Leg wound, right: Qualifiers: Encounter type: subsequent encounter Qualified Code(s): S81.801D - Unspecified open wound, right lower leg, subsequent encounter Code(s): S81.801A - Unspecified open wound, right lower leg, initial encounter Status: Acute Assessment and Plan: Wound care consult has been placed. Continue with dressing changes. no concern for infection (6) CKD (chronic kidney disease): Code(s): N18.9 - Chronic kidney disease, unspecified Status: Acute Assessment and Plan: The patient is at his baseline please continue to monitor. (7) Hypertension: Qualifiers: Hypertension type: primary hypertension Qualified Code(s): I10 - Essential (primary) hypertension Code(s): I10 - Essential (primary) hypertension Status: Chronic Assessment and Plan: The patient is on diltiazem for AFib as well as metoprolol (8) Diabetic neuropathy: Code(s): E11.40 - Type 2 diabetes mellitus with diabetic neuropathy, unspecified Status: Acute Assessment and Plan: Continue with lidocaine patches (9) Congestive heart failure: Code(s): I50.9 - Heart failure, unspecified Status: Acute Assessment and Plan: Continue with metoprolol and Demadex Patient's last echo was on 10/03/2022 1. Complete two-dimensional, color flow and Doppler transthoracic echocardiogram is performed. ? 2. Left ventricular chamber dimension is mildly enlarged. ? 3. There is mildly increased left ventricular wall thickness. ? 4. Left ventricular ejection fraction appears normal, however, difficult to estimate LVEF due to very poor visualization of endocardial borders. Definity to improve visualization of LV not administered as patient refused. ? 5. Right ventricular chamber dimension is normal. ? 6. Left atrial chamber dimension is moderately enlarged. ? 7. Right atrial chamber dimension is moderately enlarged. Continue to monitor volume status (10) Paroxysmal atrial fibrillation: Code(s): I48.0 - Paroxysmal atrial fibrillation Status: Acute Assessment an
[2022-10-25] MEDS: HYDROcodone/acetaminophen (*CRX) 5-325 MG TABLET 1 TAB PO (15:50)
[2022-10-25 16:32] LABS: Glucose Point of Care 276 mg/dl (65-105)
[2022-10-25] MEDS: WARFARIN (*PBKC) 5 MG TABLET PO (16:38)
[2022-10-25] MEDS: INSULIN ASPART (*BKC) 100 UNITS/ML SUB-Q (16:49)
[2022-10-25] MEDS: INSULIN GLARGINE (*BKC) 100 UNITS/ML 50 UNITS SUB-Q (20:31)
[2022-10-25 21:52] LABS: Glucose Point of Care 258 mg/dl (65-105)
[2022-10-26] VITALS (8 sets, daily range): BP systolic 114–140; BP diastolic 63–75; PULSE 53–86; RESP 16–20; TEMP 36.3–37.1; O2SAT 97–100
[2022-10-26] MEDS: dilTIAZem HCL 60 MG TABLET PO ×4 (00:03→17:01)
[2022-10-26 08:38] LABS: Glucose Point of Care 138 mg/dl (65-105)
[2022-10-26] MEDS: TOLNAFTATE 1% POWDER 45 GM BTL 1 APPLIC TOPICAL ×2 (08:54→17:03)
[2022-10-26] MEDS: SILVERGEL (ELTA) 45 ML 1 APPLIC TOPICAL (08:54)
[2022-10-26] MEDS: GABAPENTIN 300 MG CAPSULE PO ×3 (09:02→17:01)
[2022-10-26] MEDS: DOCUSATE SODIUM 100 MG CAPSULE PO (09:02)
[2022-10-26] MEDS: MIDODRINE HCL 2.5 MG TABLET PO ×3 (09:02→17:02)
[2022-10-26] MEDS: ASPIRIN 81 MG ENTERIC TABLET PO (09:02)
[2022-10-26] MEDS: METOPROLOL SUCCINATE EXT REL 25 MG TABCR PO (09:02)
[2022-10-26] MEDS: TORSEMIDE 10 MG TABLET PO (09:02)
[2022-10-26 10:21] LABS: Anion Gap 3 mmol/L (8-16); Blood Urea Nitrogen 45 mg/dL (9-20); Calcium 8.3 mg/dL (8.4-10.2); Carbon Dioxide 32 mmol/L (22-30); Chloride 106 mmol/L (98-107); Estimated CRCL calculation 38 ml/min; Estimated Glomerular Filt Rate 31; Glucose 190 mg/dL (65-110); Sodium 141 mmol/L (137-145)
[2022-10-26 10:23] LABS: Hematocrit 38.7 % (42.0-52.0); Hemoglobin 11.2 g/dL (14.0-18.0); INR 2.2; Mean Corpuscular HGB Conc 28.9 g/dl (32-36); Mean Corpuscular Hemoglobin 25.5 pg (26-34); Mean Corpuscular Volume 88.2 fl (80-100); Mean Platelet Volume 10.1 fl (7.4-10.4); Platelet Count Result 283 k/mm3 (150-375); Red Blood Count 4.39 M/mm3 (4.6-6.20); Red Cell Distribution Width 16.1 % (11.5-14.5)
[2022-10-26 10:44] LABS: Vancomycin Trough 18.9 ug/mL (10.0-20.0)
[2022-10-26] MEDS: HYDROcodone/acetaminophen (*CRX) 5-325 MG TABLET 1 TAB PO (11:21)
[2022-10-26 12:08] LABS: Glucose Point of Care 245 mg/dl (65-105)
[2022-10-26] MEDS: INSULIN ASPART (*BKC) 100 UNITS/ML SUB-Q ×2 (12:18→17:17)
--- NOTE | 2022-10-26 14:28 | PM.IMPN ---
Progress Note: A&P Assessment and Plan (1) Diabetes mellitus with hyperglycemia: Code(s): E11.65 - Type 2 diabetes mellitus with hyperglycemia Status: Acute (2) Urinary tract infection associated with catheterization of urinary tract: Code(s): T83.511A - Infection and inflammatory reaction due to indwelling urethral catheter, initial encounter; N39.0 - Urinary tract infection, site not specified Status: Acute Assessment and Plan: Patient remains on IV vanc cx only show mrsa in urine (blood cx neg) will repeat cx -pending, if cultures negative can switch to oral linezolid and patient can be discharged stop rocephin await sensitvities 10/26/2022 interval history: Patient presented with urinary retention is found to have UTI with MRSA being treated with vancomycin, seen by urologist on 10/21 patient had a voiding trial and was able to urinate independently, patient will require 7 dose of vancomycin which he will complete on October 26 today and will discharge patient tomorrow, however patient continue to have orthostatic hypotension when sitting, getting up and on toilet, added low does midodrine 2.5mg q8, today patient complains of pain in his tailbone been going on for some chest x-ray did not show any fracture, patient is encouraged to ambulate, will monitor and further recommendation to follow (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 (4) Leg wound, left: Qualifiers: Encounter type: subsequent encounter Qualified Code(s): S81.802D - Unspecified open wound, left lower leg, subsequent encounter Code(s): S81.802A - Unspecified open wound, left lower leg, initial encounter Status: Acute Assessment and Plan: Wound care consult has been placed. Continue with dressing changes. (5) Leg wound, right: Qualifiers: Encounter type: subsequent encounter Qualified Code(s): S81.801D - Unspecified open wound, right lower leg, subsequent encounter Code(s): S81.801A - Unspecified open wound, right lower leg, initial encounter Status: Acute Assessment and Plan: Wound care consult has been placed. Continue with dressing changes. no concern for infection (6) CKD (chronic kidney disease): Code(s): N18.9 - Chronic kidney disease, unspecified Status: Acute Assessment and Plan: The patient is at his baseline please continue to monitor. (7) Hypertension: Qualifiers: Hypertension type: primary hypertension Qualified Code(s): I10 - Essential (primary) hypertension Code(s): I10 - Essential (primary) hypertension Status: Chronic Assessment and Plan: The patient is on diltiazem for AFib as well as metoprolol (8) Diabetic neuropathy: Code(s): E11.40 - Type 2 diabetes mellitus with diabetic neuropathy, unspecified Status: Acute Assessment and Plan: Continue with lidocaine patches (9) Congestive heart failure: Code(s): I50.9 - Heart failure, unspecified Status: Acute Assessment and Plan: Continue with metoprolol and Demadex Patient's last echo was on 10/03/2022 1. Complete two-dimensional, color flow and Doppler transthoracic echocardiogram is performed. ? 2. Left ventricular chamber dimension is mildly enlarged. ? 3. There is mildly increased left ventricular wall thickness. ? 4. Left ventricular ejection fraction appears normal, however, difficult to estimate LVEF due to very poor visualization of endocardial borders. Definity to improve visualization of LV not administered as patient refused. ? 5. Right ventricular chamber dimension is normal. ? 6. Left atrial chamber dimension is moderately enlarged. ? 7. Right atrial chamber dimension is moderately enlarged. Continue to monitor volume status (10
[2022-10-26] MEDS: WARFARIN (*PBKC) 5 MG TABLET PO (17:02)
[2022-10-26 17:12] LABS: Glucose Point of Care 335 mg/dl (65-105)
[2022-10-26 20:45] LABS: Glucose Point of Care 291 mg/dl (65-105)
[2022-10-26] MEDS: INSULIN GLARGINE (*BKC) 100 UNITS/ML 50 UNITS SUB-Q (20:46)
[2022-10-27] MEDS: dilTIAZem HCL 60 MG TABLET PO ×3 (00:19→12:20)
[2022-10-27 00:22] VITALS: BP 129/71; PULSE 68; RESP 16; TEMP 36.7; O2SAT 99
[2022-10-27 04:00] VITALS: BP 130/68; PULSE 68; RESP 18; TEMP 36.7; O2SAT 100
[2022-10-27 06:27] LABS: Hematocrit 34.3 % (42.0-52.0); Hemoglobin 10.1 g/dL (14.0-18.0); Mean Corpuscular HGB Conc 29.4 g/dl (32-36); Mean Corpuscular Hemoglobin 24.9 pg (26-34); Mean Corpuscular Volume 84.7 fl (80-100); Mean Platelet Volume 10.1 fl (7.4-10.4); Platelet Count Result 275 k/mm3 (150-375); Red Blood Count 4.05 M/mm3 (4.6-6.20); White Blood Count 10.8 K/mm3 (4.5-10.0)
[2022-10-27 06:35] LABS: Anion Gap 7 mmol/L (8-16); Blood Urea Nitrogen 51 mg/dL (9-20); Carbon Dioxide 27 mmol/L (22-30); Chloride 104 mmol/L (98-107); Estimated CRCL calculation 33 ml/min; Estimated Glomerular Filt Rate 27; Glucose 91 mg/dL (65-110); Potassium 3.9 mmol/L (3.4-5.0); Sodium 138 mmol/L (137-145)
[2022-10-27 06:36] LABS: INR 2.4; Prothrombin Time 25.6 Seconds (11.1-14.7)
--- NOTE | 2022-10-27 08:14 | PM.DS ---
DS: Admitting Diagnosis Discharge Date 10/27/2022 Admitting Diagnosis High blood sugar DS: Discharge Diagnosis Discharge Diagnosis (1) Diabetes mellitus with hyperglycemia: Code(s): E11.65 - Type 2 diabetes mellitus with hyperglycemia Status: Acute (2) Urinary tract infection associated with catheterization of urinary tract: Code(s): T83.511A - Infection and inflammatory reaction due to indwelling urethral catheter, initial encounter; N39.0 - Urinary tract infection, site not specified Status: Acute Assessment and Plan: Patient remains on IV vanc cx only show mrsa in urine (blood cx neg) will repeat cx -pending, if cultures negative can switch to oral linezolid and patient can be discharged stop rocephin await sensitvities 10/26/2022 interval history: Patient presented with urinary retention is found to have UTI with MRSA being treated with vancomycin, seen by urologist on 10/21 patient had a voiding trial and was able to urinate independently, patient will require 7 dose of vancomycin which he will complete on October 26 today and will discharge patient tomorrow, however patient continue to have orthostatic hypotension when sitting, getting up and on toilet, added low does midodrine 2.5mg q8, today patient complains of pain in his tailbone been going on for some chest x-ray did not show any fracture, patient is encouraged to ambulate, will monitor and further recommendation to follow (3) half-way (current) use of anticoagulants: Code(s): Z79.01 - terminal superintendent (current) use of anticoagulants Status: Acute Assessment and Plan: Daily PT INR The patient is on Coumadin due to his AFib. (4) Leg wound, left: Qualifiers: Encounter type: subsequent encounter Qualified Code(s): S81.802D - Unspecified open wound, left lower leg, subsequent encounter Code(s): S81.802A - Unspecified open wound, left lower leg, initial encounter Status: Acute Assessment and Plan: Wound care consult has been placed. Continue with dressing changes. (5) Leg wound, right: Qualifiers: Encounter type: subsequent encounter Qualified Code(s): S81.801D - Unspecified open wound, right lower leg, subsequent encounter Code(s): S81.801A - Unspecified open wound, right lower leg, initial encounter Status: Acute Assessment and Plan: Wound care consult has been placed. Continue with dressing changes. no concern for infection (6) CKD (chronic kidney disease): Code(s): N18.9 - Chronic kidney disease, unspecified Status: Acute Assessment and Plan: The patient is at his baseline please continue to monitor. (7) Hypertension: Qualifiers: Hypertension type: primary hypertension Qualified Code(s): I10 - Essential (primary) hypertension Code(s): I10 - Essential (primary) hypertension Status: Chronic Assessment and Plan: The patient is on diltiazem for AFib as well as metoprolol (8) Diabetic neuropathy: Code(s): E11.40 - Type 2 diabetes mellitus with diabetic neuropathy, unspecified Status: Acute Assessment and Plan: Continue with lidocaine patches (9) Congestive heart failure: Code(s): I50.9 - Heart failure, unspecified Status: Acute Assessment and Plan: Continue with metoprolol and Demadex Patient's last echo was on 10/03/2022 1. Complete two-dimensional, color flow and Doppler transthoracic echocardiogram is performed. ? 2. Left ventricular chamber dimension is mildly enlarged. ? 3. There is mildly increased left ventricular wall thickness. ? 4. Left ventricular ejection fraction appears normal, however, difficult to estimate LVEF due to very poor visualization of endocardial borders. Definity to improve visualization of LV not administered as patient refused. ? 5. Right ventricular chamber dimension is normal. ? 6. Left atrial chamber dimension is moderately enlarged. ? 7
[2022-10-27 08:18] LABS: Glucose Point of Care 84 mg/dl (65-105)
[2022-10-27 09:52] VITALS: PULSE 68
[2022-10-27] MEDS: MIDODRINE HCL 2.5 MG TABLET PO ×2 (09:52→12:20)
[2022-10-27] MEDS: METOPROLOL SUCCINATE EXT REL 25 MG TABCR PO (09:52)
[2022-10-27] MEDS: GABAPENTIN 300 MG CAPSULE PO ×2 (09:52→12:20)
[2022-10-27] MEDS: TORSEMIDE 10 MG TABLET PO (09:52)
[2022-10-27] MEDS: DOCUSATE SODIUM 100 MG CAPSULE PO (09:52)
[2022-10-27] MEDS: ASPIRIN 81 MG ENTERIC TABLET PO (09:52)
[2022-10-27] MEDS: SILVERGEL (ELTA) 45 ML 1 APPLIC TOPICAL (09:53)
[2022-10-27] MEDS: TOLNAFTATE 1% POWDER 45 GM BTL 1 APPLIC TOPICAL (09:53)
[2022-10-27 12:12] LABS: Glucose Point of Care 120 mg/dl (65-105)
[2022-10-27 12:43] LABS: EDCOVIDSCREEN Negative (Negative)
--- NOTE | 2022-10-28 02:07 | PC.NURSE ---
PT CALLED REGARDING DISCHARGE MEDS. EXPRESS CONCERNS HE STATES RN AT FACILITY IS ATTEMPTING TO GIVE PATIENT DILANTIN WHICH HE WAS NEVER ON. PROVES TO BE A MISCOMMUNICATION BETWEEN HIM AND RN. SITUTATION RESOLVED
== END 2022-10-27 13:30 | DRG 699 ==
LOC: ANHED 19:24 → ANHICU 20:35 → ANH3MED 23:48
PROVIDERS: Chiropractor; Nurse Practitioner; Admitting Provider Internal Medicine; Emergency Provider Emergency Medicine; PCP Internal Medicine; Visit Provider Family Medicine
DX: T83.511A Infection and inflammatory reaction due to indwelling urethral catheter, initial encounter (principal); I13.0 Hypertensive heart and chronic kidney disease with heart failure and stage 1 through stage 4 chronic kidney disease, or unspecified chronic kidney disease; N39.0 Urinary tract infection, site not specified; B95.62 Methicillin resistant Staphylococcus aureus infection as the cause of diseases classified elsewhere; E11.65 Type 2 diabetes mellitus with hyperglycemia; S81.802A Unspecified open wound, left lower leg, initial encounter; S81.801A Unspecified open wound, right lower leg, initial encounter; N18.9 Chronic kidney disease, unspecified; E11.40 Type 2 diabetes mellitus with diabetic neuropathy, unspecified; I50.9 Heart failure, unspecified; Z79.01 Long term (current) use of anticoagulants; M10.9 Gout, unspecified; I48.0 Paroxysmal atrial fibrillation
CPT/HCPCS: 36415; 71045; 72220; 80048; 80053; 80202; 81001; 82010; 82565; 82803; 82947; 82948; 83036; 83605; 83735; 84100; 84443; 85025; 85027; 85610; 87040; 87077; 87081; 87086; 87088; 87186; 87426; 96360; 96361; 97110; 97161; 97166; 97530; 97535; 99283; 99285; A9270; C9803; J0696; J1815; J3370; J7030

== ENCOUNTER 2023-06-26 10:41 | Inpatient (IN) | payer MEDICARE, SELFPAY ==
[2023-06-26] VITALS (37 sets, daily range): BP systolic 132–185; BP diastolic 65–154; PULSE 64–99; RESP 12–38; TEMP 36.2–36.7; O2SAT 82–96; BMI 45.9
--- NOTE | ~2023-06-26 | XR_ITS ---
XR chest 1V portable 06/26/2023 14:49 Indication: Weakness. Edema. Procedure: AP portable chest Comparison: Comparison to multiple prior studies sequentially, with oldest reviewed study dated 03/08. Findings: Moderate cardiomegaly. No focal air space disease, pulmonary edema, pleural effusion or irina pected pneumothorax. No acute osseous abnormality. Impression: 1: Cardiomegaly. Reviewed, dictated and finalized at location B. L ROASTER Impression: 1: Cardiomegaly.
--- NOTE | ~2023-06-26 | US_ITS ---
US scrotum doppler INDICATION: Testicular swelling with pain TECHNIQUE: Testicular sonogram utilizing grayscale and color Doppler FINDINGS: The testes are normal in size and appearance. No focal lesions are seen. The right testes measures 3.6 x 2.3 x 2.6 cm centimeters, and the left testis measures 3.8 x 2.7 x 2.3 cm cm. There is normal vascular flow to both testes. There is diffuse scrotal wall thickening. Consider cellulitis i n the appropriate clinical setting. The right and left epididymides appear normal. There are large bilateral hydroceles. IMPRESSION: 1. Large bilateral hydroceles. 2: Diffuse abnormal scrotal wall thickening, suspicious for cellulitis. Reviewed, dictated and finalized at location B. EASTERN ARCHAEOLOGY LECTURER
--- NOTE | ~2023-06-26 | CT_ITS ---
EXAMINATION: CT pelvis w con DATE: 06/26/2023 17:33 INDICATION: Scrotal pain, swelling and erythema TECHNIQUE: Computed tomography (CT) of the pelvis was performed with 100 mL Omnipaque-350 intravenous contrast. Additional sagittal and coronal reconstructions were performed. Automated exposure control and iterative reconstruction technique were employed. The dose-length product was 1439.14 mGy-cm. COMPARISON: Scrotal ultrasound dated 06/26/[address] abdomen and pelvis dated 10/04/2022 FINDINGS: The visualized inferior portions of the bilateral kidneys are normal. Visualized portion of the bowel s are normal with no obstruction. Prostatomegaly. Bladder is normal. There is severe scrotal edema wi th less severe subcutaneous edema at the bilateral proximal thighs and suprapubic fat pad. Small left and moderate-sized right hydroceles. No evident soft tissue gas. There is mild likely reactive bilat eral inguinal and iliac chain lymphadenopathy. Moderate to severe lumbar spondylosis. Moderate bilate ral hip osteoarthritis. IMPRESSION: 1. Small right and moderate-sized left hydroceles with prominent surrounding nonspecific scrotal mari[place] a. 2. Likely reactive mild bilateral inguinal and iliac chain lymphadenopathy. Reviewed, dictated and finalized at location A. FICIAL STONE SETTER IMPRESSION: 1. Small right and moderate-sized left hydroceles with prominent surrounding no nspecific scrotal edema. 2. Likely reactive mild bilateral inguinal and iliac chain lymphadenopathy.
--- NOTE | 2023-06-26 11:57 | PC.NURSE ---
Patient approached the intake desk stating he needed to use the restroom. This RN wheeled patient in his wheelchair to the restroom, but patient was unable to get up on his own. I told him I could get some assistance to get him out of the wheelchair and he states its too late, im already peeing in my pants. This is ridiculous. I apologized to patient and informed him that I could get assistance getting him up and he proceeded to ask for a trash can to urinate in. I informed patient that we do not have a trash can he is able to urinate in in the waiting room. he then asked for a pad and proceeded to put the pad in his pants while in the waiting room. This RN offered to take patient to the family services area for privacy, but he did not respond and continued to place the pad in the front of his pants.
--- NOTE | 2023-06-26 13:03 | PC.NURSE ---
patient incontinent of urine in waiting room
--- NOTE | 2023-06-26 14:43 | ED.GENADULT ---
HPI - General Adult General Chief complaint: Unspecified <Michelle Baltazar PA-C - Last Filed: 06/26/23 18:30> Stated complaint: Scrotal Swelling/Pain <Michelle Baltazar PA-C - Last Filed: 06/26/23 18:30> Time Seen by Provider: 06/26/23 13:14 <Michelle Baltazar PA-C - Last Filed: 06/26/23 18:30> Source: patient <LAMAR Will Last Filed: 06/26/23 18:30> Mode of arrival: EMS <LAMAR Will Last Filed: 06/26/23 18:30> Limitations: no limitations <LAMAR Will Last Filed: 06/26/23 18:30> History of Present Illness HPI narrative: This is a 78-year-old male that presents to the emergency department for scrotal swelling. Worsening over the last week. Associated with pain and redness. Also reports wounds on his bilateral lower extremities due to his lymphedema. Reports a wound and on his left buttock as well. Denies fevers, chest pain, or shortness of breath. <Michelle Baltazar PA-C - Last Filed: 06/26/23 18:30> Related Data Home medications: Home Medications Medication Instructions Recorded Confirmed alprazolam 0.25 mg tablet 0.25 mg PO TID PRN Anxiety 10/30/20 11/12/22 docusate sodium 100 mg capsule 100 mg PO DAILY 10/30/20 11/12/22 (Colace) gabapentin 300 mg capsule 300 mg PO TID 10/30/20 11/12/22 insulin glargine U-300 conc 300 50 unit subcut HS 10/30/20 11/12/22 unit/mL (1.5 mL) subcutaneous pen (Toujeo SoloStar U-300 Insulin) torsemide 10 mg tablet 20 mg PO DAILY 10/30/20 11/12/22 diltiazem HCl 60 mg tablet 60 mg PO Q6H 03/08/22 11/12/22 warfarin 2 mg tablet 4 mg PO DAILY 10/02/22 11/12/22 ammonium lactate 12 % topical cream 1 applic topical DAILY PRN Dry Skin 10/18/22 11/12/22 aspirin 81 mg tablet,delayed 81 mg PO DAILY 10/18/22 11/12/22 release collagenase clostridium histo. 250 1 applic topical Q3D 10/18/22 11/12/22 unit/gram topical ointment (Santyl) cyclobenzaprine 10 mg tablet 10 mg PO TID PRN Muscle Spasm 10/18/22 11/12/22 gentamicin 0.1 % topical cream 1 applic topical TID 10/18/22 11/12/22 guaifenesin 600 mg tablet, 600 mg PO BID PRN Congestion 10/18/22 11/12/22 extended release 12 hr (Mucus Relief ER) lidocaine 5 % topical patch 1 patch topical DAILY 10/18/22 11/12/22 nystatin 100,000 unit/gram topical 1 applic topical BID PRN Rash 10/18/22 11/12/22 ointment nystatin 100,000 unit/gram topical 1 applic topical BID 10/18/22 11/12/22 powder polyethylene glycol 3350 17 gram 17 g PO DAILY PRN Constipation 10/18/22 11/12/22 oral powder packet (ClearLax) <Michelle Baltazar PA-C - Last Filed: 06/26/23 18:30> Allergies/adverse reactions: Allergies Allergy/AdvReac Type Severity Reaction Status Date / Time No Known Allergies Allergy Verified 03/08/22 13:09 <Michelle Baltazar PA-C - Last Filed: 06/26/23 18:30> Review of Systems Review of Systems: CONSTITUTIONAL: Denies fever CARDIOVASCULAR: Reports edema. Denies chest pain RESPIRATORY: Denies dyspnea. SKIN: Reports wounds <Michelle Baltazar PA-C - Last Filed: 06/26/23 18:30> All systems reviewed & are unremarkable except as noted in HPI and below <Michelle Baltazar PA-C - Last Filed: 06/26/23 18:30> [facility] Past Medical History Medical History: Medical History Chronic kidney disease COVID-19 Diabetic neuropathy Diastolic congestive heart failure Femoral artery pseudo-aneurysm, left Generalized anxiety disorder Gout Hypertension Insulin dependent type 2 diabetes mellitus correction (current) use of anticoagulants Lymphedema Morbid obesity Osteomyelitis Paroxysmal atrial fibrillation Peripheral vascular disease <Michelle Baltazar PA-C - Last Filed: 06/26/23 18:30> Surgical History Surgical History: Surgical History History of knee surgery <Michelle Baltazar PA-C - Last Filed: 06/26/23 18:30> Family History Family History
[2023-06-26 15:16] LABS: Basophils Absolute Auto 0.1 K/mm3 (0.0-0.1); Basophils Percent Auto 0.6 % (0.2-1.2); Eosinophils Absolute Auto 0.4 K/mm3 (0-0.3); Eosinophils Percent Auto 3.8 % (0-4.4); Hematocrit 34.7 % (42.0-52.0); Hemoglobin 10.6 g/dL (14.0-18.0); Immature Granulocyte Absolute 0.03 K/mm3 (0.00-0.031); Immature Granulocyte Percent A 0.3 % (0-0.5); Lymphocytes Absolute Auto 1.02 K/mm3 (0.9-3.2); Lymphocytes Percent Auto 9.8 % (18.3-44.2); Mean Corpuscular HGB Conc 30.5 g/dl (32-36); Mean Corpuscular Hemoglobin 30.5 pg (26-34); Mean Platelet Volume 10.7 fl (7.4-10.4); Monocytes Absolute Auto 0.6 K/mm3 (0.1-0.6); Monocytes Percent Auto 5.7 % (2.6-8.5); Neutrophils Absolute Auto 8.3 K/mm3 (1.3-6.7); Neutrophils Percent Auto 79.8 % (45.5-73.1); Platelet Count Result 228 k/mm3 (150-375); Red Blood Count 3.47 M/mm3 (4.6-6.20); Red Cell Distribution Width 18.6 % (11.5-14.5); White Blood Count 10.4 K/mm3 (4.5-10.0)
[2023-06-26 15:30] LABS: Alanine Aminotransferase 19 U/L (6-50); Albumin Level 3.9 g/dL (3.5-5.1); Alkaline Phosphatase 98 U/L (38-126); Anion Gap 10 mmol/L (8-16); Aspartate Amino Transferase 25 U/L (17-59); Blood Urea Nitrogen 38 mg/dL (9-20); Calcium 9.1 mg/dL (8.4-10.2); Carbon Dioxide 24 mmol/L (22-30); Chloride 109 mmol/L (98-107); Estimated Glomerular Filt Rate 33; Glucose 156 mg/dL (65-110); Lactic Acid Reflex 1.7 mmol/L (0.7-2.0); Potassium 4.5 mmol/L (3.4-5.0); Sodium 143 mmol/L (137-145)
[2023-06-26 15:49] LABS: Appearance Urine Clear (Clear); Bacteria Urine None Seen /hpf; Bilirubin Urine Negative (Negative); Blood Urine 3+ (Negative); Color Urine Yellow (Yellow); Glucose Urine UA Negative (Negative); Ketones Urine Negative (Negative); Leukocyte Esterase Ur Negative LEU/UL (Negative); Need Manual Microscopic Reviewed; Nitrate Urine Negative (Negative); Non Pathogenic Casts 0-2; Protein Urine 3+ mg/dL (Negative); RBC Urine >100 /hpf (0-2); Specific Grav Ur 1.011 (1.001-1.035); Squamous Epithelial Cell Urine None seen /hpf (Few); Urobilinogen Urine 0.2 mg/dL (<2.0); WBC Urine 0-5 /hpf
[2023-06-26 15:51] LABS: Add Urine Microscopic? YES
[2023-06-26 15:56] LABS: Erythrocyte Sedimentation Rate 110 mm/hr (0-20)
[2023-06-26] MEDS: CEFEPIME 2 GM/NS 50 ML 2 GM/50 ML BAG IVPB (18:04)
[2023-06-26] MEDS: metroNIDAZOLE 500 MG/ISO 100ML 500 MG/100 ML BAG 100 MG IVPB (18:05)
[2023-06-26] MEDS: VANCOMYCIN 1,250 MG/NS 250 ML 1,250 MG/250 ML BAG 125 MG IVPB (21:20)
--- NOTE | 2023-06-26 22:50 | ADMGEN ---
This patient, Carlos Mustafa, was admitted to 2 Medical Room 251-01. Patient/family oriented to hospital policies and general routines including ID bracelet, bed and alarms, visiting hours, pain management, procedures, bathroom and other care routines, personal items, smoking policy, room service/diet, and visiting hours. Information on how to activate the Rapid Response Team has been discussed. Patient/Family are encouraged to report perceived risks to care and to ask questions if they do not understand what they are told or what they should do.
--- NOTE | 2023-06-26 22:55 | PM.IMHP ---
H&P: HPI History of Present Illness Date/Time: 06/26/23 22:55 Chief Complaint: Patient sent to the ER for evaluation from assisted living facility with scrotal swelling Narrative: He is a very intelligent 78 years old white male who has chronic lymphedema causing chronic wounds on the lower legs and feet. He is complaining of scrotal swelling for the last week, which has gotten worse over the last couple of days. He got concerned and was sent to the ER for evaluation. Workup was done which showed hydrocele as well as scrotal cellulitis on evaluation by the ER physician. Patient started on IV antibiotics, Urology consulted and he is being admitted for medical management and close monitoring. 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 He is and has no children. 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 Code status: Full code. Smoking status: Former smoker Tobacco type: cigarettes Alcohol intake: never Substance use: current Substance use type: painkillers Lack of Transportation: No Lack of Food: Never True Current Housing: I Have Housing Concerned About Future Housing: No Difficulty Paying Gas/Electric Bills: No Difficulty Paying for Meds: No Currently Unemployed: No Education: Bachelor's Degree Difficulty w/ Childcare or Family Care: No Living arrangements: care home Additional living arrangements comments: Assisted living at [facility]. 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 Spiritual care concerns: No Meds Home Medications and Allergies Home Medications Medication Instructions Recorded Confirmed Type alprazolam 0.25 mg tablet 0.25 mg PO TID PRN Anxiety 10/30/20 06/26/23 History docusate sodium 100 mg capsule 100 mg PO DAILY PRN Constipation 10/30/20 06/26/23 History (Colace) gabapentin 300 mg capsule 300 mg PO TID 10/30/20 06/26/23 History insulin glargine U-300 conc 300 15 unit subcut HS 10/30/20 06/26/23 History unit/mL (1.5 mL) subcutaneous pen (Tou[employer] SoloStar U-300 Insulin) torsemide 10 mg tablet 10 mg PO DAILY 10/30/20 06/26/23 History metoprolol succinate 25 mg 25 mg PO DAILY #30 tabs 06/25/21 06/26/23 Rx tablet,extended release 24 hr (Toprol XL) polyethylene glycol 3350 17 gram 17 g PO DAILY PRN Constipation 10/18/22 06/26/23 History oral powder packet (ClearLax) hydrocodone 5 mg-acetaminophen 325 1 tablet PO TID PRN Pain #90 tabs 10/29/22 06/26/23 Rx mg tablet apixaban 5 mg tablet (Eliquis) 5 mg PO BID 06/26/23 06/26/23 History diltiazem HCl 240 mg 240 mg PO DAILY 06/26/23 06/26/23 History capsule,extended release 24 hr dulaglutide 1.5 mg/0.5 mL 1.75 mg subcut WEEKLY 06/26/23 06/26/23 History subcutaneous pen injector (Trulicity) ferrous sulfate 325 mg (65 mg 325 mg PO DAILY 06/26/23 06/26/23 His
[2023-06-27] VITALS (9 sets, daily range): BP systolic 129–157; BP diastolic 57–69; PULSE 63–85; RESP 18–19; TEMP 36.3–36.8; O2SAT 90–94
[2023-06-27] MEDS: VANCOMYCIN 1,250 MG/NS 250 ML 1,250 MG/250 ML BAG 125 MG IVPB (00:02)
[2023-06-27] MEDS: INSULIN GLARGINE (*BKC) 100 UNITS/ML 15 UNITS SUB-Q ×2 (00:03→20:18)
[2023-06-27] MEDS: APIXABAN 5 MG TABLET PO ×3 (00:03→20:18)
[2023-06-27] MEDS: SALINE 0.65% NAS SOLN 44 ML BTL 1 SPRAY NASAL ×2 (02:04→20:19)
[2023-06-27] MEDS: HYDROcodone/acetaminophen (*CRX) 5-325 MG TABLET 1 TAB PO ×3 (02:05→20:19)
[2023-06-27] MEDS: metroNIDAZOLE 500 MG/ISO 100ML 500 MG/100 ML BAG 100 MG IVPB ×3 (02:13→16:02)
[2023-06-27] MEDS: CEFEPIME 1 GM/NS 50 ML 1 GM/50 ML BAG IVPB ×2 (05:27→17:30)
[2023-06-27 05:59] LABS: Basophils Absolute Auto 0.1 K/mm3 (0.0-0.1); Basophils Percent Auto 0.6 % (0.2-1.2); Eosinophils Absolute Auto 0.5 K/mm3 (0-0.3); Eosinophils Percent Auto 5.7 % (0-4.4); Hematocrit 30.4 % (42.0-52.0); Hemoglobin 9.3 g/dL (14.0-18.0); Immature Granulocyte Absolute 0.03 K/mm3 (0.00-0.031); Immature Granulocyte Percent A 0.3 % (0-0.5); Lymphocytes Absolute Auto 1.04 K/mm3 (0.9-3.2); Lymphocytes Percent Auto 11.2 % (18.3-44.2); Mean Corpuscular HGB Conc 30.6 g/dl (32-36); Mean Corpuscular Hemoglobin 30.3 pg (26-34); Mean Platelet Volume 10.4 fl (7.4-10.4); Monocytes Absolute Auto 0.9 K/mm3 (0.1-0.6); Monocytes Percent Auto 10.2 % (2.6-8.5); Neutrophils Absolute Auto 6.7 K/mm3 (1.3-6.7); Platelet Count Result 209 k/mm3 (150-375); Red Blood Count 3.07 M/mm3 (4.6-6.20); Red Cell Distribution Width 18.2 % (11.5-14.5); White Blood Count 9.3 K/mm3 (4.5-10.0)
--- NOTE | 2023-06-27 07:27 | PM.IMPN ---
Progress Note: A&P Assessment and Plan (1) Cellulitis of scrotum: Code(s): N49.2 - Inflammatory disorders of scrotum Status: Acute Assessment and Plan: Swelling with leukocytosis of 10.4, afebrile US with large bilateral hydroceles and diffuse abnormal scrotal wall thickening, suspicious for cellulitis Started on IV antibiotics cefepime, Flagyl, and vancomycin Consult placed to urology, appreciate rec's 06/27: [place] erythema, slight warmth, and severe tenderness to scrotum. Elevated on a towel. Voiding without difficulty. (2) Diabetes mellitus with hyperglycemia: Code(s): E11.65 - Type 2 diabetes mellitus with hyperglycemia Status: Acute Assessment and Plan: Hemoglobin A1C 6.0% Lantus and SSI with accu check ac/hs and hypoglycemia protocol (3) Atrial fibrillation: Code(s): I48.91 - Unspecified atrial fibrillation Status: Acute Assessment and Plan: Rate controlled on metoprolol and diltiazem with Eliquis for anticoagulation. On telemetry. 06/27: Reports recent shortness of breath with exertion over the last month. Last ECHO was almost a year ago. Will repeat. (4) Hypertension: Qualifiers: Hypertension type: primary hypertension Qualified Code(s): I10 - Essential (primary) hypertension Code(s): I10 - Essential (primary) hypertension Status: Chronic Assessment and Plan: Home regimen of torsemide and metoprolol 150's-140's SBP continue home agents (5) Congestive heart failure: Code(s): I50.9 - Heart failure, unspecified Status: Acute Assessment and Plan: Last ECHO from 09/2022 daily weights strict I&O's. Summary ? 1. Complete two-dimensional, color flow and Doppler transthoracic echocardiogram is performed. ? 2. Left ventricular chamber dimension is mildly enlarged. ? 3. There is mildly increased left ventricular wall thickness. ? 4. Left ventricular ejection fraction appears normal, however, difficult to estimate LVEF due to very poor visualization of endocardial borders. Definity to improve visualization of LV not administered as patient refused. ? 5. Right ventricular chamber dimension is normal. ? 6. Left atrial chamber dimension is moderately enlarged. ? 7. Right atrial chamber dimension is moderately enlarged. (6) Venous insufficiency: Code(s): I87.2 - Venous insufficiency (chronic) (peripheral) Status: Acute Assessment and Plan: Chronic bilateral leg and foot ulcers consult placed to wound care and rec's are appreciated Follows with [facility] and was being seen at [facility] wound clinic. 06/27-small opening to the lateral side of his right heel from a skin tear. Heels are moist and boggy. Will have nursing place mepilex and encourage offloading. Plan Feeding:DM diet Analgesia:tylenol Thromboembolic prophylaxis: eliquis Ulcer prophylaxis: na, has prn maalox for reflux Glycemic control: SSI, lantus, accu check with hypoglycemia protocol Bowel regimen: n/a, reports loose stool on Thursday Lines: PIV Antibiotics: Cefepime, vanco, flagyl Disposition: back to assisted living with home health. Subjective Date/time seen: 06/27/23 07:27 Interval history: HPI obtained from the chart, He is a very intelligent 78 years old white male who has chronic lymphedema causing chronic wounds on the lower legs and feet.? He is complaining of scrotal swelling for the last week, which has gotten worse over the last couple of days.? He got concerned and was sent to the ER for evaluation.? Workup was done which showed hydrocele as well as scrotal cellulitis on evaluation by the ER physician.? Patient started on IV antibiotics, Urology consulted and he is being admitted for medical management and close monitoring. 06/27: Mr. Mustafa is seen resting in bed and does not appear in acute distress. He tells me that he is here for scrotal swelling that start
[2023-06-27 08:13] LABS: Anion Gap 7 mmol/L (8-16); Blood Urea Nitrogen 37 mg/dL (9-20); Calcium 8.7 mg/dL (8.4-10.2); Carbon Dioxide 24 mmol/L (22-30); Chloride 112 mmol/L (98-107); Estimated CRCL calculation 46 ml/min; Estimated Glomerular Filt Rate 37; Glucose 129 mg/dL (65-110); Magnesium 2.1 mg/dL (1.6-2.3); Potassium 4.4 mmol/L (3.4-5.0); Sodium 143 mmol/L (137-145)
[2023-06-27] MEDS: dilTIAZem HCL CD 240 MG CAP.24HR PO (08:38)
[2023-06-27] MEDS: TORSEMIDE 10 MG TABLET PO (08:38)
[2023-06-27] MEDS: GABAPENTIN 300 MG CAPSULE PO ×3 (08:38→16:02)
[2023-06-27] MEDS: FERROUS SULFATE 325 MG TABLET DR PO (08:38)
[2023-06-27] MEDS: METOPROLOL SUCCINATE EXT REL 25 MG TABCR PO (08:38)
[2023-06-27 08:50] LABS: Glucose Point of Care 111 mg/dl (65-105)
--- NOTE | 2023-06-27 11:05 | WPDURCON ---
Assessment and Plan Assessment and plan (1) Cellulitis of scrotum: Code(s): N49.2 - Inflammatory disorders of scrotum Status: Acute Assessment and Plan: Agree with broad spectrum antibiotics, taper as condition improves. Serial examinations, contact social worker delinquency prevention if examination worsens. Urology will follow. (2) Scrotal edema: Code(s): N50.89 - Other specified disorders of the male genital organs Status: Acute Assessment and Plan: Scrotal elevation with a rolled up hand towel as tolerated. (3) Hydrocele in adult: Code(s): N43.3 - Hydrocele, unspecified Status: Acute Assessment and Plan: Observe, recommend against intervention at this time. Patient agrees. Urology Consult Note HPI Date Seen: 06/27/23 Requesting Physician: Giovanny Mayen MD Primary Care Provider: Brice Reyes, Consult Narrative Narrative: Carlos Mustafa is a 78 year old male who presents to the [place] ER for scrotal swelling for the past week. He has a history of chronic lymphedema with wounds and reports he is healing a wound on his glute caused by sliding in his wheel chair. He reports about a week ago he fell out of his WC and noticed that he developed scrotal swelling thereafter. In the ER he was found to have scrotal cellulitis and underwent scrotal US and then CT pelvis. The US and CT demonstrated finding consistent with bilateral hydrocele and cellulitis. He was started on broad spectrum antibiotics. No gas was noted on the CT. Review of Systems Constitutional: Constitutional: Denies body ache(s), Denies chills, Denies fatigue and Denies weakness ENT: Reports system reviewed and no additional complaints, except as documented Cardiovascular: Cardiovascular: Reports as per HPI Respiratory: Respiratory: Denies no additional respiratory complaints, Denies chest congestion and Denies hemoptysis Gastrointestinal: Gastrointestinal: Denies no additional gastrointestinal complaints and Denies abdominal pain Genitourinary: Genitourinary: Reports as per HPI, Denies flank pain, Denies urinary frequency and Denies urinary hesitancy Musculoskeletal: Musculoskeletal: Denies no additional musculoskeletal complaints Integumentary/Breasts: Skin/Breast: Denies system reviewed and no additional complaints, except as docu Neurologic: Denies system reviewed and no additional complaints, except as documented Psychiatric: Psychiatric: Denies no additional psychiatric complaints PMFSH Past Medical History Medical History Chronic kidney disease COVID-19 Diabetic neuropathy Diastolic congestive heart failure Femoral artery pseudo-aneurysm, left Generalized anxiety disorder Gout Hypertension Insulin dependent type 2 diabetes mellitus FPC (current) use of anticoagulants Lymphedema Morbid obesity Osteomyelitis Paroxysmal atrial fibrillation Peripheral vascular disease Surgical History Surgical History History of knee surgery Family History Family History Mother Diabetes mellitus Mother Kidney failure Sibling Carcinoma of colon Social History Social History Social History: He resides at [facility]. He is and has no children. 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 Code status: Full code. Smoking status: Never smoker Tobacco type: cigarettes Alcohol intake: former Substance use: never Substance use type: painkillers Lack of Transportation: No Lack of Food: Never True Current Housing: I Have Housing Concerned About Future Housing: No Difficulty Paying Gas/Electric Bills: No Difficulty Paying for Meds: No Currently Unemployed: No Education: Bachelor's Degree D
[2023-06-27 12:29] LABS: Glucose Point of Care 109 mg/dl (65-105)
[2023-06-27 13:29] LABS: CRP 2.1 mg/dL (<1.0)
[2023-06-27 13:36] LABS: NT Pro B Type Natriuretic Pept 7680 pg/mL (19.9-100)
[2023-06-27 17:21] LABS: Glucose Point of Care 125 mg/dl (65-105)
[2023-06-27 21:36] LABS: Glucose Point of Care 167 mg/dl (65-105)
[2023-06-28] VITALS (7 sets, daily range): BP systolic 134–154; BP diastolic 65–80; PULSE 68–84; RESP 15–20; TEMP 36.1–36.9; O2SAT 90–95
[2023-06-28] MEDS: metroNIDAZOLE 500 MG/ISO 100ML 500 MG/100 ML BAG 100 MG IVPB ×2 (00:56→08:13)
[2023-06-28 05:15] LABS: Basophils Percent Auto 0.3 % (0.2-1.2); Eosinophils Absolute Auto 0.6 K/mm3 (0-0.3); Hematocrit 33.5 % (42.0-52.0); Hemoglobin 9.9 g/dL (14.0-18.0); Immature Granulocyte Absolute 0.03 K/mm3 (0.00-0.031); Immature Granulocyte Percent A 0.3 % (0-0.5); Lymphocytes Absolute Auto 0.79 K/mm3 (0.9-3.2); Lymphocytes Percent Auto 8.8 % (18.3-44.2); Mean Corpuscular HGB Conc 29.6 g/dl (32-36); Mean Corpuscular Hemoglobin 29.9 pg (26-34); Mean Corpuscular Volume 101.2 fl (80-100); Monocytes Percent Auto 10.5 % (2.6-8.5); Neutrophils Absolute Auto 6.6 K/mm3 (1.3-6.7); Neutrophils Percent Auto 73.1 % (45.5-73.1); Platelet Count Result 203 k/mm3 (150-375); Red Blood Count 3.31 M/mm3 (4.6-6.20); Red Cell Distribution Width 18.5 % (11.5-14.5)
[2023-06-28] MEDS: CEFEPIME 1 GM/NS 50 ML 1 GM/50 ML BAG IVPB (05:37)
[2023-06-28 05:38] LABS: Anion Gap 9 mmol/L (8-16); Blood Urea Nitrogen 37 mg/dL (9-20); Calcium 8.3 mg/dL (8.4-10.2); Carbon Dioxide 23 mmol/L (22-30); Chloride 110 mmol/L (98-107); Estimated CRCL calculation 39 ml/min; Estimated Glomerular Filt Rate 31; Glucose 138 mg/dL (65-110); Potassium 4.4 mmol/L (3.4-5.0); Sodium 142 mmol/L (137-145)
[2023-06-28 05:47] LABS: Platelet Estimate Adequate (Adequate)
[2023-06-28 05:48] LABS: Anisocytosis 1+ (NORMAL); Hypochromasia 1+ (NORMAL); Schistocytes Rare (NORMAL)
--- NOTE | 2023-06-28 07:16 | PM.IMPN ---
Progress Note: A&P Assessment and Plan (1) Cellulitis of scrotum: Code(s): N49.2 - Inflammatory disorders of scrotum Status: Acute Assessment and Plan: Swelling with leukocytosis of 10.4, afebrile US with large bilateral hydroceles and diffuse abnormal scrotal wall thickening, suspicious for cellulitis Started on IV antibiotics cefepime, Flagyl, and vancomycin Consult placed to urology, appreciate rec's 06/27: [place] erythema, slight warmth, and severe tenderness to scrotum. Elevated on a towel. Voiding without difficulty. 06/28: Great improvement to scrotal swelling, erythema, and pain. De-escalate antibiotics to oral agents. (2) Diabetes mellitus with hyperglycemia: Code(s): E11.65 - Type 2 diabetes mellitus with hyperglycemia Status: Acute Assessment and Plan: Hemoglobin A1C 6.0% Lantus and SSI with accu check ac/hs and hypoglycemia protocol 06/28: Blood glucose has been reviewed and are with in desired range (3) Atrial fibrillation: Code(s): I48.91 - Unspecified atrial fibrillation Status: Acute Assessment and Plan: Rate controlled on metoprolol and diltiazem with Eliquis for anticoagulation. On telemetry. 06/27: Reports recent shortness of breath with exertion over the last month. Last ECHO was almost a year ago. Will repeat. 06/28: ECHO pending (4) Hypertension: Qualifiers: Hypertension type: primary hypertension Qualified Code(s): I10 - Essential (primary) hypertension Code(s): I10 - Essential (primary) hypertension Status: Chronic Assessment and Plan: Home regimen of torsemide and metoprolol 150's-140's SBP continue home agents 06/28: Blood pressures reviewed, stable. (5) Congestive heart failure: Code(s): I50.9 - Heart failure, unspecified Status: Acute Assessment and Plan: Last ECHO from 09/2022 daily weights strict I&O's. Will repeat ECHO 09/2022 Summary ? 1. Complete two-dimensional, color flow and Doppler transthoracic echocardiogram is performed. ? 2. Left ventricular chamber dimension is mildly enlarged. ? 3. There is mildly increased left ventricular wall thickness. ? 4. Left ventricular ejection fraction appears normal, however, difficult to estimate LVEF due to very poor visualization of endocardial borders. Definity to improve visualization of LV not administered as patient refused. ? 5. Right ventricular chamber dimension is normal. ? 6. Left atrial chamber dimension is moderately enlarged. ? 7. Right atrial chamber dimension is moderately enlarged. (6) Venous insufficiency: Code(s): I87.2 - Venous insufficiency (chronic) (peripheral) Status: Acute Assessment and Plan: Chronic bilateral leg and foot ulcers consult placed to wound care and rec's are appreciated Follows with [facility] and was being seen at [facility] wound clinic. 06/27-small opening to the lateral side of his right heel from a skin tear. Heels are moist and boggy. Will have nursing place mepilex and encourage offloading. Wound consult has been sent, rec's appreciated. (7) CKD (chronic kidney disease): Code(s): N18.9 - Chronic kidney disease, unspecified Status: Acute Assessment and Plan: Baseline Cr seems to range 1.9-2.1 Cr 06/28 is 2.1 May need to stop torsemide if Cr continues to elevate. Currently need diuretic therapy for scrotal swelling. 06/28: Cr still at baseline 2.0 Plan Feeding:DM diet Analgesia:tylenol Thromboembolic prophylaxis: eliquis Ulcer prophylaxis: na, has prn maalox for reflux Glycemic control: SSI, lantus, accu check with hypoglycemia protocol Bowel regimen: n/a, reports loose stool on Thursday Lines: PIV Antibiotics: Cefepime, vanco, flagyl Disposition: back to assisted living with home health. Subjective Date/time seen: 06/28/23 07:16 Interval history: HPI obtained from the chart,
[2023-06-28 07:38] LABS: Glucose Point of Care 137 mg/dl (65-105)
[2023-06-28] MEDS: METOPROLOL SUCCINATE EXT REL 25 MG TABCR PO (08:13)
[2023-06-28] MEDS: FERROUS SULFATE 325 MG TABLET DR PO (08:13)
[2023-06-28] MEDS: GABAPENTIN 300 MG CAPSULE PO ×3 (08:13→16:45)
[2023-06-28] MEDS: TORSEMIDE 10 MG TABLET PO (08:13)
[2023-06-28] MEDS: APIXABAN 5 MG TABLET PO ×2 (08:13→21:04)
[2023-06-28] MEDS: dilTIAZem HCL CD 240 MG CAP.24HR PO (08:14)
--- NOTE | 2023-06-28 08:50 | WPDUROPN2 ---
Progress Note: A&P Assessment and Plan (1) Cellulitis of scrotum: Code(s): N49.2 - Inflammatory disorders of scrotum Status: Acute Assessment and Plan: Agree with antibiotics, consider trialing PO alternatives per hospitalist preference. Subjective Subjective Date/Time Seen: 06/28/23 08:50 Interval history: RENETTA, VSS, reports improvement in scrotal pain. Exam Narrative: NAD, A&Ox3 RRR eWOB S/NT/ND, obese Scrotum with lesser degree of erythema which is diffuse, decreased tenderness to palpation, no crepitus/fluctuance/drainage. Objective Data Vital Signs Vital Signs: Vital Signs - 24 hr 06/27/23 12:00 06/27/23 12:25 06/27/23 16:24 Temperature 97.3 F L 97.4 F L Pulse Rate 78 80 63 Respiratory Rate 18 18 Blood Pressure 146/66 H 131/59 L Pulse Oximetry 93 94 Oxygen Delivery 06/27/23 16:00 06/27/23 20:00 06/27/23 20:00 Temperature Pulse Rate 68 85 63 Respiratory Rate 18 Blood Pressure Pulse Oximetry 94 Oxygen Delivery Room Air 06/27/23 20:00 06/28/23 00:00 06/28/23 00:00 Temperature 98.3 F 98.3 F Pulse Rate 80 68 71 Respiratory Rate 19 15 Blood Pressure 157/69 H 134/80 Pulse Oximetry 90 90 Oxygen Delivery 06/28/23 04:00 06/28/23 04:00 06/28/23 08:00 Temperature 98.5 F 97.5 F L Pulse Rate 72 74 76 Respiratory Rate 19 16 Blood Pressure 154/76 H 140/65 Pulse Oximetry 90 92 Oxygen Delivery 06/28/23 08:13 Temperature Pulse Rate 76 Respiratory Rate Blood Pressure Pulse Oximetry Oxygen Delivery Intake/Output Intake/Output: Intake & Output 06/25/23 06/26/23 06/27/23 06/28/23 23:59 23:59 23:59 23:59 Intake Total 400 1810 900 Output Total 870 500 Balance 400 940 400 Meds/Results Medications: Active Medications Generic Name Dose Route Start Last Admin Trade Name Freq PRN Reason Stop Dose Admin Acetaminophen 650 mg 06/26/23 23:15 Acetaminophen 325 Mg Tablet PO Q4H PRN Mild Pain (1-3) or Fever Hydrocodone Bitart/Acetaminophen 1 tab 06/26/23 23:12 06/27/23 20:19 Hydrocodone/Acetaminophen (*Crx) 5-325 Mg Tablet PO 1 tab TID PRN Administration Pain Rated 4-6 Al Hydrox/Mg Hydrox/Simethicone 30 ml 06/26/23 23:15 Mag Hydrox/Al Hydrox/Simeth 30 Ml Udc PO QID PRN Dyspepsia Alprazolam 0.25 mg 06/26/23 23:12 Alprazolam (*Crx) 0.25 Mg Tablet PO TID PRN Anxiety Apixaban 5 mg 06/26/23 23:35 06/28/23 08:13 Apixaban 5 Mg Tablet PO 5 mg Q12HR OTTO Administration Dextrose 12.5 gm 06/26/23 23:15 Dextrose 50% 25 Gm/50 Ml Syringe IV PUSH PRN PRN Hypoglycemia Protocol Diltiazem HCl 240 mg 06/27/23 09:00 06/28/23 08:14 Diltiazem Hcl Cd 240 Mg Cap.24hr PO 240 mg DAILY OTTO Administration Docusate Sodium 100 mg 06/26/23 23:12 Docusate Sodium 100 Mg Capsule PO DAILY PRN Constipation Ferrous Sulfate 325 mg 06/27/23 08:00 06/28/23 08:13 Ferrous Sulfate [address] PO 325 mg DAILY@0800 OTTO Administration Gabapentin 300 mg 06/27/23 09:00 06/28/23 08:13 Gabapentin 300 Mg Capsule PO 300 mg TID OTTO Administration Glucagon 1 mg 06/26/23 23:15 Glucagon For Inj 1 Mg Vial IM PRN PRN Hypoglycemia Protocol Glucose 15 gm 06/26/23 23:15 Glucose Oral Gel 15 Gm Of Glucse In 37.5 Gm Tube PO PRN PRN Hypoglycemia Protocol Cefepime HCl 1 gm in 50 mls @ 100 mls/hr 06/27/23 06:00 06/28/23 06:07 Maxipime 1 Gm/Ns 50 Ml IVPB Infused Q12H OTTO Infusion Metronidazole 500 mg in 100 mls @ 100 mls/hr 06/27/23 00:00 06/28/23 08:13 Flagyl 500 Mg/Iso Soln 100 Ml IVPB 100 mls/hr Q8H OTTO Administration Dextrose 1,000 mls @ 100 mls/hr 06/26/23 23:15 Dextrose 5% 1,000 Ml IVPB PRN PRN Hypoglycemia Protocol Vancomycin HCl 1,500 mg in 500 mls @ 250 mls/hr 06/27/23 21:00 06/28/23 00:18 Vancomycin 1,500 Mg/D5w 500 Ml IVPB
[2023-06-28 11:42] LABS: Glucose Point of Care 143 mg/dl (65-105)
[2023-06-28 16:57] LABS: Glucose Point of Care 165 mg/dl (65-105)
[2023-06-28] MEDS: INSULIN GLARGINE (*BKC) 100 UNITS/ML 15 UNITS SUB-Q (21:04)
[2023-06-28] MEDS: HYDROcodone/acetaminophen (*CRX) 5-325 MG TABLET 1 TAB PO (21:07)
[2023-06-28 21:42] LABS: Glucose Point of Care 138 mg/dl (65-105)
[2023-06-29] VITALS (8 sets, daily range): BP systolic 140–177; BP diastolic 66–87; PULSE 71–110; RESP 16–20; TEMP 36–36.8; O2SAT 92–94
--- NOTE | 2023-06-29 | ECHO_ITS ---
Patient Info Name: Carlos Mustafa Age: 78 years : 1945 Gender: Male Ht: 70 in Wt: 320 lbs BSA: 2.75 m2 HR: 78 bpm BP: 172 / 68 mmHg Heart Rhythm: Atrial Fibrillation Technical Quality: Fair Exam Date: 06/29/2023 10:40 AM Exam Location: Echo Lab Patient Status: Inpatient Admit Date: 06/27/2023 Staff Ordering Physician: Ammy Lozano APRN Cable Stretcher And Tester: Abby Sinclair RDCS Attending Provider: Giovanny Mayen MD Referring Physician: Blake MIRELES; Exam Type: CA echo dop color flow w con Study Info Indications R06.02 - Shortness of breath Complete two-dimensional, color flow and Doppler transthoracic echocardiogram is performed with contrast to opacify the left ventricle and to improve the deliniation of the left ventricle endocardial borders. Contrast/Agitated Saline Contrast/Ag. Saline: Definity Amount: 2.00 ml Administered By: Abby Sinclair RDCS Existing IV Access: Yes IV Access Condition: patent with no signs of infiltration Summary 1. Technically difficult exam presumably related to obesity+. 2. Definity contrast utilized to improve study quality. 3. Normal left ventricular size and vigorous systolic contractility. 4. Biatrial dilation. 5. Sclerotic/not stenotic aortic valve. 6. Compared with examination from September of this year the findings are unchanged. 7. Atrial fibrillation. Left Ventricle Left ventricular chamber dimension is normal. Left ventricular systolic function is normal, estimated at 65-70%. The left ventricular diastolic function is indeterminate. Right Ventricle Right ventricular chamber dimension is normal. Left Atria Left atrial chamber dimension is moderately enlarged. Right Atria Right atrial chamber dimension is moderately enlarged. Aortic Valve The aortic valve is trileaflet. There is mild aortic valve sclerosis. Pulmonic Valve The pulmonic valve is not well visualized. Mitral Valve The mitral valve has normal leaflets. Tricuspid Valve The tricuspid valve leaflets are not well visualized. Pericardium/Pleural The pericardium appears normal. Aorta The aortic root size at the sinus of Valsalva is not well visualized. Left Ventricular Outflow Tract Name Value Normal LVOT 2D LVOT Diameter 1.95 cm LVOT Doppler LVOT Peak Gradient 4 mmHg LVOT Mean Gradient 2 mmHg LVOT VTI 23.18 cm LVOT VTI/AV VTI Ratio 0.76 LVOT Stroke Volume 69.39 ml LVOT CO 6.29 l/min LVOT CI 2.29 L/min/m2 Pulmonic Valve Name Value Normal RVOT Doppler RVOT Peak Gradient 4 mmHg PV Doppler PV Peak Gradient 4 mmHg Mitral Valve
[2023-06-29 06:13] LABS: Basophils Percent Auto 0.4 % (0.2-1.2); Eosinophils Absolute Auto 0.8 K/mm3 (0-0.3); Eosinophils Percent Auto 7.8 % (0-4.4); Hematocrit 34.2 % (42.0-52.0); Hemoglobin 10.2 g/dL (14.0-18.0); Immature Granulocyte Absolute 0.03 K/mm3 (0.00-0.031); Immature Granulocyte Percent A 0.3 % (0-0.5); Lymphocytes Absolute Auto 0.93 K/mm3 (0.9-3.2); Lymphocytes Percent Auto 9.7 % (18.3-44.2); Mean Corpuscular HGB Conc 29.8 g/dl (32-36); Mean Corpuscular Hemoglobin 30.1 pg (26-34); Mean Corpuscular Volume 100.9 fl (80-100); Monocytes Percent Auto 10.8 % (2.6-8.5); Neutrophils Absolute Auto 6.8 K/mm3 (1.3-6.7); Platelet Count Result 217 k/mm3 (150-375); Red Blood Count 3.39 M/mm3 (4.6-6.20); Red Cell Distribution Width 18.5 % (11.5-14.5); White Blood Count 9.6 K/mm3 (4.5-10.0)
[2023-06-29 06:39] LABS: Anion Gap 10 mmol/L (8-16); Blood Urea Nitrogen 39 mg/dL (9-20); Calcium 8.5 mg/dL (8.4-10.2); Carbon Dioxide 22 mmol/L (22-30); Chloride 111 mmol/L (98-107); Estimated CRCL calculation 39 ml/min; Estimated Glomerular Filt Rate 31; Glucose 131 mg/dL (65-110); Potassium 4.1 mmol/L (3.4-5.0); Sodium 143 mmol/L (137-145)
[2023-06-29 07:31] LABS: Anisocytosis 1+ (NORMAL); Hypochromasia 1+ (NORMAL); Platelet Estimate Adequate (Adequate); Schistocytes None Seen (NORMAL)
[2023-06-29] MEDS: GABAPENTIN 300 MG CAPSULE PO ×3 (08:32→17:35)
[2023-06-29] MEDS: METOPROLOL SUCCINATE EXT REL 25 MG TABCR PO (08:32)
[2023-06-29] MEDS: TORSEMIDE 10 MG TABLET PO (08:32)
[2023-06-29] MEDS: APIXABAN 5 MG TABLET PO ×2 (08:32→20:24)
[2023-06-29] MEDS: dilTIAZem HCL CD 240 MG CAP.24HR PO (08:32)
[2023-06-29] MEDS: SULFAMETHOXAZOLE/TRIMETHOPRIM 800/160 MG DS TABLET 1 TAB PO (08:33)
[2023-06-29] MEDS: HYDROcodone/acetaminophen (*CRX) 5-325 MG TABLET 1 TAB PO (08:33)
[2023-06-29] MEDS: FERROUS SULFATE 325 MG TABLET DR PO (08:33)
[2023-06-29 08:50] LABS: Glucose Point of Care 137 mg/dl (65-105)
[2023-06-29] MEDS: PERFLUTREN LIPID MICROSPHERES 1.5 ML VIAL DILUTED TO 10 ML TOTAL VOLUME IV PUSH (11:12)
--- NOTE | 2023-06-29 11:34 | PM.IMPN ---
Progress Note: A&P Assessment and Plan (1) Cellulitis of scrotum: Code(s): N49.2 - Inflammatory disorders of scrotum Status: Acute Assessment and Plan: Swelling with leukocytosis of 10.4, afebrile US with large bilateral hydroceles and diffuse abnormal scrotal wall thickening, suspicious for cellulitis Started on IV antibiotics cefepime, Flagyl, and vancomycin Consult placed to urology, appreciate rec's 06/27: [place] erythema, slight warmth, and severe tenderness to scrotum. Elevated on a towel. Voiding without difficulty. 06/28: Great improvement to scrotal swelling, erythema, and pain. De-escalate antibiotics to oral agents. 06/29: Significant improvement noted, wound care started treatment for yeast dermatitis. (2) Diabetes mellitus with hyperglycemia: Code(s): E11.65 - Type 2 diabetes mellitus with hyperglycemia Status: Acute Assessment and Plan: Hemoglobin A1C 6.0% Lantus and SSI with accu check ac/hs and hypoglycemia protocol 06/28: Blood glucose has been reviewed and are with in desired range 06/29: Blood sugars have been reviewed (3) Atrial fibrillation: Code(s): I48.91 - Unspecified atrial fibrillation Status: Acute Assessment and Plan: Rate controlled on metoprolol and diltiazem with Eliquis for anticoagulation. On telemetry. 06/27: Reports recent shortness of breath with exertion over the last month. Last ECHO was almost a year ago. Will repeat. 06/28: ECHO pending 06/29: Rate controlled atrial fibrillation. DC telemetry (4) Hypertension: Qualifiers: Hypertension type: primary hypertension Qualified Code(s): I10 - Essential (primary) hypertension Code(s): I10 - Essential (primary) hypertension Status: Chronic Assessment and Plan: Home regimen of torsemide and metoprolol 150's-140's SBP continue home agents 06/28: Blood pressures reviewed, stable. 06/29: Blood pressures reviewed, stable but elevated (5) Congestive heart failure: Code(s): I50.9 - Heart failure, unspecified Status: Acute Assessment and Plan: Last ECHO from 09/2022 daily weights strict I&O's. Will repeat ECHO 09/2022 Summary ? 1. Complete two-dimensional, color flow and Doppler transthoracic echocardiogram is performed. ? 2. Left ventricular chamber dimension is mildly enlarged. ? 3. There is mildly increased left ventricular wall thickness. ? 4. Left ventricular ejection fraction appears normal, however, difficult to estimate LVEF due to very poor visualization of endocardial borders. Definity to improve visualization of LV not administered as patient refused. ? 5. Right ventricular chamber dimension is normal. ? 6. Left atrial chamber dimension is moderately enlarged. ? 7. Right atrial chamber dimension is moderately enlarged. 06/29: Echo obtained but not yet read. (6) Venous insufficiency: Code(s): I87.2 - Venous insufficiency (chronic) (peripheral) Status: Acute Assessment and Plan: Chronic bilateral leg and foot ulcers consult placed to wound care and rec's are appreciated Follows with [facility] and was being seen at [facility] wound clinic. 06/27-small opening to the lateral side of his right heel from a skin tear. Heels are moist and boggy. Will have nursing place mepilex and encourage offloading. Wound consult has been sent, rec's appreciated. 06/29: Wound care consulted appreciate recommendations. (7) CKD (chronic kidney disease): Code(s): N18.9 - Chronic kidney disease, unspecified Status: Acute Assessment and Plan: Baseline Cr seems to range 1.9-2.1 Cr 06/28 is 2.1 May need to stop torsemide if Cr continues to elevate. Currently need diuretic therapy for scrotal swelling. 06/28: Cr still at baseline 2.0 06/29: Creatinine 2.1 BUN 39 estimated GFR 31 estimated creatinine clearance 39 Plan Feeding:DM diet Analgesia:tylenol Thromboemboli
--- NOTE | 2023-06-29 11:40 | WPDUROPN2 ---
Progress Note: A&P Assessment and Plan (1) Cellulitis of scrotum: Code(s): N49.2 - Inflammatory disorders of scrotum Status: Acute Assessment and Plan: Seems to be improving per patient. Transition to p.o. antibiotics (2) Magalis infection of genital region: Code(s): B37.49 - Other urogenital candidiasis Status: Acute Assessment and Plan: Nystatin topically Subjective Subjective Date/Time Seen: 06/29/23 11:40 Interval history: He states he is feeling improved. He denies fevers. He states swelling and discomfort has improved Exam Narrative: Scrotum slightly erythematous. Slightly swollen. No drainable fluid collection. No skin abnormalities or necrosis. Possible Magalis and area Objective Data Vital Signs Vital Signs: Vital Signs - 24 hr 06/28/23 12:00 06/28/23 12:00 06/28/23 16:00 Temperature 97.0 F L Pulse Rate 68 69 76 Respiratory Rate 16 Blood Pressure 138/70 Pulse Oximetry 95 Oxygen Delivery 06/28/23 16:00 06/28/23 20:00 06/28/23 20:00 Temperature 97.2 F L 97.4 F L Pulse Rate 84 83 83 Respiratory Rate 16 20 Blood Pressure 145/78 H 150/74 H Pulse Oximetry 90 94 Oxygen Delivery 06/29/23 00:00 06/29/23 00:00 06/29/23 02:57 Temperature 96.8 F L 97.1 F L Pulse Rate 83 86 80 Respiratory Rate 20 20 Blood Pressure 140/79 172/68 H Pulse Oximetry 93 92 Oxygen Delivery 06/29/23 04:00 06/29/23 07:58 06/29/23 08:28 Temperature Pulse Rate 78 101 H Respiratory Rate Blood Pressure 177/87 H Pulse Oximetry 94 Oxygen Delivery Room Air 06/29/23 08:32 06/29/23 09:51 06/29/23 08:30 Temperature Pulse Rate 101 H Respiratory Rate Blood Pressure Pulse Oximetry Oxygen Delivery Room Air Room Air 06/29/23 08:00 Temperature Pulse Rate 110 H Respiratory Rate Blood Pressure Pulse Oximetry Oxygen Delivery Intake/Output Intake/Output: Intake & Output 06/26/23 06/27/23 06/28/23 06/29/23 23:59 23:59 23:59 23:59 Intake Total 400 1810 1240 870 Output Total 870 1550 425 Balance 400 940 -310 445 Meds/Results Medications: Active Medications Generic Name Dose Route Start Last Admin Trade Name Freq PRN Reason Stop Dose Admin Acetaminophen 650 mg 06/26/23 23:15 Acetaminophen 325 Mg Tablet PO Q4H PRN Mild Pain (1-3) or Fever Hydrocodone Bitart/Acetaminophen 1 tab 06/26/23 23:12 12 08:33 Hydrocodone/Acetaminophen (*Crx) 5-325 Mg Tablet PO 1 tab TID PRN Administration Pain Rated 4-6 Al Hydrox/Mg Hydrox/Simethicone 30 ml 06/26/23 23:15 Mag Hydrox/Al Hydrox/Simeth 30 Ml Udc PO QID PRN Dyspepsia Alprazolam 0.25 mg 06/26/23 23:12 Alprazolam (*Crx) 0.25 Mg Tablet PO TID PRN Anxiety Apixaban 5 mg 06/26/23 23:35 06/29/23 08:32 Apixaban 5 Mg Tablet PO 5 mg Q12HR OTTO Administration Dextrose 12.5 gm 06/26/23 23:15 Dextrose 50% 25 Gm/50 Ml Syringe IV PUSH PRN PRN Hypoglycemia Protocol Diltiazem HCl 240 mg 06/27/23 09:00 06/29/23 08:32 Diltiazem Hcl Cd 240 Mg Cap.24hr PO 240 mg DAILY OTTO Administration Docusate Sodium 100 mg 06/26/23 23:12 Docusate Sodium 100 Mg Capsule PO DAILY PRN Constipation Ferrous Sulfate 325 mg 06/27/23 08:00 06/29/23 08:33 Ferrous Sulfate [address] PO 325 mg DAILY@0800 OTTO Administration Gabapentin 300 mg 06/27/23 09:00 06/29/23 08:32 Gabapentin 300 Mg Capsule PO 300 mg TID OTTO Administration Glucagon 1 mg 06/26/23 23:15 Glucagon For Inj 1 Mg Vial IM PRN PRN Hypoglycemia Protocol Glucose 15 gm 06/26/23 23:15 Glucose Oral Gel 15 Gm Of Glucse In 37.5 Gm Tube PO PRN PRN Hypoglycemia Protocol Dextrose 1,000 mls @ 100 mls/hr 06/26/23 23:15 Dextrose 5% 1,000 Ml IVPB PRN PRN Hypoglycemia Protocol Insulin Aspart 3 - 6 units 06/27/23 08:00
[2023-06-29 11:59] LABS: Glucose Point of Care 154 mg/dl (65-105)
--- NOTE | 2023-06-29 12:02 | IVDEFINITY ---
Prior to administration of IV Definity the patient was educated on the risks and benefits of the imaging enhancing agent including potential adverse side effects. The patient verbalized understanding. Allergies were verified. No exclusion criteria were identified and at least one of the following inclusion criteria were met: 1) physician request, 2) patient technically difficult to image (per the [place] [employer] guidelines of two or more segments not discernable within the apical view), or 3) questionable left ventricular function. ?
[2023-06-29 16:49] LABS: Glucose Point of Care 129 mg/dl (65-105)
[2023-06-29] MEDS: TOLNAFTATE 1% POWDER 45 GM BTL 1 APPLIC TOPICAL ×2 (17:41→20:25)
[2023-06-29] MEDS: LACTIC ACID 12% LOTION 225 BTL 1 APPLIC TOPICAL (17:42)
[2023-06-29] MEDS: NYSTATIN OINTMENT 15 GM TUBE 1 APPLIC TOPICAL (20:25)
[2023-06-29] MEDS: INSULIN GLARGINE (*BKC) 100 UNITS/ML 15 UNITS SUB-Q (20:28)
[2023-06-29 20:44] LABS: Glucose Point of Care 144 mg/dl (65-105)
[2023-06-30] VITALS: BP 135/64; PULSE 72; RESP 20; TEMP 36.4; O2SAT 92
[2023-06-30 00:11] LABS: Glucose Point of Care 115 mg/dl (65-105)
[2023-06-30 04:00] VITALS: BP 143/64; PULSE 78; RESP 20; TEMP 36.4; O2SAT 92
[2023-06-30 06:01] LABS: Basophils Absolute Auto 0.1 K/mm3 (0.0-0.1); Basophils Percent Auto 0.6 % (0.2-1.2); Eosinophils Absolute Auto 0.6 K/mm3 (0-0.3); Eosinophils Percent Auto 6.1 % (0-4.4); Hematocrit 35.1 % (42.0-52.0); Hemoglobin 10.5 g/dL (14.0-18.0); Immature Granulocyte Absolute 0.05 K/mm3 (0.00-0.031); Immature Granulocyte Percent A 0.5 % (0-0.5); Lymphocytes Percent Auto 9.9 % (18.3-44.2); Mean Corpuscular HGB Conc 29.9 g/dl (32-36); Mean Corpuscular Hemoglobin 30.3 pg (26-34); Mean Corpuscular Volume 101.4 fl (80-100); Mean Platelet Volume 10.6 fl (7.4-10.4); Monocytes Absolute Auto 0.9 K/mm3 (0.1-0.6); Monocytes Percent Auto 8.6 % (2.6-8.5); Neutrophils Absolute Auto 7.5 K/mm3 (1.3-6.7); Neutrophils Percent Auto 74.3 % (45.5-73.1); Platelet Count Result 225 k/mm3 (150-375); Red Blood Count 3.46 M/mm3 (4.6-6.20); Red Cell Distribution Width 18.6 % (11.5-14.5); White Blood Count 10.1 K/mm3 (4.5-10.0)
[2023-06-30 06:15] LABS: Anion Gap 10 mmol/L (8-16); Blood Urea Nitrogen 38 mg/dL (9-20); Calcium 8.4 mg/dL (8.4-10.2); Carbon Dioxide 23 mmol/L (22-30); Chloride 109 mmol/L (98-107); Estimated CRCL calculation 37 ml/min; Estimated Glomerular Filt Rate 29; Glucose 126 mg/dL (65-110); Potassium 4.3 mmol/L (3.4-5.0); Sodium 142 mmol/L (137-145)
[2023-06-30 08:22] LABS: Glucose Point of Care 114 mg/dl (65-105)
[2023-06-30 09:17] VITALS: BP 126/46; PULSE 76; RESP 16; TEMP 36.5; O2SAT 97
--- NOTE | 2023-06-30 09:21 | PM.DS ---
DS: Admitting Diagnosis Discharge Date 06/30/2023 Admitting Diagnosis Cellulitis of scrotum, diabetes mellitus with hyperglycemia, noncompliance with diabetes treatment, long-term current use of anticoagulants, sciatica, lumbar radiculopathy, left leg wound, atrial fibrillation, coronary artery disease, venous insufficiency, swelling of lower extremity, diabetic neuropathy, hypertension, congestive heart failure, chronic kidney disease, insulin-dependent type 2 diabetes mellitus, lymphedema, scrotal edema, chronic anemia, diastolic congestive heart failure DS: Discharge Diagnosis Discharge Diagnosis (1) Cellulitis of scrotum: Code(s): N49.2 - Inflammatory disorders of scrotum Status: Acute (2) Diabetes mellitus with hyperglycemia: Code(s): E11.65 - Type 2 diabetes mellitus with hyperglycemia Status: Acute (3) Atrial fibrillation: Code(s): I48.91 - Unspecified atrial fibrillation Status: Acute (4) Hypertension: Qualifiers: Hypertension type: primary hypertension Qualified Code(s): I10 - Essential (primary) hypertension Code(s): I10 - Essential (primary) hypertension Status: Chronic (5) Congestive heart failure: Qualifiers: Heart failure type: diastolic Heart failure chronicity: chronic Qualified Code(s): I50.32 - Chronic diastolic (congestive) heart failure Code(s): I50.9 - Heart failure, unspecified Status: Chronic (6) Venous insufficiency: Code(s): I87.2 - Venous insufficiency (chronic) (peripheral) Status: Acute (7) CKD (chronic kidney disease): Code(s): N18.9 - Chronic kidney disease, unspecified Status: Acute DS: Summary Hospital Course Reason for hospitalization: Patient was admitted for severe scrotal swelling and lower body wounds Hospital Course: HPI obtained from the chart, He is a very intelligent 78 years old white male who has chronic lymphedema causing chronic wounds on the lower legs and feet.? He is complaining of scrotal swelling for the last week, which has gotten worse over the last couple of days.? He got concerned and was sent to the ER for evaluation.? Workup was done which showed hydrocele as well as scrotal cellulitis on evaluation by the ER physician.? Patient started on IV antibiotics, Urology consulted and he is being admitted for medical management and close monitoring. 06/27: Mr. Mustafa is seen resting in bed and does not appear in acute distress. He tells me that he is here for scrotal swelling that started after a fall that occurred when transferring from his recliner to his wheelchair. He reports a sheering injury to his posterior left thigh and then new scrotal swelling. He also reports that in the last month or so he has been having some dyspnea with exertion which is new. Normally he can transfer from his wheelchair to toilet or recliner without feeling dyspneic. He mentions that he recently had a correction hospitalization at [facility] from 01/2023-04/2023 for IV antibiotics for BLE cellulitis and lymphedema. Today he reports swelling, erythema, and tenderness with manipulation of his scrotum. 06/28:? Patient has much improvement to his scrotal swelling and cellulitis.? Erythema has decreased and his pain is improved.? Will deescalate to oral antibiotics today.? Will order triad cream for his excoriation to left posterior thigh.? Still awaiting echocardiogram to be completed.? Anticipate he could likely discharge back to his assisted living tomorrow. 06/29:? Patient continuing to have improved scrotal swelling.? Wound Care has seen patient and is started treatment for yeast dermatitis.? Therapy recommending SNF.? Patient wanting to return to assisted living.? Echocardiogram has obtained but read. 06/30: Echocardiogram not significantly changed from prior. Thus, patient has chronic diastolic congestive failure. His scrotal swelling is improved significantly. He has been urinating without Barajas
[2023-06-30] MEDS: GABAPENTIN 300 MG CAPSULE PO ×2 (10:03→12:42)
[2023-06-30 10:04] VITALS: PULSE 78
[2023-06-30] MEDS: FERROUS SULFATE 325 MG TABLET DR PO (10:04)
[2023-06-30] MEDS: TORSEMIDE 10 MG TABLET PO (10:04)
[2023-06-30] MEDS: dilTIAZem HCL CD 240 MG CAP.24HR PO (10:04)
[2023-06-30] MEDS: METOPROLOL SUCCINATE EXT REL 25 MG TABCR PO (10:04)
[2023-06-30] MEDS: APIXABAN 5 MG TABLET PO (10:04)
[2023-06-30] MEDS: TOLNAFTATE 1% POWDER 45 GM BTL 1 APPLIC TOPICAL (10:05)
[2023-06-30] MEDS: NYSTATIN OINTMENT 15 GM TUBE 1 APPLIC TOPICAL (10:05)
[2023-06-30] MEDS: SULFAMETHOXAZOLE/TRIMETHOPRIM 800/160 MG DS TABLET 1 TAB PO (10:05)
[2023-06-30] MEDS: LACTIC ACID 12% LOTION 225 BTL 1 APPLIC TOPICAL (10:06)
[2023-06-30 12:01] LABS: Glucose Point of Care 135 mg/dl (65-105)
--- NOTE | 2023-06-30 13:03 | WPDUROPN2 ---
Progress Note: A&P Assessment and Plan (1) Cellulitis of scrotum: Code(s): N49.2 - Inflammatory disorders of scrotum Status: Acute Assessment and Plan: Appears to be improving. I have recommended scrotal elevation and ice pack when he goes home. I have also recommended to continue the oral antibiotics for another 14 days. Patient can follow up with Urology In the office in 2-3 weeks time. Subjective Subjective Date/Time Seen: 06/30/23 13:03 Principal diagnosis: Scrotal cellulitis Interval history: Patient had been seen by Dr. Hussein and Dr Tobias. This is my 1st meeting with him. He is stating that he is feeling better and is going to be discharged home today. Review of Systems Review of Systems: All systems reviewed & are unremarkable except as noted in HPI and below Exam Const: General: cooperative and comfortable Resp: Effort & Inspection: normal respiratory effort Cardio: Rate: regular rate : Scrotum: edematous Objective Data Vital Signs Vital Signs: Vital Signs - 24 hr 06/29/23 20:00 06/30/23 00:00 06/30/23 04:00 Temperature 36.8 C 36.4 C 36.4 C Pulse Rate 73 72 78 Respiratory Rate 20 20 20 Blood Pressure 148/66 H 135/64 143/64 H Pulse Oximetry 93 92 92 Oxygen Delivery 06/30/23 09:17 06/30/23 10:04 06/30/23 10:00 Temperature 36.5 C Pulse Rate 76 78 Respiratory Rate 16 Blood Pressure 126/46 L Pulse Oximetry 97 Oxygen Delivery Room Air Intake/Output Intake/Output: Intake & Output 06/27/23 06/28/23 06/29/23 06/30/23 23:59 23:59 23:59 23:59 Intake Total 1810 1240 1200 630 Output Total 870 1550 1975 150 Balance 622 -164 -215 864 Meds/Results Medications: Active Medications Generic Name Dose Route Start Last Admin Trade Name Freq PRN Reason Stop Dose Admin Acetaminophen 650 mg 06/26/23 23:15 Acetaminophen 325 Mg Tablet PO Q4H PRN Mild Pain (1-3) or Fever Hydrocodone Bitart/Acetaminophen 1 tab 06/26/23 23:12 06/29/23 08:33 Hydrocodone/Acetaminophen (*Crx) 5-325 Mg Tablet PO 1 tab TID PRN Administration Pain Rated 4-6 Al Hydrox/Mg Hydrox/Simethicone 30 ml 06/26/23 23:15 Mag Hydrox/Al Hydrox/Simeth 30 Ml Udc PO QID PRN Dyspepsia Alprazolam 0.25 mg 06/26/23 23:12 Alprazolam (*Crx) 0.25 Mg Tablet PO TID PRN Anxiety Apixaban 5 mg 06/26/23 23:35 06/30/23 10:04 Apixaban 5 Mg Tablet PO 5 mg Q12HR OTTO Administration Dextrose 12.5 gm 06/26/23 23:15 Dextrose 50% 25 Gm/50 Ml Syringe IV PUSH PRN PRN Hypoglycemia Protocol Diltiazem HCl 240 mg 06/27/23 09:00 06/30/23 10:04 Diltiazem Hcl Cd 240 Mg Cap.24hr PO 240 mg DAILY OTTO Administration Docusate Sodium 100 mg 06/26/23 23:12 Docusate Sodium 100 Mg Capsule PO DAILY PRN Constipation Ferrous Sulfate 325 mg 06/27/23 08:00 06/30/23 10:04 Ferrous Sulfate [address] PO 325 mg DAILY@0800 OTTO Administration Gabapentin 300 mg 06/27/23 09:00 06/30/23 12:42 Gabapentin 300 Mg Capsule PO 300 mg TID OTTO Administration Glucagon 1 mg 06/26/23 23:15 Glucagon For Inj 1 Mg Vial IM PRN PRN Hypoglycemia Protocol Glucose 15 gm 06/26/23 23:15 Glucose Oral Gel 15 Gm Of Glucse In 37.5 Gm Tube PO PRN PRN Hypoglycemia Protocol Dextrose 1,000 mls @ 100 mls/hr 06/26/23 23:15 Dextrose 5% 1,000 Ml IVPB PRN PRN Hypoglycemia Protocol Insulin Aspart 3 - 6 units 06/27/23 08:00 06/30/23 12:06 Insulin Aspart (*Bkc) 100 Units/Ml SUB-Q Not Given TIDWM [facility] Protocol Insulin Glargine 15 units 06/26/23 23:40 06/29/23 20:28 Insulin Glargine (*Bkc) 100 Units/Ml SUB-Q 15 units HS OTTO Administration Lactic Acid 1 applic 06/29/23 09:00 06/30/23 10:06 Lactic Acid 12% Lotion 225 Btl TOPICAL 1 applic QAM OTTO Administration Metoprolol Succinate 25 mg 06/27/23 09:00 06/30/23 10:04
--- NOTE | 2023-06-30 13:09 | P.CDI_ITS ---
CDI Query Clarification Request Documented history of CHF. CHF noted in the assessment and plan. Torsemide listed as a home medication. Elevated BNP on 06/27/23 lab work. Edema noted in the documentation. Please specify type and acuity of heart failure if known. * Acute * Chronic * Acute on Chronic * Unknown * Systolic * Diastolic * Combined Systolic and Diastolic * Unknown <Lamar Malone RN - Last Filed: 06/30/23 13:11> Clarified Diagnosis Clarified Diagnosis: chronic diastolic congestive heart failure <Denilson Bernal APRN - Last Filed: 06/30/23 13:32>
[2023-06-30 13:49] VITALS: BP 147/69; PULSE 68; RESP 16; TEMP 36.4; O2SAT 98
== END 2023-06-30 15:40 | disposition home health service (06) | DRG 728 ==
LOC: ANHED 18:23 → ANH2MED 23:42
PROVIDERS: Family Medicine; Nurse Practitioner Acute Care; Admitting Provider Hospitalist; Emergency Provider Physician Assistant; PCP Internal Medicine; Visit Provider Nurse Practitioner
DX: N49.2 Inflammatory disorders of scrotum (principal); I13.0 Hypertensive heart and chronic kidney disease with heart failure and stage 1 through stage 4 chronic kidney disease, or unspecified chronic kidney disease; I50.32 Chronic diastolic (congestive) heart failure; Z68.42 Body mass index [BMI] 45.0-49.9, adult; L97.419 Non-pressure chronic ulcer of right heel and midfoot with unspecified severity; L97.829 Non-pressure chronic ulcer of other part of left lower leg with unspecified severity; L97.819 Non-pressure chronic ulcer of other part of right lower leg with unspecified severity; I25.10 Atherosclerotic heart disease of native coronary artery without angina pectoris; I48.0 Paroxysmal atrial fibrillation; I87.2 Venous insufficiency (chronic) (peripheral); I89.0 Lymphedema, not elsewhere classified; N18.9 Chronic kidney disease, unspecified; E11.22 Type 2 diabetes mellitus with diabetic chronic kidney disease; E11.65 Type 2 diabetes mellitus with hyperglycemia; E11.40 Type 2 diabetes mellitus with diabetic neuropathy, unspecified; E66.01 Morbid (severe) obesity due to excess calories; E11.51 Type 2 diabetes mellitus with diabetic peripheral angiopathy without gangrene; L30.8 Other specified dermatitis; N43.3 Hydrocele, unspecified; M54.16 Radiculopathy, lumbar region; M54.30 Sciatica, unspecified side; M10.9 Gout, unspecified; F41.1 Generalized anxiety disorder; Z79.4 Long term (current) use of insulin; Z79.01 Long term (current) use of anticoagulants; Z79.82 Long term (current) use of aspirin
CPT/HCPCS: 36415; 71045; 72193; 76870; 80048; 80053; 81001; 82948; 83036; 83605; 83735; 83880; 84100; 85025; 85652; 86140; 87040; 93976; 96365; 96366; 96367; 97161; 97166; 99285; A9270; C8929; J0692; J1815; J1836; J3370; Q9957; Q9967

== ENCOUNTER 2023-09-07 01:28 | Inpatient (IN) | payer MEDICARE, SELFPAY ==
[2023-09-07] VITALS (16 sets, daily range): BP systolic 120–158; BP diastolic 66–98; PULSE 68–95; RESP 18–22; TEMP 36–37.1; O2SAT 92–100; BMI 48.2
--- NOTE | ~2023-09-07 | US_ITS ---
Limited Abdominal Sonogram: Real-time sonographic imaging of the right upper quadrant was performed. Clinical History: Ascites Findings: The liver appears normal with no evidence of mass lesion or bile duct dilatation. Main por elsi vein demonstrates normal direction of flow. The gallbladder is clearly visualized. The common nelly e duct measures 3 mm. The visualized pancreas, aorta, and IVC are unremarkable. Impression: Gallbladder not clearly visualized. Reviewed, dictated and finalized at location M. ER INFLATED BALL Impression: Gallbladder not clearly visualized.
--- NOTE | ~2023-09-07 | MR_ITS ---
EXAMINATION: MR brain/brain stem wo con DATE: 09/13/2023 11:29 INDICATION: [employer] TECHNIQUE: Magnetic resonance imaging (MRI) of the brain and brainstem was performed without intraven ous contrast. Sequences included sagittal and axial T1-weighted SE, axial diffusion-weighted FS SE, a xial T2*-weighted GRE, axial T2-weighted FLAIR, and axial T2-weighted FSE. Postcontrast axial and cor onal T1-weighted SE was obtained. Apparent diffusion coefficient (ADC) maps were created. COMPARISON: None. FINDINGS: There are no areas of restricted diffusion to suggest acute infarction. No intracranial hemorrhage or abnormal intracranial mass lesion. There are scattered areas of nonspecific increased T2-weighted si gnal intensity in the cerebral white matter, predominantly involving the deep and periventricular whi te matter which is within normal limits for age and likely sequela of chronic small vessel ischemic d isease. There are no intraparenchymal signal abnormalities seen on the other pulse sequences. Specifi c renal increased T1 signal in the basal ganglia or midbrain. Symmetric prominence of the sulci and v entricles consistent with mild to moderate age-appropriate diffuse cerebral volume loss. There are no abnormal extra-axial fluid collections. Flow voids are seen in the cerebral arteries on the T2-weigh manuel sequences consistent with their expected patency. Visualized orbits and soft tissues are unremark able. IMPRESSION: 1. No acute intracranial process. 2. Age-related changes including mild to moderate diffuse volume loss and mild scattered white matter hypoattenuation consistent with chronic small vessel ischemic disease. Reviewed, dictated and finalized at location A. TRACTOR MECHANIC IMPRESSION: 1. No acute intracranial process. 2. Age-related changes including mild to moderate diffuse volume loss and mild scattered white matter hypoattenuation consistent with chronic small vessel isc hemic disease.
--- NOTE | ~2023-09-07 | US_ITS ---
EXAMINATION: US renal BI DATE: 09/07/2023 13:38 INDICATION: Acute kidney injury. TECHNIQUE: Multiple ultrasound grayscale images of the kidneys were obtained. COMPARISON: Ultrasound kidneys 10/03/2022, CT abdomen and pelvis 10/04/2022 FINDINGS: Sensitivity is decreased by obesity. The right kidney measures 11.6 x 6.3 x 5.9 cm. The left kidney m easures 14.5 x 6.0 x 6.8 cm. The kidneys demonstrate normal parenchymal echogenicity. There is no hyd ronephrosis. The bladder is decompressed by a Barajas catheter. IMPRESSION: 1. Normal kidney sizes. No hydronephrosis. Reviewed, dictated and finalized at location A. ER PACKER
--- NOTE | ~2023-09-07 | XR_ITS ---
EXAMINATION: XR chest 1V portable DATE: 09/08/2023 12:56 INDICATION: Shortness of breath. TECHNIQUE: A single frontal view of the chest was obtained. COMPARISON: Chest one view 09/07/2023 FINDINGS: There is a moderate-sized right pleural effusion. There are airspace opacities in right mid and lower lung zones. No pneumothorax. Cardiomegaly is noted. IMPRESSION: 1. Stable moderate-sized right pleural effusion. 2. Airspace opacities in right mid and lower lung zones with slight improvement, consistent with atel ectasis versus pneumonia. 3. Cardiomegaly. Reviewed, dictated and finalized at location A. OR PENCIL ASSEMBLY MACHINE OPERATOR IMPRESSION: 1. Stable moderate-sized right pleural effusion. 2. Airspace opacities in right mid and lower lung zones with slight improvement , consistent with atelectasis versus pneumonia. 3. Cardiomegaly.
--- NOTE | ~2023-09-07 | CT_ITS ---
Non-contrast CT scan of the Pelvis Clinical indication: Scrotal swelling Technique: 2.5 mm axial scans were obtained through the pelvis without intravenous or oral contrast. Dose reduction technique was used on this scan by utilizing automated exposure control and iterative reconstruction technique. The dose-length product (DLP) was 1885.08 mGy-cm. COMPARISON: 06/26/2023 Findings: Urinary bladder collapsed around a Barajas catheter. No pelvic mass evident. Small amount of pelvic ascites present. Visualized bowel loops are unremarkable. Shotty bilateral inguinal lymph node s are present, similar to prior exam. There is marked edematous change of the soft tissues of the scr otum, nonspecific. There are more mild soft tissue anasarca changes in the remaining subcutaneous sof t tissues of the pelvis. Impression: Diffuse, prominent edematous change of the soft tissues of the scrotum, nonspecific. Additional mild soft tissue anasarca changes in the remainder of the subcutaneous fat in the pelvis. Small amount of pelvic ascites. Reviewed, dictated and finalized at location . INE SETTER AUTOMATIC Impression: Diffuse, prominent edematous change of the soft tissues of the scrotum, nonspec ific. Additional mild soft tissue anasarca changes in the remainder of the subc utaneous fat in the pelvis. Small amount of pelvic ascites.
--- NOTE | ~2023-09-07 | XR_ITS ---
Portable chest x-ray Comparison: 06/26/2023 Clinical History: Anasarca Findings: Small right pleural effusion present with hazy bilateral airspace disease, right worse ulysses n left. Cardiomediastinal silhouette is stable. Bones and soft tissues are unremarkable. Impression: Small right pleural effusion with probable mild to moderate asymmetric right-sided pulmonary edema pa ttern. Correlate clinically for infection. Reviewed, dictated and finalized at location . CUTTER Impression: Small right pleural effusion with probable mild to moderate asymmetric right-si ded pulmonary edema pattern. Correlate clinically for infection.
--- NOTE | ~2023-09-07 | XR_ITS ---
EXAMINATION: XR chest 1V portable DATE: 09/11/2023 10:33 INDICATION: Fluid overload TECHNIQUE: frontal view of the chest was obtained. COMPARISON: Chest radiograph dated 09/08/2023 FINDINGS: Diffuse hazy airspace opacities throughout the right lung with basilar predominance and with blunting of the costophrenic angle consistent with a likely moderate-sized posterior layering pleural effusio n with associated atelectasis and/or pneumonia. Mild streaky opacities at the left lung base consiste nt with mild atelectasis. No pneumothorax or definitive left pleural effusion. Cardiomegaly. IMPRESSION: 1. Moderate-sized right pleural effusion with associated atelectasis and/or pneumonia. 2. Mild streaky left basilar atelectasis. 3. Cardiomegaly. Reviewed, dictated and finalized at location A. CIPAL ARCHAEOLOGIST IMPRESSION: 1. Moderate-sized right pleural effusion with associated atelectasis and/or pne umonia. 2. Mild streaky left basilar atelectasis. 3. Cardiomegaly.
--- NOTE | 2023-09-07 01:40 | ECG_ITS ---
Measurements Intervals [place] Rate: 81 P: MD: 0 QRS: 47 QRSD: 90 T: -17 QT: 365 QTc: 426 Interpretive Statements ATRIAL FIBRILLATION LOW QRS VOLTAGE [QRS DEFLECTION < 0.5/1.0 mV IN LIMB/CHEST LEADS] ANTEROSEPTAL MYOCARDIAL INFARCTION , OF INDETERMINATE AGE [40+ ms Q WAVE IN V1-V4] ABNORMAL ECG COMPARED TO ECG 10/02/2022 12:34:18 NO SIGNIFICANT CHANGES Electronically Signed On 09-07-2023 8:42:14 [employer] by Aram Bonilla M.D.
--- NOTE | 2023-09-07 02:15 | ED.GENADULT ---
HPI - General Adult General Chief complaint: Urogenital-Male Stated complaint: swollen scrutum History of Present Illness HPI narrative: This is a 78-year-old male presenting with scrotal edema. Patient lives in assisted living. He says that he has been having worsening swelling of his legs and scrotum. Now his scrotum is painful. Says he has been unable to urinate since earlier today. Patient also notes that he is becoming more short of breath on exertion. Even small activities like transferring from his wheelchair to the toilet have left him winded. Related Data Home Medications Medication Instructions Recorded Confirmed alprazolam 0.25 mg tablet 0.25 mg PO TID PRN Anxiety 10/30/20 06/26/23 docusate sodium 100 mg capsule 100 mg PO DAILY PRN Constipation 10/30/20 06/26/23 (Colace) gabapentin 300 mg capsule 300 mg PO TID 10/30/20 06/26/23 insulin glargine U-300 conc 300 15 unit subcut HS 10/30/20 06/26/23 unit/mL (1.5 mL) subcutaneous pen (Toujeo SoloStar U-300 Insulin) torsemide 10 mg tablet 10 mg PO DAILY 10/30/20 06/26/23 polyethylene glycol 3350 17 gram 17 g PO DAILY PRN Constipation 10/18/22 06/26/23 oral powder packet (ClearLax) apixaban 5 mg tablet (Eliquis) 5 mg PO BID 06/26/23 06/26/23 diltiazem HCl 240 mg 240 mg PO DAILY 06/26/23 06/26/23 capsule,extended release 24 hr dulaglutide 1.5 mg/0.5 mL 1.75 mg subcut WEEKLY 06/26/23 06/26/23 subcutaneous pen injector (Trulicity) ferrous sulfate 325 mg (65 mg 325 mg PO DAILY 06/26/23 06/26/23 iron) tablet (Iron (ferrous sulfate)) insulin lispro 100 unit/mL 5 sliding scale dose subcut TIDWM 06/26/23 06/26/23 subcutaneous pen (Humalog KwikPen (U-100) Insulin) metoprolol succinate 25 mg 25 mg PO DAILY 06/26/23 06/26/23 tablet,extended release 24 hr salt moisturizing solution no1 1 spray intranasal PER PKG DIR PRN 06/26/23 06/26/23 Congestion Allergies Allergy/AdvReac Type Severity Reaction Status Date / Time clindamycin AdvReac Gastrointestinal Verified 06/26/23 23:30 Upset doxycycline AdvReac Gastrointestinal Verified 06/26/23 23:30 Upset PMFSH Past Medical History Medical History Chronic kidney disease COVID-19 Diabetic neuropathy Diastolic congestive heart failure Femoral artery pseudo-aneurysm, left Generalized anxiety disorder Gout Hypertension Insulin dependent type 2 diabetes mellitus senior living (current) use of anticoagulants Lymphedema Morbid obesity Osteomyelitis Paroxysmal atrial fibrillation Peripheral vascular disease Surgical History Surgical History History of knee surgery Family History Family History Mother Diabetes mellitus Mother Kidney failure Sibling Carcinoma of colon Social History Social History Social History: He resides at [facility]. He is and has no children. 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 Code status: Full code. Smoking status: Never smoker Tobacco type: cigarettes Alcohol intake: former Substance use: never Substance use type: painkillers Lack of Transportation: No Lack of Food: Never True Current Housing: I Have Housing Concerned About Future Housing: No Difficulty Paying Gas/Electric Bills: No Difficulty Paying for Meds: No Currently Unemployed: No Education: Bachelor's Degree Difficulty w/ Childcare or Family Care: No Living arrangements: assisted Additional living arrangements comments: Assisted living at [facility]. 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 Spiritual care concerns: No Exam Narrative: APPEARANCE: No apparent distress. Head: atraumatic. EYES: EOMI, NOSE: A
[2023-09-07] MEDS: FUROSEMIDE INJ 100 MG/10 ML VIAL 40 MG IV PUSH (02:32)
[2023-09-07 02:38] LABS: Basophils Absolute Auto 0.1 K/mm3 (0.0-0.1); Basophils Percent Auto 0.8 % (0.2-1.2); Eosinophils Absolute Auto 0.3 K/mm3 (0-0.3); Eosinophils Percent Auto 3.8 % (0-4.4); Hematocrit 43.7 % (42.0-52.0); Hemoglobin 12.8 g/dL (14.0-18.0); Immature Granulocyte Absolute 0.03 K/mm3 (0.00-0.031); Immature Granulocyte Percent A 0.4 % (0-0.5); Lymphocytes Absolute Auto 0.95 K/mm3 (0.9-3.2); Lymphocytes Percent Auto 12.4 % (18.3-44.2); Mean Corpuscular HGB Conc 29.3 g/dl (32-36); Mean Corpuscular Hemoglobin 30.5 pg (26-34); Mean Platelet Volume 10.7 fl (7.4-10.4); Monocytes Absolute Auto 0.9 K/mm3 (0.1-0.6); Monocytes Percent Auto 11.5 % (2.6-8.5); Neutrophils Absolute Auto 5.4 K/mm3 (1.3-6.7); Neutrophils Percent Auto 71.1 % (45.5-73.1); Platelet Count Result 198 k/mm3 (150-375); Red Cell Distribution Width 16.1 % (11.5-14.5); White Blood Count 7.6 K/mm3 (4.5-10.0)
[2023-09-07 02:50] LABS: Appearance Urine Clear (Clear); Bacteria Urine None Seen /hpf; Bilirubin Urine Negative (Negative); Blood Urine Trace (Negative); Color Urine Yellow (Yellow); Glucose Urine UA Negative (Negative); Ketones Urine Negative (Negative); Leukocyte Esterase Ur Trace LEU/UL (Negative); Mucus Urine Present /lpf; Need Manual Microscopic Reviewed; Nitrate Urine Negative (Negative); Protein Urine 2+ mg/dL (Negative); RBC Urine 0-2 /hpf (0-2); Specific Grav Ur 1.017 (1.001-1.035); Squamous Epithelial Cell Urine None seen /hpf (Few); Urobilinogen Urine 0.2 mg/dL (<2.0); WBC Clumps Urine Present /HPF
[2023-09-07 03:03] LABS: Alanine Aminotransferase 11 U/L (6-50); Albumin Level 3.9 g/dL (3.5-5.1); Alkaline Phosphatase 72 U/L (38-126); Anion Gap 7 mmol/L (8-16); Aspartate Amino Transferase 31 U/L (17-59); Bilirubin,Total 0.7 mg/dL (0.2-1.3); Blood Urea Nitrogen 65 mg/dL (9-20); Carbon Dioxide 26 mmol/L (22-30); Chloride 110 mmol/L (98-107); Estimated CRCL calculation 23 ml/min; Estimated Glomerular Filt Rate 20; Glucose 165 mg/dL (65-110); Potassium 5.4 mmol/L (3.4-5.0); Sodium 143 mmol/L (137-145)
[2023-09-07 03:05] LABS: Anisocytosis 1+ (NORMAL); Hypochromasia 1+ (NORMAL); Platelet Clumps Present; Platelet Estimate Adequate (Adequate); Schistocytes None Seen (NORMAL)
[2023-09-07 03:09] LABS: Add Urine Microscopic? YES
[2023-09-07 03:11] LABS: NT Pro B Type Natriuretic Pept 11200 pg/mL (19.9-100)
--- NOTE | 2023-09-07 04:54 | PM.IMHP ---
H&P: HPI History of Present Illness Date/Time: 09/07/23 04:54 Chief Complaint: Worsening leg swelling Narrative: This is a 78-year-old male with past medical history significant for type diabetes mellitus, chronic kidney disease, diabetic neuropathy, diastolic heart failure, generalized anxiety disorder, hypertension, morbid obesity, paroxysmal atrial fibrillation, peripheral vascular disease, venous stasis dermatitis, chronic lymphedema. Patient lives at assisted living facility presents to the emergency room due to worsening bilateral lower extremity edema scrotal edema shortness of breath at exertion, patient denies any cough denies chest pain denies palpitations denies lightheadedness or dizziness no syncope or near syncope. Has had these problem for several weeks now had a prior hospitalization recently in June. Preliminary workup was significant for brain natriuretic peptide of 11,000 chemistry panel showed a potassium of 5.4 creatinine of 3 BUN 65 urinalysis shows 6-10 WBCs. Review of Systems Review of Systems: Worsening bilateral lower extremity swelling scrotal swelling shortness of breath with minimal exertion Constitutional: Constitutional: Denies chills, Reports fatigue, Denies fever(s), Denies night sweats and Reports weakness Eyes: Eyes: Denies change in vision ENT: Denies dysphagia and Denies odynophagia Cardiovascular: Cardiovascular: Denies chest pain, Reports pedal edema, Reports edema, Reports leg edema, Denies radiating jaw, neck or arm pain, Denies palpitations and Reports dyspnea on exertion Respiratory: Respiratory: Denies chest congestion, Denies cough and Denies excessive phlegm production Gastrointestinal: Gastrointestinal: Denies abdominal pain, Denies dyspepsia, Denies heartburn, Denies diarrhea, Denies nausea and Denies vomiting Genitourinary: Genitourinary: Denies dysuria Musculoskeletal: Musculoskeletal: Reports muscle weakness Integumentary/Breasts: Skin/Breast: Reports erythema and Reports rash Neurologic: Denies focal weakness and Denies Sensory deficit (Neuro) Psychiatric: Psychiatric: Reports no additional psychiatric complaints and Reports as per HPI Endocrine: Endocrine: Denies cold intolerance, Denies flushing, Denies heat intolerance, Denies polyphagia, Denies polydipsia and Denies palpitations Hematologic/Lymphatic: Hematologic/Lymphatic: Reports no additional hematologic/lymphatic complaints and Reports as per HPI Allergic/Immunologic: Allergic/Immunologic: Reports no additional allergic/immunologic complaints and Reports as per HPI [facility] Past Medical History Medical History Chronic kidney disease COVID-19 Diabetic neuropathy Diastolic congestive heart failure Femoral artery pseudo-aneurysm, left Generalized anxiety disorder Gout Hypertension Insulin dependent type 2 diabetes mellitus snf (current) use of anticoagulants Lymphedema Morbid obesity Osteomyelitis Paroxysmal atrial fibrillation Peripheral vascular disease Surgical History Surgical History History of knee surgery Family History Family History Mother Diabetes mellitus Mother Kidney failure Sibling Carcinoma of colon Social History Social History Social History: He resides at [facility]. He is and has no children. 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 Code status: Full code. Smoking status: Never smoker Tobacco type: cigarettes Alcohol intake: former Substance use: never Substance use type: painkillers Lack of Transportation: No Lack of Food: Never True Current Housing: I Have Housing Concerned About Future Housing: No Difficulty Paying Gas/Electric Bills: No
[2023-09-07] MEDS: DEXTROSE 50% 25 GM/50 ML SYRINGE IV PUSH (05:50)
[2023-09-07] MEDS: SODIUM ZIRCONIUM CYCLOSILICATE 10 GM POWD.PACK PO (05:50)
[2023-09-07] MEDS: INSULIN HUMAN REGULAR (*BKC) 100 UNITS/ML 10 UNITS IV PUSH (05:51)
--- NOTE | 2023-09-07 06:05 | PC.NURSE ---
Called IMU to give report and was told RN has to call back for report.
[2023-09-07 06:56] LABS: Glucose Point of Care 138 mg/dl (65-105)
--- NOTE | 2023-09-07 06:56 | ADMGEN ---
This patient, Carlos Mustafa, was admitted to IMU Room 232-01. Patient/family oriented to hospital policies and general routines including ID bracelet, bed and alarms, visiting hours, pain management, procedures, bathroom and other care routines, personal items, smoking policy, room service/diet, and visiting hours. Information on how to activate the Rapid Response Team has been discussed. Patient/Family are encouraged to report perceived risks to care and to ask questions if they do not understand what they are told or what they should do.
[2023-09-07 07:29] LABS: Anion Gap 7 mmol/L (8-16); Blood Urea Nitrogen 64 mg/dL (9-20); Calcium 8.7 mg/dL (8.4-10.2); Carbon Dioxide 26 mmol/L (22-30); Chloride 110 mmol/L (98-107); Estimated CRCL calculation 31 ml/min; Estimated Glomerular Filt Rate 22; Glucose 91 mg/dL (65-110); Potassium 4.6 mmol/L (3.4-5.0); Sodium 143 mmol/L (137-145)
--- NOTE | 2023-09-07 08:02 | PM.IMPN ---
Progress Note: A&P Assessment and Plan (1) Congestive heart failure: Qualifiers: Heart failure chronicity: chronic Heart failure type: diastolic Qualified Code(s): I50.32 - Chronic diastolic (congestive) heart failure Code(s): I50.9 - Heart failure, unspecified Status: Chronic (2) Venous insufficiency: Code(s): I87.2 - Venous insufficiency (chronic) (peripheral) Status: Acute (3) Diastolic congestive heart failure: Code(s): I50.30 - Unspecified diastolic (congestive) heart failure Status: Acute (4) Atrial fibrillation: Code(s): I48.91 - Unspecified atrial fibrillation Status: Acute (5) Insulin dependent diabetes mellitus: Status: Acute (6) Diabetic neuropathy: Code(s): E11.40 - Type 2 diabetes mellitus with diabetic neuropathy, unspecified Status: Acute (7) Lymphedema: Code(s): I89.0 - Lymphedema, not elsewhere classified Status: Acute (8) Wound of lower extremity: Code(s): S81.809A - Unspecified open wound, unspecified lower leg, initial encounter Status: Acute (9) Acute kidney injury: Code(s): N17.9 - Acute kidney failure, unspecified Status: Acute (10) UTI (urinary tract infection): Code(s): N39.0 - Urinary tract infection, site not specified Status: Acute Plan The patient is a 78-year-old male with a past medical history significant for chronic kidney disease, diabetic neuropathy, diastolic heart failure, peripheral vascular disease, gout, history of left femoral artery pseudoaneurysm, insulin-dependent type 2 diabetes, morbid obesity, paroxysmal atrial fibrillation, lymphedema, and hypertension. 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 He lives in assisted living and has been experiencing progressively worsening bilateral leg swelling and pain associated with his SCROTAL EDEMA. The patient also reports an inability to urinate since earlier in the day and increased shortness of breath with minimal exertion, such as transferring from his wheelchair to the toilet. On evaluation in the emergency department, the patient was found to be hemodynamically stable. A Barajas catheter was placed without issue, and scrotal elevation was performed. Laboratory results revealed an elevated creatinine level of 3, with a mildly elevated potassium of 5.4. The patient was treated with insulin and dextrose for hyperkalemia and received furosemide (Lasix) diuresis. Urinalysis indicated a possible urinary tract infection with 6 to 10 white blood cells per high power field and the presence of white blood cell clumps; empiric antibiotic therapy was initiated. An echocardiogram from July 18 showed normal ejection fraction with biatrial dilation, and the patient had a significantly elevated B-type natriuretic peptide (BNP) level at 11,000. Chest X-ray demonstrated pulmonary vascular congestion and a right-sided pleural effusion. The patient was admitted for further evaluation and management of his acute kidney injury, presumed urinary tract infection, and heart failure exacerbation. He is on chronic anticoagulation with apixaban for atrial fibrillation and has chronic lymphedema of the bilateral lower extremities. Fluid management includes daily intake and output monitoring with fluid restriction. Nephrology was consulted, and a renal ultrasound was ordered. The patient's baseline creatinine levels range from the high 1s to low 2s, but are currently elevated at 3. His creatinine improved slightly to 2.8 after treatment. CONTINUE DIURESIS WITH 40 MG IV DAILY CLOSELY MONITORING HIS RENAL FUNCTION. A CT scan of the pelvis revealed diffuse prominent edematous changes of the soft tissue consistent with SCROTAL EDEMA, non-specific. ADDITIONAL soft tissue changes, and a small amount of pelvic ascites. The patient has been placed on Lasix for diuresis, and medication reconciliation was performed, with co
[2023-09-07 08:18] LABS: Glucose Point of Care 102 mg/dl (65-105)
[2023-09-07] MEDS: FUROSEMIDE INJ 40 MG/4 ML VIAL IV PUSH (08:45)
[2023-09-07 09:12] LABS: Glucose Point of Care 95 mg/dl (65-105)
[2023-09-07 11:27] LABS: Glucose Point of Care 111 mg/dl (65-105)
--- NOTE | 2023-09-07 13:43 | PCOTNOTE ---
Addendum entered by Gita Alba OT 09/07/23 13:46: RN also reports that patient is going to a SNF instead of back to assisted living due to non-compliance. Original Note: Attempted occupational therapy evaluation, pt just came back from ultrasound. Pt reports head and neck pain at a 5 and scrotal pain at a 5. Pt refuses to participate in evaluation at this time due to pain. Educated on importance of participating in therapy to keep up the strength and endurance he does have and how the recliner is better for digestive, respiratory, and overall strength than the bed. Pt verbalizes understanding but continues to refuse evaluation at this time. Reported pain level to RN. Following.
[2023-09-07] MEDS: GABAPENTIN 300 MG CAPSULE PO ×2 (14:15→17:36)
[2023-09-07 14:21] LABS: INR 1.6; Prothrombin Time 20.5 Seconds (11.1-14.7)
[2023-09-07] MEDS: dilTIAZem HCL CD 240 MG CAP.24HR PO (15:40)
[2023-09-07 16:34] LABS: Glucose Point of Care 146 mg/dl (65-105)
[2023-09-07] MEDS: INSULIN ASPART (*BKC) 100 UNITS/ML SUB-Q (17:37)
[2023-09-07] MEDS: APIXABAN 2.5 MG TABLET PO (20:43)
[2023-09-07] MEDS: HYDROcodone/acetaminophen (*CRX) 5-325 MG TABLET 1 TAB PO (20:45)
[2023-09-07 20:55] LABS: Glucose Point of Care 153 mg/dl (65-105)
[2023-09-07] MEDS: INSULIN GLARGINE (*BKC) 100 UNITS/ML 12 UNITS SUB-Q (21:00)
[2023-09-08] VITALS (13 sets, daily range): BP systolic 103–151; BP diastolic 51–83; PULSE 67–92; RESP 18–22; TEMP 36.3–36.7; O2SAT 96–100
[2023-09-08 07:43] LABS: Glucose Point of Care 128 mg/dl (65-105)
[2023-09-08] MEDS: INSULIN ASPART (*BKC) 100 UNITS/ML SUB-Q ×3 (08:40→18:19)
[2023-09-08] MEDS: GABAPENTIN 300 MG CAPSULE PO ×3 (08:41→18:19)
[2023-09-08] MEDS: METOPROLOL SUCCINATE EXT REL 25 MG TABCR PO (08:41)
[2023-09-08] MEDS: APIXABAN 2.5 MG TABLET PO ×2 (08:42→21:57)
[2023-09-08] MEDS: dilTIAZem HCL CD 240 MG CAP.24HR PO (08:42)
[2023-09-08] MEDS: LACTIC ACID 12% LOTION 225 BTL 1 APPLIC TOPICAL (08:44)
[2023-09-08] MEDS: FUROSEMIDE INJ 40 MG/4 ML VIAL IV PUSH (08:45)
[2023-09-08 09:25] LABS: Basophils Percent Auto 0.5 % (0.2-1.2); Eosinophils Absolute Auto 0.2 K/mm3 (0-0.3); Eosinophils Percent Auto 2.2 % (0-4.4); Hematocrit 43.1 % (42.0-52.0); Hemoglobin 12.7 g/dL (14.0-18.0); Immature Granulocyte Absolute 0.03 K/mm3 (0.00-0.031); Immature Granulocyte Percent A 0.4 % (0-0.5); Lymphocytes Absolute Auto 0.62 K/mm3 (0.9-3.2); Lymphocytes Percent Auto 8.1 % (18.3-44.2); Mean Corpuscular HGB Conc 29.5 g/dl (32-36); Mean Corpuscular Hemoglobin 30.5 pg (26-34); Mean Corpuscular Volume 103.6 fl (80-100); Mean Platelet Volume 10.8 fl (7.4-10.4); Monocytes Absolute Auto 0.7 K/mm3 (0.1-0.6); Neutrophils Absolute Auto 6.1 K/mm3 (1.3-6.7); Neutrophils Percent Auto 79.8 % (45.5-73.1); Platelet Count Result 180 k/mm3 (150-375); Red Blood Count 4.16 M/mm3 (4.6-6.20); Red Cell Distribution Width 16.2 % (11.5-14.5); White Blood Count 7.6 K/mm3 (4.5-10.0)
[2023-09-08 09:37] LABS: Alanine Aminotransferase 11 U/L (6-50); Albumin Level 3.5 g/dL (3.5-5.1); Alkaline Phosphatase 68 U/L (38-126); Anion Gap 7 mmol/L (8-16); Aspartate Amino Transferase 23 U/L (17-59); Bilirubin,Total 0.8 mg/dL (0.2-1.3); Blood Urea Nitrogen 61 mg/dL (9-20); Calcium 8.7 mg/dL (8.4-10.2); Carbon Dioxide 27 mmol/L (22-30); Chloride 110 mmol/L (98-107); Estimated CRCL calculation 37 ml/min; Estimated Glomerular Filt Rate 23; Glucose 201 mg/dL (65-110); Magnesium 2.9 mg/dL (1.6-2.3); Potassium 5.2 mmol/L (3.4-5.0); Sodium 144 mmol/L (137-145)
[2023-09-08 10:29] LABS: Anisocytosis 1+ (NORMAL); Hypochromasia 1+ (NORMAL); Platelet Estimate Adequate (Adequate); Schistocytes None Seen (NORMAL)
[2023-09-08 11:44] LABS: Glucose Point of Care 167 mg/dl (65-105)
--- NOTE | 2023-09-08 12:15 | PM.IMPN ---
Progress Note: A&P Assessment and Plan (1) Congestive heart failure: Qualifiers: Heart failure chronicity: chronic Heart failure type: diastolic Qualified Code(s): I50.32 - Chronic diastolic (congestive) heart failure Code(s): I50.9 - Heart failure, unspecified Status: Chronic (2) Venous insufficiency: Code(s): I87.2 - Venous insufficiency (chronic) (peripheral) Status: Acute (3) Diastolic congestive heart failure: Code(s): I50.30 - Unspecified diastolic (congestive) heart failure Status: Acute (4) Atrial fibrillation: Code(s): I48.91 - Unspecified atrial fibrillation Status: Acute (5) Insulin dependent diabetes mellitus: Status: Acute (6) Diabetic neuropathy: Code(s): E11.40 - Type 2 diabetes mellitus with diabetic neuropathy, unspecified Status: Acute (7) Lymphedema: Code(s): I89.0 - Lymphedema, not elsewhere classified Status: Acute (8) Wound of lower extremity: Code(s): S81.809A - Unspecified open wound, unspecified lower leg, initial encounter Status: Acute (9) Acute kidney injury: Code(s): N17.9 - Acute kidney failure, unspecified Status: Acute (10) UTI (urinary tract infection): Code(s): N39.0 - Urinary tract infection, site not specified Status: Acute Plan The patient is a 78-year-old male with a past medical history significant for chronic kidney disease, diabetic neuropathy, diastolic heart failure, peripheral vascular disease, gout, history of left femoral artery pseudoaneurysm, insulin-dependent type 2 diabetes, morbid obesity, paroxysmal atrial fibrillation, lymphedema, and hypertension. 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 He lives in assisted living and has been experiencing progressively worsening bilateral leg swelling and pain associated with his SCROTAL EDEMA. The patient also reports an inability to urinate since earlier in the day and increased shortness of breath with minimal exertion, such as transferring from his wheelchair to the toilet. On evaluation in the emergency department, the patient was found to be hemodynamically stable. A Barajas catheter was placed without issue, and scrotal elevation was performed. Laboratory results revealed an elevated creatinine level of 3, with a mildly elevated potassium of 5.4. The patient was treated with insulin and dextrose for hyperkalemia and received furosemide (Lasix) diuresis. Urinalysis indicated a possible urinary tract infection with 6 to 10 white blood cells per high power field and the presence of white blood cell clumps; empiric antibiotic therapy was initiated. An echocardiogram from July 18 showed normal ejection fraction with biatrial dilation, and the patient had a significantly elevated B-type natriuretic peptide (BNP) level at 11,000. Chest X-ray demonstrated pulmonary vascular congestion and a right-sided pleural effusion. Will repeat chest x-ray to further evaluate today The patient was admitted for further evaluation and management of his acute kidney injury, presumed urinary tract infection, and heart failure exacerbation. He is on chronic anticoagulation with apixaban for atrial fibrillation and has chronic lymphedema of the bilateral lower extremities. Fluid management includes daily intake and output monitoring with fluid restriction. Nephrology was consulted, and a renal ultrasound was ordered. The patient's baseline creatinine levels range from the high 1s to low 2s, but are currently elevated at 3. His creatinine improved slightly to 2.8 after treatment. CONTINUE DIURESIS WITH 40 MG IV DAILY CLOSELY MONITORING HIS RENAL FUNCTION. Renal function has remained stable to slow improvement with continue diuresis. Continue gentle diuresis as ordered. Mild hyperkalemia will give a dose of Lokelma. Ultrasound liver appeared normal with no evidence of mass or bile duct dilatation. Renal ul
--- NOTE | 2023-09-08 14:15 | PCPTNOTE ---
Attempted PT evaluation, pt in too much pain. Will follow.
[2023-09-08 16:39] LABS: Glucose Point of Care 137 mg/dl (65-105)
[2023-09-08 20:35] LABS: Glucose Point of Care 155 mg/dl (65-105)
--- NOTE | 2023-09-08 21:50 | PC.NURSE ---
Verbal report given to 345 RN for transfer and sbar tubed.
[2023-09-08] MEDS: HYDROcodone/acetaminophen (*CRX) 5-325 MG TABLET 1 TAB PO (21:59)
[2023-09-08] MEDS: INSULIN GLARGINE (*BKC) 100 UNITS/ML 15 UNITS SUB-Q (22:01)
--- NOTE | 2023-09-08 22:35 | PC.NURSE ---
Transferred via bed to room 345.
[2023-09-09] VITALS (10 sets, daily range): BP systolic 130–144; BP diastolic 63–75; PULSE 67–81; RESP 18–20; TEMP 36.2–37.1; O2SAT 97–98
[2023-09-09 05:54] LABS: Alanine Aminotransferase 9 U/L (6-50); Albumin Level 3.3 g/dL (3.5-5.1); Alkaline Phosphatase 61 U/L (38-126); Anion Gap 6 mmol/L (8-16); Aspartate Amino Transferase 18 U/L (17-59); Bilirubin,Total 0.6 mg/dL (0.2-1.3); Blood Urea Nitrogen 59 mg/dL (9-20); Calcium 8.5 mg/dL (8.4-10.2); Carbon Dioxide 27 mmol/L (22-30); Chloride 111 mmol/L (98-107); Estimated CRCL calculation 32 ml/min; Estimated Glomerular Filt Rate 24; Glucose 121 mg/dL (65-110); Magnesium 2.7 mg/dL (1.6-2.3); Potassium 4.7 mmol/L (3.4-5.0); Sodium 144 mmol/L (137-145)
[2023-09-09 06:50] LABS: Basophils Percent Auto 0.6 % (0.2-1.2); Eosinophils Absolute Auto 0.4 K/mm3 (0-0.3); Eosinophils Percent Auto 5.4 % (0-4.4); Hematocrit 43.3 % (42.0-52.0); Hemoglobin 12.5 g/dL (14.0-18.0); Immature Granulocyte Absolute 0.02 K/mm3 (0.00-0.031); Immature Granulocyte Percent A 0.3 % (0-0.5); Lymphocytes Absolute Auto 0.99 K/mm3 (0.9-3.2); Mean Corpuscular HGB Conc 28.9 g/dl (32-36); Mean Corpuscular Hemoglobin 30.5 pg (26-34); Mean Corpuscular Volume 105.6 fl (80-100); Monocytes Absolute Auto 0.9 K/mm3 (0.1-0.6); Monocytes Percent Auto 12.3 % (2.6-8.5); Neutrophils Absolute Auto 4.8 K/mm3 (1.3-6.7); Neutrophils Percent Auto 67.4 % (45.5-73.1); Platelet Count Result 172 k/mm3 (150-375); Red Cell Distribution Width 16.1 % (11.5-14.5); White Blood Count 7.1 K/mm3 (4.5-10.0)
[2023-09-09 07:36] LABS: Anisocytosis 1+ (NORMAL); Hypochromasia 1+ (NORMAL); Platelet Estimate Adequate (Adequate); Schistocytes None Seen (NORMAL)
[2023-09-09] MEDS: dilTIAZem HCL CD 240 MG CAP.24HR PO (08:29)
[2023-09-09] MEDS: METOPROLOL SUCCINATE EXT REL 25 MG TABCR PO (08:29)
[2023-09-09] MEDS: GABAPENTIN 300 MG CAPSULE PO ×3 (08:29→17:38)
[2023-09-09] MEDS: FUROSEMIDE INJ 40 MG/4 ML VIAL IV PUSH ×2 (08:29→17:38)
[2023-09-09] MEDS: APIXABAN 2.5 MG TABLET PO ×2 (08:29→20:15)
[2023-09-09] MEDS: LACTIC ACID 12% LOTION 225 BTL 1 APPLIC TOPICAL (08:30)
--- NOTE | 2023-09-09 08:43 | PM.IMPN ---
Progress Note: A&P Assessment and Plan (1) Congestive heart failure: Qualifiers: Heart failure chronicity: chronic Heart failure type: diastolic Qualified Code(s): I50.32 - Chronic diastolic (congestive) heart failure Code(s): I50.9 - Heart failure, unspecified Status: Chronic (2) Venous insufficiency: Code(s): I87.2 - Venous insufficiency (chronic) (peripheral) Status: Acute (3) Diastolic congestive heart failure: Code(s): I50.30 - Unspecified diastolic (congestive) heart failure Status: Acute (4) Atrial fibrillation: Code(s): I48.91 - Unspecified atrial fibrillation Status: Acute (5) Insulin dependent diabetes mellitus: Status: Acute (6) Diabetic neuropathy: Code(s): E11.40 - Type 2 diabetes mellitus with diabetic neuropathy, unspecified Status: Acute (7) Lymphedema: Code(s): I89.0 - Lymphedema, not elsewhere classified Status: Acute (8) Wound of lower extremity: Code(s): S81.809A - Unspecified open wound, unspecified lower leg, initial encounter Status: Acute (9) Acute kidney injury: Code(s): N17.9 - Acute kidney failure, unspecified Status: Acute (10) UTI (urinary tract infection): Code(s): N39.0 - Urinary tract infection, site not specified Status: Acute Plan The patient is a 78-year-old male with a past medical history significant for chronic kidney disease, diabetic neuropathy, diastolic heart failure, peripheral vascular disease, gout, history of left femoral artery pseudoaneurysm, insulin-dependent type 2 diabetes, morbid obesity, paroxysmal atrial fibrillation, lymphedema, and hypertension. 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 The patient also reports an inability to urinate since earlier in the day and increased shortness of breath with minimal exertion, such as transferring from his wheelchair to the toilet. UTI On evaluation in the emergency department, the patient was found to be hemodynamically stable. A Barajas catheter was placed without issue, and scrotal elevation was performed. Laboratory results revealed an elevated creatinine level of 3, with a mildly elevated potassium of 5.4. The patient was treated with insulin and dextrose for hyperkalemia and received furosemide (Lasix) diuresis. Urinalysis indicated a possible urinary tract infection with 6 to 10 white blood cells per high power field and the presence of white blood cell clumps; empiric antibiotic therapy was initiated. Acute on chronic diastolic heart failure An echocardiogram from July 18 showed normal ejection fraction with biatrial dilation, and the patient had a significantly elevated B-type natriuretic peptide (BNP) level at 11,000. Chest X-ray demonstrated pulmonary vascular congestion and a right-sided pleural effusion. Will repeat chest x-ray to further evaluate today Increase Lasix from 40 mg daily to 40 mg b.i.d. IV push Multifocal pneumonia Chest x-ray suggests pneumonia involving right middle and lower lobe Patient is on ceftriaxone 1 g daily, will add doxycycline 100 mg q.12 hour IV increase ceftriaxone to 2 g IV daily 09/09 Follow-up procalcitonin Cellulitis bilateral lower extremities Broken skin bilateral lower extremities, and bilateral lower extremities tender swelling with erythema Suspecting cellulitis bilateral lower extremities Antibiotics see above Request wound care CKD stage 3 The patient was admitted for further evaluation and management of his acute kidney injury, presumed urinary tract infection, and heart failure exacerbation. Nephrology was consulted, and a renal ultrasound was ordered. The patient's baseline creatinine levels range from the high 1s to low 2s, but are currently elevated at 3. His creatinine imp
[2023-09-09 08:52] LABS: Glucose Point of Care 108 mg/dl (65-105)
[2023-09-09 10:05] LABS: Procalcitonin 0.2 ng/mL
[2023-09-09] MEDS: AZITHROMYCIN 500 MG/NS 250 ML 500 MG/250 ML BAG 250 MG IVPB (10:45)
[2023-09-09 12:01] LABS: Glucose Point of Care 126 mg/dl (65-105)
[2023-09-09] MEDS: HYDROcodone/acetaminophen (*CRX) 5-325 MG TABLET 1 TAB PO (13:45)
[2023-09-09 17:39] LABS: Glucose Point of Care 142 mg/dl (65-105)
[2023-09-09] MEDS: INSULIN ASPART (*BKC) 100 UNITS/ML SUB-Q (17:46)
--- NOTE | 2023-09-09 18:45 | PC.NURSE ---
This nurse has reviewed the charting assessment for this pt.
[2023-09-09] MEDS: INSULIN GLARGINE (*BKC) 100 UNITS/ML 15 UNITS SUB-Q (20:16)
[2023-09-09 20:17] LABS: Glucose Point of Care 145 mg/dl (65-105)
[2023-09-10] VITALS (11 sets, daily range): BP systolic 122–134; BP diastolic 59–78; PULSE 75–85; RESP 16–18; TEMP 36.8–37.1; O2SAT 95–99
[2023-09-10] MEDS: FUROSEMIDE INJ 40 MG/4 ML VIAL IV PUSH ×2 (08:32→17:36)
[2023-09-10] MEDS: GABAPENTIN 300 MG CAPSULE PO ×3 (08:32→17:36)
[2023-09-10] MEDS: AZITHROMYCIN 500 MG/NS 250 ML 500 MG/250 ML BAG 250 MG IVPB (08:33)
[2023-09-10] MEDS: APIXABAN 2.5 MG TABLET PO ×2 (08:33→21:01)
[2023-09-10] MEDS: METOPROLOL SUCCINATE EXT REL 25 MG TABCR PO (08:33)
[2023-09-10] MEDS: dilTIAZem HCL CD 240 MG CAP.24HR PO (08:33)
[2023-09-10] MEDS: LACTIC ACID 12% LOTION 225 BTL 1 APPLIC TOPICAL (08:34)
[2023-09-10] MEDS: HYDROcodone/acetaminophen (*CRX) 5-325 MG TABLET 1 TAB PO ×2 (09:04→22:10)
[2023-09-10 09:14] LABS: Glucose Point of Care 144 mg/dl (65-105)
[2023-09-10] MEDS: INSULIN ASPART (*BKC) 100 UNITS/ML SUB-Q ×2 (09:14→12:46)
--- NOTE | 2023-09-10 09:25 | PM.IMPN ---
Progress Note: A&P Assessment and Plan (1) Congestive heart failure: Qualifiers: Heart failure chronicity: chronic Heart failure type: diastolic Qualified Code(s): I50.32 - Chronic diastolic (congestive) heart failure Code(s): I50.9 - Heart failure, unspecified Status: Chronic (2) Venous insufficiency: Code(s): I87.2 - Venous insufficiency (chronic) (peripheral) Status: Acute (3) Diastolic congestive heart failure: Code(s): I50.30 - Unspecified diastolic (congestive) heart failure Status: Acute (4) Atrial fibrillation: Code(s): I48.91 - Unspecified atrial fibrillation Status: Acute (5) Insulin dependent diabetes mellitus: Status: Acute (6) Diabetic neuropathy: Code(s): E11.40 - Type 2 diabetes mellitus with diabetic neuropathy, unspecified Status: Acute (7) Lymphedema: Code(s): I89.0 - Lymphedema, not elsewhere classified Status: Acute (8) Wound of lower extremity: Code(s): S81.809A - Unspecified open wound, unspecified lower leg, initial encounter Status: Acute (9) Acute kidney injury: Code(s): N17.9 - Acute kidney failure, unspecified Status: Acute (10) UTI (urinary tract infection): Code(s): N39.0 - Urinary tract infection, site not specified Status: Acute Plan The patient is a 78-year-old male with a past medical history significant for chronic kidney disease, diabetic neuropathy, diastolic heart failure, peripheral vascular disease, gout, history of left femoral artery pseudoaneurysm, insulin-dependent type 2 diabetes, morbid obesity, paroxysmal atrial fibrillation, lymphedema, and hypertension. 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 The patient also reports an inability to urinate since earlier in the day and increased shortness of breath with minimal exertion, such as transferring from his wheelchair to the toilet. UTI On evaluation in the emergency department, the patient was found to be hemodynamically stable. A Barajas catheter was placed without issue, and scrotal elevation was performed. Laboratory results revealed an elevated creatinine level of 3, with a mildly elevated potassium of 5.4. The patient was treated with insulin and dextrose for hyperkalemia and received furosemide (Lasix) diuresis. Urinalysis indicated a possible urinary tract infection with 6 to 10 white blood cells per high power field and the presence of white blood cell clumps; empiric antibiotic therapy was initiated. Acute on chronic diastolic heart failure An echocardiogram from July 18 showed normal ejection fraction with biatrial dilation, and the patient had a significantly elevated B-type natriuretic peptide (BNP) level at 11,000. Chest X-ray demonstrated pulmonary vascular congestion and a right-sided pleural effusion. Will repeat chest x-ray to further evaluate today Increase Lasix from 40 mg daily to 40 mg b.i.d. IV push Multifocal pneumonia Chest x-ray suggests pneumonia involving right middle and lower lobe Patient is on ceftriaxone 1 g daily, will add doxycycline 100 mg q.12 hour IV increase ceftriaxone to 2 g IV daily 09/09 Follow-up procalcitonin Cellulitis bilateral lower extremities Broken skin bilateral lower extremities, and bilateral lower extremities tender swelling with erythema Suspecting cellulitis bilateral lower extremities Antibiotics see above Request wound care TWIN on CKD CKD stage 4, upon arrival, BUN 3.0, baseline 2.1 on June 28 The patient was admitted for further evaluation and management of his acute kidney injury, presumed urinary tract infection, and heart failure exacerbation. Nephrology was consulted, and a renal ultrasound was ordered. The patient's baseline creatinine levels range from the high
[2023-09-10 10:05] LABS: Anion Gap 7 mmol/L (8-16); Basophils Percent Auto 0.4 % (0.2-1.2); Blood Urea Nitrogen 59 mg/dL (9-20); Calcium 8.7 mg/dL (8.4-10.2); Carbon Dioxide 29 mmol/L (22-30); Chloride 107 mmol/L (98-107); Eosinophils Absolute Auto 0.3 K/mm3 (0-0.3); Eosinophils Percent Auto 4.2 % (0-4.4); Estimated CRCL calculation 34 ml/min; Estimated Glomerular Filt Rate 25; Glucose 131 mg/dL (65-110); Immature Granulocyte Absolute 0.02 K/mm3 (0.00-0.031); Immature Granulocyte Percent A 0.3 % (0-0.5); Lymphocytes Absolute Auto 0.58 K/mm3 (0.9-3.2); Lymphocytes Percent Auto 7.8 % (18.3-44.2); Magnesium 2.7 mg/dL (1.6-2.3); Mean Corpuscular HGB Conc 28.3 g/dl (32-36); Mean Corpuscular Hemoglobin 30.4 pg (26-34); Mean Corpuscular Volume 107.5 fl (80-100); Monocytes Absolute Auto 0.6 K/mm3 (0.1-0.6); Monocytes Percent Auto 8.1 % (2.6-8.5); Neutrophils Absolute Auto 5.9 K/mm3 (1.3-6.7); Neutrophils Percent Auto 79.2 % (45.5-73.1); Phosphorus 5.3 mg/dL (2.5-4.5); Platelet Count Result 177 k/mm3 (150-375); Potassium 4.7 mmol/L (3.4-5.0); Red Blood Count 4.28 M/mm3 (4.6-6.20); Red Cell Distribution Width 15.9 % (11.5-14.5); Sodium 143 mmol/L (137-145); White Blood Count 7.4 K/mm3 (4.5-10.0)
[2023-09-10 10:26] LABS: Hypochromasia 1+ (NORMAL); Macrocytosis 1+ (NORMAL); Platelet Estimate Adequate (Adequate); Schistocytes None Seen (NORMAL)
[2023-09-10] MEDS: cefTRIAXone 2 GM/NS 100 ML 2 GM/100 ML BAG IVPB (10:57)
[2023-09-10 11:11] LABS: Procalcitonin 0.2 ng/mL
[2023-09-10 11:52] LABS: Glucose Point of Care 150 mg/dl (65-105)
[2023-09-10 16:48] LABS: Glucose Point of Care 110 mg/dl (65-105)
[2023-09-10 17:53] LABS: Procalcitonin 0.2 ng/mL
--- NOTE | 2023-09-10 18:39 | PC.NURSE ---
This nurse has reviewed the assessment charting for this pt.
[2023-09-10 19:50] LABS: Glucose Point of Care 106 mg/dl (65-105)
[2023-09-10] MEDS: INSULIN GLARGINE (*BKC) 100 UNITS/ML 15 UNITS SUB-Q (21:00)
--- NOTE | 2023-09-10 21:20 | PC.NURSE ---
At bedside with another floor nurse attempting to turn patient. Patient refusing turn at this time.
[2023-09-11] VITALS (12 sets, daily range): BP systolic 128–144; BP diastolic 58–87; PULSE 71–97; RESP 18–20; TEMP 36.6–37.2; O2SAT 86–100
--- NOTE | 2023-09-11 07:50 | PM.CNNEP ---
Assessment and Plan Assessment and plan (1) Acute on chronic renal failure: Code(s): N17.9 - Acute kidney failure, unspecified; N18.9 - Chronic kidney disease, unspecified Status: Acute Assessment and Plan: the patient has chronic kidney disease. Most likely this is due to diabetes and hypertension. he sees Dr. Valentine as an outpatient. His baseline creatinine is around 2-2.1 with a GFR in the low 30s. His creatinine is elevated Above his baseline now. He is still volume overloaded do not think this is pure pre renal azotemia since his heart is working so well and also because of edema, pleural effusions and pulmonary edema; however because of the chronic diuretic this may lead to some elevation of his creatinine. etiologies for the higher creatinine would include rhabdomyolysis, and infection possibly from cellulitis? Or pneumonia? he did have a renal ultrasound ruling out obstruction. It is possible that he might have progression of his underlying chronic disease. Will check urine electrolytes and urea nitrogen, and a CPK. His swelling is substantial and he is at risk for cellulitis in the future if he does not already have it now. He has weeping. So I think we ought to continue the diuretics and spite of the higher creatinine. Would physical measures such as Redd hose/ wraps etc. help? (2) Edema: Code(s): R60.9 - Edema, unspecified Status: Acute Assessment and Plan: Most likely due to venous / lymphatic insufficiency. Continue diuretics (3) Diabetes mellitus with hyperglycemia: Code(s): E11.65 - Type 2 diabetes mellitus with hyperglycemia Status: Acute Assessment and Plan: A1c was good last check. (4) Atrial fibrillation: Code(s): I48.91 - Unspecified atrial fibrillation Status: Acute Assessment and Plan: He is on anticoagulants. Heart rate is good in the 80s and (5) Hypertension: Qualifiers: Hypertension type: primary hypertension Qualified Code(s): I10 - Essential (primary) hypertension Code(s): I10 - Essential (primary) hypertension Status: Chronic Assessment and Plan: systolic blood pressure generally between 130 and 150. (6) Chronic anemia: Code(s): D64.9 - Anemia, unspecified Status: Chronic Assessment and Plan: Hemoglobin has been better lately. (7) Gout: Code(s): M10.9 - Gout, unspecified Status: Acute Assessment and Plan: Will check a uric acid History of Present Illness Reason for Consult Consult date: 09/11/23 Chief Complaint Chief complaint: Fluid Overload History of Present Illness Narrative: Carlos is a very pleasant 78-year-old gentleman who has multiple medical problems including hypertension, diabetes, diastolic heart failure, paroxysmal atrial fibrillation, peripheral vascular disease,GA [place], high body mass index, chronic lower extremity bilateral lymphedema, and chronic kidney disease. The patient has been seeing Dr. Valentine over the last few years. He however has not seen him for a couple of years and recently his primary care physician asked him to make an appointment. His GFR runs in the low 30s. He was seen in this hospital about a year ago at which time his creatinine was 1.8. His kidney disease is most likely due to diabetes plus hypertension he also had chronic pre renal azotemia because he is on diuretics to help his lymphedema. One year ago when I did see him his creatinine was above baseline and this was felt to be due to infection or possibly Bactrim administration. This time the patient came in because the swelling was worse. His scrotum is more swollen than usual and also has some shortness of breath. Is seen in the emergency room. His BNP was elevated, his chest x-ray showed effusion and pulmonary edema, His potassium was high, and his creatinine was elevated. He was admitted. he was given Lokel
[2023-09-11 08:07] LABS: Basophils Percent Auto 0.5 % (0.2-1.2); Eosinophils Absolute Auto 0.2 K/mm3 (0-0.3); Eosinophils Percent Auto 2.9 % (0-4.4); Hematocrit 45.7 % (42.0-52.0); Hemoglobin 13.1 g/dL (14.0-18.0); Immature Granulocyte Absolute 0.04 K/mm3 (0.00-0.031); Immature Granulocyte Percent A 0.5 % (0-0.5); Lymphocytes Absolute Auto 0.53 K/mm3 (0.9-3.2); Lymphocytes Percent Auto 6.5 % (18.3-44.2); Mean Corpuscular HGB Conc 28.7 g/dl (32-36); Mean Corpuscular Hemoglobin 30.4 pg (26-34); Mean Platelet Volume 10.4 fl (7.4-10.4); Monocytes Absolute Auto 0.6 K/mm3 (0.1-0.6); Monocytes Percent Auto 7.3 % (2.6-8.5); Neutrophils Absolute Auto 6.7 K/mm3 (1.3-6.7); Neutrophils Percent Auto 82.3 % (45.5-73.1); Platelet Count Result 167 k/mm3 (150-375); Red Blood Count 4.31 M/mm3 (4.6-6.20); Red Cell Distribution Width 15.3 % (11.5-14.5); White Blood Count 8.2 K/mm3 (4.5-10.0)
[2023-09-11 08:14] LABS: Anion Gap 4 mmol/L (8-16); Blood Urea Nitrogen 59 mg/dL (9-20); Carbon Dioxide 30 mmol/L (22-30); Chloride 109 mmol/L (98-107); Estimated CRCL calculation 33 ml/min; Estimated Glomerular Filt Rate 24; Glucose 113 mg/dL (65-110); Magnesium 2.6 mg/dL (1.6-2.3); Phosphorus 5.4 mg/dL (2.5-4.5); Potassium 4.7 mmol/L (3.4-5.0); Sodium 143 mmol/L (137-145)
[2023-09-11 08:33] LABS: Macrocytosis 2+ (NORMAL); Platelet Estimate Adequate (Adequate); Schistocytes None Seen (NORMAL)
[2023-09-11 08:35] LABS: Hypochromasia 1+ (NORMAL); Procalcitonin 0.2 ng/mL
[2023-09-11 08:36] LABS: Creatine Kinase 23 U/L (55-170); Uric Acid 10.9 mg/dL (3.5-8.5)
[2023-09-11] MEDS: INSULIN ASPART (*BKC) 100 UNITS/ML SUB-Q ×3 (09:21→17:39)
[2023-09-11] MEDS: METOPROLOL SUCCINATE EXT REL 25 MG TABCR PO (09:23)
[2023-09-11] MEDS: GABAPENTIN 300 MG CAPSULE PO ×3 (09:23→17:39)
[2023-09-11] MEDS: FUROSEMIDE INJ 40 MG/4 ML VIAL IV PUSH ×2 (09:23→17:39)
[2023-09-11] MEDS: APIXABAN 2.5 MG TABLET PO ×2 (09:23→20:32)
[2023-09-11] MEDS: cefTRIAXone 2 GM/NS 100 ML 2 GM/100 ML BAG IVPB (09:24)
[2023-09-11] MEDS: LACTIC ACID 12% LOTION 225 BTL 1 APPLIC TOPICAL (09:24)
[2023-09-11] MEDS: AZITHROMYCIN 500 MG/NS 250 ML 500 MG/250 ML BAG 250 MG IVPB (09:24)
[2023-09-11] MEDS: dilTIAZem HCL CD 240 MG CAP.24HR PO (09:24)
--- NOTE | 2023-09-11 09:48 | PM.IMPN ---
Progress Note: A&P Assessment and Plan (1) Congestive heart failure: Qualifiers: Heart failure chronicity: chronic Heart failure type: diastolic Qualified Code(s): I50.32 - Chronic diastolic (congestive) heart failure Code(s): I50.9 - Heart failure, unspecified Status: Chronic (2) Venous insufficiency: Code(s): I87.2 - Venous insufficiency (chronic) (peripheral) Status: Acute (3) Diastolic congestive heart failure: Code(s): I50.30 - Unspecified diastolic (congestive) heart failure Status: Acute (4) Atrial fibrillation: Code(s): I48.91 - Unspecified atrial fibrillation Status: Acute (5) Insulin dependent diabetes mellitus: Status: Acute (6) Diabetic neuropathy: Code(s): E11.40 - Type 2 diabetes mellitus with diabetic neuropathy, unspecified Status: Acute (7) Lymphedema: Code(s): I89.0 - Lymphedema, not elsewhere classified Status: Acute (8) Wound of lower extremity: Code(s): S81.809A - Unspecified open wound, unspecified lower leg, initial encounter Status: Acute (9) Acute kidney injury: Code(s): N17.9 - Acute kidney failure, unspecified Status: Acute (10) UTI (urinary tract infection): Code(s): N39.0 - Urinary tract infection, site not specified Status: Acute Plan The patient is a 78-year-old male with a past medical history significant for chronic kidney disease, diabetic neuropathy, diastolic heart failure, peripheral vascular disease, gout, history of left femoral artery pseudoaneurysm, insulin-dependent type 2 diabetes, morbid obesity, paroxysmal atrial fibrillation, lymphedema, and hypertension. 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 The patient also reports an inability to urinate since earlier in the day and increased shortness of breath with minimal exertion, such as transferring from his wheelchair to the toilet. UTI On evaluation in the emergency department, the patient was found to be hemodynamically stable. A Barajas catheter was placed without issue, and scrotal elevation was performed. Laboratory results revealed an elevated creatinine level of 3, with a mildly elevated potassium of 5.4. The patient was treated with insulin and dextrose for hyperkalemia and received furosemide (Lasix) diuresis. Urinalysis indicated a possible urinary tract infection with 6 to 10 white blood cells per high power field and the presence of white blood cell clumps; empiric antibiotic therapy was initiated. Fluid overloaded, acute on chronic diastolic heart failure? An echocardiogram from July 18 showed normal ejection fraction with biatrial dilation, and the patient had a significantly elevated B-type natriuretic peptide (BNP) level at 11,000. Chest X-ray demonstrated pulmonary vascular congestion and a right-sided pleural effusion. Will repeat chest x-ray to further evaluate today Increased Lasix from 40 mg daily to 40 mg b.i.d. IV push 09/09 Patient still has swelling of left lower extremity and scrotum, will increase lasix to 60 mg bid ivp Multifocal pneumonia Chest x-ray suggests pneumonia involving right middle and lower lobe Started ceftriaxone 1 g daily, azithromycin 500 mL daily on September 09. increase ceftriaxone to 2 g IV daily 09/09 Follow-up procalcitonin 0.2 repeat CXR Cellulitis bilateral lower extremities Broken skin bilateral lower extremities, and bilateral lower extremities tender swelling with erythema Suspecting cellulitis bilateral lower extremities Antibiotics see above Request wound care TWIN on CKD CKD stage 4, upon arrival, BUN 3.0, baseline 2.1 on June 28 The patient was admitted for further evaluation and management of his acute kidney injury, presumed urinary tract infection, and heart brandie
[2023-09-11] MEDS: HYDROcodone/acetaminophen (*CRX) 5-325 MG TABLET 1 TAB PO (10:44)
[2023-09-11 12:03] LABS: Glucose Point of Care 120 mg/dl (65-105)
[2023-09-11 16:31] LABS: Creatinine Urine 81.8 mg/dL; Total Protein Urine Random 120 mg/dL; Ur Ttl Prot Creatinine Ratio 1.47 mg/mg (0-0.20); Urea Random Urine 447 MG/DL
[2023-09-11 16:38] LABS: Sodium Urine Random 53 meq/L
[2023-09-11 17:23] LABS: Glucose Point of Care 110 mg/dl (65-105)
[2023-09-11 17:29] LABS: Procalcitonin 0.2 ng/mL
[2023-09-11] MEDS: INSULIN GLARGINE (*BKC) 100 UNITS/ML 15 UNITS SUB-Q (20:33)
[2023-09-11 20:42] LABS: Glucose Point of Care 138 mg/dl (65-105)
[2023-09-12] VITALS (10 sets, daily range): BP systolic 129–152; BP diastolic 63–75; PULSE 68–94; RESP 16–18; TEMP 36.4–37.1; O2SAT 95–99
[2023-09-12 06:22] LABS: Basophils Percent Auto 0.4 % (0.2-1.2); Eosinophils Absolute Auto 0.3 K/mm3 (0-0.3); Eosinophils Percent Auto 4.4 % (0-4.4); Hematocrit 45.2 % (42.0-52.0); Immature Granulocyte Absolute 0.02 K/mm3 (0.00-0.031); Immature Granulocyte Percent A 0.3 % (0-0.5); Lymphocytes Absolute Auto 0.63 K/mm3 (0.9-3.2); Lymphocytes Percent Auto 8.9 % (18.3-44.2); Mean Corpuscular HGB Conc 28.8 g/dl (32-36); Mean Corpuscular Hemoglobin 30.9 pg (26-34); Mean Corpuscular Volume 107.4 fl (80-100); Mean Platelet Volume 10.9 fl (7.4-10.4); Monocytes Absolute Auto 0.7 K/mm3 (0.1-0.6); Monocytes Percent Auto 10.1 % (2.6-8.5); Neutrophils Absolute Auto 5.3 K/mm3 (1.3-6.7); Neutrophils Percent Auto 75.9 % (45.5-73.1); Platelet Count Result 161 k/mm3 (150-375); Red Blood Count 4.21 M/mm3 (4.6-6.20); Red Cell Distribution Width 15.2 % (11.5-14.5)
[2023-09-12 06:24] LABS: Albumin Level 3.6 g/dL (3.5-5.1); Anion Gap 7 mmol/L (8-16); Blood Urea Nitrogen 60 mg/dL (9-20); Carbon Dioxide 30 mmol/L (22-30); Chloride 108 mmol/L (98-107); Estimated CRCL calculation 34 ml/min; Estimated Glomerular Filt Rate 25; Glucose 107 mg/dL (65-110); Magnesium 2.6 mg/dL (1.6-2.3); Phosphorus 5.3 mg/dL (2.5-4.5); Potassium 4.6 mmol/L (3.4-5.0); Sodium 145 mmol/L (137-145)
[2023-09-12 07:12] LABS: Hypochromasia 1+ (NORMAL); Platelet Estimate Adequate (Adequate)
[2023-09-12 07:13] LABS: Anisocytosis 1+ (NORMAL); Macrocytosis 1+ (NORMAL); Schistocytes None Seen (NORMAL)
[2023-09-12 08:26] LABS: Glucose Point of Care 95 mg/dl (65-105)
[2023-09-12] MEDS: GABAPENTIN 300 MG CAPSULE PO (08:58)
[2023-09-12] MEDS: APIXABAN 2.5 MG TABLET PO ×2 (08:59→21:43)
[2023-09-12] MEDS: FUROSEMIDE INJ 40 MG/4 ML VIAL IV PUSH ×2 (08:59→17:33)
[2023-09-12] MEDS: METOPROLOL SUCCINATE EXT REL 25 MG TABCR PO (08:59)
[2023-09-12] MEDS: AZITHROMYCIN 500 MG/NS 250 ML 500 MG/250 ML BAG 250 MG IVPB (09:00)
[2023-09-12] MEDS: dilTIAZem HCL CD 240 MG CAP.24HR PO (09:01)
--- NOTE | 2023-09-12 10:19 | WPDNEURCNPN ---
Assessment and Plan Assessment and plan (1) Abnormal involuntary movement: Code(s): R25.9 - Unspecified abnormal involuntary movements Status: Acute (2) Chronic kidney disease: Code(s): N18.9 - Chronic kidney disease, unspecified Status: Chronic (3) Gabapentin adverse reaction: Code(s): T42.6X5A - Adverse effect of other antiepileptic and sedative-hypnotic drugs, initial encounter Status: Acute Plan Carlos Mustafa is a 78 year old male with a history of CKD, diabetes, diabetic neuropathy, CHF, PAD, DM, obesity, atrial fibrillation (on anticoagulation), lymphedema, and hypertension who is currently admitted due to bilateral lower extremity and scrotal edema. He was found to have jerking type movements of the hands, which has been going on for the past few weeks. On exam he has evidence of negative myoclonus/asterixis. This can be seen in the setting of worsening uremia, especially if the patient is on gabapentin. Therefore, I would recommend discontinuing gabapentin and optimizing renal function. MRI brain without contrast should be done to evaluate for other central cause. Check TSH, ceruloplasmin, ammonia level as well. Consult date: 09/12/23 Reason for consult: Tremors HPI: Carlos Mustafa is a 78 year old male with a history of CKD, diabetes, diabetic neuropathy, CHF, PAD, DM, obesity, atrial fibrillation (on anticoagulation), lymphedema, and hypertension who is currently admitted due to bilateral lower extremity and scrotal edema. He is currently being treated for fluid overload, possible pnuomonia, cellulitis of the bilateral lower extremities, and acute on chronic kidney disease. Neurology was consulted for tremors. For the past few weeks, patient has noted jerking like movements in his hands. This has worsened since hospitalization. He denies any family history of tremor. The movements are mostly in the hands, but at times he has noticed it in his legs as well. Patient is on a number of medications including Eliquis, gabapentin 300mg TID, and metoprolol, diltiazem. As for his labs, he does have uremia with BUN of 60. TSH was not checked yet during this admission. He does not have elevated LFTs. No hypomagnesemia or hypophosphatemia. Calcium is normal as well. Patient is on gabapentin for neuropathy, but he does not feel that it helps. 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 He is and has no children. 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 Code status: Full code. Smoking status: Former smoker Tobacco type: cigarettes Alcohol intake: never Substance use: never Substance use type: painkillers Do You Feel Safe in your Home?: Yes Lack of Transportation: No Lack of Food: Never True Current Housing: I Have Housing Concerned About Future Housing: No Difficulty Paying Gas/Electric Bills: No Difficulty Paying for Meds: No Currently Unemployed: No Education:
--- NOTE | 2023-09-12 10:35 | PM.PNNEP ---
Progress Note: A&P Assessment and Plan (1) Acute on chronic renal failure: Code(s): N17.9 - Acute kidney failure, unspecified; N18.9 - Chronic kidney disease, unspecified Status: Acute Assessment and Plan: the patient has chronic kidney disease. Most likely this is due to diabetes and hypertension. he sees Dr. Valentine as an outpatient. His baseline creatinine is around 2-2.1 with a GFR in the low 30s. His creatinine is elevated Above his baseline now. renal ultrasound shows normal kidneys. Urine electrolytes nondescript but fractional excretion of urea is below 39% and so reflects prerenal factors. CPK is normal He of course has the severe edema with weeping. He is on diuretics to help less than the swelling so that he will weep. There is no way were going to get rid of all the swelling. if we try high-dose diuretics it may improve the swelling but it may worsen the pre renal doctors and lead to a higher BUN and creatinine. The goal would be trying to decrease the swelling enough that he does not weep. If he we persists then he is at risk for recurrent cellulitis which would be hard on the kidneys as well. his higher BUN and creatinine now may be related to diuretics but also could be related to cellulitis or could be a reflection of progression of his chronic kidney disease from the diabetes and the hypertension. We discussed at length. This is a very difficult situation. Whenever we can do to reduce the swelling other than diuretics would be beneficial for his kidneys. He will keep his legs elevated. I wonder if Alejandro wraps might help? Possibly attending a lymphedema clinic? I encouraged him to see Dr. Valentine as an outpatient. (2) Edema: Code(s): R60.9 - Edema, unspecified Status: Acute Assessment and Plan: Most likely due to venous / lymphatic insufficiency. Continue diuretics as long as the creatinine does not worsen. (3) Diabetes mellitus with hyperglycemia: Code(s): E11.65 - Type 2 diabetes mellitus with hyperglycemia Status: Acute Assessment and Plan: A1c was good last check. (4) Atrial fibrillation: Code(s): I48.91 - Unspecified atrial fibrillation Status: Acute Assessment and Plan: He is on anticoagulants. Heart rate is good in the 80s (5) Hypertension: Qualifiers: Hypertension type: primary hypertension Qualified Code(s): I10 - Essential (primary) hypertension Code(s): I10 - Essential (primary) hypertension Status: Chronic Assessment and Plan: systolic blood pressure generally Runs in the 120s to 140s. Occasionally it goes into the 150s. (6) Chronic anemia: Code(s): D64.9 - Anemia, unspecified Status: Chronic Assessment and Plan: Hemoglobin has been better lately. (7) Gout: Code(s): M10.9 - Gout, unspecified Status: Acute Assessment and Plan: Uric acid is very high. This is likely due to his chronic pre renal state. His kidney function is probably not good enough to start allopurinol a new. I would suggest Uloric but is not on formulary. He can start this as an outpatient Subjective Date/time seen: 09/12/23 10:35 Interval history: Carlos is feeling about the same today. He is happy that he has a diagnosis for his tremors. He is still very swollen any still has some weeping through the skin in his legs. Review of Systems Cardiovascular: Cardiovascular: Reports no additional cardiovascular complaints Respiratory: Respiratory: Reports no additional respiratory complaints Gastrointestinal: Gastrointestinal: Reports no additional gastrointestinal complaints Genitourinary: Genitourinary: Reports no additional male genitourinary complaints Exam Narrative: WDWN in NAD skin no rash head ncat lungs clear cor reg no rub abd BS+ nontender and soft ext 3+ bilateral lower extremity edema. Objecti
[2023-09-12] MEDS: cefTRIAXone 2 GM/NS 100 ML 2 GM/100 ML BAG IVPB (11:18)
[2023-09-12 12:04] LABS: Glucose Point of Care 148 mg/dl (65-105)
--- NOTE | 2023-09-12 17:23 | P.PNIM_ITS ---
Progress Note: A&P Assessment and Plan (1) Congestive heart failure: Qualifiers: Heart failure chronicity: chronic Heart failure type: diastolic Qualified Code(s): I50.32 - Chronic diastolic (congestive) heart failure Code(s): I50.9 - Heart failure, unspecified Status: Chronic (2) Venous insufficiency: Code(s): I87.2 - Venous insufficiency (chronic) (peripheral) Status: Acute (3) Diastolic congestive heart failure: Code(s): I50.30 - Unspecified diastolic (congestive) heart failure Status: Acute (4) Atrial fibrillation: Code(s): I48.91 - Unspecified atrial fibrillation Status: Acute (5) Insulin dependent diabetes mellitus: Status: Acute (6) Diabetic neuropathy: Code(s): E11.40 - Type 2 diabetes mellitus with diabetic neuropathy, unspecified Status: Acute (7) Lymphedema: Code(s): I89.0 - Lymphedema, not elsewhere classified Status: Acute (8) Wound of lower extremity: Code(s): S81.809A - Unspecified open wound, unspecified lower leg, initial encounter Status: Acute (9) Acute kidney injury: Code(s): N17.9 - Acute kidney failure, unspecified Status: Acute (10) UTI (urinary tract infection): Code(s): N39.0 - Urinary tract infection, site not specified Status: Acute Plan The patient is a 78-year-old male with a past medical history significant for chronic kidney disease, diabetic neuropathy, diastolic heart failure, peripheral vascular disease, gout, history of left femoral artery pseudoaneurysm, insulin- dependent type 2 diabetes, morbid obesity, paroxysmal atrial fibrillation, lymphedema, and hypertension. 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 He lives in assisted living and has been experiencing progressively worsening bilateral leg swelling and pain associated with his SCROTAL EDEMA. The patient also reports an inability to urinate since earlier in the day and increased shortness of breath with minimal exertion, such as transferring from his wheelchair to the toilet. UTI On evaluation in the emergency department, the patient was found to be hemodynamically stable. A Barajas catheter was placed without issue, and scrotal elevation was performed. Laboratory results revealed an elevated creatinine level of 3, with a mildly elevated potassium of 5.4. The patient was treated with insulin and dextrose for hyperkalemia and received furosemide (Lasix) diuresis. Urinalysis indicated a possible urinary tract infection with 6 to 10 white blood cells per high power field and the presence of white blood cell clumps; empiric antibiotic therapy was initiated. Tremors: Neurology consulted; Fluid overloaded, acute on chronic diastolic heart failure An echocardiogram from July 18 showed normal ejection fraction with biatrial dilation, and the patient had a significantly elevated B-type natriuretic peptide (BNP) level at 11,000. Chest X-ray demonstrated pulmonary vascular congestion and a right-sided pleural effusion. Will repeat chest x-ray to further evaluate today Increased Lasix from 40 mg daily to 40 mg b.i.d. IV push 09/09 Patient still has swelling of left lower extremity and scrotum, will increase lasix to 60 mg bid ivp Multifocal pneumonia Chest x-ray suggests pneumonia involving right middle and lower lobe Started ceftriaxone 1 g daily, azithromycin 500 mL daily on September 09. increase ceftriaxone to 2 g IV daily 09/09 Follow-up procalcitonin 0.2 repeat CXR Cellulitis bilateral lower extremities Broken skin bilateral lower extremities, an
[2023-09-12 17:27] LABS: Glucose Point of Care 119 mg/dl (65-105)
[2023-09-12 20:48] LABS: Glucose Point of Care 135 mg/dl (65-105)
[2023-09-12] MEDS: HYDROcodone/acetaminophen (*CRX) 5-325 MG TABLET 1 TAB PO (21:43)
[2023-09-12] MEDS: INSULIN GLARGINE (*BKC) 100 UNITS/ML 15 UNITS SUB-Q (21:44)
[2023-09-13] VITALS (12 sets, daily range): BP systolic 133–155; BP diastolic 66–77; PULSE 65–90; RESP 14–19; TEMP 36.4–36.9; O2SAT 95–98
[2023-09-13 05:57] LABS: Basophils Percent Auto 0.6 % (0.2-1.2); Eosinophils Absolute Auto 0.4 K/mm3 (0-0.3); Hematocrit 44.3 % (42.0-52.0); Immature Granulocyte Absolute 0.01 K/mm3 (0.00-0.031); Immature Granulocyte Percent A 0.2 % (0-0.5); Lymphocytes Absolute Auto 0.81 K/mm3 (0.9-3.2); Lymphocytes Percent Auto 12.2 % (18.3-44.2); Mean Corpuscular HGB Conc 29.3 g/dl (32-36); Mean Corpuscular Hemoglobin 30.7 pg (26-34); Mean Corpuscular Volume 104.5 fl (80-100); Mean Platelet Volume 10.6 fl (7.4-10.4); Monocytes Absolute Auto 0.8 K/mm3 (0.1-0.6); Monocytes Percent Auto 11.9 % (2.6-8.5); Neutrophils Absolute Auto 4.6 K/mm3 (1.3-6.7); Neutrophils Percent Auto 69.1 % (45.5-73.1); Platelet Count Result 153 k/mm3 (150-375); Red Blood Count 4.24 M/mm3 (4.6-6.20); White Blood Count 6.6 K/mm3 (4.5-10.0)
[2023-09-13 06:03] LABS: Alanine Aminotransferase 10 U/L (6-50); Albumin Level 3.4 g/dL (3.5-5.1); Alkaline Phosphatase 62 U/L (38-126); Anion Gap 4 mmol/L (8-16); Aspartate Amino Transferase 22 U/L (17-59); Bilirubin,Total 0.5 mg/dL (0.2-1.3); Blood Urea Nitrogen 61 mg/dL (9-20); Calcium 8.7 mg/dL (8.4-10.2); Carbon Dioxide 28 mmol/L (22-30); Chloride 110 mmol/L (98-107); Estimated CRCL calculation 38 ml/min; Estimated Glomerular Filt Rate 29; Glucose 112 mg/dL (65-110); Phosphorus 4.9 mg/dL (2.5-4.5); Potassium 4.3 mmol/L (3.4-5.0); Sodium 142 mmol/L (137-145)
[2023-09-13 07:57] LABS: Glucose Point of Care 105 mg/dl (65-105)
[2023-09-13] MEDS: APIXABAN 2.5 MG TABLET PO ×2 (08:55→20:55)
[2023-09-13] MEDS: AZITHROMYCIN 500 MG/NS 250 ML 500 MG/250 ML BAG 250 MG IVPB (08:55)
[2023-09-13] MEDS: FUROSEMIDE INJ 40 MG/4 ML VIAL IV PUSH ×2 (08:55→17:48)
[2023-09-13] MEDS: METOPROLOL SUCCINATE EXT REL 25 MG TABCR PO (08:55)
[2023-09-13] MEDS: dilTIAZem HCL CD 240 MG CAP.24HR PO (08:55)
[2023-09-13] MEDS: HYDROcodone/acetaminophen (*CRX) 5-325 MG TABLET 1 TAB PO ×2 (09:05→22:09)
[2023-09-13] MEDS: DOCUSATE SODIUM 100 MG CAPSULE PO (09:10)
--- NOTE | 2023-09-13 09:28 | WPDNEUROPN ---
Progress Note: A&P Assessment and Plan (1) Abnormal involuntary movement: Code(s): R25.9 - Unspecified abnormal involuntary movements Status: Acute (2) Gabapentin adverse reaction: Code(s): T42.6X5A - Adverse effect of other antiepileptic and sedative-hypnotic drugs, initial encounter Status: Acute Plan Carlos Mustafa is a 78 year old male with a history of CKD, diabetes, diabetic neuropathy, CHF, PAD, DM, obesity, atrial fibrillation (on anticoagulation), lymphedema, and hypertension who is currently admitted due to bilateral lower extremity and scrotal edema. He was found to have jerking type movements of the hands, which has been going on for the past few weeks. On exam he has evidence of negative myoclonus/asterixis. This can be seen in the setting of worsening uremia, especially if the patient is on gabapentin. Discontinued patient's gabapentin. MRI brain without contrast should be done to evaluate for other central cause. Check TSH, ceruloplasmin, ammonia level as well. Subjective Date/time seen: 09/13/23 09:28 Interval history: Carlos Mustafa is a 78 year old male with a history of CKD, diabetes, diabetic neuropathy, CHF, PAD, DM, obesity, atrial fibrillation (on anticoagulation), lymphedema, and hypertension who is currently admitted due to bilateral lower extremity and scrotal edema. He is currently being treated for fluid overload, possible pnuomonia, cellulitis of the bilateral lower extremities, and acute on chronic kidney disease. Neurology was consulted for tremors. For the past few weeks, patient has noted jerking like movements in his hands. This has worsened since hospitalization. He denies any family history of tremor. The movements are mostly in the hands, but at times he has noticed it in his legs as well. Patient is on a number of medications including Eliquis, gabapentin 300mg TID, and metoprolol, diltiazem.? As for his labs, he does have uremia with BUN of 60. TSH was not checked yet during this admission. He does not have elevated LFTs. No hypomagnesemia or hypophosphatemia. Calcium is normal as well. Patient is on gabapentin for neuropathy, but he does not feel that it helps. Interval history: Discontinued gabapentin yesterday. BUN is in 60s today. Patient denies any significant change in the movements. Review of Systems Review of Systems: All systems reviewed & are unremarkable except as noted in HPI and below Exam Const: General: comfortable and no acute distress Nutritional Appearance: well nourished HENMT: Head: normocephalic and atraumatic Ears: hearing grossly normal bilaterally and external ears normal Face/Nose/Sinus: Normal external nose present and normal facial exam Face and sinus: normal facial exam Mouth: Yes moist mucous membranes Eyes: General: appearance normal, both eyes and all related structures Eyelids: eyelids normal Conjunctivae: conjunctivae normal Pupils: Equal, round and reactive pupils present EOM: EOMs intact bilaterally Resp: Effort & Inspection: normal respiratory effort Skin: Lesions: lesion noted Rashes: rashes noted Wounds: wounds noted Other: lower extremities lesions Neuro: Cranial nerves: Yes facial symmetry Cognition (Neuro): normal cognition Speech: normal speech Other: with arms outstretched he has negative myoclonus Extrem: General: edema Other: lesions, erythema Psych: Appearance: grossly normal Mental Status: mental status grossly normal Affect: normal affect Attitude: cooperative Objective Data Vital Signs Vital Signs: Vital Signs - 24 hr 09/12/23 14:00 09/12/23 16:00 09/12/23 19:59 Temperature 36.7 C Pulse Rate 68 82 Respiratory Rate 16 Blood Pressure 136/63 Pulse Oximetry 96 97 Oxygen Delivery Nasal Cannula Oxygen Flow Rate 1 09/12/23 20:16 09/12/23 21:00 09/12/23 21:00 Temperature 37.1 C Pulse Rate 74 82 Respiratory Rate 18 Blood Pressure 129/66 Pul
--- NOTE | 2023-09-13 09:31 | PM.PNNEP ---
Progress Note: A&P Assessment and Plan (1) Acute on chronic renal failure: Code(s): N17.9 - Acute kidney failure, unspecified; N18.9 - Chronic kidney disease, unspecified Status: Acute Assessment and Plan: the patient has chronic kidney disease. Most likely this is due to diabetes and hypertension. he sees Dr. Valentine as an outpatient. His baseline creatinine is around 2-2.1 with a GFR in the low 30s. His creatinine was elevated on admission. renal ultrasound shows normal kidneys. Urine electrolytes nondescript but fractional excretion of urea is below 39% and so reflects prerenal factors. CPK is normal He of course has the severe edema with weeping. He is on diuretics to help less than the swelling so that he will weep. His creatinine is improved, possibly due to treatment with antibiotics. Because his echocardiogram is normal I do not think renal venous hypertension would be playing a role so I doubt if the diuretics themselves made the creatinine improved. Another long discussion with the patient. Since his creatinine is better will continue the diuretics as ordered. He will need diuretics on discharge. I encouraged him to see Dr. Valentine as an outpatient. (2) Edema: Code(s): R60.9 - Edema, unspecified Status: Acute Assessment and Plan: Most likely due to venous / lymphatic insufficiency. Since creatinine is improved, continue the diuretics for now he (3) Diabetes mellitus with hyperglycemia: Code(s): E11.65 - Type 2 diabetes mellitus with hyperglycemia Status: Acute Assessment and Plan: A1c was good last check. (4) Atrial fibrillation: Code(s): I48.91 - Unspecified atrial fibrillation Status: Acute Assessment and Plan: He is on anticoagulants. Heart rate is good in the 80s (5) Hypertension: Qualifiers: Hypertension type: primary hypertension Qualified Code(s): I10 - Essential (primary) hypertension Code(s): I10 - Essential (primary) hypertension Status: Chronic Assessment and Plan: systolic blood pressure generally Runs in the 120s to 130s. Occasionally it goes into the 150s. he is on diltiazem. (6) Chronic anemia: Code(s): D64.9 - Anemia, unspecified Status: Chronic Assessment and Plan: Hemoglobin has been better lately. (7) Gout: Code(s): M10.9 - Gout, unspecified Status: Acute Assessment and Plan: Uric acid is very high. This is likely due to his chronic pre renal state. His kidney function is probably not good enough to start allopurinol a new. I would suggest Uloric but is not on formulary. He can start this as an outpatient Subjective Date/time seen: 09/13/23 09:31 Interval history: Carlos is feeling a little bit better today. No shortness of breath. He made some extra urine last night. Creatinine is better Exam Narrative: WDWN in NAD skin no rash head ncat lungs clear bilateral cor reg no rub abd BS+ nontender and soft ext 3+ bilateral lower extremity edema. Objective Data Vital Signs Vital Signs: Vital Signs - 24 hr 09/12/23 14:00 09/12/23 16:00 09/12/23 19:59 Temperature 98.1 F Pulse Rate 68 82 Respiratory Rate 16 Blood Pressure 136/63 Pulse Oximetry 96 97 Oxygen Delivery Nasal Cannula Oxygen Flow Rate 1 09/12/23 20:16 09/12/23 21:00 09/12/23 21:00 Temperature 98.8 F Pulse Rate 74 82 Respiratory Rate 18 Blood Pressure 129/66 Pulse Oximetry 95 99 Oxygen Delivery Nasal Cannula Oxygen Flow Rate 1 09/13/23 00:00 09/13/23 04:07 09/13/23 05:42 Temperature 97.9 F Pulse Rate 69 65 76 Respiratory Rate 14 Blood Pressure 139/67 Pulse Oximetry 98 Oxygen Delivery Oxygen Flow Rate 09/13/23 08:55 Temperature Pulse Rate 85 Respiratory Rate Blood Pressure Pulse Oximetry Oxygen Delivery Oxygen Flow Rate Intake/Output
[2023-09-13] MEDS: cefTRIAXone 2 GM/NS 100 ML 2 GM/100 ML BAG IVPB (10:31)
[2023-09-13 10:55] LABS: Ammonia < 9 umol/L (9-30)
[2023-09-13 11:42] LABS: Glucose Point of Care 117 mg/dl (65-105)
--- NOTE | 2023-09-13 12:38 | PM.IMPN ---
Progress Note: A&P Assessment and Plan (1) Congestive heart failure: Qualifiers: Heart failure chronicity: chronic Heart failure type: diastolic Qualified Code(s): I50.32 - Chronic diastolic (congestive) heart failure Code(s): I50.9 - Heart failure, unspecified Status: Chronic (2) Venous insufficiency: Code(s): I87.2 - Venous insufficiency (chronic) (peripheral) Status: Acute (3) Diastolic congestive heart failure: Code(s): I50.30 - Unspecified diastolic (congestive) heart failure Status: Acute (4) Atrial fibrillation: Code(s): I48.91 - Unspecified atrial fibrillation Status: Acute (5) Insulin dependent diabetes mellitus: Status: Acute (6) Diabetic neuropathy: Code(s): E11.40 - Type 2 diabetes mellitus with diabetic neuropathy, unspecified Status: Acute (7) Lymphedema: Code(s): I89.0 - Lymphedema, not elsewhere classified Status: Acute (8) Wound of lower extremity: Code(s): S81.809A - Unspecified open wound, unspecified lower leg, initial encounter Status: Acute (9) Acute kidney injury: Code(s): N17.9 - Acute kidney failure, unspecified Status: Acute (10) UTI (urinary tract infection): Code(s): N39.0 - Urinary tract infection, site not specified Status: Acute Plan The patient is a 78-year-old male with a past medical history significant for chronic kidney disease, diabetic neuropathy, diastolic heart failure, peripheral vascular disease, gout, history of left femoral artery pseudoaneurysm, insulin-dependent type 2 diabetes, morbid obesity, paroxysmal atrial fibrillation, lymphedema, and hypertension. 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 The patient also reports an inability to urinate since earlier in the day and increased shortness of breath with minimal exertion, such as transferring from his wheelchair to the toilet. UTI On evaluation in the emergency department, the patient was found to be hemodynamically stable. A Barajas catheter was placed without issue, and scrotal elevation was performed. Laboratory results revealed an elevated creatinine level of 3, with a mildly elevated potassium of 5.4. The patient was treated with insulin and dextrose for hyperkalemia and received furosemide (Lasix) diuresis. Urinalysis indicated a possible urinary tract infection with 6 to 10 white blood cells per high power field and the presence of white blood cell clumps; empiric antibiotic therapy was initiated. Tremors: Neurology consulted; Fluid overloaded, acute on chronic diastolic heart failure An echocardiogram from July 18 showed normal ejection fraction with biatrial dilation, and the patient had a significantly elevated B-type natriuretic peptide (BNP) level at 11,000. Chest X-ray demonstrated pulmonary vascular congestion and a right-sided pleural effusion. Will repeat chest x-ray to further evaluate today Increased Lasix from 40 mg daily to 40 mg b.i.d. IV push 09/09 Patient still has swelling of left lower extremity and scrotum, will increase lasix to 60 mg bid ivp Multifocal pneumonia Chest x-ray suggests pneumonia involving right middle and lower lobe Started ceftriaxone 1 g daily, azithromycin 500 mL daily on September 09. increase ceftriaxone to 2 g IV daily 09/09 Follow-up procalcitonin 0.2 repeat CXR Cellulitis bilateral lower extremities Broken skin bilateral lower extremities, and bilateral lower extremities tender swelling with erythema Suspecting cellulitis bilateral lower extremities Antibiotics see above Request wound care TWIN on CKD CKD stage 4, upon arrival, BUN 3.0, baseline 2.1 on June 28 The patient was admitted for further evaluation and management of his acute kidney injury, presumed urinary
[2023-09-13] MEDS: CALCIUM CARBONATE (TUMS) 500 MG (200 MG ELEMENTAL) PO (14:03)
[2023-09-13 16:58] LABS: Glucose Point of Care 128 mg/dl (65-105)
[2023-09-13] MEDS: INSULIN GLARGINE (*BKC) 100 UNITS/ML 15 UNITS SUB-Q (20:54)
[2023-09-13 21:47] LABS: Glucose Point of Care 152 mg/dl (65-105)
[2023-09-14] VITALS (12 sets, daily range): BP systolic 144–157; BP diastolic 82–89; PULSE 66–100; RESP 16–18; TEMP 36.2–36.7; O2SAT 94–100
[2023-09-14 06:09] LABS: Basophils Percent Auto 0.5 % (0.2-1.2); Eosinophils Absolute Auto 0.4 K/mm3 (0-0.3); Hemoglobin 12.8 g/dL (14.0-18.0); Immature Granulocyte Absolute 0.02 K/mm3 (0.00-0.031); Immature Granulocyte Percent A 0.3 % (0-0.5); Lymphocytes Absolute Auto 0.85 K/mm3 (0.9-3.2); Lymphocytes Percent Auto 11.6 % (18.3-44.2); Mean Corpuscular HGB Conc 29.1 g/dl (32-36); Mean Corpuscular Hemoglobin 30.1 pg (26-34); Mean Corpuscular Volume 103.5 fl (80-100); Mean Platelet Volume 11.1 fl (7.4-10.4); Monocytes Absolute Auto 0.8 K/mm3 (0.1-0.6); Monocytes Percent Auto 10.8 % (2.6-8.5); Neutrophils Absolute Auto 5.2 K/mm3 (1.3-6.7); Neutrophils Percent Auto 70.8 % (45.5-73.1); Platelet Count Result 153 k/mm3 (150-375); Red Blood Count 4.25 M/mm3 (4.6-6.20); Red Cell Distribution Width 14.7 % (11.5-14.5); White Blood Count 7.3 K/mm3 (4.5-10.0)
[2023-09-14 06:28] LABS: Alanine Aminotransferase 11 U/L (6-50); Albumin Level 3.4 g/dL (3.5-5.1); Alkaline Phosphatase 68 U/L (38-126); Anion Gap 6 mmol/L (8-16); Aspartate Amino Transferase 25 U/L (17-59); Bilirubin,Total 0.6 mg/dL (0.2-1.3); Blood Urea Nitrogen 62 mg/dL (9-20); Calcium 8.9 mg/dL (8.4-10.2); Carbon Dioxide 30 mmol/L (22-30); Chloride 109 mmol/L (98-107); Estimated CRCL calculation 38 ml/min; Estimated Glomerular Filt Rate 29; Glucose 111 mg/dL (65-110); Phosphorus 4.5 mg/dL (2.5-4.5); Potassium 4.1 mmol/L (3.4-5.0); Sodium 145 mmol/L (137-145)
[2023-09-14] MEDS: APIXABAN 2.5 MG TABLET PO ×2 (09:13→20:30)
[2023-09-14] MEDS: dilTIAZem HCL CD 240 MG CAP.24HR PO (09:13)
[2023-09-14] MEDS: METOPROLOL SUCCINATE EXT REL 25 MG TABCR PO (09:13)
[2023-09-14] MEDS: AZITHROMYCIN 500 MG/NS 250 ML 500 MG/250 ML BAG 250 MG IVPB (09:14)
[2023-09-14] MEDS: FUROSEMIDE INJ 40 MG/4 ML VIAL IV PUSH ×2 (09:14→17:02)
[2023-09-14] MEDS: HYDROcodone/acetaminophen (*CRX) 5-325 MG TABLET 1 TAB PO ×2 (09:31→20:33)
--- NOTE | 2023-09-14 10:16 | P.PNIM_ITS ---
Progress Note: A&P Assessment and Plan (1) Congestive heart failure: Qualifiers: Heart failure chronicity: chronic Heart failure type: diastolic Qualified Code(s): I50.32 - Chronic diastolic (congestive) heart failure Code(s): I50.9 - Heart failure, unspecified Status: Chronic (2) Venous insufficiency: Code(s): I87.2 - Venous insufficiency (chronic) (peripheral) Status: Acute (3) Diastolic congestive heart failure: Code(s): I50.30 - Unspecified diastolic (congestive) heart failure Status: Acute (4) Atrial fibrillation: Code(s): I48.91 - Unspecified atrial fibrillation Status: Acute (5) Insulin dependent diabetes mellitus: Status: Acute (6) Diabetic neuropathy: Code(s): E11.40 - Type 2 diabetes mellitus with diabetic neuropathy, unspecified Status: Acute (7) Lymphedema: Code(s): I89.0 - Lymphedema, not elsewhere classified Status: Acute (8) Wound of lower extremity: Code(s): S81.809A - Unspecified open wound, unspecified lower leg, initial encounter Status: Acute (9) Acute kidney injury: Code(s): N17.9 - Acute kidney failure, unspecified Status: Acute (10) UTI (urinary tract infection): Code(s): N39.0 - Urinary tract infection, site not specified Status: Acute Plan The patient is a 78-year-old male with a past medical history significant for chronic kidney disease, diabetic neuropathy, diastolic heart failure, peripheral vascular disease, gout, history of left femoral artery pseudoaneurysm, insulin- dependent type 2 diabetes, morbid obesity, paroxysmal atrial fibrillation, lymphedema, and hypertension. 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 He lives in assisted living and has been experiencing progressively worsening bilateral leg swelling and pain associated with his SCROTAL EDEMA. The patient also reports an inability to urinate since earlier in the day and increased shortness of breath with minimal exertion, such as transferring from his wheelchair to the toilet. UTI On evaluation in the emergency department, the patient was found to be hemodynamically stable. A Barajas catheter was placed without issue, and scrotal elevation was performed. Laboratory results revealed an elevated creatinine level of 3, with a mildly elevated potassium of 5.4. The patient was treated with insulin and dextrose for hyperkalemia and received furosemide (Lasix) diuresis. Urinalysis indicated a possible urinary tract infection with 6 to 10 white blood cells per high power field and the presence of white blood cell clumps; empiric antibiotic therapy was initiated. Tremors: Neurology consulted; Brain MRI 1. No acute intracranial process. 2. Age-related changes including mild to moderate diffuse volume loss and mild scattered white matter hypoattenuation consistent with chronic small vessel ischemic disease. Neurologist considers possible related go pending, which is discontinued. Patient no jerking movement today. Management per neurologist Fluid overloaded, acute on chronic diastolic heart failure An echocardiogram from July 18 showed normal ejection fraction with biatrial dilation, and the patient had a significantly elevated B-type natriuretic peptide (BNP) level at 11,000. Chest X-ray demonstrated pulmonary vascular congestion and a right-sided pleural effusion. Will repeat chest x-ray to further evaluate today Increased Lasix from 40 mg daily to 40 mg b.i.d. IV push 09/09 Patient still has swelling of left lower extremity and scrotum, will increase lasix to 60 mg bid
--- NOTE | 2023-09-14 10:35 | PCNWS ---
Weekly nutritional screen. Patient is tolerating current diet with adequate intake. No weight loss reported. No nutritional needs at this time.
[2023-09-14 10:45] LABS: Glucose Point of Care 96 mg/dl (65-105)
--- NOTE | 2023-09-14 11:22 | PM.PNNEP ---
Progress Note: A&P Assessment and Plan (1) Acute kidney injury: Code(s): N17.9 - Acute kidney failure, unspecified Status: Acute Assessment and Plan: creatinine elevated at 3.0mg/dl on admission however, slow improvement noted evaluation to date: renal ultrasound shows normal kidneys urine electrolytes nondescript but fractional excretion of urea is below 39% and so reflects prerenal factors CPK is normal improvement in renal function due to antibiotics versus diuretics (in association with renal venous hypertension?) his normal Echo argues against renal venuous hypertension follow trend of repeat labs and UOP (2) Stage 3b chronic kidney disease (CKD): Code(s): N18.32 - Chronic kidney disease, stage 3b Status: Chronic Assessment and Plan: baseline creatinine runs around 2.1 - 2.2mg/dl with an associated GFR in the low 30s likely due to diabetes, hypertension, age, and chronic need for diuretic therapy follows with Dr. Valentine for CKD management (3) Edema: Code(s): R60.9 - Edema, unspecified Status: Acute Assessment and Plan: felt to be secondary to venous insufficiency + chronic lymphedena continue diuretic therapy suspect he will always have some chronic lower extremity edema (4) Atrial fibrillation: Code(s): I48.91 - Unspecified atrial fibrillation Status: Chronic Assessment and Plan: rate control strategy on anticoagulation (5) Hypertension: Qualifiers: Hypertension type: primary hypertension Qualified Code(s): I10 - Essential (primary) hypertension Code(s): I10 - Essential (primary) hypertension Status: Chronic Assessment and Plan: reasonable control follow trend of hemodynamics (6) Diabetes mellitus with hyperglycemia: Code(s): E11.65 - Type 2 diabetes mellitus with hyperglycemia Status: Acute Assessment and Plan: follow accu-cheks glycemic control per hospitalists Will continue to follow. Subjective Date/time seen: 09/14/23 11:22 Interval history: Follow-up for acute kidney injury/acute renal failure on chronic kidney disease. Chart reviewed - assuming care from Dr. Pugh; reasonable urine output in response to IV diuretic therapy with stability if not improvement in renal function; no apparent distress noted at the time of my visit; no issues/events overnight. Exam Narrative: General: elderly but WD/WN male in NAD Heart: normal S1 and S2; no rub Lungs: clear anteriorly Abdomen: soft, nontender, nondistended, positive bowel sounds Extremities: no cyanosis or clubbing; 2 - 3+ edema Skin: warm and dry Objective Data Vital Signs Vital Signs: Vital Signs Temp Pulse Resp BP Pulse Ox O2 Del Method O2 Flow Rate 09/14/23 09:48 94 Nasal Cannula 0.5 09/14/23 09:45 95 Nasal Cannula 1 09/14/23 09:13 86 09/14/23 04:00 66 09/14/23 00:00 76 09/14/23 05:28 97.5 F L 66 16 146/85 H 94 09/13/23 21:00 98 Nasal Cannula 2 09/13/23 21:00 89 09/13/23 20:56 95 Nasal Cannula 1 09/13/23 20:47 98.4 F 90 16 155/77 H 95 09/13/23 16:00 89 09/13/23 14:30 95 Nasal Cannula 1 09/13/23 13:43 97.5 F L 75 19 133/66 97 Intake/Output Intake/Output: Intake & Output 09/11/23 09/12/23 09/13/23 09/14/23 23:59 23:59 23:59 23:59 Intake Total 1470 1210 1470 370 Output Total 8323 777 6248 1100 Balance 270 510 70 -730 Meds/Results Medications: Active Medications Generic Name Dose Route Start Last Admin Trade Name Freq PRN Reason Stop Dose Admin Hydrocodone Bitart/Acetaminophen 1 tab 09/07/23 12:48 09/14/23 09:31 Hydrocodone/Acetaminophen (*Crx) 5-325 Mg Tablet PO 1 tab Q8H PRN Administration Pain Rated 4-6 Apixaban 2.5 mg 09/07/23 21:00 09/14/23 09:13 Apixaban 2.5 Mg Tablet PO 2.5 mg Q12HR OTTO Administrati
--- NOTE | 2023-09-14 11:22 | P.PNNP_ITS ---
Progress Note: A&P Assessment and Plan (1) Acute kidney injury: Code(s): N17.9 - Acute kidney failure, unspecified Status: Acute Assessment and Plan: * creatinine elevated at 3.0mg/dl on admission * however, slow improvement noted * evaluation to date: * renal ultrasound shows normal kidneys * urine electrolytes nondescript but fractional excretion of urea is below 39% and so reflects prerenal factors * CPK is normal * improvement in renal function due to antibiotics versus diuretics (in association with renal venous hypertension?) * his normal Echo argues against renal venuous hypertension * follow trend of repeat labs and UOP (2) Stage 3b chronic kidney disease (CKD): Code(s): N18.32 - Chronic kidney disease, stage 3b Status: Chronic Assessment and Plan: * baseline creatinine runs around 2.1 - 2.2mg/dl with an associated GFR in the low 30s * likely due to diabetes, hypertension, age, and chronic need for diuretic therapy * follows with Dr. Valentine for CKD management (3) Edema: Code(s): R60.9 - Edema, unspecified Status: Acute Assessment and Plan: * felt to be secondary to venous insufficiency + chronic lymphedena * continue diuretic therapy * suspect he will always have some chronic lower extremity edema (4) Atrial fibrillation: Code(s): I48.91 - Unspecified atrial fibrillation Status: Chronic Assessment and Plan: * rate control strategy * on anticoagulation (5) Hypertension: Qualifiers: Hypertension type: primary hypertension Qualified Code(s): I10 - Essential (primary) hypertension Code(s): I10 - Essential (primary) hypertension Status: Chronic Assessment and Plan: * reasonable control * follow trend of hemodynamics (6) Diabetes mellitus with hyperglycemia: Code(s): E11.65 - Type 2 diabetes mellitus with hyperglycemia Status: Acute Assessment and Plan: * follow accu-cheks * glycemic control per hospitalists Will continue to follow. Subjective Date/time seen: 09/14/23 11:22 Interval history: Follow-up for acute kidney injury/acute renal failure on chronic kidney disease. Chart reviewed - assuming care from Dr. Pugh; reasonable urine output in response to IV diuretic therapy with stability if not improvement in renal function; no apparent distress noted at the time of my visit; no issues/events overnight. Exam Narrative: General: elderly but WD/WN male in NAD Heart: normal S1 and S2; no rub Lungs: clear anteriorly Abdomen: soft, nontender, nondistended, positive bowel sounds Extremities: no cyanosis or clubbing; 2 - 3+ edema Skin: warm and dry Objective Data Vital Signs Vital Signs: Vital Signs Temp Pulse Resp BP Pulse Ox O2 Del Method O2 Flow Rate 09/14/23 09:48 94 Nasal Cannula 0.5 09/14/23 09:45 95 Nasal Cannula 1 09/14/23 09:13 86 09/14/23 04:00 66 09/14/23 00:00 76 09/14/23 05:28 97.5 F L 66 16 146/85 H 94 09/13/23 21:00 98 Nasal Cannula 2 09/13/23 21:00 89 09/13/23 20:56 95 Nasal Cannula 1 09/13/23 20:47 98.4 F 90 16 155/77 H 95 09/13/23 16:00 89 09/13/23 14:30 95 Nasal Cannula 1 09/13/23 13:43 97.5
[2023-09-14 11:57] LABS: Glucose Point of Care 105 mg/dl (65-105)
[2023-09-14] MEDS: cefTRIAXone 2 GM/NS 100 ML 2 GM/100 ML BAG IVPB (12:33)
[2023-09-14] MEDS: CALCIUM CARBONATE (TUMS) 500 MG (200 MG ELEMENTAL) PO ×2 (13:00→20:39)
[2023-09-14 17:20] LABS: Glucose Point of Care 101 mg/dl (65-105)
[2023-09-14] MEDS: INSULIN GLARGINE (*BKC) 100 UNITS/ML 15 UNITS SUB-Q (20:30)
[2023-09-15] VITALS (11 sets, daily range): BP systolic 153–175; BP diastolic 74–86; PULSE 87–106; RESP 16–20; TEMP 36.6–37; O2SAT 93–96
[2023-09-15] MEDS: HYDROcodone/acetaminophen (*CRX) 5-325 MG TABLET 1 TAB PO (05:23)
[2023-09-15 06:13] LABS: Glucose Point of Care 111 mg/dl (65-105)
[2023-09-15 06:23] LABS: Basophils Absolute Auto 0.1 K/mm3 (0.0-0.1); Basophils Percent Auto 0.7 % (0.2-1.2); Eosinophils Absolute Auto 0.2 K/mm3 (0-0.3); Eosinophils Percent Auto 2.4 % (0-4.4); Hematocrit 44.3 % (42.0-52.0); Immature Granulocyte Absolute 0.02 K/mm3 (0.00-0.031); Immature Granulocyte Percent A 0.3 % (0-0.5); Lymphocytes Absolute Auto 0.74 K/mm3 (0.9-3.2); Lymphocytes Percent Auto 9.9 % (18.3-44.2); Mean Corpuscular HGB Conc 29.3 g/dl (32-36); Mean Corpuscular Hemoglobin 30.3 pg (26-34); Mean Corpuscular Volume 103.3 fl (80-100); Mean Platelet Volume 11.5 fl (7.4-10.4); Monocytes Absolute Auto 0.7 K/mm3 (0.1-0.6); Monocytes Percent Auto 8.7 % (2.6-8.5); Neutrophils Absolute Auto 5.8 K/mm3 (1.3-6.7); Platelet Count Result 155 k/mm3 (150-375); Red Blood Count 4.29 M/mm3 (4.6-6.20); Red Cell Distribution Width 14.6 % (11.5-14.5); White Blood Count 7.5 K/mm3 (4.5-10.0)
[2023-09-15 06:30] LABS: Alanine Aminotransferase 12 U/L (6-50); Albumin Level 3.4 g/dL (3.5-5.1); Alkaline Phosphatase 72 U/L (38-126); Anion Gap 7 mmol/L (8-16); Aspartate Amino Transferase 28 U/L (17-59); Bilirubin,Total 0.7 mg/dL (0.2-1.3); Blood Urea Nitrogen 60 mg/dL (9-20); Calcium 9.2 mg/dL (8.4-10.2); Carbon Dioxide 29 mmol/L (22-30); Chloride 108 mmol/L (98-107); Estimated CRCL calculation 44 ml/min; Estimated Glomerular Filt Rate 35; Glucose 86 mg/dL (65-110); Potassium 4.1 mmol/L (3.4-5.0); Sodium 144 mmol/L (137-145)
[2023-09-15 08:30] LABS: Glucose Point of Care 74 mg/dl (65-105)
--- NOTE | 2023-09-15 08:52 | PM.IMPN ---
Progress Note: A&P Assessment and Plan (1) Congestive heart failure: Qualifiers: Heart failure chronicity: chronic Heart failure type: diastolic Qualified Code(s): I50.32 - Chronic diastolic (congestive) heart failure Code(s): I50.9 - Heart failure, unspecified Status: Chronic (2) Venous insufficiency: Code(s): I87.2 - Venous insufficiency (chronic) (peripheral) Status: Acute (3) Diastolic congestive heart failure: Code(s): I50.30 - Unspecified diastolic (congestive) heart failure Status: Acute (4) Atrial fibrillation: Code(s): I48.91 - Unspecified atrial fibrillation Status: Chronic (5) Insulin dependent diabetes mellitus: Status: Acute (6) Diabetic neuropathy: Code(s): E11.40 - Type 2 diabetes mellitus with diabetic neuropathy, unspecified Status: Acute (7) Lymphedema: Code(s): I89.0 - Lymphedema, not elsewhere classified Status: Acute (8) Wound of lower extremity: Code(s): S81.809A - Unspecified open wound, unspecified lower leg, initial encounter Status: Acute (9) Acute kidney injury: Code(s): N17.9 - Acute kidney failure, unspecified Status: Acute (10) UTI (urinary tract infection): Code(s): N39.0 - Urinary tract infection, site not specified Status: Acute Plan The patient is a 78-year-old male with a past medical history significant for chronic kidney disease, diabetic neuropathy, diastolic heart failure, peripheral vascular disease, gout, history of left femoral artery pseudoaneurysm, insulin-dependent type 2 diabetes, morbid obesity, paroxysmal atrial fibrillation, lymphedema, and hypertension. 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 The patient also reports an inability to urinate since earlier in the day and increased shortness of breath with minimal exertion, such as transferring from his wheelchair to the toilet. UTI On evaluation in the emergency department, the patient was found to be hemodynamically stable. A Barajas catheter was placed without issue, and scrotal elevation was performed. Laboratory results revealed an elevated creatinine level of 3, with a mildly elevated potassium of 5.4. The patient was treated with insulin and dextrose for hyperkalemia and received furosemide (Lasix) diuresis. Urinalysis indicated a possible urinary tract infection with 6 to 10 white blood cells per high power field and the presence of white blood cell clumps; empiric antibiotic therapy was initiated. Tremors: Neurology consulted; Brain MRI 1. No acute intracranial process. 2. Age-related changes including mild to moderate diffuse volume loss and mild scattered white matter hypoattenuation consistent with chronic small vessel ischemic disease. Neurologist considers possible related go pending, which is discontinued. Patient no jerking movement today. Management per neurologist Fluid overloaded, acute on chronic diastolic heart failure An echocardiogram from July 18 showed normal ejection fraction with biatrial dilation, and the patient had a significantly elevated B-type natriuretic peptide (BNP) level at 11,000. Chest X-ray demonstrated pulmonary vascular congestion and a right-sided pleural effusion. Will repeat chest x-ray to further evaluate today Increased Lasix from 40 mg daily to 40 mg b.i.d. IV push 09/09 Patient still has swelling of left lower extremity and scrotum, will increase lasix to 60 mg bid ivp Multifocal pneumonia Chest x-ray suggests pneumonia involving right middle and lower lobe Started ceftriaxone 1 g daily, azithromycin 500 mL daily on September 09. increase ceftriaxone to 2 g IV daily 09/09 Follow-up procalcitonin 0.2 repeat CXR Cellulitis bilateral lower extremities Broken skin bilateral lowe
[2023-09-15] MEDS: FUROSEMIDE INJ 40 MG/4 ML VIAL IV PUSH (10:20)
[2023-09-15] MEDS: APIXABAN 2.5 MG TABLET PO ×2 (10:20→20:39)
[2023-09-15] MEDS: LACTIC ACID 12% LOTION 225 BTL 1 APPLIC TOPICAL (10:21)
[2023-09-15] MEDS: METOPROLOL SUCCINATE EXT REL 25 MG TABCR PO (10:21)
[2023-09-15] MEDS: dilTIAZem HCL CD 240 MG CAP.24HR PO (10:21)
[2023-09-15] MEDS: CALCIUM CARBONATE (TUMS) 500 MG (200 MG ELEMENTAL) PO ×2 (10:27→20:39)
--- NOTE | 2023-09-15 10:39 | P.PNNP_ITS ---
Progress Note: A&P Assessment and Plan (1) Acute kidney injury: Code(s): N17.9 - Acute kidney failure, unspecified Status: Acute Assessment and Plan: * creatinine elevated at 3.0mg/dl on admission * however, slow improvement noted * evaluation to date: * renal ultrasound shows normal kidneys * urine electrolytes nondescript but fractional excretion of urea is below 39% and so reflects prerenal factors * CPK is normal * improvement in renal function due to antibiotics versus diuretics (in association with renal venous hypertension?) * his normal Echo argues against renal venuous hypertension * follow trend of repeat labs and UOP (2) Stage 3b chronic kidney disease (CKD): Code(s): N18.32 - Chronic kidney disease, stage 3b Status: Chronic Assessment and Plan: * baseline creatinine runs around 2.1 - 2.2mg/dl with an associated GFR in the low 30s * likely due to diabetes, hypertension, age, and chronic need for diuretic therapy * follows with Dr. Valentine for CKD management (3) Edema: Code(s): R60.9 - Edema, unspecified Status: Acute Assessment and Plan: * felt to be secondary to venous insufficiency + chronic lymphedena * continue diuretic therapy * suspect he will always have some chronic lower extremity edema (4) Atrial fibrillation: Code(s): I48.91 - Unspecified atrial fibrillation Status: Chronic Assessment and Plan: * rate control strategy * on anticoagulation (5) Hypertension: Qualifiers: Hypertension type: primary hypertension Qualified Code(s): I10 - Essential (primary) hypertension Code(s): I10 - Essential (primary) hypertension Status: Chronic Assessment and Plan: * reasonable control * follow trend of hemodynamics (6) Diabetes mellitus with hyperglycemia: Code(s): E11.65 - Type 2 diabetes mellitus with hyperglycemia Status: Acute Assessment and Plan: * follow accu-cheks * glycemic control per hospitalists Will continue to follow. Subjective Date/time seen: 09/15/23 10:39 Interval history: Follow-up for acute kidney injury/acute renal failure on chronic kidney disease. Continues to have reasonable urine output in response to IV diuretic therapy with stability if not improvement in renal function; no apparent distress voiced at this time; no events overnight or earlier this morning. Exam Narrative: General: elderly but WD/WN male in NAD Heart: normal S1 and S2; no rub Lungs: clear anteriorly Abdomen: soft, nontender, nondistended, positive bowel sounds Extremities: no cyanosis or clubbing; 2 - 3+ edema Skin: warm and intact Objective Data Vital Signs Vital Signs: Vital Signs Temp Pulse Resp BP Pulse Ox O2 Del Method O2 Flow Rate 09/15/23 10:21 106 H 09/15/23 08:00 106 H 20 93 Nasal Cannula 1 09/15/23 04:38 97.8 F 87 20 153/74 H 93 09/15/23 04:00 88 09/15/23 00:00 99 09/14/23 20:00 94 Nasal Cannula 0.5 09/14/23 20:00 87 09/14/23 20:31 98.1 F 100 18 157/89 H 94 09/14/23 16:00 86 09/14/23 15:16 97.2 F L 89 18 144/82 H 100 Intake/Output Intake/Output: Intake & Output 09/12/23 02
--- NOTE | 2023-09-15 10:39 | PM.PNNEP ---
Progress Note: A&P Assessment and Plan (1) Acute kidney injury: Code(s): N17.9 - Acute kidney failure, unspecified Status: Acute Assessment and Plan: creatinine elevated at 3.0mg/dl on admission however, slow improvement noted evaluation to date: renal ultrasound shows normal kidneys urine electrolytes nondescript but fractional excretion of urea is below 39% and so reflects prerenal factors CPK is normal improvement in renal function due to antibiotics versus diuretics (in association with renal venous hypertension?) his normal Echo argues against renal venuous hypertension follow trend of repeat labs and UOP (2) Stage 3b chronic kidney disease (CKD): Code(s): N18.32 - Chronic kidney disease, stage 3b Status: Chronic Assessment and Plan: baseline creatinine runs around 2.1 - 2.2mg/dl with an associated GFR in the low 30s likely due to diabetes, hypertension, age, and chronic need for diuretic therapy follows with Dr. Valentine for CKD management (3) Edema: Code(s): R60.9 - Edema, unspecified Status: Acute Assessment and Plan: felt to be secondary to venous insufficiency + chronic lymphedena continue diuretic therapy suspect he will always have some chronic lower extremity edema (4) Atrial fibrillation: Code(s): I48.91 - Unspecified atrial fibrillation Status: Chronic Assessment and Plan: rate control strategy on anticoagulation (5) Hypertension: Qualifiers: Hypertension type: primary hypertension Qualified Code(s): I10 - Essential (primary) hypertension Code(s): I10 - Essential (primary) hypertension Status: Chronic Assessment and Plan: reasonable control follow trend of hemodynamics (6) Diabetes mellitus with hyperglycemia: Code(s): E11.65 - Type 2 diabetes mellitus with hyperglycemia Status: Acute Assessment and Plan: follow accu-cheks glycemic control per hospitalists Will continue to follow. Subjective Date/time seen: 09/15/23 10:39 Interval history: Follow-up for acute kidney injury/acute renal failure on chronic kidney disease. Continues to have reasonable urine output in response to IV diuretic therapy with stability if not improvement in renal function; no apparent distress voiced at this time; no events overnight or earlier this morning. Exam Narrative: General: elderly but WD/WN male in NAD Heart: normal S1 and S2; no rub Lungs: clear anteriorly Abdomen: soft, nontender, nondistended, positive bowel sounds Extremities: no cyanosis or clubbing; 2 - 3+ edema Skin: warm and intact Objective Data Vital Signs Vital Signs: Vital Signs Temp Pulse Resp BP Pulse Ox O2 Del Method O2 Flow Rate 09/15/23 10:21 106 H 09/15/23 08:00 106 H 20 93 Nasal Cannula 1 09/15/23 04:38 97.8 F 87 20 153/74 H 93 09/15/23 04:00 88 09/15/23 00:00 99 09/14/23 20:00 94 Nasal Cannula 0.5 09/14/23 20:00 87 09/14/23 20:31 98.1 F 100 18 157/89 H 94 09/14/23 16:00 86 09/14/23 15:16 97.2 F L 89 18 144/82 H 100 Intake/Output Intake/Output: Intake & Output 09/12/23 09/13/23 09/14/23 09/15/23 23:59 23:59 23:59 23:59 Intake Total 1210 1470 970 220 Output Total 700 1400 1850 1600 Balance 510 70 880 -1380 Meds/Results Medications: Active Medications Generic Name Dose Route Start Last Admin Trade Name Freq PRN Reason Stop Dose Admin Hydrocodone Bitart/Acetaminophen 1 tab 09/07/23 12:48 09/15/23 05:23 Hydrocodone/Acetaminophen (*Crx) 5-325 Mg Tablet PO 1 tab Q8H PRN Administration Pain Rated 4-6 Apixaban 2.5 mg 09/07/23 21:00 09/15/23 10:20 Apixaban 2.5 Mg Tablet PO 2.5 mg Q12HR OTTO Administration Calcium Carbonate 200 mg 09/13/23 13:43 09/15/23 10:27 Calcium Carbonate (Tums) 500 Mg (200 Mg Elemental) PO 200 mg Q6H
--- NOTE | 2023-09-15 10:56 | PM.DS ---
DS: Admitting Diagnosis Discharge Date 09/15/23 Admitting Diagnosis (1) Congestive heart failure: ?Qualifiers: ?Heart failure chronicity:?chronic??Heart failure type:?diastolic? Qualified Code(s):?I50.32 - Chronic diastolic (congestive) heart failure ?Code(s): I50.9 - Heart failure, unspecified ?Status:?Chronic (2) Venous insufficiency: ?Code(s): I87.2 - Venous insufficiency (chronic) (peripheral) ?Status:?Acute (3) Diastolic congestive heart failure: ?Code(s): I50.30 - Unspecified diastolic (congestive) heart failure ?Status:?Acute (4) Atrial fibrillation: ?Code(s): I48.91 - Unspecified atrial fibrillation ?Status:?Acute (5) Insulin dependent diabetes mellitus: ?Status:?Acute (6) Diabetic neuropathy: ?Code(s): E11.40 - Type 2 diabetes mellitus with diabetic neuropathy, unspecified ?Status:?Acute (7) Lymphedema: ?Code(s): I89.0 - Lymphedema, not elsewhere classified ?Status:?Acute (8) Wound of lower extremity: ?Code(s): S81.809A - Unspecified open wound, unspecified lower leg, initial encounter ?Status:?Acute (9) Acute kidney injury: ?Code(s): N17.9 - Acute kidney failure, unspecified ?Status:?Acute (10) UTI (urinary tract infection): ?Code(s): N39.0 - Urinary tract infection, site not specified ?Status:?Acute DS: Discharge Diagnosis Discharge Diagnosis (1) Congestive heart failure: Qualifiers: Heart failure chronicity: chronic Heart failure type: diastolic Qualified Code(s): I50.32 - Chronic diastolic (congestive) heart failure Code(s): I50.9 - Heart failure, unspecified Status: Chronic (2) Venous insufficiency: Code(s): I87.2 - Venous insufficiency (chronic) (peripheral) Status: Acute (3) Diastolic congestive heart failure: Code(s): I50.30 - Unspecified diastolic (congestive) heart failure Status: Acute (4) Atrial fibrillation: Code(s): I48.91 - Unspecified atrial fibrillation Status: Acute (5) Insulin dependent diabetes mellitus: Status: Acute (6) Diabetic neuropathy: Code(s): E11.40 - Type 2 diabetes mellitus with diabetic neuropathy, unspecified Status: Acute (7) Lymphedema: Code(s): I89.0 - Lymphedema, not elsewhere classified Status: Acute (8) Wound of lower extremity: Code(s): S81.809A - Unspecified open wound, unspecified lower leg, initial encounter Status: Acute (9) Acute kidney injury: Code(s): N17.9 - Acute kidney failure, unspecified Status: Acute (10) UTI (urinary tract infection): Code(s): N39.0 - Urinary tract infection, site not specified Status: Acute DS: Summary Hospital Course Hospital Course: The patient is a 78-year-old male with a past medical history significant for chronic kidney disease, diabetic neuropathy, diastolic heart failure, peripheral vascular disease, gout, history of left femoral artery pseudoaneurysm, insulin-dependent type 2 diabetes, morbid obesity, paroxysmal atrial fibrillation, lymphedema, and hypertension. 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 He lives in assisted living and has been experiencing progressively worsening bilateral leg swelling and pain associated with his SCROTAL EDEMA. The patient also reports an inability to urinate since earlier in the day and increased shortness of breath with minimal exertion, such as transferring from his wheelchair to the toilet. UTI On evaluation in the emergency department, the patient was found to be hemodynamically stable. A Barajas catheter was placed without issue, and scrotal elevation was performed. Laboratory results revealed an elevated creatinine level of 3, with a mildly elevated potassium of 5.4. The patient was treated with insulin and dextrose for hyperkalemia and received furosemide (Lasix) diuresis. Urinalysis indicated a possible
[2023-09-15 12:11] LABS: Glucose Point of Care 78 mg/dl (65-105)
[2023-09-15 17:24] LABS: Glucose Point of Care 80 mg/dl (65-105)
[2023-09-15] MEDS: FUROSEMIDE 40 MG TABLET PO (17:46)
--- NOTE | 2023-09-15 18:47 | PC.NURSE ---
Pt refusing meals today. Pt educated on the importance of nutrition as a diabetic and someone who needs energy to continue to heal. MD made aware.
[2023-09-15 20:35] LABS: Glucose Point of Care 90 mg/dl (65-105)
[2023-09-16] VITALS (7 sets, daily range): BP systolic 150–153; BP diastolic 73–90; PULSE 80–114; RESP 16–18; TEMP 36.5–36.6; O2SAT 96–98
[2023-09-16 05:35] LABS: Basophils Absolute Auto 0.1 K/mm3 (0.0-0.1); Basophils Percent Auto 0.7 % (0.2-1.2); Eosinophils Absolute Auto 0.1 K/mm3 (0-0.3); Eosinophils Percent Auto 1.3 % (0-4.4); Hematocrit 44.2 % (42.0-52.0); Hemoglobin 12.9 g/dL (14.0-18.0); Immature Granulocyte Absolute 0.02 K/mm3 (0.00-0.031); Immature Granulocyte Percent A 0.3 % (0-0.5); Lymphocytes Absolute Auto 0.64 K/mm3 (0.9-3.2); Lymphocytes Percent Auto 8.5 % (18.3-44.2); Mean Corpuscular HGB Conc 29.2 g/dl (32-36); Mean Corpuscular Volume 102.8 fl (80-100); Mean Platelet Volume 11.4 fl (7.4-10.4); Monocytes Absolute Auto 0.6 K/mm3 (0.1-0.6); Neutrophils Absolute Auto 6.1 K/mm3 (1.3-6.7); Neutrophils Percent Auto 81.2 % (45.5-73.1); Platelet Count Result 141 k/mm3 (150-375); Red Cell Distribution Width 14.8 % (11.5-14.5); White Blood Count 7.5 K/mm3 (4.5-10.0)
[2023-09-16 05:41] LABS: Alanine Aminotransferase 13 U/L (6-50); Albumin Level 3.4 g/dL (3.5-5.1); Alkaline Phosphatase 71 U/L (38-126); Anion Gap 8 mmol/L (8-16); Aspartate Amino Transferase 30 U/L (17-59); Bilirubin,Total 0.8 mg/dL (0.2-1.3); Blood Urea Nitrogen 59 mg/dL (9-20); Calcium 9.3 mg/dL (8.4-10.2); Carbon Dioxide 28 mmol/L (22-30); Chloride 109 mmol/L (98-107); Estimated CRCL calculation 45 ml/min; Estimated Glomerular Filt Rate 37; Glucose 114 mg/dL (65-110); Potassium 4.3 mmol/L (3.4-5.0); Sodium 145 mmol/L (137-145)
[2023-09-16 06:50] LABS: Hypochromasia 1+ (NORMAL); Platelet Estimate Adequate (Adequate); Schistocytes Rare (NORMAL)
--- NOTE | 2023-09-16 07:24 | PM.IMPN ---
Progress Note: A&P Assessment and Plan (1) Congestive heart failure: Qualifiers: Heart failure chronicity: chronic Heart failure type: diastolic Qualified Code(s): I50.32 - Chronic diastolic (congestive) heart failure Code(s): I50.9 - Heart failure, unspecified Status: Chronic (2) Venous insufficiency: Code(s): I87.2 - Venous insufficiency (chronic) (peripheral) Status: Acute (3) Diastolic congestive heart failure: Code(s): I50.30 - Unspecified diastolic (congestive) heart failure Status: Acute (4) Atrial fibrillation: Code(s): I48.91 - Unspecified atrial fibrillation Status: Chronic (5) Insulin dependent diabetes mellitus: Status: Acute (6) Diabetic neuropathy: Code(s): E11.40 - Type 2 diabetes mellitus with diabetic neuropathy, unspecified Status: Acute (7) Lymphedema: Code(s): I89.0 - Lymphedema, not elsewhere classified Status: Acute (8) Wound of lower extremity: Code(s): S81.809A - Unspecified open wound, unspecified lower leg, initial encounter Status: Acute (9) Acute kidney injury: Code(s): N17.9 - Acute kidney failure, unspecified Status: Acute (10) UTI (urinary tract infection): Code(s): N39.0 - Urinary tract infection, site not specified Status: Acute Plan The patient is a 78-year-old male with a past medical history significant for chronic kidney disease, diabetic neuropathy, diastolic heart failure, peripheral vascular disease, gout, history of left femoral artery pseudoaneurysm, insulin-dependent type 2 diabetes, morbid obesity, paroxysmal atrial fibrillation, lymphedema, and hypertension. 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 He lives in assisted living and has been experiencing progressively worsening bilateral leg swelling and pain associated with his SCROTAL EDEMA. The patient also reports an inability to urinate since earlier in the day and increased shortness of breath with minimal exertion, such as transferring from his wheelchair to the toilet. UTI On evaluation in the emergency department, the patient was found to be hemodynamically stable. A Barajas catheter was placed without issue, and scrotal elevation was performed. Urinalysis indicated a possible urinary tract infection with 6 to 10 white blood cells per high power field and the presence of white blood cell clumps; empiric antibiotic therapy was initiated. Urine culture grows no better, discontinue antibiotics Hypokalemia Laboratory results revealed an elevated creatinine level of 3, with a mildly elevated potassium of 5.4. Which possible resulted from CKD The patient was treated with insulin and dextrose for hyperkalemia and received furosemide (Lasix) diuresis. Tremors: Neurology consulted; Brain MRI 1. No acute intracranial process. 2. Age-related changes including mild to moderate diffuse volume loss and mild scattered white matter hypoattenuation consistent with chronic small vessel ischemic disease. Neurologist considers possible related go pending, which is discontinued. Patient no jerking movement today. Management per neurologist Fluid overloaded, acute on chronic diastolic heart failure An echocardiogram from July 18 showed normal ejection fraction with biatrial dilation, and the patient had a significantly elevated B-type natriuretic peptide (BNP) level at 11,000. Chest X-ray demonstrated pulmonary vascular congestion and a right-sided pleural effusion. Will repeat chest x-ray to further evaluate today Increased Lasix from 40 mg daily to 40 mg b.i.d. IV push 09/09 Patient still has swelling of left lower extremity and scrotum, will increase lasix to 60 mg bid ivp Change back to Lasix 40 mg b.i.d. p.o. on 09/15, 09/16: Patient has negative input output, negative balance 2390 mL Multifocal pneumonia Chest x-ray suggests pneumonia involving right middle and lower lobe
--- NOTE | 2023-09-16 07:34 | PM.DS ---
DS: Admitting Diagnosis Discharge Date 09/16/23 Admitting Diagnosis (1) Congestive heart failure: ?Qualifiers: ?Heart failure chronicity:?chronic??Heart failure type:?diastolic? Qualified Code(s):?I50.32 - Chronic diastolic (congestive) heart failure ?Code(s): I50.9 - Heart failure, unspecified ?Status:?Chronic (2) Venous insufficiency: ?Code(s): I87.2 - Venous insufficiency (chronic) (peripheral) ?Status:?Acute (3) Diastolic congestive heart failure: ?Code(s): I50.30 - Unspecified diastolic (congestive) heart failure ?Status:?Acute (4) Atrial fibrillation: ?Code(s): I48.91 - Unspecified atrial fibrillation ?Status:?Chronic (5) Insulin dependent diabetes mellitus: ?Status:?Acute (6) Diabetic neuropathy: ?Code(s): E11.40 - Type 2 diabetes mellitus with diabetic neuropathy, unspecified ?Status:?Acute (7) Lymphedema: ?Code(s): I89.0 - Lymphedema, not elsewhere classified ?Status:?Acute (8) Wound of lower extremity: ?Code(s): S81.809A - Unspecified open wound, unspecified lower leg, initial encounter ?Status:?Acute (9) Acute kidney injury: ?Code(s): N17.9 - Acute kidney failure, unspecified ?Status:?Acute (10) UTI (urinary tract infection): ?Code(s): N39.0 - Urinary tract infection, site not specified ?Status:?Acute DS: Discharge Diagnosis Discharge Diagnosis (1) Congestive heart failure: Qualifiers: Heart failure chronicity: chronic Heart failure type: diastolic Qualified Code(s): I50.32 - Chronic diastolic (congestive) heart failure Code(s): I50.9 - Heart failure, unspecified Status: Chronic (2) Venous insufficiency: Code(s): I87.2 - Venous insufficiency (chronic) (peripheral) Status: Acute (3) Diastolic congestive heart failure: Code(s): I50.30 - Unspecified diastolic (congestive) heart failure Status: Acute (4) Atrial fibrillation: Code(s): I48.91 - Unspecified atrial fibrillation Status: Chronic (5) Insulin dependent diabetes mellitus: Status: Acute (6) Diabetic neuropathy: Code(s): E11.40 - Type 2 diabetes mellitus with diabetic neuropathy, unspecified Status: Acute (7) Lymphedema: Code(s): I89.0 - Lymphedema, not elsewhere classified Status: Acute (8) Wound of lower extremity: Code(s): S81.809A - Unspecified open wound, unspecified lower leg, initial encounter Status: Acute (9) Acute kidney injury: Code(s): N17.9 - Acute kidney failure, unspecified Status: Acute (10) UTI (urinary tract infection): Code(s): N39.0 - Urinary tract infection, site not specified Status: Acute DS: Summary Hospital Course Hospital Course: The patient is a 78-year-old male with a past medical history significant for chronic kidney disease, diabetic neuropathy, diastolic heart failure, peripheral vascular disease, gout, history of left femoral artery pseudoaneurysm, insulin-dependent type 2 diabetes, morbid obesity, paroxysmal atrial fibrillation, lymphedema, and hypertension. 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 He lives in assisted living and has been experiencing progressively worsening bilateral leg swelling and pain associated with his SCROTAL EDEMA. The patient also reports an inability to urinate since earlier in the day and increased shortness of breath with minimal exertion, such as transferring from his wheelchair to the toilet. Patient was admitted to the hospital for further evaluation and treatment The following med issues have been addressed during hospitalization UTI On evaluation in the emergency department, the patient was found to be hemodynamically stable. A Barajas catheter was placed without issue, and scrotal elevation was performed. Urinalysis indicated a possible urinary tract infection with 6 to 10 white blood cells per high
[2023-09-16 08:29] LABS: Glucose Point of Care 121 mg/dl (65-105)
[2023-09-16] MEDS: APIXABAN 2.5 MG TABLET PO (09:25)
[2023-09-16] MEDS: FUROSEMIDE 40 MG TABLET PO (09:25)
[2023-09-16] MEDS: dilTIAZem HCL CD 240 MG CAP.24HR PO (09:25)
[2023-09-16] MEDS: METOPROLOL SUCCINATE EXT REL 25 MG TABCR PO (09:26)
[2023-09-16] MEDS: LACTIC ACID 12% LOTION 225 BTL 1 APPLIC TOPICAL (09:26)
[2023-09-16 12:33] LABS: Glucose Point of Care 141 mg/dl (65-105)
[2023-09-16 20:38] LABS: Ceruloplasmin 34 mg/dL (18-36)
== END 2023-09-16 15:53 | DRG 291 ==
LOC: ANHED 05:14 → ANHIMU 05:40 → ANH3MED 09-08 22:32
PROVIDERS: Internal Medicine; Internal Medicine Nephrology; Student in an Organized Health Care Education/Training Program; Admitting Provider Internal Medicine; Emergency Provider Emergency Medicine; PCP Internal Medicine; Visit Provider Hospitalist
DX: I13.0 Hypertensive heart and chronic kidney disease with heart failure and stage 1 through stage 4 chronic kidney disease, or unspecified chronic kidney disease (principal); I50.33 Acute on chronic diastolic (congestive) heart failure; J18.9 Pneumonia, unspecified organism; Z68.41 Body mass index [BMI] 40.0-44.9, adult; N17.9 Acute kidney failure, unspecified; L03.116 Cellulitis of left lower limb; L03.115 Cellulitis of right lower limb; I48.20 Chronic atrial fibrillation, unspecified; N39.0 Urinary tract infection, site not specified; E11.42 Type 2 diabetes mellitus with diabetic polyneuropathy; E11.22 Type 2 diabetes mellitus with diabetic chronic kidney disease; N18.32 Chronic kidney disease, stage 3b; E66.01 Morbid (severe) obesity due to excess calories; R25.1 Tremor, unspecified; N50.89 Other specified disorders of the male genital organs; I73.9 Peripheral vascular disease, unspecified; F41.1 Generalized anxiety disorder; E87.5 Hyperkalemia; I87.2 Venous insufficiency (chronic) (peripheral); M10.9 Gout, unspecified; T42.6X5A Adverse effect of other antiepileptic and sedative-hypnotic drugs, initial encounter; Z86.16 Personal history of COVID-19; Z79.01 Long term (current) use of anticoagulants
CPT/HCPCS: 36415; 70551; 71045; 72192; 76705; 76775; 80048; 80053; 80069; 81001; 82140; 82390; 82550; 82570; 82948; 83735; 83880; 84100; 84145; 84156; 84300; 84443; 84540; 84550; 85025; 85610; 87086; 93005; 96374; 97110; 97161; 97166; 97530; 97535; 99285; A9270; J0456; J0696; J1815; J1940